=== PATIENT | female | born 1970 | race Caucasian/White ===

== ENCOUNTER → 2020-04-06 13:16 | Outpatient (BNVA) | payer OTHER, SELFPAY | PROVIDERS: Referring Provider Internal Medicine; Visit Provider Surgery | DX: Z76.89 Persons encountering health services in other specified circumstances (principal) ==

== ENCOUNTER 2020-04-13 13:00 | Outpatient (REF) | payer OTHER, SELFPAY ==
--- NOTE | 2020-04-13 13:08 | US_ITS ---
EXAMINATION: LOWER EXTREMITY VENOUS ULTRASOUND, BILATERAL CLINICAL INFORMATION: Edema COMPARISON: None. TECHNIQUE: Doppler spectral analysis and color flow Doppler imaging was performed of the lower extremity. Compression and augmentation maneuvers were performed. FINDINGS: The visualized bilateral common femoral, femoral, popliteal veins demonstrate normal compressibility and color fill-in without evidence of venous thrombosis. Visualized portions of the mid calf veins demonstrate normal color fill-in suggesting patency. ADDITIONAL FINDINGS: None. IMPRESSION: No evidence for bilateral lower extremity deep vein thrombosis.
[2020-04-13 15:23] LABS: B Type Natriuretic Peptide < 10 pg/mL (<100)
[2020-04-13 15:38] LABS: TSH reflex Free T4 2.43 mIU/mL (0.32-4.0)
== END 2020-04-13 13:01 | disposition home or self-care (01) ==
LOC: HO.HMGCX 13:00
PROVIDERS: PCP Internal Medicine; Visit Provider Nurse Practitioner Family
DX: N64.89 Other specified disorders of breast (principal); Z85.3 Personal history of malignant neoplasm of breast; Z92.3 Personal history of irradiation; R60.0 Localized edema
CPT/HCPCS: 11104; 83880; 84443; 88305; 88341; 88342; 88360; 93970

== ENCOUNTER → 2020-04-20 15:40 | Outpatient (BNVA) | payer OTHER, SELFPAY | PROVIDERS: PCP Internal Medicine; Visit Provider Surgery | DX: Z76.89 Persons encountering health services in other specified circumstances (principal) ==

== ENCOUNTER 2020-04-20 16:23 | Outpatient (REF) | payer OTHER, SELFPAY ==
[2020-04-20 17:15] LABS: Blood Urea Nitrogen 14 mg/dL (9-16); Estimated Glomerular Filt Rate > 60
== END 2020-04-20 16:24 | disposition home or self-care (01) ==
LOC: HO.LAB 16:23
PROVIDERS: PCP Internal Medicine; Visit Provider Surgery
DX: Z01.812 Encounter for preprocedural laboratory examination (principal); N64.9 Disorder of breast, unspecified; Z85.3 Personal history of malignant neoplasm of breast
CPT/HCPCS: 82565; 84520

== ENCOUNTER 2020-04-29 17:57 | Outpatient (REF) | payer OTHER, SELFPAY ==
--- NOTE | 2020-04-29 17:59 | MR_ITS ---
EXAMINATION: MR BREAST WITHOUT AND WITH CONTRAST, BILATERAL CLINICAL INFORMATION: Pain, burning, itching right breast. Personal history of right breast cancer. Recent benign ultrasound guided biopsy, retroareolar, 2 3:00. COMPARISON: Ultrasound biopsy 01/06/2020. Mammogram 12/31/2019. No previous breast MRI. TECHNIQUE: Imaging was performed with a dedicated breast coil. Prior to the administration of contrast, bilateral axial T1 and bilateral axial T2 weighted sequences were obtained. After the uneventful administration of?8.5 mL of Gadavist, dynamic contrast-enhanced VIBRANT series through the breasts in the axial plane were performed. Subtracted images were performed and reviewed. A delayed sagittal sequence through both breasts was acquired. Additionally, CAD post-processing, including maximum intensity projections, 3-D reconstructions and kinetic analysis, were performed an independent workstation and reviewed by the interpreting radiologist is a portion of this exam. FINDINGS: The patient's fibroglandular tissue demonstrates moderate background enhancement. LEFT BREAST: In the 4:00 position of the left breast, 5.7 cm from nipple, there is linear clumped enhancement measuring 1.1 cm anterior to posterior. This finding demonstrates type I and type II enhancement (image 85, series 100). There is no T2 correlate. There is no mammographic correlate. MRI guided biopsy of this finding is recommended. There is no other suspicious nonmasslike or masslike enhancement within the left breast. Review of the T2-weighted images demonstrates no additional findings. Review of the kinetic images demonstrates no additional suspicious findings. RIGHT BREAST: Within the dermal tissues of the anterior right breast immediately adjacent and involving the nipple which appears to be retracted, there is an irregular enhancing mass measuring 1.8 (transverse) by 0.7 (AP) by 1.1 (CC) CM (image 67, series 100). This finding is markedly asymmetric. Finding demonstrates type III enhancement. . The lesion appears to extend to the anterior skin surface and also posteriorly within the breast tissue itself (image 68, series 100). The imaging appearance is worrisome for malignancy. Based on the superficial location, this finding should be amenable to the skin punch biopsy targeted to the medial aspect of the right nipple, approximately the 3:00 position. There are multiple concerning areas of enhancement within the dermis of the medial skin of the anterior right breast. 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 The previous lumpectomy scar is demonstrated in the upper outer quadrant of the right breast. There is minimal enhancement associated with this area. There is asymmetric nonmasslike enhancement located at 6:00 which measures at least 4.5 cm anterior to posterior and to 3.5 cm in the transverse plane. This finding is very asymmetric compared to the contralateral left breast. The kinetics demonstrate type I enhancement. Recommend MRI guided biopsy for further evaluation. No other definite suspicious nonmasslike or masslike enhancement within the right breast There is no suspicious internal mammary chain or axillary adenopathy. Limited views of the chest and abdomen are unremarkable. MR/MR breast BI wo/w con IMPRESSION: 1. Suspicious enhancing mass mostly centered within the nipple areolar complex, medial aspect which should be amenable to skin punch biopsy. Additional areas of abnormal enhancement within the dermis of the skin of the medial right breast 3 days concern for inflammatory carcinoma. 2. Suspicious nonmasslike enhancement, right breast, 6:00. 3. Suspicious nonmasslike enhancement, left breast, 4:00. ASSESSMENT: LEFT BREAST: BI-RADS 4 - Suspicious abnormality - Biopsy should be considered. RIGHT BREAST: BI-RADS 4 - Suspicious abnormality - Biopsy should be considered. RECOMMENDATIONS: 1. Areas of nonmasslike enhancement would be amenable to MRI guided biopsy. These could be scheduled on the same day. 2. Recommend clinical correlation to the superficial abnormal findings within the right breast.
== END 2020-04-29 17:58 | disposition home or self-care (01) ==
LOC: HO.MRI 17:57
PROVIDERS: Visit Provider Surgery
DX: N64.9 Disorder of breast, unspecified (principal); Z85.3 Personal history of malignant neoplasm of breast
CPT/HCPCS: 77049; A9585

== ENCOUNTER 2020-05-05 16:15 | Emergency (ER) | payer OTHER, SELFPAY ==
[2020-05-05 16:20] VITALS: BP 134/72; BP 150/88; PULSE 68; PULSE 81; RESP 16; TEMP 36.7; O2SAT 98; O2SAT 99; BMI 35.1
--- NOTE | 2020-05-05 16:53 | XR_ITS ---
EXAMINATION: XR ABDOMEN KUB CLINICAL INDICATION: Fecal impaction COMPARISON: None TECHNIQUE: AP view of the abdomen. FINDINGS: The bowel gas pattern is normal with no evidence of ileus or obstruction. Gas and stool are present throughout the colon. The rectum is not particularly distended. No unusual soft tissue calcifications are noted. The bones are unremarkable aside from degenerative changes in the lower lumbosacral spine. XR/XR KUB IMPRESSION: Unremarkable examination. No radiographic evidence of fecal impaction.
--- NOTE | 2020-05-05 17:04 | ED.ABDPAIN ---
HPI - Abdominal Pain General Chief Complaint: Abdominal Pain Stated Complaint: abd pain Time Seen by Provider: 05/05/20 16:53 Source: patient Mode of arrival: ambulatory Limitations: no limitations History of Present Illness HPI narrative: patient does has right mastectomy 2 days ago for breast cancer discharged yesterday was constipated for last 2 days moved her bowel prior to arrival and noticed severe pain in the abdomen now she feeling better patient did have hard stools. No nausea no vomiting no fever MD elicited complaint: abdominal pain Pertinent past history: constipation Onset (ago): hour(s) (2) Pain Consistency: intermittent Location: diffuse Severity: moderate Quality: cramping Migration to: no migration Exacerbating factors: nothing Associated symptoms: denies other symptoms Related Data Home Medications Medication Instructions Recorded Confirmed levothyroxine 150 mcg tablet 300 mcg PO QAM 04/06/20 04/22/20 tamoxifen 20 mg tablet 20 mg PO DAILY 04/06/20 04/22/20 trazodone 50 mg tablet 50 mg PO BEDTIME PRN tab 04/21/20 04/22/20 Previous Rx's Medication Instructions Recorded triamcinolone acetonide 0.1 % 1 applic TOPICAL DAILY #15 g 04/06/20 topical cream meclizine 25 mg tablet 25 mg PO TID PRN #30 tab 04/14/20 furosemide 20 mg tablet 10 mg PO QAM PRN 30 Days #15 tab 04/21/20 docusate sodium [Colace] 200 mg PO DAILY #60 cap 05/05/20 polyethylene glycol 3350 [Miralax] 17 g PO DAILY PRN #238 g 05/05/20 Allergies Allergy/AdvReac Type Severity Reaction Status Date / Time No Known Allergies Allergy Verified 04/21/20 16:05 [No Known Allergies*] Review of Systems Review of Systems REVIEW OF SYSTEMS: Pertinent positives and negatives are stated above in the history. GEN: no fevers, chills, fatigue HEENT: no nasal congestion, sore throat, ear pain NEURO: no headache, dizziness, focal weakness PULM: no cough, shortness of breath CV: no chest pain, palpitations, LE edema ABD: no nausea, vomiting, diarrhea : no dysuria, urgency, frequency SKIN: no rash ROS otherwise negative x 10 Physical Exam Vital Signs: Vital Signs: Vital Signs Temp Pulse Resp BP Pulse Ox 05/05/20 16:20 98.0 F 81 16 150/88 H 99 Body Mass Index 35.1 Appearance: Alert. Oriented X3. No acute distress. Eyes: Pupils equal, round and reactive to light. ENT: Pharynx normal. Neck: Normal inspection. Neck supple. CVS: Normal heart rate and rhythm. Pulses normal. Respiratory: No respiratory distress. Breath sounds normal. status post right mastectomy with drain in place Abdomen: Soft and nontender. no palpable mass no rebound tenderness or guarding bowel sounds of normal Skin: Skin warm and dry. Normal skin color. Normal skin turgor. Extremities: No lower extremity edema. Good range of movement Neuro: Oriented X 3. No motor deficit. No sensory deficit. Course Course Course Narrative: feeling better now denies any significant abdominal pain took milk of magnesia will discharge patient home no signs of small-bowel obstruction Discharge Plan Discharge Clinical Impression: Constipation Qualifiers: Constipation type: drug induced constipation Qualified Code(s): K59.03 - Drug induced constipation Patient Disposition: Home, Self-Care Instructions: Constipation (ED) Additional Instructions: drink plenty of fluids , take medication for constipation daily as advised Prescriptions: New polyethylene glycol 3350 [Miralax] 17 gram/dose powder 17 g PO DAILY PRN (Reason: constipation) Qty: 238 RF: 0 docusate sodium [Colace] 100 mg capsule 200 mg PO DAILY Qty: 60 RF: 0 No Action meclizine 25 mg tablet 25 mg PO TID PRN (Reason: dizziness) Qty: 30 RF: 0 furosemide [Lasix] 20 mg tablet 10 mg PO QAM PRN (Reason: edema) 30 Days Qty: 15 RF: 0 tamoxifen 20 mg tablet 20 mg PO DAILY RF: 0 levothyroxine 150 mcg tablet 300 mcg PO QAM RF: 0 triamcinolone acetonide 0.1 % cream 1 applic topical DAILY Qty: 15 RF: 0 trazodone 50 mg tablet 50 mg PO BEDTIME PRN (Reason: insomnia) RF: 0 Interventions: ED Discharge Assessment Last Done: 05/05/20 18:26 Discharge Date/Time: 05/05/20 18:27 [facility] Past Medical History Medical History Elevated blood sugar History of right breast cancer Hypothyroid Sleep apnea Swelling of lower extremity Surgical History History of breast lump/mass excision History of lumpectomy of right breast History of lymph node excision History of tonsillectomy (~2014) Family History Family History Mother No problems noted. Father No problems noted. Paternal Aunt History of breast cancer Paternal Uncle History of Hodgkin's disease Social History Social History Alcohol intake: never Smoking Status: Never smoker Smoked in Last 30 Days: No Use of substances other than those prescribed or required for medical reasons: No Any prior treatment program specific to substance use: No Advance Directives: No Advance Directives Information Provided: Yes
[2020-05-05] MEDS: Milk of Magnesia 30 ML ORAL.SUSP PO (17:32)
== END 2020-05-05 18:27 | disposition home or self-care (01) ==
PROVIDERS: Emergency Provider Internal Medicine
DX: K59.03 Drug induced constipation (principal); R10.9 Unspecified abdominal pain; Z79.899 Other long term (current) drug therapy
CPT/HCPCS: 74018; 99283; 99284

== ENCOUNTER → 2020-05-07 11:08 | Outpatient (BNVA) | payer OTHER, SELFPAY | PROVIDERS: PCP Internal Medicine; Referring Provider Internal Medicine; Visit Provider Dietitian, Registered | DX: Z76.89 Persons encountering health services in other specified circumstances (principal) ==

== ENCOUNTER → 2020-05-11 11:47 | Outpatient (BNVA) | payer OTHER, SELFPAY | PROVIDERS: PCP Internal Medicine; Visit Provider Surgery | DX: Z76.89 Persons encountering health services in other specified circumstances (principal) ==

== ENCOUNTER 2020-06-10 12:12 | Outpatient (REF) | payer OTHER, SELFPAY ==
[2020-06-10 12:58] LABS: MANUAL DIFF FLAG NO
[2020-06-10 13:07] LABS: Basophils Percent Auto 0.5 % (0-2); Eosinophils Absolute Auto 0.2 X10*3/uL (0.0-0.4); Eosinophils Percent Auto 2.5 % (0-4); Hematocrit 38.9 % (37-47); Hemoglobin 12.9 g/dl (12.0-16.0); Imm Gran Abs Auto 0.03 X10*3/uL (0.00-0.03); Imm Gran Pct Auto 0.5 % (0.0-0.4); Lymphocytes Percent Auto 31.7 % (20-40); Mean Corpuscular HGB Conc 33.2 g/dl (31.0-35.0); Mean Corpuscular Hemoglobin 30.1 pg (27.0-33.0); Mean Corpuscular Volume 90.7 fL (80-98); Mean Platelet Volume 12.3 fL (9.4-12.3); Monocytes Absolute Auto 0.6 X10*3/uL (0.1-1.2); Monocytes Percent Auto 9.3 % (2-11); Neutrophils Absolute Auto 3.5 X10*3/uL (2.0-8.3); Neutrophils Percent Auto 55.5 % (45-73); Platelet Count 182 X10*3/uL (160-400); Red Blood Count 4.29 X10*6/uL (4.20-5.50); Red Cell Distribution Width 11.8 % (11.0-16.0); White Blood Count 6.4 X10*3/uL (4.8-10.8)
[2020-06-10 13:40] LABS: Anion Gap 15 (12-20); Blood Urea Nitrogen 14 mg/dL (9-16); Calcium 9.5 mg/dL (8.4-10.2); Carbon Dioxide 25 mmol/L (22-29); Chloride 104 mmol/L (96-108); Estimated Glomerular Filt Rate > 60; Glucose Random 163 mg/dL (60-115); Potassium 4.7 mmol/l (3.3-5.1); Sodium 139 mmol/L (135-145)
[2020-06-10 13:59] LABS: TSH reflex Free T4 1.08 mIU/mL (0.32-4.0)
== END 2020-06-10 12:13 | disposition home or self-care (01) ==
LOC: HO.LAB 12:12
PROVIDERS: PCP Internal Medicine; Visit Provider Internal Medicine
DX: C50.911 Malignant neoplasm of unspecified site of right female breast (principal); E03.9 Hypothyroidism, unspecified; R73.9 Hyperglycemia, unspecified
CPT/HCPCS: 36415; 80048; 84443; 85025

== ENCOUNTER 2020-06-15 08:00 | Outpatient (RCR) | payer OTHER, SELFPAY | END 2020-07-19 11:43 | disposition other institution (70) | LOC: HO.PT 08:00 | PROVIDERS: Visit Provider Physician Assistant Medical | DX: Z48.89 Encounter for other specified surgical aftercare (principal); C50.911 Malignant neoplasm of unspecified site of right female breast; Z90.11 Acquired absence of right breast and nipple | CPT/HCPCS: 97110; 97112; 97140; 97163 ==

== ENCOUNTER → 2020-07-16 11:10 | Outpatient (BNVA) | payer OTHER, SELFPAY | PROVIDERS: PCP Internal Medicine; Visit Provider Dietitian, Registered | DX: Z76.89 Persons encountering health services in other specified circumstances (principal) ==

== ENCOUNTER → 2020-08-10 10:11 | Outpatient (BNVA) | payer OTHER, SELFPAY | PROVIDERS: PCP Internal Medicine; Visit Provider Psychiatry & Neurology Neurology ==

== ENCOUNTER 2020-09-14 15:16 | Outpatient (REF) | payer OTHER, SELFPAY ==
--- NOTE | ~2020-09-14 | XR_ITS ---
EXAMINATION: XR KNEE, RIGHT CLINICAL INFORMATION: Pain right knee COMPARISON: Radiographs right knee 10/17/2018 TECHNIQUE: Four views of the right knee. FINDINGS: There is no acute or healing fracture, dislocation, destructive process. Again, there is tricompartment osteoarthritis with mild genu varus and marginal osteophytes from the patella and femoral condyles and tibial plateau. There is small suprapatellar effusion again seen. No interval erosive change. XR/XR knee RT 4V IMPRESSION: Tricompartment osteoarthritis with mild genu varus and small suprapatellar effusion.
== END 2020-09-14 15:17 | disposition home or self-care (01) ==
LOC: HO.HMGCX 15:16
PROVIDERS: PCP Internal Medicine; Visit Provider Internal Medicine
DX: M25.561 Pain in right knee (principal)
CPT/HCPCS: 73564

== ENCOUNTER 2020-09-20 13:05 | Outpatient (REF) | payer OTHER, SELFPAY ==
[2020-09-20 14:44] LABS: Alanine Aminotransferase 56 U/L (0-31); Albumin Level 4.6 g/dL (3.5-5.0); Alkaline Phosphatase 99 U/L (39-117); Anion Gap 16 (12-20); Aspartate Amino Transferase 27 U/L (5-31); Bilirubin Total 0.5 mg/dL (0.0-1.0); Blood Urea Nitrogen 13 mg/dL (9-16); Calcium 10.2 mg/dL (8.4-10.2); Carbon Dioxide 26 mmol/L (22-29); Chloride 102 mmol/L (96-108); Estimated Glomerular Filt Rate > 60; Glucose Random 229 mg/dL (60-115); Potassium 4.8 mmol/L (3.3-5.1); Sodium 139 mmol/L (135-145); Total Protein 7.4 g/dL (6.5-8.0)
[2020-09-20 14:55] LABS: TSH reflex Free T4 0.01 uIU/mL (0.32-4.0)
[2020-09-20 15:46] LABS: Free T4 (Free Thyroxine) 1.47 ng/dL (0.71-1.85)
== END 2020-09-20 13:06 | disposition home or self-care (01) ==
LOC: HO.LAB 13:05
PROVIDERS: PCP Internal Medicine; Visit Provider Internal Medicine
DX: E03.9 Hypothyroidism, unspecified (principal); M79.89 Other specified soft tissue disorders; G47.9 Sleep disorder, unspecified
CPT/HCPCS: 36415; 80053; 84439; 84443

== ENCOUNTER 2020-10-12 10:39 | Outpatient (REF) | payer MEDICAID, SELFPAY ==
--- NOTE | ~2020-10-12 | XR_ITS ---
EXAMINATION: KNEE X-RAY CLINICAL INFORMATION: Pain COMPARISON: Previous right knee x-ray August 2020 and left knee x-ray September 2018 TECHNIQUE: Standing AP view of both knees and lateral and sunrise view of the left knee FINDINGS: Left knee: There is mild varus angulation. Bone alignment is otherwise normal. No fracture or dislocation is seen. There is arthritis at the patellofemoral and femoral tibial joints with joint space narrowing and small osteophytes. There is no joint effusion. Standing AP view of the right knee demonstrates varus angulation and medial femoral tibial joint space narrowing. XR/XR knee standing BI IMPRESSION: Bilateral varus angulation and arthritis.
--- NOTE | ~2020-10-12 | XR_ITS ---
EXAMINATION: KNEE X-RAY CLINICAL INFORMATION: Pain COMPARISON: Previous right knee x-ray August 2020 and left knee x-ray September 2018 TECHNIQUE: Standing AP view of both knees and lateral and sunrise view of the left knee FINDINGS: Left knee: There is mild varus angulation. Bone alignment is otherwise normal. No fracture or dislocation is seen. There is arthritis at the patellofemoral and femoral tibial joints with joint space narrowing and small osteophytes. There is no joint effusion. Standing AP view of the right knee demonstrates varus angulation and medial femoral tibial joint space narrowing. XR/XR knee LT 2V IMPRESSION: Bilateral varus angulation and arthritis.
== END 2020-10-12 10:40 | disposition home or self-care (01) ==
LOC: HO.HOSX 10:39
PROVIDERS: PCP Internal Medicine; Visit Provider Orthopaedic Surgery
DX: M17.0 Bilateral primary osteoarthritis of knee (principal)
CPT/HCPCS: 73560; 73565; 99212

== ENCOUNTER → 2020-10-15 10:28 | Outpatient (BNVA) | payer MEDICAID, SELFPAY | PROVIDERS: PCP Internal Medicine; Visit Provider Dietitian, Registered | DX: R73.9 Hyperglycemia, unspecified (principal) | CPT/HCPCS: 97803 ==

== ENCOUNTER 2020-10-20 14:22 | Outpatient (REF) | payer MEDICAID, SELFPAY ==
--- NOTE | ~2020-10-20 | US_ITS ---
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 MR breasts April 2020 also noted 11 mm linear enhancement 4:00 left breast for MR-guided biopsy. Left breast biopsy not performed to date. Assess left breast for ultrasound correlate. COMPARISON: MRI bilateral breasts 04/29/2020, bilateral digital breast tomosynthesis 12/31/2019. TECHNIQUE: Ultrasound left breast is targeted to the outer breast using grayscale imaging and color Doppler without and with harmonics. Case discussed with surgical office ([facility]) prior to imaging to confirm imaging plans for today. FINDINGS: There is no focal suspicious finding. There is no solid mass, architectural abnormality, duct ectasia, or edema in the soft tissue planes. There is a tiny cyst 4:00 position only 0.2 cm. No ultrasound correlate for the linear enhancement left breast noted on MRI 2019. Results are discussed with the patient at time of visit. Patient notes [place] [facility] [place]. Patient also due for annual left mammography. The prior MR guided left breast biopsy recommendation discussed. If MR guided biopsy is not contemplated, then follow-up MR imaging would be helpful to reassess the lesion for change. US/US breast LT limited IMPRESSION: Targeted left breast ultrasound unremarkable. No ultrasound correlate for left breast linear enhancement on MR. ASSESSMENT: BI-RADS 2: Benign RECOMMENDATION: Patient will be due for annual left mammography. This could be performed as a diagnostic exam as it has been almost 6 months since the left breast MR guided biopsy recommendation. This patient's information was entered into a reminder system with a target due date for their next mammogram.
== END 2020-10-20 14:23 | disposition home or self-care (01) ==
LOC: HO.MAMMO 14:22
PROVIDERS: Visit Provider Surgery
DX: N64.9 Disorder of breast, unspecified (principal); R92.8 Other abnormal and inconclusive findings on diagnostic imaging of breast; C50.811 Malignant neoplasm of overlapping sites of right female breast; Z90.11 Acquired absence of right breast and nipple
CPT/HCPCS: 76642

== ENCOUNTER → 2020-11-04 12:57 | Outpatient (BNVA) | payer MEDICAID, SELFPAY | PROVIDERS: PCP Internal Medicine; Visit Provider Surgery | DX: R92.8 Other abnormal and inconclusive findings on diagnostic imaging of breast (principal); C50.911 Malignant neoplasm of unspecified site of right female breast; Z92.3 Personal history of irradiation; Z79.810 Long term (current) use of selective estrogen receptor modulators (SERMs) | CPT/HCPCS: 99212 ==

== ENCOUNTER → 2020-12-02 11:15 | Outpatient (REF) | payer MEDICAID, SELFPAY | LOC: HO.NUCMED 11:15 | PROVIDERS: Visit Provider Surgery | DX: Z13.89 Encounter for screening for other disorder (principal) ==

== ENCOUNTER → 2020-12-09 11:01 | Outpatient (REF) | payer MEDICAID, SELFPAY ==
--- NOTE | ~2020-12-09 | NM_ITS ---
EXAMINATION: NM BONE SCAN OF THE WHOLE BODY CLINICAL INFORMATION: Malignant neoplasm of unspecified site of right female breast. Also history of angiosarcoma. COMPARISON: No previous bone scan is available for comparison. Radiographs of the bilateral knees dated 10/12/2020 TECHNIQUE: Multiple gamma scintillation camera images of the whole body were performed 2.75 hours following the intravenous administration of 28 mCi Tc-99m MDP. FINDINGS: In the head, no significant abnormalities are present. In the thoracic cage and upper extremities, there is minimally increased activity in the acromioclavicular and sternoclavicular joints bilaterally and at the costochondral junction of the right first rib. In the spine, there is minimally increased activity in the left side of the lumbosacral junction. In the pelvis, no significant abnormalities are present. In the lower extremities, there is diffusely increased activity in both knees most prominently in the medial compartment on the right, but the medial, lateral, and patellar compartments are involved bilaterally. There is minimally increased activity in the ankles bilaterally. No other definite bony abnormalities are noted. The urinary bladder and faint visualization of both kidneys are noted. NM/NM bone scan whole body IMPRESSION: A few mild nonspecific abnormalities are noted as described above and these are all likely arthritic or traumatic in etiology. The most severe abnormalities are bilaterally in the knees. None of these abnormalities is strongly suspicious for metastatic disease.
== END ==
LOC: HO.NUCMED 11:01
PROVIDERS: Visit Provider Surgery
DX: C50.911 Malignant neoplasm of unspecified site of right female breast (principal)
CPT/HCPCS: 78306; A9503

== ENCOUNTER → 2020-12-15 13:41 | Outpatient (BNVA) | payer SELFPAY | PROVIDERS: PCP Nurse Practitioner Family; Referring Provider Nurse Practitioner Family; Visit Provider Surgery | DX: C50.911 Malignant neoplasm of unspecified site of right female breast (principal) | CPT/HCPCS: 99212 ==

== ENCOUNTER → 2020-12-20 11:03 | Outpatient (BNVA) | payer MEDICAID, SELFPAY | PROVIDERS: PCP Nurse Practitioner Family; Visit Provider Dietitian, Registered | DX: R73.9 Hyperglycemia, unspecified (principal) | CPT/HCPCS: 97803 ==

== ENCOUNTER 2021-01-07 13:27 | Outpatient (REF) | payer MEDICAID, SELFPAY ==
--- NOTE | ~2021-01-07 | MM_ITS ---
EXAMINATION: MM DIAGNOSTIC DIGITAL BREAST TOMOSYNTHESIS, LEFT CLINICAL INFORMATION: Status post right mastectomy with history of angiosarcoma. MRI abnormality for which left breast MRI guided biopsy was recommended. COMPARISON: Mammography: January 06, 2020 and studies dating back to December 19, 2011 TECHNIQUE: Digital breast tomosynthesis is performed in both the craniocaudal and mediolateral oblique views along with computer-aided detection (CAD). Synthesized 2D images are generated from the tomosynthesis. FINDINGS: The breasts are heterogeneously dense, which may obscure small masses (ACR BI-RADS breast composition Category c). There are no new significant masses, abnormal calcifications, or other abnormalities. Stable region of architectural distortion from previous lumpectomy seen in the inferior medial aspect of the left breast. Results are provided to the patient at time of visit by the technologist. MM/MM tomosynthesis diagnostic LT IMPRESSION: There are no significant changes from prior study. Recommend 12 month diagnostic mammogram. ASSESSMENT: BI-RADS 3: Probably Benign RECOMMENDATION: Diagnostic mammography at time of next annual exam, due in 12 months. This patient's information was entered into a reminder system with a target due date for their next mammogram.
== END 2021-01-07 13:28 | disposition home or self-care (01) ==
LOC: HO.MAMMO 13:27
PROVIDERS: Visit Provider Surgery
DX: R92.8 Other abnormal and inconclusive findings on diagnostic imaging of breast (principal)
CPT/HCPCS: 77061; 77065

== ENCOUNTER 2021-01-14 17:03 | Emergency (ER) | payer MEDICAID, SELFPAY ==
--- NOTE | ~2021-01-14 | XR_ITS ---
EXAMINATION: XR CHEST CLINICAL INFORMATION: Weakness COMPARISON: Chest x-ray September 24, 2009 TECHNIQUE: Frontal view of the chest was obtained. 6:22 PM FINDINGS: No significant abnormality is noted involving the heart, lungs, mediastinum, bony thorax or soft tissues. XR/XR chest 1V IMPRESSION: Unremarkable examination.
[2021-01-14 18:01] VITALS: BP 113/76; PULSE 73; RESP 18; TEMP 37.1; O2SAT 98; BMI 34.3
[2021-01-14 18:58] LABS: MANUAL DIFF FLAG NO
[2021-01-14 19:00] LABS: Basophils Absolute Auto 0.1 X10*3/uL (0.0-0.2); Basophils Percent Auto 0.9 % (0-2); Eosinophils Absolute Auto 0.3 X10*3/uL (0.0-0.4); Eosinophils Percent Auto 3.5 % (0-4); Hematocrit 41.1 % (37-47); Hemoglobin 13.4 g/dl (12.0-16.0); Imm Gran Abs Auto 0.05 X10*3/uL (0.00-0.03); Imm Gran Pct Auto 0.6 % (0.0-0.4); Lymphocytes Absolute Auto 2.6 X10*3/uL (1.2-4.9); Lymphocytes Percent Auto 32.2 % (20-40); Mean Corpuscular HGB Conc 32.6 g/dl (31.0-35.0); Mean Corpuscular Hemoglobin 30.6 pg (27.0-33.0); Mean Corpuscular Volume 93.8 fL (80-98); Mean Platelet Volume 11.6 fL (9.4-12.3); Monocytes Absolute Auto 0.5 X10*3/uL (0.1-1.2); Monocytes Percent Auto 5.9 % (2-11); Neutrophils Absolute Auto 4.5 X10*3/uL (2.0-8.3); Neutrophils Percent Auto 56.9 % (45-73); Platelet Count 221 X10*3/uL (160-400); Red Blood Count 4.38 X10*6/uL (4.20-5.50); Red Cell Distribution Width 13.4 % (11.0-16.0)
[2021-01-14 19:24] LABS: Anion Gap 16 (12-20); Blood Urea Nitrogen 15 mg/dL (9-16); Calcium 10.1 mg/dL (8.4-10.2); Carbon Dioxide 26 mmol/L (22-29); Chloride 103 mmol/L (96-108); Creatinine Clr Calc Pharmacy 64.1; Estimated Glomerular Filt Rate > 60; Glucose Random 147 mg/dL (60-115); Potassium 4.7 mmol/L (3.3-5.1); Sodium 140 mmol/L (135-145)
[2021-01-14 19:31] LABS: Troponin-I High Sensitivity < 3.5 ng/L (<3.5-17.0)
[2021-01-14 20:01] LABS: Alanine Aminotransferase 38 U/L (0-31); Albumin Level 4.6 g/dL (3.5-5.0); Alkaline Phosphatase 90 U/L (39-117); Aspartate Amino Transferase 23 U/L (5-31); Bilirubin Direct < 0.2 mg/dL (0.0-0.5); Bilirubin Total 0.4 mg/dL (0.0-1.0); Lipase 56 U/L (8-78); Total Protein 7.7 g/dL (6.5-8.0)
--- NOTE | 2021-01-14 20:01 | ED_ITS ---
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 recently diagnosed with diabetes not on any medication comes here with feeling weak shortness of breath, tiredness denies any urinary complaints Related Data Home Medications Medication Instructions Recorded Confirmed tamoxifen 20 mg tablet 20 mg PO DAILY 04/06/20 12/15/20 meloxicam PO DAILY 06/01/20 12/15/20 gabapentin 400 mg capsule 400 mg PO BID 09/14/20 12/15/20 clonazepam 1 mg tablet 1 mg PO BEDTIME 11/04/20 12/15/20 Previous Rx's Medication Instructions Recorded triamcinolone acetonide 0.1 % 1 applic TOPICAL DAILY #15 g 04/06/20 topical cream meclizine 25 mg tablet 25 mg PO TID PRN #30 tab 04/14/20 docusate sodium [Colace] 200 mg PO DAILY #60 cap 05/05/20 polyethylene glycol 3350 [Miralax] 17 g PO DAILY PRN #238 g 05/05/20 furosemide 20 mg tablet 20 mg PO QAM PRN 30 Days #30 tab 11/08/20 trazodone 50 mg tablet 50 mg PO BEDTIME PRN 90 Days #90 12/13/20 tab levothyroxine 200 mcg tablet 200 mcg PO DAILY 90 Days #90 tab 12/21/20 venlafaxine 37.5 mg 37.5 mg PO DAILY 90 Days #90 cap 12/21/20 capsule,extended release 24 hr nitrofurantoin monohyd/m-cryst 100 mg PO BID 7 Days #14 cap 01/14/21 [Macrobid] Allergies Allergy/AdvReac Type Severity Reaction Status Date / Time No Known Allergies Allergy Verified 01/14/21 18:01 [No Known Allergies*] Review of Systems Review of Systems: Yes all other systems are reviewed and are negative PMFSH Past Medical History Medical History Angiosarcoma of right female breast Diabetes Elevated blood sugar History of right breast cancer Hypothyroid Sleep apnea Swelling of lower extremity Surgical History History of breast lump/mass excision History of lumpectomy of right breast History of lymph node excision History of tonsillectomy (~2014) Family History Family History Mother No problems noted. Father No problems noted. Paternal Aunt History of breast cancer Paternal Uncle History of Hodgkin's disease Social History Social History Alcohol intake: never Advance Directives: No Advance Directives Information Provided: No Patient : No Physical Exam Vital Signs: Vital Signs: Last Vital Signs Temp 98.2 F 01/14/21 20:49 Pulse 63 01/14/21 20:49 Resp 16 01/14/21 20:49 BP 121/68 01/14/21 20:49 Pulse Ox 97 01/14/21 20:49 Body Mass Index 34.3 Appearance: Alert. Oriented X3. No acute distress. Eyes: PERRLA, No Nystagmus ENT: Pharynx normal. Oral Mucosa moist Neck: Normal inspection. Neck supple. CVS: Normal heart rate and rhythm. Pulses normal. Respiratory: No respiratory distress. Equal air entry bilateral, no wheezin g/rales/rhonchi right status post mastectomy Abdomen: Soft and nontender. Bowel sounds are present, no mass palpable, no CVA tenderness Skin: Skin warm and dry. Normal skin color. Normal skin turgor. Extremities: No lower extremity edema. No calf tenderness Neuro: Oriented X 3. No motor deficit. Medical Decision Making [facility] Narrative Medical decision making narrative: Patient with multiple complaints with weakness and chills showed slight UTI with normal WBC count likely the cause for his symptoms will discharge patient home on Macrobid Lab Data Lab results reviewed: Yes I reviewed the patient's lab results. Result diagrams: 01/14/21 18:45 01/14/21 18:45 Labs: Lab Results 01/14/21 01/14/21 01/14/21 Range/Units 18:45 18:45 18:45 WBC 8.0 (4.8-10.8) X10*3/uL RBC 4.38 (4.20-5.50) X10*6/uL Hgb 13.4 (12.0-16.0) g/dl Hct 41.1 (37-47) % MCV 93.8 (80-98) fL MCH 30.6 (27.0-33.0) pg MCHC 32.6 (31.0-35.0) g/dl RDW 13.4 (11.0-16.0) % Plt Count 221 (160-400) X10*3/uL MPV 11.6 (9.4-12.3) fL Immature Gran % (Auto) 0.6 H (0.0-0.4) % Neut % (Auto) 56.9 (45-73) % Lymph % (Auto) 32.2 (20-40) % [place] % (Auto) 5.9 (2-11) % Eos % (Auto) 3.5 (0-4) % Baso % (Auto) 0.9 (0-2) % Lymph # (Auto) 2.6 (1.2-4.9) X10*3/uL [place] # (Auto) 0.5 (0.1-1.2) X10*3/uL Eos # (Auto) 0.3 (0.0-0.4) X10*3/uL Baso # (Auto) 0.1 (0.0-0.2) X10*3/uL Abs Immat Gran (auto) 0.05 H (0.00-0.03) X10*3/uL Absolute Neuts (auto) 4.5 (2.0-8.3) X10*3/uL Absolute Nucleated RBC 0.000 (0.0-0.012) X10*3/uL Nucleated RBC % (auto) 0.0 (0.0-0.2) /100WBC Sodium 140 (135-145) mmol/L Potassium 4.7 (3.3-5.1) mmol/L Chloride 103 (96-108) mmol/L Carbon Dioxide 26 (22-29) mmol/L Anion Gap 16 (12-20) BUN 15 (9-16) mg/dL Creatinine 0.96 (0.5-1.4) mg/dL Estim Creat Clear Calc 64.1 Estimated GFR > 60 Random Glucose 147 H D (60-115) mg/dL Calcium 10.1 (8.4-10.2) mg/dL Total Bilirubin 0.4 (0.0-1.0) mg/dL Direct Bilirubin < 0.2 (0.0-0.5) mg/dL AST 23 (5-31) U/L ALT 38 H (0-31) U/L Alkaline Phosphatase 90 (39-117) U/L Troponin I High Sens < 3.5 (<3.5-17.0) ng/L Total Protein 7.7 (6.5-8.0) g/dL Albumin 4.6 (3.5-5.0) g/dL Lipase 56 (8-78) U/L TSH > 100.00 H (0.32-4.0) uIU/mL Urine Color Urine Appearance Urine pH (5.0-8.0) Ur Specific [place] (1.005-1.025) Urine Protein (NEG-TRACE) MG/DL Urine Glucose (UA) (NEG) MG/DL Urine Ketones (NEG) MG/DL Urine Blood (NEG) Urine Nitrite (NEG) Ur Leukocyte Esterase (NEG) Urine RBC (0) /HPF Urine WBC (0-4) /HPF Ur Squamous Epith Cells /LPF Urine Bacteria /LPF Urine Mucus /LPF 01/14/21 Range/Units 20:37 WBC (4.8-10.8) X10*3/uL RBC (4.20-5.50) X10*6/uL Hgb (12.0-16.0) g/dl Hct (37-47) % MCV (80-98) fL MCH (27.0-33.0) pg MCHC (31.0-35.0) g/dl RDW (11.0-16.0) % Plt Count (160-400) X10*3/uL MPV (9.4-12.3) fL Immature Gran % (Auto) (0.0-0.4) % Neut % (Auto) (45-73) % Lymph % (Auto) (20-40) % [place] % (Auto) (2-11) % Eos % (Auto) (0-4) % Baso % (Auto) (0-2) % Lymph # (Auto) (1.2-4.9) X10*3/uL [place] # (Auto) (0.1-1.2) X10*3/uL Eos # (Auto) (0.0-0.4) X10*3/uL Baso # (Auto) (0.0-0.2) X10*3/uL Abs Immat Gran (auto) (0.00-0.03) X10*3/uL Absolute Neuts (auto) (2.0-8.3) X10*3/uL Absolute Nucleated RBC (0.0-0.012) X10*3/uL Nucleated RBC % (auto) (0.0-0.2) /100WBC Sodium (135-145) mmol/L Potassium (3.3-5.1) mmol/L Chloride (96-108) mmol/L Carbon Dioxide (22-29) mmol/L Anion Gap (12-20) BUN (9-16) mg/dL Creatinine (0.5-1.4) mg/dL Estim Creat Clear Calc Estimated GFR Random Glucose (60-115) mg/dL Calcium (8.4-10.2) mg/dL Total Bilirubin (0.0-1.0) mg/dL Direct Bilirubin (0.0-0.5) mg/dL AST (5-31) U/L ALT (0-31) U/L Alkaline Phosphatase (39-117) U/L Troponin I High Sens (<3.5-17.0) ng/L Total Protein (6.5-8.0) g/dL Albumin (3.5-5.0) g/dL Lipase (8-78) U/L TSH (0.32-4.0) uIU/mL Urine Color YELLOW Urine Appearance HAZY Urine pH 5.5 (5.0-8.0) Ur Specific [place] >= 1.030 H (1.005-1.025) Urine Protein NEG (NEG-TRACE) MG/DL Urine Glucose (UA) NEG (NEG) MG/DL Urine Ketones NEG (NEG) MG/DL Urine Blood NEG (NEG) Urine Nitrite NEG (NEG) Ur Leukocyte Esterase 2+ H (NEG) Urine RBC 0-2 (0) /HPF Urine WBC 10-14 H (0-4) /HPF Ur Squamous Epith Cells 2+ /LPF Urine Bacteria TRACE /LPF Urine Mucus TRACE /LPF Discharge Plan Discharge Clinical Impression: UTI (urinary tract infection) Patient Disposition: Home, Self-Care Instructions: Urinary Tract Infection in Women (ED) Additional Instructions: Drink plenty of fluids antibiotic for infection as prescribed follow-up with your PCP report to ed if vomiting /fever/not better Prescriptions: New nitrofurantoin monohyd/m-cryst [Macrobid] 100 mg capsule 100 mg PO BID 7 Days Qty: 14 RF: 0 No Action furosemide 20 mg tablet 20 mg PO QAM PRN (Reason: edema) 30 Days Qty: 30 RF: 1 trazodone 50 mg tablet 50 mg PO BEDTIME PRN (Reason: insomnia) 90 Days Qty: 90 RF: 0 venlafaxine 37.5 mg capsule,extended release 24hr 37.5 mg PO DAILY 90 Days Qty: 90 RF: 0 levothyroxine 200 mcg tablet 200 mcg PO DAILY 90 Days Qty: 90 RF: 0 polyethylene glycol 3350 [Miralax] 17 gram/dose powder 17 g PO DAILY PRN (Reason: constipation) Qty: 238 RF: 0 docusate sodium [Colace] 100 mg capsule 200 mg PO DAILY Qty: 60 RF: 0 meloxicam PO DAILY RF: 0 gabapentin 400 mg capsule 400 mg PO BID RF: 0 meclizine 25 mg tablet 25 mg PO TID PRN (Reason: dizziness) Qty: 30 RF: 0 tamoxifen 20 mg tablet 20 mg PO DAILY RF: 0 triamcinolone acetonide 0.1 % cream 1 applic topical DAILY Qty: 15 RF: 0 clonazepam [Klonopin] 1 mg tablet 1 mg PO BEDTIME RF: 0 Interventions: ED Discharge Assessment Last Done: 01/14/21 21:31 Discharge Date/Time: 01/14/21 21:32
[2021-01-14 20:40] VITALS: BP 115/61; PULSE 67; RESP 18; TEMP 36.6; O2SAT 98
[2021-01-14 20:43] LABS: Glucose Urine UA NEG (NEG); Leukocyte Esterase Urine 2+ (NEG); Nitrite Urine NEG (NEG); PH 5.5 (5.0-8.0); Specific Gravity - Urine >= 1.030 (1.005-1.025); UACC Culture Trigger YES; Urine Blood NEG (NEG); Urine Ketones NEG (NEG); Urine Protein NEG (NEG-TRACE)
[2021-01-14 20:49] VITALS: BP 121/68; PULSE 63; RESP 16; TEMP 36.8; O2SAT 97
[2021-01-14 20:50] LABS: Appearance Urine HAZY; Color Urine YELLOW
[2021-01-14 20:53] LABS: Bacteria Urine TRACE /LPF; Mucus Urine TRACE /LPF; RBC Urine 0-2 /HPF (0); Squamous Epithelial Cell Urine 2+ /LPF
[2021-01-14 21:22] LABS: Thyroid Stimulating Hormone > 100.00 uIU/mL (0.32-4.0)
[2021-01-14] MEDS: Nitrofurantoin Monohyd/M-Cryst 100 MG CAPSULE PO (21:30)
== END 2021-01-14 21:32 | disposition home or self-care (01) ==
PROVIDERS: Emergency Provider Internal Medicine; PCP Nurse Practitioner Family
DX: N39.0 Urinary tract infection, site not specified (principal); E11.9 Type 2 diabetes mellitus without complications; E03.9 Hypothyroidism, unspecified; Z79.899 Other long term (current) drug therapy
CPT/HCPCS: 36415; 71045; 80048; 80076; 81001; 81003; 83690; 84443; 84484; 85025; 87086; 99284

== ENCOUNTER → 2021-01-31 11:13 | Outpatient (BNVA) | payer MEDICAID, SELFPAY | PROVIDERS: PCP Internal Medicine; Referring Provider Nurse Practitioner Family; Visit Provider Internal Medicine Gastroenterology | DX: K59.09 Other constipation (principal); I88.0 Nonspecific mesenteric lymphadenitis | CPT/HCPCS: 99212 ==

== ENCOUNTER 2021-02-16 17:00 | Outpatient (RCR) | payer MEDICAID, SELFPAY | END 2021-03-15 08:00 | disposition home or self-care (01) | LOC: HO.PT 17:00 | PROVIDERS: PCP Internal Medicine; Visit Provider Surgery Plastic and Reconstructive Surgery | DX: M25.611 Stiffness of right shoulder, not elsewhere classified (principal) | CPT/HCPCS: 97110; 97112; 97140; 97163; 97530 ==

== ENCOUNTER → 2021-04-21 15:34 | Outpatient (BNVA) | payer MEDICAID, SELFPAY | PROVIDERS: Visit Provider Internal Medicine Gastroenterology ==

== ENCOUNTER → 2021-08-24 13:13 | Outpatient (BNVA) | payer MEDICAID, SELFPAY | PROVIDERS: PCP Nurse Practitioner; Referring Provider Nurse Practitioner; Visit Provider Surgery | DX: C50.911 Malignant neoplasm of unspecified site of right female breast (principal) | CPT/HCPCS: 99212 ==

== ENCOUNTER → 2021-08-25 11:59 | Outpatient (BNVA) | payer MEDICAID, SELFPAY | PROVIDERS: PCP Nurse Practitioner; Referring Provider Nurse Practitioner; Visit Provider Internal Medicine Gastroenterology | DX: K59.09 Other constipation (principal); K92.1 Melena; I88.0 Nonspecific mesenteric lymphadenitis; Z86.010 Personal history of colon polyps | CPT/HCPCS: 99212 ==

== ENCOUNTER 2021-10-20 08:14 | Outpatient (REF) | payer MEDICAID, SELFPAY ==
--- NOTE | ~2021-10-20 | MM_ITS ---
EXAMINATION: MM DIAGNOSTIC DIGITAL BREAST TOMOSYNTHESIS, LEFT US DIAGNOSTIC ULTRASOUND BREAST, LEFT CLINICAL INFORMATION: Global left breast pain. Personal history contralateral right breast angiosarcoma status post mastectomy, performed in [place]. COMPARISON: Mammography: 01/07/2021, 12/31/2019, 05/30/2019 TECHNIQUE: Digital breast tomosynthesis is performed in both the craniocaudal and mediolateral oblique views along with computer-aided detection (CAD). Synthesized 2D images are generated from the tomosynthesis. Ultrasound left breast is targeted to all 4 quadrants and the axilla. Grayscale imaging and color Doppler are performed without and with harmonics. FINDINGS: Mammography: There are scattered areas of fibroglandular density (ACR BI-RADS breast composition Category b). Breast tissue composition borders on heterogeneously dense. Breast parenchymal pattern is similar to prior studies. There is no significant mass or architectural abnormality or abnormal calcifications. No skin thickening or retraction. No coarsening Kris's ligaments. Axilla is unremarkable. Ultrasound: Ultrasound left breast demonstrates no solid mass or architectural abnormality. No adenopathy. No skin thickening or edema tracking in soft tissue planes. No focal duct ectasia. There are two small grouped avascular microcysts lower outer left breast both under 1 cm. Results are discussed with the patient at time of visit. MM/MM tomosynthesis diagnostic LT IMPRESSION: -No mammographic evidence of malignancy. -2 small grouped microcysts lower outer left breast under 1 cm. ASSESSMENT: BI-RADS 2: Benign RECOMMENDATION: 1. Patient's global left breast pain should be managed based on the clinical impression. 2. Otherwise, routine annual screening mammography. This patient's information was entered into a reminder system with a target due date for their next mammogram.
== END 2021-10-20 08:15 | disposition home or self-care (01) ==
LOC: HO.MAMMO 08:14
PROVIDERS: Visit Provider Registered Nurse
DX: N64.4 Mastodynia (principal); Z85.3 Personal history of malignant neoplasm of breast
CPT/HCPCS: 76642; 77061; 77065

== ENCOUNTER 2022-01-26 13:02 | Outpatient (REF) | payer MEDICAID, SELFPAY ==
--- NOTE | ~2022-01-26 | MM_ITS ---
EXAMINATION: BONE DENSITOMETRY CLINICAL INDICATION: Osteopenia. COMPARISON: None (current study represents initial baseline exam). TECHNIQUE: Using a [employer] DXA System (software version: 13.1) manufactured by [employer], dual-energy x-ray absorptiometry was performed of the lumbar spine and left hip. The images are of good technical quality. Summary results are attached. FINDINGS: AP SPINE L1-L4: BMD 0.987 g/cm2, Z-score -1.3, T-score -1.6, osteopenia. LEFT FEMUR, NECK: BMD 0.806 g/cm2, Z-score -1.0, T-score -1.7, osteopenia. LEFT FEMUR, TOTAL: BMD 0.875 g/cm2, Z-score -0.8, T-score -1.1, osteopenia. IDENTIFIED RISK FACTORS: Early menopause, osteoporosis, secondary osteoporosis. HISTORY OF FRACTURE: None listed. MEDICATIONS: Calcium, vitamin D, ERT/SERMS. MM/XR DEXA axial skeleton IMPRESSION: 1. DIAGNOSIS: Osteopenia based on the lowest T-score value of -1.7 in the femoral neck applying World Health Organization criteria. 2. 10-YEAR FRACTURE RISK PREDICTION, FRAX: Major osteoporotic fracture (clinical spine, forearm, hip or shoulder) 3.4%. Hip fracture 0.3%. 3. Treatment Recommendations: NOF guidelines recommend consideration for treatment in postmenopausal women and men age 50 and older presenting with the following: -A hip or vertebral (clinical or morphometric) fracture. -T-score less than or equal to -2.5 at the femoral neck or spine after appropriate evaluation to exclude secondary causes. -Low bone mass at the hip or spine and a 10-year fracture probability by FRAX of greater than or equal to 3% for hip fracture or greater than or equal to 20% for major osteoporotic fracture based on the [place] adapted WHO algorithm. 4. Other Recommendations: All treatment decisions require clinical judgment and consideration of individual patient factors, including patient preferences, comorbidities, previous drug use, risk factors not captured in the FRAX model (e.g. frailty, falls, vitamin D deficiency, increased bone turnover, interval significant decline in bone density) and possible under or overestimation of fracture risk by FRAX. Additional medical evaluation for secondary cause of low bone mineral density may be appropriate. FUTURE SCAN RECOMMENDATION: People with diagnosed cases of osteoporosis or at high risk for fracture should have regular bone mineral density tests. For patients eligible for Medicare, routine testing is allowed once every 2 years. The testing frequency can be increased to one year for patients who have rapidly progressing disease, those who are receiving or discontinuing medical therapy to restore bone mass, or have additional risk factors.
== END 2022-01-26 13:03 | disposition home or self-care (01) ==
LOC: HO.MAMMO 13:02
PROVIDERS: PCP Nurse Practitioner; Visit Provider Internal Medicine Medical Oncology
DX: C50.911 Malignant neoplasm of unspecified site of right female breast (principal)
CPT/HCPCS: 77080

== ENCOUNTER 2022-02-06 11:46 | Outpatient (REF) | payer MEDICAID, SELFPAY ==
[2022-02-06 15:48] LABS: CT PCR NOT DETECTED (Not Detect.); NG PCR NOT DETECTED (Not Detect.)
[2022-02-07 09:04] LABS: BV Int Neg Control Negative (Negative); BV Int Pos Control Positive (Positive)
[2022-02-09 04:22] LABS: HPV mRNA E6/E7 rflx Not Detected (Not Detected)
== END 2022-02-06 11:47 | disposition home or self-care (01) ==
LOC: HO.LAB 11:46
PROVIDERS: Visit Provider Advanced Practice Midwife
DX: Z01.419 Encounter for gynecological examination (general) (routine) without abnormal findings (principal); Z11.51 Encounter for screening for human papillomavirus (HPV)
CPT/HCPCS: 87480; 87491; 87510; 87591; 87624; 87660; 88142

== ENCOUNTER → 2022-02-09 13:57 | Outpatient (BNVA) | payer MEDICAID, SELFPAY | PROVIDERS: PCP Nurse Practitioner; Visit Provider Nurse Practitioner Family | DX: G47.33 Obstructive sleep apnea (adult) (pediatric) (principal); Z99.89 Dependence on other enabling machines and devices | CPT/HCPCS: 99212 ==

== ENCOUNTER 2022-03-23 09:47 | Outpatient (REF) | payer MEDICAID, SELFPAY | END 2022-03-23 09:48 | LOC: HO.LNP 09:47 | PROVIDERS: PCP Nurse Practitioner; Visit Provider Obstetrics & Gynecology | DX: R87.618 Other abnormal cytological findings on specimens from cervix uteri (principal); N90.89 Other specified noninflammatory disorders of vulva and perineum | CPT/HCPCS: 56605; 58100; 88305; 88312; 99212 ==

== ENCOUNTER → 2022-04-04 14:57 | Outpatient (BNVA) | payer MEDICAID, SELFPAY | PROVIDERS: PCP Nurse Practitioner; Visit Provider Obstetrics & Gynecology | DX: R87.618 Other abnormal cytological findings on specimens from cervix uteri (principal); N90.89 Other specified noninflammatory disorders of vulva and perineum | CPT/HCPCS: 99212 ==

== ENCOUNTER 2022-04-20 12:53 | Outpatient (REF) | payer MEDICAID, SELFPAY | END 2022-04-20 12:54 | disposition home or self-care (01) | LOC: HO.LNP 12:53 | PROVIDERS: PCP Nurse Practitioner; Visit Provider Obstetrics & Gynecology | DX: N90.89 Other specified noninflammatory disorders of vulva and perineum (principal) | CPT/HCPCS: 56605; 88305; 88312 ==

== ENCOUNTER → 2022-04-26 12:39 | Outpatient (BNVA) | payer MEDICAID, SELFPAY | PROVIDERS: PCP Nurse Practitioner; Visit Provider Obstetrics & Gynecology | DX: N90.89 Other specified noninflammatory disorders of vulva and perineum (principal) | CPT/HCPCS: 99212 ==

== ENCOUNTER 2022-11-29 15:46 | Emergency (ER) | payer MEDICARE, MEDICAID, SELFPAY ==
--- NOTE | ~2022-11-29 | CT_ITS ---
EXAMINATION: CT HEAD WITHOUT CONTRAST CLINICAL INFORMATION: Headaches. COMPARISON: CT head dated 08/07/2007. TECHNIQUE: Contiguous axial imaging was performed from the skull base to vertex without intravenous administration of contrast. This CT examination was performed using dose optimization techniques as appropriate, variously including the following: *Automated exposure control *Adjustment of mA and/or kV according to patient size (this includes techniques or standardized protocols for targeted exams where dose is matched to indication/reason for exam; i.e. extremities or head) *Use of iterative reconstruction technique DLP: 616 mGy-cm FINDINGS: No acute intracranial hemorrhage. No mass effect or midline shift. No parenchymal lesion. The bowling-white differentiation is maintained. No extra-axial fluid collection. The ventricles and sulci are unremarkable. The basal cisterns are patent. The calvarium is intact. The visualized paranasal sinuses and mastoid air cells are clear. CT/CT head/brain wo IV con IMPRESSION: No acute intracranial hemorrhage or mass effect.
[2022-11-29 15:50] VITALS: BP 154/94; PULSE 94; RESP 20; TEMP 36.9; O2SAT 98; BMI 34.0
--- NOTE | 2022-11-29 15:51 | ED.GENADULT ---
HPI - General Adult General Chief complaint: General Medical Stated complaint: Sent by [facility] for test Time Seen by Provider: 11/29/22 20:25 Source: patient, family, RN notes reviewed and old records reviewed Mode of arrival: ambulatory Limitations: no limitations History of Present Illness HPI narrative: 52-year-old female presents for evaluation of fatigue. Patient reports a history of diabetes, hypothyroidism, breast cancer, angiosarcoma both in remission She reports for the last 3 weeks she has felt too weak to get out of bed She states that she felt like this when she was diagnosed with hypothyroidism and both of her cancers Patient states that she has a mammogram scheduled for tomorrow She reports intermittent headaches, body aches and dizziness Denies any trauma to the head or neck. Denies any chest pain, shortness of breath, cough She has no other complaints or concerns at the time Related Data Home Medications Medication Instructions Recorded Confirmed metformin 500 mg tablet 500 mg PO BID 01/31/21 02/06/22 sennosides 8.6 mg capsule (senna) 8.6 mg PO DAILY 08/25/21 02/06/22 calcium carbonate 600 mg calcium 1,200 mg PO DAILY 01/16/22 02/06/22 (1,500 mg) tablet (Calcium) cholecalciferol (vitamin D3) 50 1 cap PO DAILY 01/16/22 02/06/22 mcg (2,000 unit) capsule tamoxifen 10 mg tablet 10 mg PO BID 02/06/22 02/06/22 tamoxifen 10 mg tablet 20 mg PO DAILY 02/09/22 Previous Rx's Medication Instructions Recorded polyethylene glycol 3350 17 17 g PO DAILY PRN constipation 05/05/20 gram/dose oral powder (Miralax) #238 grams levothyroxine 200 mcg tablet 200 mcg PO DAILY 90 days #90 tabs 12/21/20 metronidazole 500 mg tablet 500 mg PO BID 7 days #14 tabs 02/08/22 clindamycin phosphate 2 % vaginal 1 appful vaginal BEDTIME #40 grams 02/15/22 cream clobetasol 0.05 % topical cream 1 appl topical BID 2 weeks #45 04/26/22 grams Allergies Allergy/AdvReac Type Severity Reaction Status Date / Time No Known Allergies Allergy Verified 04/26/22 12:45 [No Known Allergies*] Review of Systems Constitutional: Constitutional: Reports as per HPI, Denies chills, Reports fatigue, Denies fever(s) and Reports headache(s) ENT: Reports headache(s) Cardiovascular: Cardiovascular: Denies chest pain and Denies dyspnea Respiratory: Respiratory: Denies cough and Denies dyspnea Gastrointestinal: Gastrointestinal: Denies abdominal pain, Denies constipation and Denies vomiting Genitourinary: Genitourinary: Denies dysuria Neurologic: Reports headache(s) and Denies focal weakness Endocrine: Endocrine: Reports fatigue PMFSH Past Medical History Medical History 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 Father No problems noted. Paternal Aunt History of breast cancer Paternal Uncle History of Hodgkin's disease Maternal Uncle Colon cancer Maternal Aunt Lupus Maternal Uncle Prostate cancer Social History Social History Household Members: Spouse Housing: House Are you a primary intensive care unit nurse to a significant other at home: No Do you presently have visiting nurse or other home services: No Alcohol intake: never Patient Tobacco Use Status: Never used Tobacco Advance Directives: Yes Advance Directives Information Provided: No Advance Directives on File: No service: No Current occupational status: employed Physical Exam ED Vital Signs: Vital Signs - 24 hr 11/29/22 15:50 11/29/22 19:33 11/29/22 21:09 Temperature 98.4 F 98.4 F 97.9 F Pulse Rate 94 85 83 Respiratory Rate 20 18 18 Blood Pressure 154/94 H 141/76 H 120/76 Pulse Oximetry 98 97 96 Oxygen Delivery Method Room Air Room Air Room Air BMI result Body Mass Index 34.0 Const General: healthy appearing, comfortable, no acute distress, alert and awake Nutritional Appearance: well nourished Orientation/consciousness: patient oriented x3 HENMT Head: Yes normocephalic and Yes atraumatic Eyes Eyelids: Yes eyelids normal Conjunctivae: conjunctivae normal Sclerae: sclerae normal Corneas: corneas normal Pupils: Equal, round and reactive pupils present EOM: EOMs intact bilaterally Resp Effort & Inspection: normal respiratory effort, able to speak in complete sentences, no audible wheezes and not labored Auscultation: clear to auscultation bilaterally Cardio Rate: regular rate Rhythm: regular rhythm GI Inspection: No distended Palpation (GI): Soft to palpation, not firm, nontender, no guarding and not rigid Auscultation: normoactive bowel sounds Skin General skin exam: no rashes or lesions noted and elasticity normal Neuro General: patient oriented x3 Cranial nerves: Yes CN's II-XII intact bilaterally, Yes Equal, round and reactive pupils present and Yes Bilaterally intact EOM present Cognition (Neuro): normal cognition Extrem Other: Moving all extremities well without any obvious deformities Course Course Course Narrative: This is an RME: Additional HPI, ROS, PE not included below will be deferred to primary provider. This is a [id number], with a past medical history of hypothyroidism, right-sided breast cancer status post lumpectomy and radiation in 2014, with complaints of headaches, diffuse body pain, nausea, weakness, increased blood sugar, lethargy for 3 weeks. Was seen at [facility] as they could not run a specific test in the office in told her to come to the emergency department where we could run sent test. Patient is unsure what this test is, and was told to come to the ER for further evaluation. Plan: Labs, EKG, UA Reevaluation(s) Reevaluation #1: Patient's TSH was obviously a little bit lower given her history of hypothyroidism. Her T4 was actually slightly high. But this does not appear to be the cause of her symptoms. This was discussed with the patient and her significant other at bedside. CT scan of brain did not show any concerning abnormalities. Time: 22:46 Medical Decision Making Medical Decision Making MDM Narrative: 52-year-old female presents for evaluation of generalized symptoms including fatigue, generalized Headaches. Her physical exam is benign including neurologic exam. Her labs are without significant abnormalities. I will add on TSH and T4 levels. Will get a CT scan the brain given the headaches and fatigue with history of cancer. UA is pending at this time Differential Diagnosis Differential Diagnoses: The differential diagnosis associated with the presentation includes General malaise Anemia Hypothyroidism Cancer Intracranial mass Lab Data MDM Lab Attestation statement: I reviewed the patient's lab results. 11/29/22 16:29 11/29/22 19:47 Labs: Lab Results 11/29/22 11/29/22 11/29/22 Range/Units 16:29 16:29 19:47 WBC 7.8 (4.8-10.8) X10*3/uL RBC 4.51 (4.20-5.50) X10*6/uL Hgb 13.5 (12.0-16.0) g/dl Hct 40.7 (37.0-47.0) % MCV 90.2 (80.0-98.0) fL MCH 29.9 (27.0-33.0) pg MCHC 33.2 (31.0-35.0) g/dl RDW 12.4 (11.0-16.0) % Plt Count 205 (160-400) X10*3/uL MPV 11.9 (9.4-12.3) fL Immature Gran % (Auto) 0.6 H (0.0-0.4) % Neut % (Auto) 54.1 (45-73) % Lymph % (Auto) 33.0 (20-40) % [place] % (Auto) 9.4 (2-11) % Eos % (Auto) 2.4 (0-4) % Baso % (Auto) 0.5 (0-2) % Lymph # (Auto) 2.6 (1.2-4.9) X10*3/uL [place] # (Auto) 0.7 (0.1-1.2) X10*3/uL Eos # (Auto) 0.2 (0.0-0.4) X10*3/uL Baso # (Auto) 0.0 (0.0-0.2) X10*3/uL Abs Immat Gran (auto) 0.05 H (0.00-0.03) X10*3/uL Absolute Neuts (auto) 4.2 (2.0-8.3) x10*3/uL Absolute Nucleated RBC 0.000 (0.0-0.012) X10*3/uL Nucleated RBC % (auto) 0.0 (0.0-0.2) /100WBC Sodium 143 (135-145) mmol/L Potassium 4.6 (3.3-5.1) mmol/L Chloride 107 (96-108) mmol/L Carbon Dioxide 24 (22-29) mmol/L Anion Gap 17 (12-20) BUN 15 (9-16) mg/dL Creatinine 0.78 (0.5-1.4) mg/dL Estim Creat Clear Calc 79.8 Estimated GFR > 60 Random Glucose 137 H (60-115) mg/dL Calcium 10.7 H D (8.4-10.2) mg/dL Magnesium 2.3 (1.6-2.6) mg/dL Total Bilirubin 0.7 (0.0-1.0) mg/dL Direct Bilirubin 0.2 (0.0-0.5) mg/dL AST 40 H (5-31) U/L ALT 102 H (0-31) U/L Alkaline Phosphatase 88 (39-117) U/L Total Protein 7.8 (6.5-8.0) g/dL Albumin 4.8 (3.5-5.0) g/dL Lipase 39 (8-78) U/L TSH 0.17 L (0.32-4.0) uIU/mL Thyroxine (T4) 14.1 H (4.5-12.0) ug/dL Urine Color Urine Appearance Urine pH (5.0-9.0) Ur Specific [place] (1.005-1.025) Urine Protein (Neg-Trace) mg/dL Urine Glucose (UA) (Negative) mg/dL Urine Ketones (Negative) mg/dL Urine Blood (Negative) Urine Nitrite (Negative) Ur Leukocyte Esterase (Negative) Urine RBC (0-2) /HPF Urine WBC (0-5) /HPF Ur Squamous Epith Cells (0-2) /HPF Urine Bacteria (None Seen) Hyaline Casts (0-2) /LPF Influenza Type A (PCR) NEGATIVE (Negative) Influenza Type B (PCR) NEGATIVE (Negative) RSV RNA Qual (PCR) NEGATIVE (Negative) SARS-CoV-2 RNA (RT-PCR) NEGATIVE (Negative) 11/29/22 Range/Units 20:40 WBC (4.8-10.8) X10*3/uL RBC (4.20-5.50) X10*6/uL Hgb (12.0-16.0) g/dl Hct (37.0-47.0) % MCV (80.0-98.0) fL MCH (27.0-33.0) pg MCHC (31.0-35.0) g/dl RDW (11.0-16.0) % Plt Count (160-400) X10*3/uL MPV (9.4-12.3) fL Immature Gran % (Auto) (0.0-0.4) % Neut % (Auto) (45-73) % Lymph % (Auto) (20-40) % [place] % (Auto) (2-11) % Eos % (Auto) (0-4) % Baso % (Auto) (0-2) % Lymph # (Auto) (1.2-4.9) X10*3/uL [place] # (Auto) (0.1-1.2) X10*3/uL Eos # (Auto) (0.0-0.4) X10*3/uL Baso # (Auto) (0.0-0.2) X10*3/uL Abs Immat Gran (auto) (0.00-0.03) X10*3/uL Absolute Neuts (auto) (2.0-8.3) x10*3/uL Absolute Nucleated RBC (0.0-0.012) X10*3/uL Nucleated RBC % (auto) (0.0-0.2) /100WBC Sodium (135-145) mmol/L Potassium (3.3-5.1) mmol/L Chloride (96-108) mmol/L Carbon Dioxide (22-29) mmol/L Anion Gap (12-20) BUN (9-16) mg/dL Creatinine (0.5-1.4) mg/dL Estim Creat Clear Calc Estimated GFR Random Glucose (60-115) mg/dL Calcium (8.4-10.2) mg/dL Magnesium (1.6-2.6) mg/dL Total Bilirubin (0.0-1.0) mg/dL Direct Bilirubin (0.0-0.5) mg/dL AST (5-31) U/L ALT (0-31) U/L Alkaline Phosphatase (39-117) U/L Total Protein (6.5-8.0) g/dL Albumin (3.5-5.0) g/dL Lipase (8-78) U/L TSH (0.32-4.0) uIU/mL Thyroxine (T4) (4.5-12.0) ug/dL Urine Color Yellow Urine Appearance Clear Urine pH 5.0 (5.0-9.0) Ur Specific [place] >= 1.030 H (1.005-1.025) Urine Protein Negative (Neg-Trace) mg/dL Urine Glucose (UA) >=1000 H (Negative) mg/dL Urine Ketones 40 (Negative) mg/dL Urine Blood Negative (Negative) Urine Nitrite Negative (Negative) Ur Leukocyte Esterase Trace H (Negative) Urine RBC 0-2 (0-2) /HPF Urine WBC 21-50 H (0-5) /HPF Ur Squamous Epith Cells 11-20 (0-2) /HPF Urine Bacteria 2+ (None Seen) Hyaline Casts 0-2 (0-2) /LPF Influenza Type A (PCR) (Negative) Influenza Type B (PCR) (Negative) RSV RNA Qual (PCR) (Negative) SARS-CoV-2 RNA (RT-PCR) (Negative) Discharge Plan Discharge Clinical Impression: Fatigue Patient Disposition: Home, Self-Care Instructions: Fatigue (ED) Additional Instructions: Your CT scan of the head did not show any concerning abnormalities. Your symptoms do not appear to be attributed to hypothyroidism The rest of your blood work was reassuring as well Follow-up with your primary doctor Prescriptions: No Action levothyroxine 200 mcg tablet 200 mcg PO DAILY 90 Days Qty: 90 0RF metronidazole 500 mg tablet 500 mg PO BID 7 Days Qty: 14 0RF Rx Instructions: Take with food, Avoid alcohol and vinegar products clindamycin phosphate 2 % cream 1 appful vaginal BEDTIME Qty: 40 1RF Rx Instructions: for 3 days polyethylene glycol 3350 [Miralax] 17 gram/dose powder 17 g PO DAILY PRN (Reason: constipation) Qty: 238 0RF calcium carbonate [Calcium 600] 600 mg calcium (1,500 mg) Tablet 1,200 mg PO DAILY cholecalciferol (vitamin D3) 50 mcg (2,000 unit) capsule 1 cap PO DAILY metformin 500 mg tablet 500 mg PO BID tamoxifen 10 mg tablet 10 mg PO BID clobetasol 0.05 % cream 1 appl topical BID 14 Days Qty: 45 1RF Rx Instructions: Then maintenance therapy for 2-3 times per week senna 8.6 mg capsule 8.6 mg PO DAILY tamoxifen 10 mg tablet 20 mg PO DAILY Stand Alone Forms: Work/School Release
--- NOTE | 2022-11-29 16:01 | ECG_ITS ---
Test Reason : DIZZINESS Blood Pressure : / mmHG Vent. Rate : 089 BPM Atrial Rate : 089 BPM P-R Int : 154 ms QRS Dur : 094 ms QT Int : 342 ms P-R-T Axes : 039 020 028 degrees QTc Int : 416 ms Normal sinus rhythm Normal ECG When compared to the previous EKG of No significant changes seen Referred By: Liseth Zamora Electronically Signed By:JT OROPEZA MD
[2022-11-29 16:46] LABS: MANUAL DIFF FLAG NO
[2022-11-29 16:52] LABS: Basophils Percent Auto 0.5 % (0-2); Eosinophils Absolute Auto 0.2 X10*3/uL (0.0-0.4); Eosinophils Percent Auto 2.4 % (0-4); Hematocrit 40.7 % (37.0-47.0); Hemoglobin 13.5 g/dl (12.0-16.0); Imm Gran Abs Auto 0.05 X10*3/uL (0.00-0.03); Imm Gran Pct Auto 0.6 % (0.0-0.4); Lymphocytes Absolute Auto 2.6 X10*3/uL (1.2-4.9); Mean Corpuscular HGB Conc 33.2 g/dl (31.0-35.0); Mean Corpuscular Hemoglobin 29.9 pg (27.0-33.0); Mean Corpuscular Volume 90.2 fL (80.0-98.0); Mean Platelet Volume 11.9 fL (9.4-12.3); Monocytes Absolute Auto 0.7 X10*3/uL (0.1-1.2); Monocytes Percent Auto 9.4 % (2-11); Neutrophils Absolute Auto 4.2 x10*3/uL (2.0-8.3); Neutrophils Percent Auto 54.1 % (45-73); Platelet Count 205 X10*3/uL (160-400); Red Blood Count 4.51 X10*6/uL (4.20-5.50); Red Cell Distribution Width 12.4 % (11.0-16.0); White Blood Count 7.8 X10*3/uL (4.8-10.8)
[2022-11-29 17:27] LABS: Influenza A PCR NEGATIVE (Negative); Influenza B PCR NEGATIVE (Negative); Resp Syncy Virus RNA Qual PCR NEGATIVE (Negative); SARS COV2 PCR INHOUSE NEGATIVE (Negative)
[2022-11-29 19:33] VITALS: BP 141/76; PULSE 85; RESP 18; TEMP 36.9; O2SAT 97
[2022-11-29 20:14] LABS: Alanine Aminotransferase 102 U/L (0-31); Albumin Level 4.8 g/dL (3.5-5.0); Alkaline Phosphatase 88 U/L (39-117); Anion Gap 17 (12-20); Aspartate Amino Transferase 40 U/L (5-31); Bilirubin Direct 0.2 mg/dL (0.0-0.5); Bilirubin Total 0.7 mg/dL (0.0-1.0); Blood Urea Nitrogen 15 mg/dL (9-16); Calcium 10.7 mg/dL (8.4-10.2); Carbon Dioxide 24 mmol/L (22-29); Chloride 107 mmol/L (96-108); Creatinine Clr Calc Pharmacy 79.8; Estimated Glomerular Filt Rate > 60; Glucose Random 137 mg/dL (60-115); Lipase 39 U/L (8-78); Magnesium 2.3 mg/dL (1.6-2.6); Potassium 4.6 mmol/L (3.3-5.1); Sodium 143 mmol/L (135-145); Total Protein 7.8 g/dL (6.5-8.0)
[2022-11-29 21:04] LABS: Appearance Urine Clear; Color Urine Yellow; Glucose Urine UA >=1000 mg/dL (Negative); Leukocyte Esterase Urine Trace (Negative); Nitrite Urine Negative (Negative); Specific Gravity - Urine >= 1.030 (1.005-1.025); UMIC TRIGGER UACC YES; Urine Blood Negative (Negative); Urine Ketones 40 mg/dL (Negative); Urine Protein Negative (Neg-Trace)
[2022-11-29 21:08] LABS: Bacteria Urine 2+ (None Seen); Hyaline Casts Urine 0-2 /LPF (0-2); RBC Urine 0-2 /HPF (0-2); UACC Culture Trigger YES; WBC Urine 21-50 /HPF (0-5)
[2022-11-29 21:09] VITALS: BP 120/76; PULSE 83; RESP 18; TEMP 36.6; O2SAT 96
[2022-11-29 21:38] LABS: Thyroid Stimulating Hormone 0.17 uIU/mL (0.32-4.0)
[2022-11-29 21:53] LABS: T4 Thyroxine 14.1 ug/dL (4.5-12.0)
== END 2022-11-29 23:03 | disposition home or self-care (01) ==
PROVIDERS: Physician Assistant; Physician Assistant Medical; Emergency Provider Student in an Organized Health Care Education/Training Program
DX: R53.83 Other fatigue (principal); Z20.822 Contact with and (suspected) exposure to COVID-19; Z20.828 Contact with and (suspected) exposure to other viral communicable diseases; E03.9 Hypothyroidism, unspecified; Z79.899 Other long term (current) drug therapy; Z79.84 Long term (current) use of oral hypoglycemic drugs; Z85.3 Personal history of malignant neoplasm of breast
CPT/HCPCS: 0241U; 70450; 80048; 80076; 81001; 81003; 83690; 83735; 84436; 84443; 85025; 87086; 93005; 99284

== ENCOUNTER 2022-11-30 15:49 | Outpatient (REF) | payer MEDICARE, MEDICAID, SELFPAY ==
--- NOTE | ~2022-11-30 | MM_ITS ---
EXAMINATION: MM SCREENING DIGITAL BREAST TOMOSYNTHESIS, LEFT CLINICAL INFORMATION: Due for yearly. Screening. Personal history contralateral right breast angiosarcoma status post mastectomy, performed in [place]. COMPARISON: Prior mammography exams including most recent 10/20/2021. TECHNIQUE: Digital breast tomosynthesis is performed in both the craniocaudal and mediolateral oblique views along with computer-aided detection (CAD). Synthesized 2D images are generated from the tomosynthesis. FINDINGS: The breasts are heterogeneously dense, which may obscure small masses (ACR BI-RADS breast composition Category c). Breast tissue composition borders on average fibroglandular. There are no significant masses, abnormal calcifications, or other abnormalities. Parenchymal pattern is similar to prior studies. There is no developing density or architectural abnormality. The axilla and skin contours are unremarkable. No significant changes. MM/MM tomosynthesis screening LT IMPRESSION: No mammographic evidence of malignancy. ASSESSMENT: BI-RADS 1: Negative RECOMMENDATION: Routine annual mammography screening. This patient's information was entered into a reminder system with a target due date for their next mammogram.
== END 2022-11-30 15:50 | disposition home or self-care (01) ==
LOC: HO.MAMMO 15:49
PROVIDERS: PCP Registered Nurse; Visit Provider Registered Nurse
DX: Z12.31 Encounter for screening mammogram for malignant neoplasm of breast (principal)
CPT/HCPCS: 77063; 77067

== ENCOUNTER 2022-12-25 08:00 | Outpatient (REF) | payer MEDICARE, MEDICAID, SELFPAY ==
--- NOTE | ~2022-12-25 | US_ITS ---
EXAMINATION: US SCREENING ULTRASOUND BREAST, LEFT CLINICAL INFORMATION: Screening. Dense breast parenchymal pattern on mammography. Personal history contralateral right breast angiosarcoma status post mastectomy, performed in [place]. COMPARISON: Digital breast tomosynthesis 11/30/2022, left breast ultrasound 10/20/2021 TECHNIQUE: Ultrasound is performed using grayscale imaging and color Doppler. Imaging is performed to include the four quadrants and retroareolar region. Left breast is imaged. There has been prior right mastectomy. FINDINGS: Left breast: There is no suspicious finding by ultrasound. There is no cystic or solid mass or focal architectural abnormality. The 2 small grouped microcysts lower outer left breast noted on prior ultrasound are no longer demonstrated. US/US breast LT complete IMPRESSION: - Normal study. ASSESSMENT: BI-RADS 1: Negative RECOMMENDATION: Routine annual mammography screening. This patient's information was entered into a reminder system with a target due date for their next mammogram.
== END 2022-12-25 08:01 | disposition home or self-care (01) ==
LOC: HO.MAMMO 08:00
PROVIDERS: PCP Registered Nurse; Visit Provider Registered Nurse
DX: R92.2 Inconclusive mammogram (principal)
CPT/HCPCS: 76641

== ENCOUNTER 2023-03-19 17:31 | Outpatient (REF) | payer MEDICARE, MEDICAID, SELFPAY ==
--- NOTE | ~2023-03-19 | XR_ITS ---
EXAMINATION: XR KNEE, LEFT CLINICAL INFORMATION: Mass left knee COMPARISON: 10/12/2020 TECHNIQUE: AP, tunnel, lateral and 2 sunrise views of the left knee FINDINGS: Left knee: Mild varus angulation. Moderate degenerative changes with prominent osteophytes and joint space narrowing in the medial and patellofemoral compartments. XR/XR knee LT 3V IMPRESSION: Moderate degenerative changes
== END 2023-03-19 17:32 | disposition home or self-care (01) ==
LOC: HO.XRAY 17:31
PROVIDERS: Visit Provider Family Medicine
DX: R22.42 Localized swelling, mass and lump, left lower limb (principal)
CPT/HCPCS: 73562

== ENCOUNTER 2023-04-16 13:38 | Outpatient (REF) | payer MEDICARE, MEDICAID, SELFPAY ==
--- NOTE | ~2023-04-16 | US_ITS ---
EXAMINATION: US KNEE LEFT CLINICAL INFORMATION: Left knee mass upper lateral from patella. COMPARISON: X-ray left knee 03/19/2023. TECHNIQUE: Targeted ultrasound images were obtained by the fund manager of the area of concern as indicated by the patient along the upper lateral aspect of the patella left knee. Radiologist was not in attendance. Images were later provided for interpretation. FINDINGS: No discrete mass or fluid collection identified in the area of concern indicated by the patient to the fund manager along the superior-lateral aspect of the left knee. US/US extremity nonvascular IMPRESSION: No discrete mass or fluid collection identified in the area of concern indicated by the patient to the fund manager along the superior-lateral aspect of the left knee. Decisions regarding further imaging, treatment or biopsy should be based on the clinical exam, as not all abnormalities are detectable on ultrasound studies. Additional imaging with CT scan or MRI should be considered for better visualization as these modalities are much more sensitive for detection of pathology.
== END 2023-04-16 13:39 | disposition home or self-care (01) ==
LOC: HO.HMGCX 13:38
PROVIDERS: PCP Registered Nurse; Visit Provider Family Medicine
DX: R22.42 Localized swelling, mass and lump, left lower limb (principal)
CPT/HCPCS: 76882

== ENCOUNTER 2023-04-23 08:53 | Outpatient (AMB) | payer MEDICARE, MEDICAID, SELFPAY ==
--- NOTE | 2023-04-23 08:55 | MHC.OFFVIS ---
Intake Vital Signs 04/23/23 08:57 Height 5 ft 1 in Weight 168 lb BMI 31.7 BP 135/65 Blood Pressure Location Lt brachial Position Sitting Pulse 82 Intake Visit Reasons: Mass of knee, 6mm non-tender mobile mass Intake Note: This patient presents for an assessment for 6 mm non-tender mobile mass of knee. Patient c/o; Extremity US 04-16-2023, reports no pain or discomfort, left leg. Marine Services Technician Required: Yes Marine Services Technician Language: Marketing Communications Associate Name: Patient declined congregational care pastor Information Interpreted: non-clinical & clinical Accompanied by: Other Relationship Allergies No Known Allergies [No Known Allergies*] Allergy (Verified 04/23/23 09:05) Medication List - Last Reconciled 04/23/23 by Armond Salmeron MD calcium carbonate (Calcium) 1,200 mg PO DAILY cholecalciferol (vitamin D3) 1 cap PO DAILY clindamycin phosphate 2% 1 appful vaginal BEDTIME clobetasol 0.05% 1 appl topical BID 2 weeks levothyroxine 200 mcg PO DAILY 90 days metformin 500 mg PO BID metronidazole 500 mg PO BID 7 days polyethylene glycol 3350 (Miralax) 17 grams PO DAILY PRN sennosides (senna) 8.6 mg PO DAILY sertraline 25 mg PO DAILY tamoxifen 20 mg PO DAILY tamoxifen 10 mg PO BID HPI Mass of knee, 6mm non-tender mobile mass HPI Details 53-year-old female here for a mass on the left knee. She has noticed this for about 2 months now. She denies any pain or tenderness. She feels that this has been increasing in size She does have a history of right breast cancer and angiosarcoma requiring multiple surgeries so she is concerned about this mass. 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 Father No problems noted. Paternal Aunt History of breast cancer Paternal Uncle History of Hodgkin's disease Maternal Uncle Colon cancer Maternal Aunt Lupus Maternal Uncle Prostate cancer Social History Household Members: Spouse Housing: House Are you a primary resident care associate to a significant other at home: No Do you presently have visiting nurse or other home services: No Alcohol intake: never Patient Tobacco Use Status: Never used Tobacco service: No Current occupational status: employed Female Reproductive History Menstrual Age of Menarche: 7 Review of Systems Const Denies chills and Denies fever(s) Card Denies chest pain, Denies dyspnea and Denies dyspnea on exertion Resp Denies cough, Denies dyspnea and Denies dyspnea on exertion GI Denies hematochezia and Denies change in bowel habits Denies hematuria Musc Denies back pain and Denies limited range of motion Skin/Breast Details: Right chest wall pain Neuro Denies focal weakness and Denies convulsions Psych Denies depression and Denies mood swings Physical Exam Vital Signs: Last Vital Signs Pulse 82 04/23/23 08:57 BP 135/65 04/23/23 08:57 BMI result Body Mass Index 31.7 Const General: comfortable and no acute distress Orientation/consciousness: patient oriented x3 Neck Neck: Yes no lymphadenopathy Resp Auscultation: clear to auscultation bilaterally Cardio Rhythm: regular rhythm GI Palpation (GI): Soft to palpation, nontender and no guarding Neuro General: patient oriented x3 Extrem Other: Left knee anteriorly - well-defined mobile mass about 5 mm, around, nontender Assessment & Plan Assessment & Plan (1) Subcutaneous mass of left lower extremity: Code(s): R22.42 - Localized swelling, mass and lump, left lower limb Plan: She has this small, well-defined, mobile subcutaneous mass on the knee. She wants this removed in view of her history of angiosarcoma. I explained to her the technique of excision under local anesthesia. I reviewed the risks including but not limited to bleeding, infections and poor healing, as well as the benefits and alternatives. She understands and wants to proceed. We will schedule this on her next visit here in the office. Coding Level of Care Code New Pt Level 3 (92143) Diagnoses Subcutaneous mass of left lower extremity R22.42
[2023-04-23 08:57] VITALS: BP 135/65; PULSE 82; BMI 31.7
== END 2023-04-23 09:34 | disposition home or self-care (01) ==
PROVIDERS: Referring Provider Family Medicine; Visit Provider Surgery
DX: R22.42 Localized swelling, mass and lump, left lower limb (principal)
CPT/HCPCS: 99213

== ENCOUNTER → 2023-04-23 08:53 | Outpatient (BNVA) | payer MEDICARE, MEDICAID, SELFPAY | PROVIDERS: Referring Provider Family Medicine; Visit Provider Surgery | DX: R22.42 Localized swelling, mass and lump, left lower limb (principal) | CPT/HCPCS: 99212 ==

== ENCOUNTER 2023-04-27 16:21 | Outpatient (REF) | payer MEDICARE, MEDICAID, SELFPAY ==
[2023-04-27 18:37] LABS: Free T4 (Free Thyroxine) 1.34 ng/dL (0.71-1.85); Thyroid Stimulating Hormone 2.99 uIU/mL (0.32-4.0)
== END 2023-04-27 16:22 | disposition home or self-care (01) ==
LOC: HO.HHCL 16:21
PROVIDERS: Visit Provider Registered Nurse
DX: E03.9 Hypothyroidism, unspecified (principal)
CPT/HCPCS: 36415; 84439; 84443

== ENCOUNTER 2023-05-02 09:03 | Outpatient (AMB) | payer MEDICARE, MEDICAID, SELFPAY ==
--- NOTE | 2023-05-02 09:04 | MHC.OFFVIS ---
Intake Intake Visit Reasons: Excision of subcutaneous mass of left knee Intake Note: This patient presents for in-office procedure for excision of subcutaneous mass of the left knee. Patient c/o; reports no changes. 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 Accompanied by: Self / Same As Patient Allergies No Known Allergies [No Known Allergies*] Allergy (Verified 05/02/23 09:08) Medication List - Last Reconciled 05/02/23 by Armond Salmeron MD calcium carbonate (Calcium) 1,200 mg PO DAILY cholecalciferol (vitamin D3) 1 cap PO DAILY clindamycin phosphate 2% 1 appful vaginal BEDTIME clobetasol 0.05% 1 appl topical BID 2 weeks levothyroxine 200 mcg PO DAILY 90 days metformin 500 mg PO BID metronidazole 500 mg PO BID 7 days polyethylene glycol 3350 (Miralax) 17 grams PO DAILY PRN sennosides (senna) 8.6 mg PO DAILY sertraline 25 mg PO DAILY tamoxifen 20 mg PO DAILY tamoxifen 10 mg PO BID HPI Excision of subcutaneous mass of left knee HPI Details She is here for excision of a subcutaneous mass on the left knee. 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 Father No problems noted. Paternal Aunt History of breast cancer Paternal Uncle History of Hodgkin's disease Maternal Uncle Colon cancer Maternal Aunt Lupus Maternal Uncle Prostate cancer Social History Household Members: Spouse Housing: House Are you a primary animal care provider to a significant other at home: No Do you presently have visiting nurse or other home services: No Alcohol intake: never Patient Tobacco Use Status: Never used Tobacco service: No Current occupational status: employed Female Reproductive History Menstrual Age of Menarche: 7 Office Procedures Excision Details: She was placed supine. The area of the subcutaneous nodule on the left knee was prepped and draped. Lidocaine 1% was used for local anesthesia. I made a short incision on the skin overlying this nodule using blade 15. This was carried down sharply through the full-thickness of the skin and subcutaneous fat until a small fatty nodule was seen. I sharply dissected this of the rest of subcutaneous layer until this was delivered and sent as a specimen. I closed the incision with full-thickness nylon 3-0 interrupted sutures. Dressings were applied. The procedure was completed. She tolerated procedure well. There is minimal blood loss. [id number]/arms/legs 0.6-1cm Procedure code (CPT) selection complete Assessment & Plan Assessment & Plan (1) Subcutaneous mass of left lower extremity: Code(s): R22.42 - Localized swelling, mass and lump, left lower limb Plan: She underwent excision of a small lipomatous mass. She was given wound care instructions. She will be seen in the office for removal sutures. Coding Level of Care Code Procedure Only Diagnoses Subcutaneous mass of left lower extremity R22.42 CPT Codes Trunk/Arms/Legs - CPT: 42447-yggqh/arms/legs 0.6-1cm ([id number])
== END 2023-05-02 09:34 | disposition home or self-care (01) ==
PROVIDERS: Visit Provider Surgery
DX: R22.42 Localized swelling, mass and lump, left lower limb (principal)
CPT/HCPCS: 11402

== ENCOUNTER 2023-05-02 09:03 | Outpatient (REF) | payer MEDICARE, MEDICAID, SELFPAY | END 2023-05-02 09:04 | disposition home or self-care (01) | LOC: HO.LNP 09:03 | PROVIDERS: Visit Provider Surgery | DX: R22.42 Localized swelling, mass and lump, left lower limb (principal) | CPT/HCPCS: 11402; 88304 ==

== ENCOUNTER 2023-05-16 15:54 | Outpatient (AMB) | payer MEDICARE, MEDICAID, SELFPAY ==
--- NOTE | 2023-05-16 15:59 | MHC.OFFVIS ---
Intake Intake Visit Reasons: s/p excision of subcutaneous mass of left knee Intake Note: This patient presents for a post-op assessment status post excision of subcutaneous mass of the left knee.( 05/02/2023). Patient c/; reports no complaints. 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 She tolerated the procedure well. She currently denies complaints. 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 Father No problems noted. Paternal Aunt History of breast cancer Paternal Uncle History of Hodgkin's disease Maternal Uncle Colon cancer Maternal Aunt Lupus Maternal Uncle Prostate cancer Social History Household Members: Spouse Housing: House Are you a primary acute care nursing assistant to a significant other at home: No Do you presently have visiting nurse or other home services: No Alcohol intake: never Patient Tobacco Use Status: Never used Tobacco service: No Current occupational status: employed Female Reproductive History Menstrual Age of Menarche: 7 Review of Systems Const Denies chills and Denies fever(s) Card Denies chest pain, Denies dyspnea and Denies dyspnea on exertion Resp Denies cough, Denies dyspnea and Denies dyspnea on exertion GI Denies hematochezia and Denies change in bowel habits Denies hematuria Musc Denies back pain and Denies limited range of motion Neuro Denies focal weakness and Denies convulsions Psych Reports anxiety, Denies depression and Denies mood swings Physical Exam Const General: comfortable and no acute distress Resp Effort & Inspection: normal respiratory effort Extrem Other: left knee excision site is well healed, sutures intact, not infected Assessment & Plan Assessment & Plan (1) Subcutaneous mass of left lower extremity: Code(s): R22.42 - Localized swelling, mass and lump, left lower limb Plan: status post excision. Her incision is well healed. I removed her sutures. Her path report shows a lipoma. She can follow up on a p.r.n. basis. Coding Level of Care Code Global (65740) Diagnoses Subcutaneous mass of left lower extremity R22.42
== END 2023-05-16 16:06 | disposition home or self-care (01) ==
PROVIDERS: Visit Provider Surgery
DX: R22.42 Localized swelling, mass and lump, left lower limb (principal)
CPT/HCPCS: 99024

== ENCOUNTER → 2023-05-16 15:54 | Outpatient (BNVA) | payer MEDICARE, MEDICAID, SELFPAY | PROVIDERS: Visit Provider Surgery ==

== ENCOUNTER 2023-09-26 09:32 | Outpatient (REF) | payer MEDICARE, MEDICAID, SELFPAY ==
[2023-09-26 11:40] LABS: MANUAL DIFF FLAG NO
[2023-09-26 11:46] LABS: Basophils Percent Auto 0.4 % (0-2); Eosinophils Absolute Auto 0.2 X10*3/uL (0.0-0.4); Eosinophils Percent Auto 2.4 % (0-4); Hematocrit 42.4 % (37.0-47.0); Hemoglobin 14.1 g/dl (12.0-16.0); Imm Gran Abs Auto 0.03 X10*3/uL (0.00-0.03); Imm Gran Pct Auto 0.4 % (0.0-0.4); Lymphocytes Absolute Auto 2.2 X10*3/uL (1.2-4.9); Lymphocytes Percent Auto 32.5 % (20-40); Mean Corpuscular HGB Conc 33.3 g/dl (31.0-35.0); Mean Corpuscular Hemoglobin 30.5 pg (27.0-33.0); Mean Corpuscular Volume 91.6 fL (80.0-98.0); Mean Platelet Volume 12.7 fL (9.4-12.3); Monocytes Absolute Auto 0.3 X10*3/uL (0.1-1.2); Monocytes Percent Auto 4.9 % (2-11); Neutrophils Percent Auto 59.4 % (45-73); Platelet Count 162 X10*3/uL (160-400); Red Blood Count 4.63 X10*6/uL (4.20-5.50); Red Cell Distribution Width 13.2 % (11.0-16.0); White Blood Count 6.7 X10*3/uL (4.8-10.8)
[2023-09-26 11:56] LABS: Estimated Average Glucose 114 mg/dL; Hemoglobin A1c % 5.6 % (<6.0)
[2023-09-26 12:07] LABS: Alanine Aminotransferase 17 U/L (0-31); Albumin Level 4.6 g/dL (3.5-5.0); Alkaline Phosphatase 76 U/L (39-117); Anion Gap 12 (12-20); Aspartate Amino Transferase 15 U/L (5-31); Bilirubin Total 0.5 mg/dL (0.0-1.0); Blood Urea Nitrogen 19 mg/dL (9-16); Calcium 9.9 mg/dL (8.4-10.2); Carbon Dioxide 28 mmol/L (22-29); Chloride 104 mmol/L (96-108); Estimated Glomerular Filt Rate > 60; Glucose Random 179 mg/dL (60-115); Potassium 4.8 mmol/L (3.3-5.1); Sodium 139 mmol/L (135-145); Total Protein 7.6 g/dL (6.5-8.0)
[2023-09-26 12:20] LABS: Creatinine Urine 93.43 mg/dL; Microalbum/Creatinine Ratio Ur 10.7 ug/mg cr (<30)
[2023-09-26 12:24] LABS: TSH reflex Free T4 62.59 uIU/mL (0.32-4.0)
[2023-09-26 12:56] LABS: Free T4 (Free Thyroxine) 0.73 ng/dL (0.71-1.85)
== END 2023-09-26 09:33 | disposition home or self-care (01) ==
LOC: HO.HHCL 09:32
PROVIDERS: Visit Provider Nurse Practitioner
DX: E11.9 Type 2 diabetes mellitus without complications (principal); I10 Essential (primary) hypertension; R53.83 Other fatigue
CPT/HCPCS: 36415; 80053; 82043; 82570; 83036; 84439; 84443; 85025

== ENCOUNTER → 2024-01-15 14:00 | Outpatient (BNV) | payer MEDICARE, MEDICAID, SELFPAY | PROVIDERS: Visit Provider Radiology Diagnostic Radiology | DX: Z12.31 Encounter for screening mammogram for malignant neoplasm of breast (principal) | CPT/HCPCS: 77063; 77067 ==

== ENCOUNTER 2024-01-15 14:06 | Outpatient (REF) | payer MEDICARE, MEDICAID, SELFPAY ==
--- NOTE | ~2024-01-15 | MM_ITS ---
EXAMINATION: MM SCREENING DIGITAL BREAST TOMOSYNTHESIS, LEFT CLINICAL INFORMATION: Screening. Asymptomatic. The patient is status post right mastectomy. The patient had right breast cancer diagnosed in 2014 and angiosarcoma diagnosed in 2019. COMPARISON: Mammography: This study is compared with prior exams dating back to 2019. TECHNIQUE: Digital breast tomosynthesis is performed in both the craniocaudal and mediolateral oblique views along with computer-aided detection (CAD). Synthesized 2D images are generated from the tomosynthesis. FINDINGS: There are scattered areas of fibroglandular density (ACR BI-RADS breast composition Category b). There are no significant masses, abnormal calcifications, or other abnormalities. MM/MM tomosynthesis screening LT IMPRESSION: No mammographic evidence of malignancy. ASSESSMENT: BI-RADS BI-RADS 1 - Negative RECOMMENDATION: Routine annual mammography screening. 1 year F/U This examination should not preclude the clinical evaluation of a suspicious palpable abnormality. This patient's information was entered into a reminder system with a target due date for their next mammogram.
== END 2024-01-15 14:07 | disposition home or self-care (01) ==
LOC: HO.MAMMO 14:06
PROVIDERS: Visit Provider Obstetrics & Gynecology
DX: Z12.31 Encounter for screening mammogram for malignant neoplasm of breast (principal)
CPT/HCPCS: 77063; 77067

== ENCOUNTER 2024-01-15 14:53 | Outpatient (REF) | payer MEDICARE, MEDICAID, SELFPAY ==
[2024-01-15 16:34] LABS: TSH reflex Free T4 41.55 uIU/mL (0.32-4.0)
[2024-01-18 08:48] LABS: Aldolase 4.3 U/L (<=8.1)
== END 2024-01-15 14:54 | disposition home or self-care (01) ==
LOC: HO.HHCL 14:53
PROVIDERS: Visit Provider Nurse Practitioner
DX: M62.81 Muscle weakness (generalized) (principal); E03.9 Hypothyroidism, unspecified
CPT/HCPCS: 36415; 82085; 82550; 84439; 84443

== ENCOUNTER 2024-03-13 12:56 | Outpatient (REF) | payer MEDICARE, MEDICAID, SELFPAY ==
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
== END 2024-03-13 12:57 | disposition home or self-care (01) ==
LOC: HO.HHCX 12:56
PROVIDERS: Visit Provider Family Medicine
DX: M25.511 Pain in right shoulder (principal); R07.89 Other chest pain
CPT/HCPCS: 36415; 73000; 73030; 84439; 84443; 84480

== ENCOUNTER 2024-03-13 13:19 | Outpatient (REF) | payer MEDICARE, MEDICAID, SELFPAY ==
[2024-03-13 16:50] LABS: TSH reflex Free T4 89.09 uIU/mL (0.32-4.0)
[2024-03-13 18:14] LABS: Free T4 (Free Thyroxine) 0.44 ng/dL (0.71-1.85)
[2024-03-14 12:13] LABS: Triiodothyronine T3 Total 35 ng/dL (76-181)
== END 2024-03-13 13:20 | disposition home or self-care (01) ==
LOC: HO.HHCL 13:19
PROVIDERS: Visit Provider Nurse Practitioner
DX: Z13.89 Encounter for screening for other disorder (principal)
CPT/HCPCS: 36415; 84439; 84443; 84480

== ENCOUNTER → 2024-03-17 16:04 | Outpatient (REF) | payer MEDICARE, SELFPAY | LOC: HO.SL 16:04 | PROVIDERS: PCP Nurse Practitioner; Visit Provider Nurse Practitioner | DX: Z13.89 Encounter for screening for other disorder (principal) ==

== ENCOUNTER 2024-07-18 09:58 | Outpatient (REF) | payer MEDICARE, SELFPAY ==
[2024-07-18 11:44] LABS: Estimated Average Glucose 128 mg/dL; Hemoglobin A1C 156.4763 umol/L; Hemoglobin A1c % 6.1 % (<6.0)
[2024-07-18 11:56] LABS: Creatinine Urine 57.23 mg/dL; Microalbum/Creatinine Ratio Ur 27.9 ug/mg cr (<30)
[2024-07-18 12:00] LABS: Anion Gap 13 (12-20); Blood Urea Nitrogen 25 mg/dL (9-16); Calcium 10.2 mg/dL (8.4-10.2); Carbon Dioxide 26 mmol/L (22-29); Chloride 108 mmol/L (96-108); Cholesterol 227 mg/dL (<200); Estimated Glomerular Filt Rate > 60; Glucose Random 119 mg/dL (60-115); HDL Cholesterol 53 mg/dL (>40); LDL Cholesterol Calculated 145 mg/dL (<100); Potassium 4.7 mmol/L (3.3-5.1); Sodium 142 mmol/L (135-145); Triglycerides 147 mg/dL (<150)
[2024-07-18 12:06] LABS: Free T4 (Free Thyroxine) 1.11 ng/dL (0.71-1.85); Thyroid Stimulating Hormone 7.15 uIU/mL (0.32-4.0)
[2024-07-19 17:33] LABS: Triiodothyronine T3 Total 104 ng/dL (76-181)
== END 2024-07-18 09:59 | disposition home or self-care (01) ==
LOC: HO.HHCL 09:58
PROVIDERS: Visit Provider Nurse Practitioner
DX: I10 Essential (primary) hypertension (principal); E03.9 Hypothyroidism, unspecified; E11.9 Type 2 diabetes mellitus without complications
CPT/HCPCS: 36415; 80048; 80061; 82043; 82570; 83036; 84439; 84443; 84480

== ENCOUNTER 2024-11-26 19:50 | Emergency (ER) | payer MEDICARE, SELFPAY ==
--- NOTE | ~2024-11-26 | XR_ITS ---
CLINICAL HISTORY: chest pain, congestion, cough 2 view chest x-ray Comparison: None Findings: Mild left lower lobe atelectasis. No significant pleural effusion or pneumothorax. Possible tiny calcified granulomas in the lungs. Prominent cardiac silhouette. No acute fracture. IMPRESSION: Mild left lower lobe atelectasis. This document has been electronically signed by: Brent Snyder MD on 11/26/2024 20:54:21
--- NOTE | 2024-11-26 19:55 | ECG_ITS ---
Test Reason : CHEST PAIN Blood Pressure : */* mmHG Vent. Rate : 79 BPM Atrial Rate : 79 BPM P-R Int : 160 ms QRS Dur : 104 ms QT Int : 372 ms P-R-T Axes : 45 24 42 degrees QTcB Int : 426 ms Normal sinus rhythm Normal ECG When compared with ECG of 29-Nov-2022 16:16, No significant change was found Referred By: Generic ED Physician Electronically Signed By: JT OROPEZA MD
[2024-11-26 20:08] VITALS: BP 137/74; PULSE 80; RESP 16; TEMP 36.7; O2SAT 96; BMI 36.3
[2024-11-26 20:13] LABS: MANUAL DIFF FLAG NO
--- NOTE | 2024-11-26 20:15 | ED_ITS ---
HPI - General Adult General Chief complaint: General Medical Stated complaint: weakness ? thyroid level low,chest pain Time Seen by Provider: 11/26/24 21:56 Source: patient Mode of arrival: ambulatory Limitations: no limitations History of Present Illness ED Provider: HPI narrative: Patient's history of hypothyroidism on heavy dose of levothyroxine 200 mcg daily which she missed for about 10 days restarted taking her medicine 3 days ago comes here for lethargy dizziness weakness chest tightness and leg swelling no confusion no hypothermia Related Data Home Medications ?Medication ?Instructions ?Recorded ?Confirmed metformin 500 mg tablet 500 mg PO BID 01/31/21 05/02/23 sennosides 8.6 mg capsule (senna) 8.6 mg PO DAILY 08/25/21 05/02/23 calcium carbonate (Calcium 600) 1,200 mg PO DAILY 01/16/22 05/02/23 cholecalciferol (vitamin D3) 50 1 cap PO DAILY 01/16/22 05/02/23 mcg (2,000 unit) capsule tamoxifen 10 mg tablet 10 mg PO BID 02/06/22 05/02/23 tamoxifen 10 mg tablet 20 mg PO DAILY 02/09/22 05/02/23 sertraline 25 mg tablet 25 mg PO DAILY 04/23/23 05/02/23 Previous Rx's ?Medication ?Instructions ?Recorded polyethylene glycol 3350 17 17 g PO DAILY PRN constipation 05/05/20 gram/dose oral powder (Miralax) #238 grams levothyroxine 200 mcg tablet 200 mcg PO DAILY 90 days #90 tabs 12/21/20 metronidazole 500 mg tablet 500 mg PO BID 7 days #14 tabs 02/08/22 clindamycin phosphate 2 % vaginal 1 appful vaginal BEDTIME #40 grams 02/15/22 cream clobetasol 0.05 % topical cream 1 appl topical BID 2 weeks #45 04/26/22 grams levothyroxine 200 mcg capsule 200 mcg PO DAILY #90 caps 11/26/24 Allergies Allergy/AdvReac Type Severity Reaction Status Date / Time No Known Allergies Allergy Verified 11/26/24 20:12 [No Known Allergies*] Review of Systems 2 Review of Systems: Yes all other systems are reviewed and are negative PMFSH Past Medical History Medical History Subcutaneous mass of left lower extremity Anxiety Depression Arthritis of knee 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 Father No problems noted. Paternal Aunt History of breast cancer Paternal Uncle History of Hodgkin's disease Maternal Uncle Colon cancer Maternal Aunt Lupus Maternal Uncle Prostate cancer Social History Social History Household Members: Spouse Housing: House Are you a primary patient care secretary to a significant other at home: No Do you presently have visiting nurse or other home services: No Alcohol intake: never Patient Tobacco Use Status: Never used Tobacco Smoked in Last 30 Days: No Use of substances other than those prescribed or required for medical reasons: No Advance Directives: No Advance Directives Information Provided: No Do you have a plan to hurt others: No Plan Patient : No service: No Current occupational status: employed Physical Exam ED Vital Signs: Vital Signs - 24 hr 11/26/24 20:08 11/26/24 21:55 11/26/24 22:53 Temperature 98.0 F 97.6 F 98.4 F Pulse Rate 80 78 77 Respiratory Rate 16 16 16 Blood Pressure 137/74 141/71 H 115/63 Pulse Oximetry 96 99 96 Oxygen Delivery Method Room Air Room Air Room Air 11/27/24 00:05 Temperature 98.4 F Pulse Rate 77 Respiratory Rate 16 Blood Pressure 115/63 Pulse Oximetry 96 Oxygen Delivery Method Room Air BMI result Body Mass Index 36.3 Appearance: Alert. Oriented X3. No acute distress. Eyes: PERRLA, No Nystagmus ENT: Pharynx normal. Oral Mucosa moist Neck: Normal inspection. Neck supple. CVS: Normal heart rate and rhythm. Pulses normal. Respiratory: No respiratory distress. Equal air entry bilateral, no wheezing/rales/rhonchi tender to touch right breast Abdomen: Soft and nontender. Bowel sounds are present, no mass palpable, no CVA tenderness Skin: Skin warm and dry. Normal skin color. Normal skin turgor. Extremities: Nonpitting lower extremity edema. No calf tenderness Neuro: Oriented X 3. No motor deficit. No sensory deficit.No cerebellar signs , cranial nerves II-XII intact Course Course Course Narrative: This is a Rapid Medical Examination (RME) performed by Elisa Yanes PA-C in triage. Full HPI, ROS, assessment and treatment plan per primary provider in the Main ED. Hx: 54 yo F here for eval of multiple concerns. reports constant cp 5/10, weakness, lethargy, dizziness, increased swelling. Reports noncompliance with her thyroid medication x2 weeks. Restarted this 3 days ago. PE/vitals: Congested cough noted Plan: labs, ekg, cxr Medical Decision Making Medical Decision Making [facility] Narrative: Patient with hypothyroidism on 200 mcg of levothyroxine which she missed for about 10 days restarted on 3 days ago at this time patient does not have any signs of myxedema coma no confusion TSH is > 100 but Ft4 is 0.66 EKG without bradycardia no signs of pericardial effusion, patient advised to continue levothyroxine Differential Diagnosis Differential Diagnoses: The differential diagnosis associated with the presentation includes Lab Data [facility] Lab Attestation statement: I reviewed the patient's lab results. 11/26/24 20:08 11/26/24 20:08 Labs: Lab Results 11/26/24 11/26/24 11/26/24 Range/Units 20:08 21:51 22:39 WBC 7.5 (4.8-10.8) X10*3/uL RBC 4.09 L (4.20-5.50) X10*6/uL Hgb 12.3 (12.0-16.0) g/dl Hct 37.2 (37.0-47.0) % MCV 91.0 (80.0-98.0) fL MCH 30.1 (27.0-33.0) pg MCHC 33.1 (31.0-35.0) g/dl RDW 12.8 (11.0-16.0) % Plt Count 189 (160-400) X10*3/uL MPV 11.4 (9.4-12.3) fL Immature Gran % (Auto) 0.8 H (0.0-0.4) % Neut % (Auto) 57.0 (45-73) % Lymph % (Auto) 32.0 (20-40) % [place] % (Auto) 6.7 (2-11) % Eos % (Auto) 2.7 (0-4) % Baso % (Auto) 0.8 (0-2) % Lymph # (Auto) 2.4 (1.2-4.9) X10*3/uL [place] # (Auto) 0.5 (0.1-1.2) X10*3/uL Eos # (Auto) 0.2 (0.0-0.4) X10*3/uL Baso # (Auto) 0.1 (0.0-0.2) X10*3/uL Abs Immat Gran (auto) 0.06 H (0.00-0.03) X10*3/uL Absolute Neuts (auto) 4.3 (2.0-8.3) x10*3/uL Absolute Nucleated RBC 0.000 (0.0-0.012) X10*3/uL Nucleated RBC % (auto) 0.0 (0.0-0.2) /100WBC Sodium 139 (135-145) mmol/L Potassium 4.1 (3.3-5.1) mmol/L Chloride 103 (96-108) mmol/L Carbon Dioxide 28 (22-29) mmol/L Anion Gap 12 (12-20) BUN 20 H (9-16) mg/dL Creatinine 1.15 (0.5-1.4) mg/dL Estim Creat Clear Calc 52.6 Estimated GFR 49 POC Glucose 225 H (60-115) mg/dL Random Glucose 259 H (60-115) mg/dL Calcium 9.4 D (8.4-10.2) mg/dL Magnesium 1.8 (1.6-2.6) mg/dL Total Bilirubin 0.3 (0.0-1.0) mg/dL AST 29 (5-31) U/L ALT 57 H (0-31) U/L Alkaline Phosphatase 79 (39-117) U/L Troponin I High Sens < 2.7 (<3.5-17.0) ng/L B-Natriuretic Peptide < 10 (<100) pg/mL Total Protein 7.0 (6.5-8.0) g/dL Albumin 4.4 (3.5-5.0) g/dL TSH > 100.00 H (0.32-4.0) uIU/mL Free T4 0.66 L (0.71-1.85) ng/dL Urine Color Yellow Urine Appearance Clear Urine pH 7.0 (5.0-9.0) Ur Specific [place] >= 1.030 H (1.005-1.025) Urine Protein Negative (Neg-Trace) mg/dL Urine Glucose (UA) 500 H (Negative) mg/dL Urine Ketones Trace (Negative) mg/dL Urine Blood Negative (Negative) Urine Nitrite Negative (Negative) Ur Leukocyte Esterase Moderate (2+) H (Negative) Urine RBC 0-2 (0-2) /HPF Urine WBC 21-50 H (0-5) /HPF Ur Squamous Epith Cells 0-2 (0-2) /HPF Urine Bacteria None Seen (None Seen) Hyaline Casts 0-2 (0-2) /LPF Influenza Type A (PCR) NEGATIVE (Negative) Influenza Type B (PCR) NEGATIVE (Negative) RSV RNA Qual (PCR) NEGATIVE (Negative) SARS-CoV-2 RNA (RT-PCR) NEGATIVE (Negative) Discharge Plan Discharge Clinical Impression: Hypothyroid Qualifiers: Hypothyroidism type: unspecified Qualified Code(s): E03.9 - Hypothyroidism, unspecified Patient Disposition: Home, Self-Care Instructions: Hypothyroidism (ED) Additional Instructions: Continue take your medication for thyroid Follow up with your food court team member Prescriptions: New levothyroxine 200 mcg capsule 200 mcg PO DAILY Qty: 90 0RF No Action levothyroxine 200 mcg tablet 200 mcg PO DAILY 90 Days Qty: 90 0RF metronidazole 500 mg tablet 500 mg PO BID 7 Days Qty: 14 0RF Rx Instructions: Take with food, Avoid alcohol and vinegar products clindamycin phosphate 2 % cream 1 appful vaginal BEDTIME Qty: 40 1RF Rx Instructions: for 3 days polyethylene glycol 3350 [Miralax] 17 gram/dose powder 17 g PO DAILY PRN (Reason: constipation) Qty: 238 0RF calcium carbonate [Calcium 600] 600 mg calcium (1,500 mg) Tablet 1,200 mg PO DAILY cholecalciferol (vitamin D3) 50 mcg (2,000 unit) capsule 1 cap PO DAILY metformin 500 mg tablet 500 mg PO BID tamoxifen 10 mg tablet 10 mg PO BID clobetasol 0.05 % cream 1 appl topical BID 14 Days Qty: 45 1RF Rx Instructions: Then maintenance therapy for 2-3 times per week senna 8.6 mg capsule 8.6 mg PO DAILY tamoxifen 10 mg tablet 20 mg PO DAILY sertraline 25 mg tablet 25 mg PO DAILY Stand Alone Forms: Work/School Release Interventions: ED Discharge Assessment Last Done: 11/27/24 00:05 Discharge Date/Time: 11/27/24 00:06 Print Language: [place]
[2024-11-26 20:18] LABS: Basophils Absolute Auto 0.1 X10*3/uL (0.0-0.2); Basophils Percent Auto 0.8 % (0-2); Eosinophils Absolute Auto 0.2 X10*3/uL (0.0-0.4); Eosinophils Percent Auto 2.7 % (0-4); Hematocrit 37.2 % (37.0-47.0); Hemoglobin 12.3 g/dl (12.0-16.0); Imm Gran Abs Auto 0.06 X10*3/uL (0.00-0.03); Imm Gran Pct Auto 0.8 % (0.0-0.4); Lymphocytes Absolute Auto 2.4 X10*3/uL (1.2-4.9); Mean Corpuscular HGB Conc 33.1 g/dl (31.0-35.0); Mean Corpuscular Hemoglobin 30.1 pg (27.0-33.0); Mean Platelet Volume 11.4 fL (9.4-12.3); Monocytes Absolute Auto 0.5 X10*3/uL (0.1-1.2); Monocytes Percent Auto 6.7 % (2-11); Neutrophils Absolute Auto 4.3 x10*3/uL (2.0-8.3); Platelet Count 189 X10*3/uL (160-400); Red Blood Count 4.09 X10*6/uL (4.20-5.50); Red Cell Distribution Width 12.8 % (11.0-16.0); White Blood Count 7.5 X10*3/uL (4.8-10.8)
[2024-11-26 20:30] LABS: Alanine Aminotransferase 57 U/L (0-31); Albumin Level 4.4 g/dL (3.5-5.0); Alkaline Phosphatase 79 U/L (39-117); Anion Gap 12 (12-20); Aspartate Amino Transferase 29 U/L (5-31); Bilirubin Total 0.3 mg/dL (0.0-1.0); Blood Urea Nitrogen 20 mg/dL (9-16); Calcium 9.4 mg/dL (8.4-10.2); Carbon Dioxide 28 mmol/L (22-29); Chloride 103 mmol/L (96-108); Creatinine Clr Calc Pharmacy 52.6; Estimated Glomerular Filt Rate 49; Glucose Random 259 mg/dL (60-115); Magnesium 1.8 mg/dL (1.6-2.6); Potassium 4.1 mmol/L (3.3-5.1); Sodium 139 mmol/L (135-145)
--- OUTSIDE RECORDS SUMMARY | 2024-11-26 20:35 | XMS_ITS | Encounter Summary ---
Author Organization [employer] Address [address] [place] [address] [address] [place] [address] Care Team Providers Care Senior Principal Software Engineer Name Role Phone Zuleika London NP Primary Care Provider [phone] Reason for Visit * Reason Onset Date Comments Results 07/18/2024 Encounter Details Date Type Department Care Team ([facility] st Contact Info) Description 07/18/2024 Telephone [facility] MED[facility] [address] [place] [address] Zuleika London NP [address] [place] [address] Results Social History Tobacco Use Types Packs/Day Years Used Date Smoking Tobacco: Never Passive Smoke Exposure: Never Smokeless Tobacco: Never Alcohol Use Standard Drinks/Week Comments Yes 0 (1 standard drink = 0.6 oz pur e alcohol) Socially Alcohol Answer Date Recorded Frequency of Alcohol Consumption Not on file 01/23/2024 Average Number of Drinks Not on file 024 Frequency of Binge Drinking Not on file 12/31 Score 0 01/23/2024 Depression Answer Date Recorded Patient Health Questionnaire-9 Score 13 07/18/2024 Patient Health Questionnaire-9 Score 13 07/18/2024 Last PHQ-9: Questionnaire Data Not on file 0 07/18/2024 Housing Stability Answer Date Recorded What is your housing situation today? I have micah call 08/03/[address] you li ve. Do you have problems with any of the following? None of the above 08/03/2023 Food Insecurity Answer Date Recorded Within the past 12 months, y ou worried that your food would run out before you got money to buy more: Never True 08/03/2023 Within the past 12 months,th e food you bought just didn't last and you didn't have enough money to get more: Never True 08/2023 Transportation Answer Date Recorded In the past 12 months, has l ack of transportation kept you from medical appts, meetings, work or from getting things needed for daily living? No 08/03/2023 Utilities Answer Date Recorded In the past 12 months, has t he electric, gas, oil or water company threatened to shut off services in your home? No 08/03/2023 Depression Answer Date Recorded Patient Health Questionnaire-2 Score 2 07/18/2024 Internet Access Answer Date Recorded Internet Access Q1 Yes 07/18/2024 Internet Access Q2 Not on file 07/18/2024 Comments Unknown Sex and Gender Information Value Date Recorded Sex Assigned at Female 05/01/2022 10:19 AM EDT Legal Sex Female 10:19 AM EDT Gender Identity Female 05/01/2022 10:19 AM EDT Sexual Orientation Straight 05/01/2022 10 :19 AM EDT documented as of this encounter Functional Status * Over the past 2 weeks, how often have you been bothered by any of the following problems? Question Answer Date of Assessment Author Patient Health Questionnaire -2 Score 2 07/18/2024 9:16 AM Elsy Butler MA * Little interest or pleasure in doing things Answer Date of Assessment Author Not at all 07/18/2024 9:16 AM Elsy Butler MA * Feeling down, depressed, or hopeless Answer Date of Assessment Author More than half the days 07/18/2024 9:16 AM Elsy Villafuerte MA * Trouble falling or staying asleep, or sleeping too much Answer Date of Assessment Author Nearly every day 07/18/2024 9:16 AM Elsy Butler MA * Feeling tired or having little energy Answer Date of Assessment Author Nearly every day 07/18/2024 9:16 AM Elsy Butler MA * Poor appetite or overeating Answer Date of Assessment Author More than half the days 07/18/2024 9:16 AM Elsy Villafuerte MA * Feeling bad about yourself - or that you are a failure or have let yourself or your family down Answer Date of Assessment Author More than half the days 07/18/2024 9:16 AM Elsy Villafuerte MA * Trouble concentrating on things, such as reading the newspaper or watching television Answer Date of Assessment Author Several days 07/18/2024 9:16 AM Elsy Butler MA * Moving or speaking so slowly that other people could have noticed? Or the opposite - being so fidgety or restless that you have been moving around a lot more than usual. Answer Date of Assessment Author Not at all 07/18/2024 9:16 AM Elsy Butler MA * Thoughts that you would be better off or hurting yourself in some way Answer Date of Assessment Author Not at all 07/18/2024 9:16 AM Elsy Butler MA * Patient Health Questionnaire-9 Score Answer Date of Assessment Author 13 07/18/2024 9:16 AM Elsy Butler MA * How difficult have these problems made it for you to do your work, take care of things at home, or get along with other people? Answer Date of Assessment Author Somewhat difficult 07/18/2024 9:16 AM Elsy Hylton MA * Over the last 2 weeks, how often have you been bothered by any of the following problems? Question Answer Date of Assessment Author Feeling nervous, anxious, or on edge 0 07/18/2024 9:16 AM Elsy Butler MA Not being able to stop or co ntrol worrying 2 07/18/2024 9:16 AM Elsy Butler MA Worrying too much about diff erent things 2 07/18/2024 9:16 AM Elsy Butler MA Trouble relaxing 0 07/18/2024 9:16 AM Elsy Villafuerte MA Being so restless that it is hard to sit still 0 07/18/2024 9:16 AM Elsy Butler MA Becoming easily annoyed or irritable 2 07/18/2024 9:16 AM Elsy Butler MA Feeling afraid as if somethi ng awful might happen 2 07/18/2024 9:16 AM EST Elsy Travis MA MAGNUS-7 Total Score 8 07/18/2024 9:16 AM EST Elsy Travis MA documented as of this encounter Miscellaneous Notes * Telephone Encounter - Harry Wolfe - 07/18/2024 2:35 PM EST Tc from pt requesting nurse to go over recent lab results. Pt contact: [phone] Pt states that it will be difficult to answer calls from 8am until 5pm due to work. documented in this encounter Plan of Treatment Not on file documented as of this encounter Visit Diagnoses Not on filedocumented in this encounter Additional Health Concerns Assessment Noted Time PHQ-9 Depression Total Score: 13 025 9:16 AM EST documented as of this encounter Care Teams Senior Principal Software Engineer Relationship Specialty Start Date End Date Zuleika London NP [address] [place] [address] PCP - General Family Medicine 04/10/23 documented as of this encounter
[2024-11-26 20:38] LABS: Troponin-I High Sensitivity < 2.7 ng/L (<3.5-17.0)
[2024-11-26 20:46] LABS: B Type Natriuretic Peptide < 10 pg/mL (<100)
[2024-11-26 20:50] LABS: Influenza A PCR NEGATIVE (Negative); Influenza B PCR NEGATIVE (Negative); Resp Syncy Virus RNA Qual PCR NEGATIVE (Negative); SARS COV2 PCR INHOUSE NEGATIVE (Negative)
[2024-11-26 20:54] LABS: TSH reflex Free T4 > 100.00 uIU/mL (0.32-4.0)
[2024-11-26 21:25] LABS: Free T4 (Free Thyroxine) 0.66 ng/dL (0.71-1.85)
[2024-11-26 21:55] VITALS: BP 141/71; PULSE 78; RESP 16; TEMP 36.4; O2SAT 99
[2024-11-26 22:10] LABS: Appearance Urine Clear; Color Urine Yellow; Glucose Urine UA 500 mg/dL (Negative); Leukocyte Esterase Urine Moderate (2+) (Negative); Nitrite Urine Negative (Negative); Specific Gravity - Urine >= 1.030 (1.005-1.025); UMIC TRIGGER UACC YES; Urine Blood Negative (Negative); Urine Ketones Trace mg/dL (Negative); Urine Protein Negative (Neg-Trace)
[2024-11-26 22:41] LABS: Bacteria Urine None Seen (None Seen); Hyaline Casts Urine 0-2 /LPF (0-2); RBC Urine 0-2 /HPF (0-2); Squamous Epithelial Cell Urine 0-2 /HPF (0-2); UACC Culture Trigger YES; WBC Urine 21-50 /HPF (0-5)
[2024-11-26 22:43] LABS: Glucose, Whole Blood 225 mg/dL (60-115)
[2024-11-26 22:53] VITALS: BP 115/63; PULSE 77; RESP 16; TEMP 36.9; O2SAT 96
[2024-11-27 00:05] VITALS: BP 115/63; PULSE 77; RESP 16; TEMP 36.9; O2SAT 96
== END 2024-11-27 00:06 | disposition home or self-care (01) ==
PROVIDERS: Physician Assistant Medical; Emergency Provider Internal Medicine; PCP Nurse Practitioner
DX: E03.9 Hypothyroidism, unspecified (principal); Z91.148 Patient's other noncompliance with medication regimen for other reason; R53.1 Weakness; R53.83 Other fatigue; Z03.818 Encounter for observation for suspected exposure to other biological agents ruled out; E11.9 Type 2 diabetes mellitus without complications; Z79.84 Long term (current) use of oral hypoglycemic drugs; Z79.899 Other long term (current) drug therapy
CPT/HCPCS: 0241U; 36415; 71046; 80053; 81001; 82947; 83735; 83880; 84439; 84443; 84484; 85025; 87086; 93005; 99283; 99285

== ENCOUNTER → 2024-11-26 19:55 | Outpatient (BNV) | payer SELFPAY | PROVIDERS: Emergency Provider Internal Medicine; PCP Nurse Practitioner; Visit Provider Internal Medicine Cardiovascular Disease | DX: R07.9 Chest pain, unspecified (principal) | CPT/HCPCS: 93010 ==

== ENCOUNTER → 2024-11-26 20:11 | Outpatient (BNV) | payer MEDICARE, SELFPAY | PROVIDERS: PCP Nurse Practitioner; Visit Provider Radiology Diagnostic Radiology | DX: R07.9 Chest pain, unspecified (principal); R05.9 Cough, unspecified; R09.81 Nasal congestion | CPT/HCPCS: 71046 ==

== ENCOUNTER 2024-12-15 23:10 | Inpatient (IN) | payer MEDICARE, SELFPAY ==
[2024-12-15 23:13] VITALS: BP 188/95; PULSE 137; RESP 19; TEMP 37; O2SAT 96; BMI 29.7
--- NOTE | 2024-12-15 23:23 | PC.NURSE ---
pt nicola from home, per ems pt called sister and stated to her sister i want to , on PD arrival, pt was found running around the street. on arrival to ed, pt tearful, no answering many questions and only states i want to , pt did not enclose plan and denied hi, drug and etoh use. 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
[2024-12-15 23:51] VITALS: PULSE 100; RESP 17; O2SAT 99
--- NOTE | 2024-12-15 23:51 | PC.NURSE ---
pt sister- Jackelintracyr [phone]
--- NOTE | 2024-12-16 | ECG_ITS ---
Test Reason : R/O PROLONGED QT Blood Pressure : */* mmHG Vent. Rate : 96 BPM Atrial Rate : 96 BPM P-R Int : 152 ms QRS Dur : 104 ms QT Int : 368 ms P-R-T Axes : 57 42 39 degrees QTcB Int : 464 ms Normal sinus rhythm Normal ECG When compared with ECG of 26-Nov-2024 19:57, Nonspecific T wave abnormality no longer evident in Anterior leads Referred By: Raza Godfrey Electronically Signed By: Jeremy Chavarria
[2024-12-16 00:25] LABS: MANUAL DIFF FLAG NO
[2024-12-16 00:26] LABS: Basophils Absolute Auto 0.1 X10*3/uL (0.0-0.2); Basophils Percent Auto 0.6 % (0-2); Eosinophils Absolute Auto 0.1 X10*3/uL (0.0-0.4); Eosinophils Percent Auto 0.9 % (0-4); Hematocrit 33.1 % (37.0-47.0); Hemoglobin 11.6 g/dl (12.0-16.0); Imm Gran Abs Auto 0.06 X10*3/uL (0.00-0.03); Imm Gran Pct Auto 0.8 % (0.0-0.4); Lymphocytes Absolute Auto 1.7 X10*3/uL (1.2-4.9); Lymphocytes Percent Auto 22.1 % (20-40); Mean Corpuscular Hemoglobin 30.9 pg (27.0-33.0); Mean Platelet Volume 11.4 fL (9.4-12.3); Monocytes Absolute Auto 0.6 X10*3/uL (0.1-1.2); Monocytes Percent Auto 7.5 % (2-11); Neutrophils Absolute Auto 5.3 x10*3/uL (2.0-8.3); Neutrophils Percent Auto 68.1 % (45-73); Platelet Count 169 X10*3/uL (160-400); Red Blood Count 3.76 X10*6/uL (4.20-5.50); Red Cell Distribution Width 12.5 % (11.0-16.0); White Blood Count 7.7 X10*3/uL (4.8-10.8)
[2024-12-16 00:29] LABS: Appearance Urine Cloudy; Color Urine Dark Yellow; Glucose Urine UA 500 mg/dL (Negative); Leukocyte Esterase Urine Small (1+) (Negative); Nitrite Urine Negative (Negative); Specific Gravity - Urine >= 1.030 (1.005-1.025); UMIC TRIGGER UACC YES; Urine Blood Negative (Negative); Urine Ketones Trace mg/dL (Negative); Urine Protein 300 (3+) mg/dL (Neg-Trace)
--- NOTE | 2024-12-16 00:38 | ED_ITS ---
HPI - Psych General Chief Complaint: Psychiatric Symptoms Stated Complaint: SI Time Seen by Provider: 12/16/24 00:38 Source: patient and EMS Mode of arrival: EMS Limitations: other (Patient is anxious withdrawn) History of Present Illness ED Provider: HPI Narrative: 54-year-old woman with no history of psychiatric issues presenting with some type of mental breakdown, she was found running up and down the street telling EMS that she wants to , she repeated the same thing to her nurse here, and prior to that she told the same thing to her sister who alerted EMS. 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 But stated that she is not being abused, and it is not the medical part of her health care that made her feel this way Related Data Home Medications ?Medication ?Instructions ?Recorded ?Confirmed metformin 500 mg tablet 500 mg PO BID 01/31/21 12/16/24 sennosides 8.6 mg capsule (senna) 8.6 mg PO DAILY 08/25/21 05/02/23 calcium carbonate (Calcium 600) 1,200 mg PO DAILY 01/16/22 05/02/23 cholecalciferol (vitamin D3) 50 1 cap PO DAILY 01/16/22 05/02/23 mcg (2,000 unit) capsule tamoxifen 10 mg tablet 10 mg PO BID 02/06/22 05/02/23 tamoxifen 10 mg tablet 20 mg PO DAILY 02/09/22 05/02/23 sertraline 25 mg tablet 25 mg PO DAILY 04/23/23 05/02/23 levothyroxine 300 mcg tablet 300 mcg PO QAM 12/16/24 12/16/24 lisinopril 10 mg tablet 10 mg PO DAILY 12/16/24 12/16/24 Previous Rx's ?Medication ?Instructions ?Recorded polyethylene glycol 3350 17 17 g PO DAILY PRN constipation 05/05/20 gram/dose oral powder (Miralax) #238 grams levothyroxine 200 mcg tablet 200 mcg PO DAILY 90 days #90 tabs 12/21/20 metronidazole 500 mg tablet 500 mg PO BID 7 days #14 tabs 02/08/22 clindamycin phosphate 2 % vaginal 1 appful vaginal BEDTIME #40 grams 02/15/22 cream clobetasol 0.05 % topical cream 1 appl topical BID 2 weeks #45 04/26/22 grams levothyroxine 200 mcg capsule 200 mcg PO DAILY #90 caps 11/26/24 Allergies Allergy/AdvReac Type Severity Reaction Status Date / Time No Known Allergies Allergy Verified 12/15/24 23:20 [No Known Allergies*] Review of Systems 2 Constitutional: Constitutional: Reports as per [facility] Past Medical History Medical History Subcutaneous mass of left lower extremity Anxiety Depression Arthritis of knee 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 Father No problems noted. Paternal Aunt History of breast cancer Paternal Uncle History of Hodgkin's disease Maternal Uncle Colon cancer Maternal Aunt Lupus Maternal Uncle Prostate cancer Social History Social History Household Members: Spouse Housing: House Are you a primary animal care giver to a significant other at home: No Do you presently have visiting nurse or other home services: No Alcohol intake: never Patient Tobacco Use Status: Never used Tobacco Smoked in Last 30 Days: No Use of substances other than those prescribed or required for medical reasons: No Advance Directives: No Advance Directives Information Provided: Yes Do you have a plan to hurt others: No Plan Patient : No service: No Current occupational status: employed Physical Exam 2 Vital Signs: Vital Signs: Last Vital Signs Temp 97.8 F 12/16/24 06:24 Pulse 85 12/16/24 06:24 Resp 17 12/16/24 06:24 BP 132/62 12/16/24 06:24 Pulse Ox 99 12/16/24 06:24 O2 Del Method Room Air 12/16/24 06:24 BMI result Body Mass Index 29.7 General examination patient withdrawn and tearful There is no obvious facial trauma, there was no injury to the head, to palpation to her upper and lower back there is no tenderness, she has history of radical mastectomy with ribcage excision on the right side she did not want that area to be examined the touched but I was able to see the upper part of the chest Otherwise she is ambulatory Alert and oriented x4 Course Reevaluation(s) Reevaluation #1: Time: 08:11 Date: 12/16/24 Provider: Deangelo Beach MD Patient in physician observation for psychiatric evaluation.? No acute events reported overnight. No current complaints. VS stable.? Patient is in bed search status/pending CARE team evaluation. Will continue to monitor. Reevaluation #2: Patient will be admitted to the psychiatric floor, this ended the physician observation status December 16 2024 11:24 AM Time: 11:24 Medications Administered Discontinued Medications Generic Name Dose Route Start Last Admin Trade Name Pauloq PRN Reason Stop Dose Admin Diazepam 8 mg 12/16/24 00:51 12/16/24 01:00 Diazepam 2 Mg Tablet PO 12/16/24 00:52 8 mg ONCE ONE Administration Insulin Human Lispro 12 unit 12/16/24 02:27 12/16/24 02:57 Insulin Lispro 100 Unit/Ml 3 Ml Vial SUBCUT 12/16/24 02:28 12 unit ONCE ONE Administration Insulin Human Lispro 4 unit 12/16/24 09:40 12/16/24 10:52 Insulin Lispro 100 Unit/Ml 3 Ml Vial SUBCUT 12/16/24 09:41 4 unit ONCE ONE Administration Metformin HCl 500 mg 12/16/24 00:51 12/16/24 01:00 Metformin Hcl 500 Mg Tablet PO 12/16/24 00:52 500 mg ONCE ONE Administration Medical Decision Making Medical Decision Making MDM Narrative: Time: 00:58 Date: 12/16/24 Provider: Raza Godfrey, DO Patient in physician observation for psychiatric evaluation.?/pending CARE team evaluation. At the time of my initial evaluation unsure what set off this episode, unlikely related to drugs or alcohol she denies this, states has had SI in the past but not for a long time, was wondering whether her diagnosis of sarcoma of the chest is what is contributing to her presentation but she denied that, states she has not been abused. I suspect she is going to be involuntary psych admission. She is also diabetic, [id number] takes metformin 500 mg twice a day did not really disclosed whether she has been using her medications, I will ask the nurse to reconcile her meds so we can restart. Lab Data 12/16/24 00:19 12/16/24 00:19 Labs: Lab Results 12/16/24 12/16/24 12/16/24 Range/Units 00:07 00:08 00:19 WBC 7.7 (4.8-10.8) X10*3/uL RBC 3.76 L (4.20-5.50) X10*6/uL Hgb 11.6 L (12.0-16.0) g/dl Hct 33.1 L (37.0-47.0) % MCV 88.0 (80.0-98.0) fL MCH 30.9 (27.0-33.0) pg MCHC 35.0 (31.0-35.0) g/dl RDW 12.5 (11.0-16.0) % Plt Count 169 (160-400) X10*3/uL MPV 11.4 (9.4-12.3) fL Immature Gran % (Auto) 0.8 H (0.0-0.4) % Neut % (Auto) 68.1 (45-73) % Lymph % (Auto) 22.1 (20-40) % [place] % (Auto) 7.5 (2-11) % Eos % (Auto) 0.9 (0-4) % Baso % (Auto) 0.6 (0-2) % Lymph # (Auto) 1.7 (1.2-4.9) X10*3/uL [place] # (Auto) 0.6 (0.1-1.2) X10*3/uL Eos # (Auto) 0.1 (0.0-0.4) X10*3/uL Baso # (Auto) 0.1 (0.0-0.2) X10*3/uL Abs Immat Gran (auto) 0.06 H (0.00-0.03) X10*3/uL Absolute Neuts (auto) 5.3 (2.0-8.3) x10*3/uL Absolute Nucleated RBC 0.000 (0.0-0.012) X10*3/uL Nucleated RBC % (auto) 0.0 (0.0-0.2) /100WBC Sodium 137 (135-145) mmol/L Potassium 4.2 (3.3-5.1) mmol/L Chloride 103 (96-108) mmol/L Carbon Dioxide 23 (22-29) mmol/L Anion Gap 15 (12-20) BUN 20 H (9-16) mg/dL Creatinine 1.03 (0.5-1.4) mg/dL Estim Creat Clear Calc 52.8 Estimated GFR 55 POC Glucose (60-115) mg/dL Random Glucose 445 H* (60-115) mg/dL Calcium 9.5 (8.4-10.2) mg/dL Total Bilirubin 0.5 (0.0-1.0) mg/dL AST 24 (5-31) U/L ALT 45 H (0-31) U/L Alkaline Phosphatase 85 (39-117) U/L Total Protein 6.9 (6.5-8.0) g/dL Albumin 4.4 (3.5-5.0) g/dL TSH 5.47 H (0.32-4.0) uIU/mL Urine Color Dark Yellow Urine Appearance Cloudy Urine pH 5.0 (5.0-9.0) Ur Specific [place] >= 1.030 H (1.005-1.025) Urine Protein 300 (3+) H (Neg-Trace) mg/dL Urine Glucose (UA) 500 H (Negative) mg/dL Urine Ketones Trace (Negative) mg/dL Urine Blood Negative (Negative) Urine Nitrite Negative (Negative) Ur Leukocyte Esterase Small (1+) H (Negative) Urine RBC 3-5 H (0-2) /HPF Urine WBC 21-50 (0-5) /HPF Ur Squamous Epith Cells 6-10 (0-2) /HPF Urine Bacteria 1+ (None Seen) Hyaline Casts >20 (0-2) /LPF Granular Casts Present Urine Opiates Screen Not Detected (Not Detect) Ur Buprenorphine Scrn Not Detected (Not Detect) ng/mL Ur Oxycodone Screen Not Detected (Not Detect) ng/mL Urine Methadone Screen Not Detected (Not Detect) ng/mL Urine Fentanyl Screen Not Detected (Not Detect) Ur Barbiturates Screen Not Detected (Not Detect) Ur Phencyclidine Scrn Not Detected (Not Detect) Ur Amphetamines Screen Not Detected (Not Detect) U Benzodiazepines Scrn Not Detected (Not Detect) Urine Cocaine Screen Not Detected (Not Detect) U Marijuana (THC) Screen Not Detected (Not Detect) Ethyl Alcohol < 10 mg/dL 12/16/24 12/16/24 12/16/24 Range/Units 02:56 05:53 09:29 WBC (4.8-10.8) X10*3/uL RBC (4.20-5.50) X10*6/uL Hgb (12.0-16.0) g/dl Hct (37.0-47.0) % MCV (80.0-98.0) fL MCH (27.0-33.0) pg MCHC (31.0-35.0) g/dl RDW (11.0-16.0) % Plt Count (160-400) X10*3/uL MPV (9.4-12.3) fL Immature Gran % (Auto) (0.0-0.4) % Neut % (Auto) (45-73) % Lymph % (Auto) (20-40) % [place] % (Auto) (2-11) % Eos % (Auto) (0-4) % Baso % (Auto) (0-2) % Lymph # (Auto) (1.2-4.9) X10*3/uL [place] # (Auto) (0.1-1.2) X10*3/uL Eos # (Auto) (0.0-0.4) X10*3/uL Baso # (Auto) (0.0-0.2) X10*3/uL Abs Immat Gran (auto) (0.00-0.03) X10*3/uL Absolute Neuts (auto) (2.0-8.3) x10*3/uL Absolute Nucleated RBC (0.0-0.012) X10*3/uL Nucleated RBC % (auto) (0.0-0.2) /100WBC Sodium (135-145) mmol/L Potassium (3.3-5.1) mmol/L Chloride (96-108) mmol/L Carbon Dioxide (22-29) mmol/L Anion Gap (12-20) BUN (9-16) mg/dL Creatinine (0.5-1.4) mg/dL Estim Creat Clear Calc Estimated GFR POC Glucose 354 H* 283 H 264 H (60-115) mg/dL Random Glucose (60-115) mg/dL Calcium (8.4-10.2) mg/dL Total Bilirubin (0.0-1.0) mg/dL AST (5-31) U/L ALT (0-31) U/L Alkaline Phosphatase (39-117) U/L Total Protein (6.5-8.0) g/dL Albumin (3.5-5.0) g/dL TSH (0.32-4.0) uIU/mL Urine Color Urine Appearance Urine pH (5.0-9.0) Ur Specific [place] (1.005-1.025) Urine Protein (Neg-Trace) mg/dL Urine Glucose (UA) (Negative) mg/dL Urine Ketones (Negative) mg/dL Urine Blood (Negative) Urine Nitrite (Negative) Ur Leukocyte Esterase (Negative) Urine RBC (0-2) /HPF Urine WBC (0-5) /HPF Ur Squamous Epith Cells (0-2) /HPF Urine Bacteria (None Seen) Hyaline Casts (0-2) /LPF Granular Casts Urine Opiates Screen (Not Detect) Ur Buprenorphine Scrn (Not Detect) ng/mL Ur Oxycodone Screen (Not Detect) ng/mL Urine Methadone Screen (Not Detect) ng/mL Urine Fentanyl Screen (Not Detect) Ur Barbiturates Screen (Not Detect) Ur Phencyclidine Scrn (Not Detect) Ur Amphetamines Screen (Not Detect) U Benzodiazepines Scrn (Not Detect) Urine Cocaine Screen (Not Detect) U Marijuana (THC) Screen (Not Detect) Ethyl Alcohol mg/dL Discharge Plan Discharge Clinical Impression: Suicidal ideation, Psychotic episode, Poorly controlled diabetes mellitus Prescriptions: No Action levothyroxine 200 mcg tablet 200 mcg PO DAILY 90 Days Qty: 90 0RF metronidazole 500 mg tablet 500 mg PO BID 7 Days Qty: 14 0RF Rx Instructions: Take with food, Avoid alcohol and vinegar products clindamycin phosphate 2 % cream 1 appful vaginal BEDTIME Qty: 40 1RF Rx Instructions: for 3 days polyethylene glycol 3350 [Miralax] 17 gram/dose powder 17 g PO DAILY PRN (Reason: constipation) Qty: 238 0RF calcium carbonate [Calcium 600] 600 mg calcium (1,500 mg) Tablet 1,200 mg PO DAILY cholecalciferol (vitamin D3) 50 mcg (2,000 unit) capsule 1 cap PO DAILY levothyroxine 200 mcg capsule 200 mcg PO DAILY Qty: 90 0RF levothyroxine 300 mcg tablet 300 mcg PO QAM lisinopril 10 mg tablet 10 mg PO DAILY metformin 500 mg tablet 500 mg PO BID tamoxifen 10 mg tablet 10 mg PO BID clobetasol 0.05 % cream 1 appl topical BID 14 Days Qty: 45 1RF Rx Instructions: Then maintenance therapy for 2-3 times per week senna 8.6 mg capsule 8.6 mg PO DAILY tamoxifen 10 mg tablet 20 mg PO DAILY sertraline 25 mg tablet 25 mg PO DAILY Referrals: Zuleika London [Primary Care Provider] - Interventions: [place]-Suicide Risk Severity Scale Last Done: 12/15/24 23:24 Print Language: [place]
[2024-12-16 00:39] LABS: Bacteria Urine 1+ (None Seen); Granular Casts Urine Present; Hyaline Casts Urine >20 /LPF (0-2); UACC Culture Trigger YES; WBC Urine 21-50 /HPF (0-5)
[2024-12-16 00:39] LABS: Amphetamine Screen Urine Not Detected (Not Detect); Barbiturates, Urine Not Detected (Not Detect); Benzodiazepines Screen Urine Not Detected (Not Detect); Buprenorphine Scr Not Detected (Not Detect); Cannabinoid Screen Urine Not Detected (Not Detect); Cocaine Screen Urine Not Detected (Not Detect); Fentanyl, urine Not Detected (Not Detect); Methadone Screen, Urine Not Detected (Not Detect); Opiate Screen Urine Not Detected (Not Detect); Oxycodone Screen Urine Not Detected (Not Detect); Phencyclidine Screen Urine Not Detected (Not Detect)
[2024-12-16 00:45] LABS: Alanine Aminotransferase 45 U/L (0-31); Albumin Level 4.4 g/dL (3.5-5.0); Alkaline Phosphatase 85 U/L (39-117); Anion Gap 15 (12-20); Aspartate Amino Transferase 24 U/L (5-31); Bilirubin Total 0.5 mg/dL (0.0-1.0); Blood Urea Nitrogen 20 mg/dL (9-16); Calcium 9.5 mg/dL (8.4-10.2); Carbon Dioxide 23 mmol/L (22-29); Chloride 103 mmol/L (96-108); Creatinine Clr Calc Pharmacy 52.8; Estimated Glomerular Filt Rate 55; Ethanol < 10 mg/dL; Glucose Random 445 mg/dL (60-115); Potassium 4.2 mmol/L (3.3-5.1); Sodium 137 mmol/L (135-145); Total Protein 6.9 g/dL (6.5-8.0)
[2024-12-16] MEDS: metFORMIN HCl 500 MG TABLET PO ×2 (01:00→22:00)
[2024-12-16] MEDS: diazePAM 2 MG TABLET 8 MG PO (01:00)
--- NOTE | 2024-12-16 01:04 | PC.NURSE ---
pt medicated per mar, tolerated whole well with water. at bedside and aware of poc. no new orders at this time.
--- NOTE | 2024-12-16 01:08 | PC.NURSE ---
pt states that she takes lisinopril, metformin and levothyroxine at home, states she takes a medication for her cancer but is unsure which medication it is, provider aware
[2024-12-16 01:38] LABS: Thyroid Stimulating Hormone 5.47 uIU/mL (0.32-4.0)
[2024-12-16] MEDS: Insulin Lispro 100 UNIT/ML 3 ML VIAL 12 UNIT SUBCUT (02:57)
[2024-12-16 02:59] LABS: Glucose, Whole Blood 354 mg/dL (60-115)
--- NOTE | 2024-12-16 02:59 | PC.NURSE ---
pt poc 354. pt medicated per mar with insulin.
[2024-12-16 05:56] LABS: Glucose, Whole Blood 283 mg/dL (60-115)
--- NOTE | 2024-12-16 05:59 | PC.NURSE ---
pt poc 283, provider aware, no new order at this time. pt offers no complaints.
[2024-12-16 06:24] VITALS: BP 132/62; PULSE 85; RESP 17; TEMP 36.6; O2SAT 99
[2024-12-16 09:32] LABS: Glucose, Whole Blood 264 mg/dL (60-115)
--- NOTE | 2024-12-16 09:37 | MHC.CARE ---
Patient will be IPLOC. Section 12a in chart for safety.
[2024-12-16] MEDS: Insulin Lispro 100 UNIT/ML 3 ML VIAL SUBCUT ×3 (10:52→22:02)
--- NOTE | 2024-12-16 10:57 | MHC.EDTECH ---
This tech informed patient of urine test ordered, provided patient with urine cup at bedside for when patient can provide a sample.
--- NOTE | 2024-12-16 11:18 | PC.NURSE ---
Assumed care of this patient at 1100, patient currently resting quietly in 4, previously medicated for POC per Mar by previous RN, plan of care continues.
--- NOTE | 2024-12-16 12:14 | PC.NURSE ---
RE MED REC: previous RN only able to confirm 3 meds from external fill information. Patient unable to provide any detail regarding their medications, pharmacy requested to assist in med rec, will complete when able.
[2024-12-16] MEDS: Levothyroxine Sodium 200 MCG TABLET PO (13:01)
[2024-12-16 13:28] LABS: Glucose, Whole Blood 234 mg/dL (60-115)
--- NOTE | 2024-12-16 13:30 | PC.NURSE ---
RE: glucose levels - contacted Dr. Beach - patient's sugars have been 200's after initial txt for POC of 445, not on sliding scale, metformin to be restarted this evening, inquiring if patient should be placed on a sliding scale? Provider to order, awaiting orders.
[2024-12-16 14:02] LABS: Appearance Urine Clear; Color Urine Yellow; Glucose Urine UA >=1000 mg/dL (Negative); Leukocyte Esterase Urine Moderate (2+) (Negative); Nitrite Urine Negative (Negative); PH 5.5 (5.0-9.0); Specific Gravity - Urine >= 1.030 (1.005-1.025); UMIC TRIGGER UACC YES; Urine Blood Negative (Negative); Urine Ketones Trace mg/dL (Negative); Urine Protein Trace mg/dL (Neg-Trace)
[2024-12-16 14:07] LABS: Bacteria Urine None Seen (None Seen); RBC Urine 0-2 /HPF (0-2); UACC Culture Trigger YES; WBC Urine >50 /HPF (0-5)
[2024-12-16 15:44] VITALS: BMI 29.7
[2024-12-16 15:45] VITALS: BP 159/74; PULSE 93; TEMP 36.8; O2SAT 98
[2024-12-16] MEDS: Acetaminophen 325 MG TABLET 650 MG PO (16:07)
[2024-12-16 17:12] LABS: Glucose, Whole Blood 255 mg/dL (60-115)
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
[2024-12-16 20:00] VITALS: BP 162/71; PULSE 94; TEMP 36.7; O2SAT 96
[2024-12-16 20:55] LABS: Glucose, Whole Blood 211 mg/dL (60-115)
[2024-12-16 22:00] VITALS: BP 119/77; PULSE 83; TEMP 36.5; O2SAT 98
[2024-12-16] MEDS: traZODone HCL 50 MG TABLET PO (22:05)
[2024-12-17] MEDS: Levothyroxine Sodium 200 MCG TABLET PO (06:59)
[2024-12-17 07:46] VITALS: BP 127/69; PULSE 85; TEMP 36.7; O2SAT 98
[2024-12-17 07:48] LABS: Glucose, Whole Blood 201 mg/dL (60-115)
[2024-12-17] MEDS: metFORMIN HCl 500 MG TABLET PO ×2 (08:29→21:16)
[2024-12-17] MEDS: Insulin Lispro 100 UNIT/ML 3 ML VIAL SUBCUT ×3 (08:29→21:15)
[2024-12-17 09:14] LABS: Folate 11.1 ng/mL (> or = 4.0); Vitamin B12 1139 pg/mL (200-900)
[2024-12-17] MEDS: Docusate Sodium 100 MG CAPSULE PO (11:49)
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
[2024-12-17 12:30] LABS: Glucose, Whole Blood 296 mg/dL (60-115)
[2024-12-17 16:56] LABS: Glucose, Whole Blood 184 mg/dL (60-115)
[2024-12-17 20:00] VITALS: BP 131/65; TEMP 36.8; O2SAT 99
[2024-12-17 21:09] LABS: Glucose, Whole Blood 211 mg/dL (60-115)
[2024-12-17] MEDS: traZODone HCL 50 MG TABLET PO (21:16)
[2024-12-17] MEDS: lamoTRIgine 25 MG TABLET PO (21:16)
[2024-12-18] MEDS: Levothyroxine Sodium 200 MCG TABLET PO (07:10)
[2024-12-18 07:59] LABS: Glucose, Whole Blood 219 mg/dL (60-115)
[2024-12-18 08:00] VITALS: BP 124/70; PULSE 90; TEMP 36.8; O2SAT 98
[2024-12-18] MEDS: Insulin Lispro 100 UNIT/ML 3 ML VIAL SUBCUT ×4 (08:28→21:27)
[2024-12-18] MEDS: metFORMIN HCl 500 MG TABLET PO ×2 (08:29→21:33)
[2024-12-18] MEDS: lamoTRIgine 25 MG TABLET PO ×2 (08:29→21:33)
--- NOTE | 2024-12-18 11:07 | HO.PSYCHPN ---
Subjective Subjective Date of Service: 12/18/24 Reason For Visit: Depression SI Subjective Notes: Conditional Voluntary Healthcare Proxy: No Guardianship: No Medical Problems Affecting Mental Status: No Interim History: Irritable, angry, focus on critique of unit, milieu, team vs individual issues. Clearly is very overwhelmed with all that is currently happening with her. Attempting to support, encouraging group work to strengthen coping skills. Pt would like a meeting with her son. Team will attempt to contact him and we will schedule this if he agrees. Tolerating Lamictal. Review of letter sent to work with team, copies provided. Pt struggling, overwhelmed with current stressors. Offered support Medication Compliance: Yes Side effects from medications: No Attending Groups: Intermittent Review of Systems Acute medical concerns: No Review of Systems Review of Systems No Mental Status Exam Mental Status Exam Patient Appearance: Fatigued Patient Orientation: Person, Place, Time and Situation Level of Consciousness: Alert Patient Behavior: Talkative and Good Eye Contact Mood Description: Depressed Affect Description: Flat Patient Cognition Impaired: No Ability to Follow Directions: Good Speech Pattern: Spontaneous Speech Memory Description: Episodic Impaired Hallucinations: None Perceptual Disturbances: Depersonalization and Derealization Thought Process: Intact and Goal Oriented Thought Content: positive for Intact and positive for Goal Oriented Judgement: Good Diagnostics Vital Signs (24Hr): Vital Signs - 24 hr 12/17/24 20:00 12/18/24 08:00 Temperature 98.3 F 98.2 F Pulse Rate 90 Blood Pressure 131/65 124/70 Pulse Oximetry 99 98 Oxygen Delivery Method Room Air Room Air BMI result Body Mass Index 29.7 Labs 12/16/24 00:19 12/16/24 00:19 Labs: Laboratory Results - last 48 hr 12/16/24 12/16/24 12/16/24 13:25 13:56 17:07 POC Glucose 234 H 255 H Vitamin B12 Folate Urine Color Yellow Urine Appearance Clear Urine pH 5.5 Ur Specific [place] >= 1.030 H Urine Protein Trace Urine Glucose (UA) >=1000 H Urine Ketones Trace Urine Blood Negative Urine Nitrite Negative Ur Leukocyte Esterase Moderate (2+) H Urine RBC 0-2 Urine WBC >50 H Ur Squamous Epith Cells 3-5 Urine Bacteria None Seen Hyaline Casts 3-5 12/16/24 12/17/24 12/17/24 20:50 07:41 08:02 POC Glucose 211 H 201 H Vitamin B12 1139 H Folate 11.1 Urine Color Urine Appearance Urine pH Ur Specific [place] Urine Protein Urine Glucose (UA) Urine Ketones Urine Blood Urine Nitrite Ur Leukocyte Esterase Urine RBC Urine WBC Ur Squamous Epith Cells Urine Bacteria Hyaline Casts 12/17/24 12/17/24 12/17/24 12:26 16:46 21:01 POC Glucose 296 H 184 H 211 H Vitamin B12 Folate Urine Color Urine Appearance Urine pH Ur Specific [place] Urine Protein Urine Glucose (UA) Urine Ketones Urine Blood Urine Nitrite Ur Leukocyte Esterase Urine RBC Urine WBC Ur Squamous Epith Cells Urine Bacteria Hyaline Casts 12/18/24 07:51 POC Glucose 219 H Vitamin B12 Folate Urine Color Urine Appearance Urine pH Ur Specific [place] Urine Protein Urine Glucose (UA) Urine Ketones Urine Blood Urine Nitrite Ur Leukocyte Esterase Urine RBC Urine WBC Ur Squamous Epith Cells Urine Bacteria Hyaline Casts Medications Medications Current Medications Acetaminophen (Acetaminophen 325 Mg Tablet) 650 mg PO Q6H PRN PRN Reason: Headache/Pain, Scale 1-10 Last Admin: 12/16/24 16:07 Dose: 650 mg Al Hydroxide/Mg Hydroxide (Magnesium Hydrox/Alum Hydrox 30 Ml Oral.Susp) 30 ml PO Q6H PRN PRN Reason: Heartburn/Nausea Dextrose (Dextrose 50 % 25 Gm/50 Ml Syringe) 25 gm IVPUSH Q15M PRN; Protocol PRN Reason: per Hypoglycemia Standing Ord. Docusate Sodium (Docusate Sodium 100 Mg Capsule) 100 mg PO BID PRN PRN Reason: Constipation Last Admin: 12/17/24 11:49 Dose: 100 mg Glucose (Glucose Gel 15 Gm Gel..Gram.) 15 gm PO Q15M PRN; Protocol PRN Reason: per Hypoglycemia Standing Ord. Hydroxyzine HCl (Hydroxyzine Hcl 25 Mg Tablet) 25 mg PO Q6H PRN PRN Reason: mild anxiety Insulin Human Lispro (Insulin Lispro 100 Unit/Ml 3 Ml Vial) 0 unit SUBCUT QIDACHS [facility]; Protocol Last Admin: 12/18/24 08:28 Dose: 4 unit Lamotrigine (Lamotrigine 25 Mg Tablet) 25 mg PO BID [facility] Last Admin: 12/18/24 08:29 Dose: 25 mg Levothyroxine Sodium (Levothyroxine Sodium 200 Mcg Tablet) 200 mcg PO DAILY@0600 [facility] Last Admin: 12/18/24 07:10 Dose: 200 mcg Magnesium Hydroxide (Milk Of Magnesia 30 Ml Oral.Susp) 30 ml PO DAILY PRN PRN Reason: Constipation Metformin HCl (Metformin Hcl 500 Mg Tablet) 500 mg PO BID ANTHONY Last Admin: 12/18/24 08:29 Dose: 500 mg Nicotine Polacrilex (Nicotine Polacrilex 2 Mg Gum) 4 mg BUCCAL Q2H PRN PRN Reason: Nicotine Cravings Trazodone HCl (Trazodone Hcl 50 Mg Tablet) 50 mg PO BEDTIME MRX1 PRN PRN Reason: Insomnia Last Admin: 12/17/24 21:16 Dose: 50 mg Allergies Allergies Allergy/AdvReac Type Severity Reaction Status Date / Time No Known Allergies (No Known Allergy Verified 12/15/24 23:20 Allergies*) Assessment & Plan Assessment & Plan (1) PTSD (post-traumatic stress disorder): Status: Acute Code(s): F43.10 - Post-traumatic stress disorder, unspecified Plan Admit, CV, 15 minute checks Diagnostics as needed, repeat TSH, FT4 Collateral Contact Lamictal 25 mg bid Encourage full milieu 12/18: Offer support, encourage milieu We are available for a family meeting with pt and son if he agrees, team will request Reason for continued inpatient stay Substantial Risk for: rapid decompensation Time Spent With Patient Time: Total time managing care of this patient today ____ minutes.
[2024-12-18 12:01] LABS: Glucose, Whole Blood 290 mg/dL (60-115)
[2024-12-18 17:03] LABS: Glucose, Whole Blood 154 mg/dL (60-115)
[2024-12-18 20:00] VITALS: BP 117/70; PULSE 96; RESP 18; TEMP 36.4; O2SAT 98
[2024-12-18 21:01] LABS: Glucose, Whole Blood 289 mg/dL (60-115)
[2024-12-18] MEDS: traZODone HCL 50 MG TABLET PO (21:33)
[2024-12-19] MEDS: Levothyroxine Sodium 200 MCG TABLET PO (06:47)
[2024-12-19 08:00] VITALS: BP 120/60; PULSE 92; TEMP 36.9; O2SAT 97
[2024-12-19 08:28] LABS: Glucose, Whole Blood 197 mg/dL (60-115)
[2024-12-19] MEDS: Insulin Lispro 100 UNIT/ML 3 ML VIAL SUBCUT ×4 (08:35→22:25)
[2024-12-19] MEDS: lamoTRIgine 25 MG TABLET PO ×2 (08:35→22:27)
[2024-12-19] MEDS: metFORMIN HCl 500 MG TABLET PO ×2 (08:35→22:26)
[2024-12-19 12:35] LABS: Glucose, Whole Blood 161 mg/dL (60-115)
--- NOTE | 2024-12-19 15:19 | P.PNPSI_ITS ---
Subjective Subjective Date of Service: 12/19/24 Reason For Visit: Depression SI Subjective Notes: Conditional Voluntary Healthcare Proxy: No Guardianship: No Medical Problems Affecting Mental Status: No Interim History: Tolerating Lamictal she reports with some mild relief early on. Son has agreed to a family meeting, 12/22 11am. Discussed with pt beginning to make a brief list of issues she would like to address with son and we will discuss. Pt met today with Substance Abuse Counselor Joe-finds him very helpful as she sorts through this transitional process Medication Compliance: Yes Side effects from medications: No Attending Groups: Intermittent Review of Systems Acute medical concerns: No Review of Systems Review of Systems Denies Mental Status Exam Mental Status Exam Patient Appearance: Fatigued Patient Orientation: Person, Place, Time and Situation Level of Consciousness: Alert Patient Behavior: Talkative and Good Eye Contact Mood Description: Depressed Affect Description: Flat Patient Cognition Impaired: No Ability to Follow Directions: Good Speech Pattern: Spontaneous Speech Memory Description: Episodic Impaired Hallucinations: None Perceptual Disturbances: Depersonalization and Derealization Thought Process: Intact and Goal Oriented Thought Content: positive for Intact and positive for Goal Oriented Judgement: Good Diagnostics Vital Signs (24Hr): Vital Signs - 24 hr 12/18/24 20:00 12/19/24 08:00 Temperature 97.6 F 98.4 F Pulse Rate 96 92 Respiratory Rate 18 Blood Pressure 117/70 120/60 Pulse Oximetry 98 97 Oxygen Delivery Method Room Air Room Air BMI result Body Mass Index 29.7 Labs 12/16/24 00:19 12/16/24 00:19 Labs: Laboratory Results - last 48 hr 12/17/24 12/17/24 12/18/24 16:46 21:01 07:51 POC Glucose 184 H 211 H 219 H 12/18/24 12/18/24 12/18/24 11:54 16:58 20:56 POC Glucose 290 H 154 H 289 H 12/19/24 12/19/24 08:25 12:29 POC Glucose 197 H 161 H Medications Medications Current Medications Acetaminophen (Acetaminophen 325 Mg Tablet) 650 mg PO Q6H PRN PRN Reason: Headache/Pain, Scale 1-10 Last Admin: 12/16/24 16:07 Dose: 650 mg Al Hydroxide/Mg Hydroxide (Magnesium Hydrox/Alum Hydrox 30 Ml Oral.Susp) 30 ml PO Q6H PRN PRN Reason: Heartburn/Nausea Dextrose (Dextrose 50 % 25 Gm/50 Ml Syringe) 25 gm IVPUSH Q15M PRN; Protocol PRN Reason: per Hypoglycemia Standing Ord. Docusate Sodium (Docusate Sodium 100 Mg Capsule) 100 mg PO BID PRN PRN Reason: Constipation Last Admin: 12/17/24 11:49 Dose: 100 mg Glucose (Glucose Gel 15 Gm Gel..Gram.) 15 gm PO Q15M PRN; Protocol PRN Reason: per Hypoglycemia Standing Ord. Hydroxyzine HCl (Hydroxyzine Hcl 25 Mg Tablet) 25 mg PO Q6H PRN PRN Reason: mild anxiety Insulin Human Lispro (Insulin Lispro 100 Unit/Ml 3 Ml Vial) 0 unit SUBCUT QIDACHS [facility]; Protocol Last Admin: 12/19/24 12:32 Dose: 2 unit Lamotrigine (Lamotrigine 25 Mg Tablet) 25 mg PO BID [facility] Last Admin: 12/19/24 08:35 Dose: 25 mg Levothyroxine Sodium (Levothyroxine Sodium 200 Mcg Tablet) 200 mcg PO DAILY@0600 [facility] Last Admin: 12/19/24 06:47 Dose: 200 mcg Loperamide HCl (Loperamide Hcl 2 Mg Capsule) 4 mg PO Q4H PRN PRN Reason: Diarrhea Magnesium Hydroxide (Milk Of Magnesia 30 Ml Oral.Susp) 30 ml PO DAILY PRN PRN Reason: Constipation Metformin HCl (Metformin Hcl 500 Mg Tablet) 500 mg PO BID [facility] Last Admin: 12/19/24 08:35 Dose: 500 mg Nicotine Polacrilex (Nicotine Polacrilex 2 Mg Gum) 4 mg BUCCAL Q2H PRN PRN Reason: Nicotine Cravings Trazodone HCl (Trazodone Hcl 50 Mg Tablet) 50 mg PO BEDTIME MRX1 PRN PRN Reason: Insomnia Last Admin: 12/18/24 21:33 Dose: 50 mg Allergies Allergies Allergy/AdvReac Type Severity Reaction Status Date / Time No Known Allergies (No Known Allergy Verified 12/15/24 23:20 Allergies*) Assessment & Plan Assessment & Plan (1) PTSD (post-traumatic stress disorder): Status: Acute Code(s): F43.10 - Post-traumatic stress disorder, unspecified Plan Admit, CV, 15 minute checks Diagnostics as needed, repeat TSH, FT4 Collateral Contact Lamictal 25 mg bid Encourage full milieu 12/18: Offer support, encourage milieu We are available for a family meeting with pt and son if he agrees, team will request 12/19: Continue tx Meeting with son 12/22 Reason for continued inpatient stay Substantial Risk for: rapid decompensation Time Spent With Patient Time: Total time managing care of this patient today ____ minutes.
[2024-12-19 17:36] LABS: Glucose, Whole Blood 161 mg/dL (60-115)
[2024-12-19 20:00] VITALS: BP 125/74; PULSE 91; TEMP 36.8; O2SAT 98
[2024-12-19 21:11] LABS: Glucose, Whole Blood 209 mg/dL (60-115)
[2024-12-19] MEDS: traZODone HCL 50 MG TABLET PO (22:26)
[2024-12-20] MEDS: Acetaminophen 325 MG TABLET 650 MG PO (05:55)
[2024-12-20] MEDS: Levothyroxine Sodium 200 MCG TABLET PO (05:56)
--- NOTE | 2024-12-20 05:59 | P.PNPSI_ITS ---
Subjective Subjective Date of Service: 12/20/24 Reason For Visit: Depression SI Subjective Notes: Conditional Voluntary Healthcare Proxy: No Guardianship: No Medical Problems Affecting Mental Status: No Interim History: Pt seen and discussed with her team. She is working on a list of topics to discuss with her son prior to discharge. Meeting on 12/22 11am. Pt hopes to discharge after the meeting. She denies SI,HI,AH,VH. No sx of acute psychosis or santana She is visable and engaged in the milieu and with peers and is attending some groups. Medication Compliance: Yes Side effects from medications: No Attending Groups: Intermittent Review of Systems Acute medical concerns: No Review of Systems Review of Systems Denies Mental Status Exam Mental Status Exam Patient Appearance: Appropriate Patient Orientation: Person, Place, Time and Situation Level of Consciousness: Alert Patient Behavior: Talkative and Good Eye Contact Mood Description: Calm Affect Description: Calm Patient Cognition Impaired: No Ability to Follow Directions: Good Speech Pattern: Spontaneous Speech Memory Description: Episodic Impaired Hallucinations: None Perceptual Disturbances: Depersonalization and Derealization Thought Process: Intact and Goal Oriented Thought Content: positive for Intact and positive for Goal Oriented Depressive Symptoms: Thoughts of /Suicide (denies) Judgement: Good Diagnostics Vital Signs (24Hr): Vital Signs - 24 hr 12/19/24 08:00 12/19/24 20:00 Temperature 98.4 F 98.2 F Pulse Rate 92 91 Blood Pressure 120/60 125/74 Pulse Oximetry 97 98 Oxygen Delivery Method Room Air Room Air BMI result Body Mass Index 29.7 Labs 12/16/24 00:19 12/16/24 00:19 Labs: Laboratory Results - last 48 hr 12/18/24 12/18/24 12/18/24 07:51 11:54 16:58 POC Glucose 219 H 290 H 154 H 12/18/24 12/19/24 12/19/24 20:56 08:25 12:29 POC Glucose 289 H 197 H 161 H 12/19/24 12/19/24 17:32 20:56 POC Glucose 161 H 209 H Medications Medications Current Medications Acetaminophen (Acetaminophen 325 Mg Tablet) 650 mg PO Q6H PRN PRN Reason: Headache/Pain, Scale 1-10 Last Admin: 12/20/24 05:55 Dose: 650 mg Al Hydroxide/Mg Hydroxide (Magnesium Hydrox/Alum Hydrox 30 Ml Oral.Susp) 30 ml PO Q6H PRN PRN Reason: Heartburn/Nausea Dextrose (Dextrose 50 % 25 Gm/50 Ml Syringe) 25 gm IVPUSH Q15M PRN; Protocol PRN Reason: per Hypoglycemia Standing Ord. Docusate Sodium (Docusate Sodium 100 Mg Capsule) 100 mg PO BID PRN PRN Reason: Constipation Last Admin: 12/17/24 11:49 Dose: 100 mg Glucose (Glucose Gel 15 Gm Gel..Gram.) 15 gm PO Q15M PRN; Protocol PRN Reason: per Hypoglycemia Standing Ord. Hydroxyzine HCl (Hydroxyzine Hcl 25 Mg Tablet) 25 mg PO Q6H PRN PRN Reason: mild anxiety Insulin Human Lispro (Insulin Lispro 100 Unit/Ml 3 Ml Vial) 0 unit SUBCUT QIDACHS [facility]; Protocol Last Admin: 12/19/24 22:25 Dose: 4 unit Lamotrigine (Lamotrigine 25 Mg Tablet) 25 mg PO BID [facility] Last Admin: 12/19/24 22:27 Dose: 25 mg Levothyroxine Sodium (Levothyroxine Sodium 200 Mcg Tablet) 200 mcg PO DAILY@0600 [facility] Last Admin: 12/20/24 05:56 Dose: 200 mcg Loperamide HCl (Loperamide Hcl 2 Mg Capsule) 4 mg PO Q4H PRN PRN Reason: Diarrhea Magnesium Hydroxide (Milk Of Magnesia 30 Ml Oral.Susp) 30 ml PO DAILY PRN PRN Reason: Constipation Metformin HCl (Metformin Hcl 500 Mg Tablet) 500 mg PO BID [facility] Last Admin: 12/19/24 22:26 Dose: 500 mg Nicotine Polacrilex (Nicotine Polacrilex 2 Mg Gum) 4 mg BUCCAL Q2H PRN PRN Reason: Nicotine Cravings Trazodone HCl (Trazodone Hcl 50 Mg Tablet) 50 mg PO BEDTIME MRX1 PRN PRN Reason: Insomnia Last Admin: 12/19/24 22:26 Dose: 50 mg Allergies Allergies Allergy/AdvReac Type Severity Reaction Status Date / Time No Known Allergies (No Known Allergy Verified 12/15/24 23:20 Allergies*) Assessment & Plan Assessment & Plan (1) PTSD (post-traumatic stress disorder): Status: Acute Code(s): F43.10 - Post-traumatic stress disorder, unspecified Plan Admit, CV, 15 minute checks Diagnostics as needed, repeat TSH, FT4 Collateral Contact Lamictal 25 mg bid Encourage full milieu 12/18: Offer support, encourage milieu We are available for a family meeting with pt and son if he agrees, team will request 12/19: Continue tx Meeting with son 12/22 12/20: Continue tx Reason for continued inpatient stay Substantial Risk for: rapid decompensation Time Spent With Patient Time: Total time managing care of this patient today ____ minutes.
[2024-12-20 07:54] LABS: Glucose, Whole Blood 152 mg/dL (60-115)
[2024-12-20 08:00] VITALS: BP 112/64; PULSE 85; RESP 18; TEMP 36.9; O2SAT 96
[2024-12-20] MEDS: metFORMIN HCl 500 MG TABLET PO ×2 (08:20→22:28)
[2024-12-20] MEDS: lamoTRIgine 25 MG TABLET PO ×2 (08:20→22:28)
[2024-12-20] MEDS: Insulin Lispro 100 UNIT/ML 3 ML VIAL SUBCUT ×4 (08:20→22:28)
[2024-12-20 12:22] LABS: Glucose, Whole Blood 221 mg/dL (60-115)
[2024-12-20 17:33] LABS: Glucose, Whole Blood 215 mg/dL (60-115)
[2024-12-20 20:00] VITALS: BP 111/57; PULSE 91; TEMP 37.1; O2SAT 98
[2024-12-20 20:08] LABS: Glucose, Whole Blood 196 mg/dL (60-115)
--- NOTE | 2024-12-20 21:35 | PC.NURSE ---
This policy writer typist was requested by this patient to speak to her regarding the condition of her room. The patient has complained that her room is too hot; this policy writer typist reached out to the data warehouse analyst to attempt to rectify this issue. The patient then stated I know I'm being discriminated against by this hospital! I want a different room! This policy writer typist attempted to explain that the patient has been exposed to Strep by her roommate, and that due to infection control practices, an open bed with another roommate is not available for use. The patient stated This is a violation of my human rights, I can't sleep like this, I want to put in a complaint. This policy writer typist made the patient aware that human rights complaint forms are available next to the nurses' station.
--- NOTE | 2024-12-21 05:38 | HO.PSYCHPN ---
Subjective Subjective Date of Service: 12/21/24 Reason For Visit: Depression SI Subjective Notes: Conditional Voluntary Healthcare Proxy: No Guardianship: No Medical Problems Affecting Mental Status: No Interim History: Pt reviewed her list of topics to discuss at her family meeting on 12/22 including communication, making changes in how the family works on problem solving, compromise, division of labor at the home, her thoughts about swearing and wanting to spend some time together as a family. Medication Compliance: Yes Side effects from medications: No Attending Groups: Intermittent Review of Systems Acute medical concerns: No Medical Review of Systems: unchanged Review of Systems Review of Systems Denies Mental Status Exam Mental Status Exam Patient Appearance: Appropriate Patient Orientation: Person, Place, Time and Situation Level of Consciousness: Alert Patient Behavior: Talkative and Good Eye Contact Mood Description: Calm Affect Description: Calm Patient Cognition Impaired: No Ability to Follow Directions: Good Speech Pattern: Spontaneous Speech Memory Description: Episodic Impaired Hallucinations: None Perceptual Disturbances: Depersonalization and Derealization Thought Process: Intact and Goal Oriented Thought Content: positive for Intact and positive for Goal Oriented Depressive Symptoms: Thoughts of /Suicide (denies) Judgement: Good Diagnostics Vital Signs (24Hr): Vital Signs - 24 hr 12/20/24 08:00 12/20/24 20:00 Temperature 98.4 F 98.7 F Pulse Rate 85 91 Respiratory Rate 18 Blood Pressure 112/64 111/57 L Pulse Oximetry 96 98 Oxygen Delivery Method Room Air Room Air BMI result Body Mass Index 29.7 Labs 12/16/24 00:19 12/16/24 00:19 Labs: Laboratory Results - last 48 hr 12/19/24 12/19/24 12/19/24 08:25 12:29 17:32 POC Glucose 197 H 161 H 161 H 12/19/24 12/20/24 12/20/24 20:56 07:39 12:18 POC Glucose 209 H 152 H 221 H 12/20/24 12/20/24 17:26 20:04 POC Glucose 215 H 196 H Medications Medications Current Medications Acetaminophen (Acetaminophen 325 Mg Tablet) 650 mg PO Q6H PRN PRN Reason: Headache/Pain, Scale 1-10 Last Admin: 12/20/24 05:55 Dose: 650 mg Al Hydroxide/Mg Hydroxide (Magnesium Hydrox/Alum Hydrox 30 Ml Oral.Susp) 30 ml PO Q6H PRN PRN Reason: Heartburn/Nausea Dextrose (Dextrose 50 % 25 Gm/50 Ml Syringe) 25 gm IVPUSH Q15M PRN; Protocol PRN Reason: per Hypoglycemia Standing Ord. Docusate Sodium (Docusate Sodium 100 Mg Capsule) 100 mg PO BID PRN PRN Reason: Constipation Last Admin: 12/17/24 11:49 Dose: 100 mg Glucose (Glucose Gel 15 Gm Gel..Gram.) 15 gm PO Q15M PRN; Protocol PRN Reason: per Hypoglycemia Standing Ord. Hydroxyzine HCl (Hydroxyzine Hcl 25 Mg Tablet) 25 mg PO Q6H PRN PRN Reason: mild anxiety Insulin Human Lispro (Insulin Lispro 100 Unit/Ml 3 Ml Vial) 0 unit SUBCUT QIDACHS [facility]; Protocol Last Admin: 12/20/24 22:28 Dose: 2 unit Lamotrigine (Lamotrigine 25 Mg Tablet) 25 mg PO BID [facility] Last Admin: 12/20/24 22:28 Dose: 25 mg Levothyroxine Sodium (Levothyroxine Sodium 200 Mcg Tablet) 200 mcg PO DAILY@0600 [facility] Last Admin: 12/20/24 05:56 Dose: 200 mcg Loperamide HCl (Loperamide Hcl 2 Mg Capsule) 4 mg PO Q4H PRN PRN Reason: Diarrhea Magnesium Hydroxide (Milk Of Magnesia 30 Ml Oral.Susp) 30 ml PO DAILY PRN PRN Reason: Constipation Metformin HCl (Metformin Hcl 500 Mg Tablet) 500 mg PO BID [facility] Last Admin: 12/20/24 22:28 Dose: 500 mg Nicotine Polacrilex (Nicotine Polacrilex 2 Mg Gum) 4 mg BUCCAL Q2H PRN PRN Reason: Nicotine Cravings Trazodone HCl (Trazodone Hcl 50 Mg Tablet) 50 mg PO BEDTIME MRX1 PRN PRN Reason: Insomnia Last Admin: 12/19/24 22:26 Dose: 50 mg Allergies Allergies Allergy/AdvReac Type Severity Reaction Status Date / Time No Known Allergies (No Known Allergy Verified 12/15/24 23:20 Allergies*) Assessment & Plan Assessment & Plan (1) PTSD (post-traumatic stress disorder): Status: Acute Code(s): F43.10 - Post-traumatic stress disorder, unspecified Plan Admit, CV, 15 minute checks Diagnostics as needed, repeat TSH, FT4 Collateral Contact Lamictal 25 mg bid Encourage full milieu 12/18: Offer support, encourage milieu We are available for a family meeting with pt and son if he agrees, team will request 12/19: Continue tx Meeting with son 12/22 12/21: Tentative discharge for 12/22 is family meeting goes well with her son Reason for continued inpatient stay Substantial Risk for: rapid decompensation Time Spent With Patient Time: Total time managing care of this patient today ____ minutes.
[2024-12-21] MEDS: Levothyroxine Sodium 200 MCG TABLET PO (06:52)
[2024-12-21 08:00] VITALS: BP 145/70; PULSE 82; RESP 16; TEMP 36.9; O2SAT 97
[2024-12-21 08:09] LABS: Glucose, Whole Blood 198 mg/dL (60-115)
[2024-12-21] MEDS: lamoTRIgine 25 MG TABLET PO ×2 (08:23→22:32)
[2024-12-21] MEDS: metFORMIN HCl 500 MG TABLET PO ×2 (08:23→22:31)
[2024-12-21] MEDS: Insulin Lispro 100 UNIT/ML 3 ML VIAL SUBCUT ×2 (08:24→22:32)
[2024-12-21 11:53] LABS: Glucose, Whole Blood 126 mg/dL (60-115)
[2024-12-21 16:58] LABS: Glucose, Whole Blood 140 mg/dL (60-115)
[2024-12-21 20:00] VITALS: BP 169/72; PULSE 88; TEMP 36.4; O2SAT 96
[2024-12-21 21:33] LABS: Glucose, Whole Blood 249 mg/dL (60-115)
[2024-12-21] MEDS: traZODone HCL 50 MG TABLET PO (22:31)
[2024-12-22] MEDS: Levothyroxine Sodium 200 MCG TABLET PO (07:08)
[2024-12-22 08:00] VITALS: BP 131/76; PULSE 82; RESP 18; TEMP 36.7; O2SAT 97
[2024-12-22 08:01] LABS: Glucose, Whole Blood 170 mg/dL (60-115)
[2024-12-22] MEDS: Insulin Lispro 100 UNIT/ML 3 ML VIAL SUBCUT (08:17)
[2024-12-22] MEDS: lamoTRIgine 25 MG TABLET PO (08:18)
[2024-12-22] MEDS: metFORMIN HCl 500 MG TABLET PO (08:18)
[2024-12-22] MEDS: hydrOXYzine HCL 25 MG TABLET PO (10:45)
--- NOTE | 2024-12-22 12:08 | PM.PSYDC ---
DS: Providers Provider Date of admission: 12/16/24 13:30 Primary care physician: Zuleika London DS: Diagnosis Discharge Diagnosis (1) PTSD (post-traumatic stress disorder): Status: Acute DS: Medications Discharge Medications Home Medications: Home Medications ?Medication ?Instructions ?Recorded ?Confirmed metformin 500 mg tablet 500 mg PO DAILY 01/31/21 12/16/24 sennosides 8.6 mg capsule (senna) 8.6 mg PO DAILY 08/25/21 05/02/23 calcium carbonate (Calcium 600) 1,200 mg PO DAILY 01/16/22 05/02/23 cholecalciferol (vitamin D3) 50 1 cap PO DAILY 01/16/22 05/02/23 mcg (2,000 unit) capsule tamoxifen 10 mg tablet 10 mg PO BID 02/06/22 05/02/23 tamoxifen 10 mg tablet 20 mg PO DAILY 02/09/22 05/02/23 Previous Rx's ?Medication ?Instructions ?Recorded polyethylene glycol 3350 17 17 g PO DAILY PRN constipation 05/05/20 gram/dose oral powder (Miralax) #238 grams levothyroxine 200 mcg tablet 200 mcg PO DAILY 90 days #90 tabs 12/21/20 metronidazole 500 mg tablet 500 mg PO BID 7 days #14 tabs 02/08/22 clindamycin phosphate 2 % vaginal 1 appful vaginal BEDTIME #40 grams 02/15/22 cream clobetasol 0.05 % topical cream 1 appl topical BID 2 weeks #45 04/26/22 grams acetaminophen 325 mg tablet 650 mg (2 x 325 mg) PO Q6H PRN 12/22/24 Headache/Pain, Scale 1-10 #0 tabs docusate sodium 100 mg capsule 100 mg PO BID PRN Constipation #0 12/22/24 caps lamotrigine 25 mg tablet 25 mg PO BID #60 tabs 12/22/24 trazodone 50 mg tablet 50 mg PO BEDTIME MRX1 PRN Insomnia 12/22/24 #60 tabs Data Data Completed and Pending Completed studies during hospitalization [Text1]: 12/16/24 12/16/24 12/16/24 00:07 00:08 00:19 WBC 7.7 RBC 3.76 L Hgb 11.6 L Hct 33.1 L MCV 88.0 MCH 30.9 MCHC 35.0 RDW 12.5 Plt Count 169 MPV 11.4 Immature Gran % (Auto) 0.8 H Neut % (Auto) 68.1 Lymph % (Auto) 22.1 [place] % (Auto) 7.5 Eos % (Auto) 0.9 Baso % (Auto) 0.6 Lymph # (Auto) 1.7 [place] # (Auto) 0.6 Eos # (Auto) 0.1 Baso # (Auto) 0.1 Abs Immat Gran (auto) 0.06 H Absolute Neuts (auto) 5.3 Absolute Nucleated RBC 0.000 Nucleated RBC % (auto) 0.0 Sodium 137 Potassium 4.2 Chloride 103 Carbon Dioxide 23 Anion Gap 15 BUN 20 H Creatinine 1.03 Estim Creat Clear Calc 52.8 Estimated GFR 55 POC Glucose Random Glucose 445 H* Calcium 9.5 Total Bilirubin 0.5 AST 24 ALT 45 H Alkaline Phosphatase 85 Total Protein 6.9 Albumin 4.4 Vitamin B12 Folate TSH 5.47 H Urine Color Dark Yellow Urine Appearance Cloudy Urine pH 5.0 Ur Specific [place] >= 1.030 H Urine Protein 300 (3+) H Urine Glucose (UA) 500 H Urine Ketones Trace Urine Blood Negative Urine Nitrite Negative Ur Leukocyte Esterase Small (1+) H Urine RBC 3-5 H Urine WBC 21-50 Ur Squamous Epith Cells 6-10 Urine Bacteria 1+ Hyaline Casts >20 Granular Casts Present Urine Opiates Screen Not Detected Ur Buprenorphine Scrn Not Detected Ur Oxycodone Screen Not Detected Urine Methadone Screen Not Detected Urine Fentanyl Screen Not Detected Ur Barbiturates Screen Not Detected Ur Phencyclidine Scrn Not Detected Ur Amphetamines Screen Not Detected U Benzodiazepines Scrn Not Detected Urine Cocaine Screen Not Detected U Marijuana (THC) Screen Not Detected Ethyl Alcohol < 10 12/16/24 12/16/24 12/16/24 02:56 05:53 09:29 WBC RBC Hgb Hct MCV MCH MCHC RDW Plt Count MPV Immature Gran % (Auto) Neut % (Auto) Lymph % (Auto) [place] % (Auto) Eos % (Auto) Baso % (Auto) Lymph # (Auto) [place] # (Auto) Eos # (Auto) Baso # (Auto) Abs Immat Gran (auto) Absolute Neuts (auto) Absolute Nucleated RBC Nucleated RBC % (auto) Sodium Potassium Chloride Carbon Dioxide Anion Gap BUN Creatinine Estim Creat Clear Calc Estimated GFR POC Glucose 354 H* 283 H 264 H Random Glucose Calcium Total Bilirubin AST ALT Alkaline Phosphatase Total Protein Albumin Vitamin B12 Folate TSH Urine Color Urine Appearance Urine pH Ur Specific [place] Urine Protein Urine Glucose (UA) Urine Ketones Urine Blood Urine Nitrite Ur Leukocyte Esterase Urine RBC Urine WBC Ur Squamous Epith Cells Urine Bacteria Hyaline Casts Granular Casts Urine Opiates Screen Ur Buprenorphine Scrn Ur Oxycodone Screen Urine Methadone Screen Urine Fentanyl Screen Ur Barbiturates Screen Ur Phencyclidine Scrn Ur Amphetamines Screen U Benzodiazepines Scrn Urine Cocaine Screen U Marijuana (THC) Screen Ethyl Alcohol 12/16/24 12/16/24 12/16/24 13:25 13:56 17:07 WBC RBC Hgb Hct MCV MCH MCHC RDW Plt Count MPV Immature Gran % (Auto) Neut % (Auto) Lymph % (Auto) [place] % (Auto) Eos % (Auto) Baso % (Auto) Lymph # (Auto) [place] # (Auto) Eos # (Auto) Baso # (Auto) Abs Immat Gran (auto) Absolute Neuts (auto) Absolute Nucleated RBC Nucleated RBC % (auto) Sodium Potassium Chloride Carbon Dioxide Anion Gap BUN Creatinine Estim Creat Clear Calc Estimated GFR POC Glucose 234 H 255 H Random Glucose Calcium Total Bilirubin AST ALT Alkaline Phosphatase Total Protein Albumin Vitamin B12 Folate TSH Urine Color Yellow Urine Appearance Clear Urine pH 5.5 Ur Specific [place] >= 1.030 H Urine Protein Trace Urine Glucose (UA) >=1000 H Urine Ketones Trace Urine Blood Negative Urine Nitrite Negative Ur Leukocyte Esterase Moderate (2+) H Urine RBC 0-2 Urine WBC >50 H Ur Squamous Epith Cells 3-5 Urine Bacteria None Seen Hyaline Casts 3-5 Granular Casts Urine Opiates Screen Ur Buprenorphine Scrn Ur Oxycodone Screen Urine Methadone Screen Urine Fentanyl Screen Ur Barbiturates Screen Ur Phencyclidine Scrn Ur Amphetamines Screen U Benzodiazepines Scrn Urine Cocaine Screen U Marijuana (THC) Screen Ethyl Alcohol 12/16/24 12/17/24 12/17/24 20:50 07:41 08:02 WBC RBC Hgb Hct MCV MCH MCHC RDW Plt Count MPV Immature Gran % (Auto) Neut % (Auto) Lymph % (Auto) [place] % (Auto) Eos % (Auto) Baso % (Auto) Lymph # (Auto) [place] # (Auto) Eos # (Auto) Baso # (Auto) Abs Immat Gran (auto) Absolute Neuts (auto) Absolute Nucleated RBC Nucleated RBC % (auto) Sodium Potassium Chloride Carbon Dioxide Anion Gap BUN Creatinine Estim Creat Clear Calc Estimated GFR POC Glucose 211 H 201 H Random Glucose Calcium Total Bilirubin AST ALT Alkaline Phosphatase Total Protein Albumin Vitamin B12 1139 H Folate 11.1 TSH Urine Color Urine Appearance Urine pH Ur Specific [place] Urine Protein Urine Glucose (UA) Urine Ketones Urine Blood Urine Nitrite Ur Leukocyte Esterase Urine RBC Urine WBC Ur Squamous Epith Cells Urine Bacteria Hyaline Casts Granular Casts Urine Opiates Screen Ur Buprenorphine Scrn Ur Oxycodone Screen Urine Methadone Screen Urine Fentanyl Screen Ur Barbiturates Screen Ur Phencyclidine Scrn Ur Amphetamines Screen U Benzodiazepines Scrn Urine Cocaine Screen U Marijuana (THC) Screen Ethyl Alcohol 12/17/24 12/17/24 12/17/24 12:26 16:46 21:01 WBC RBC Hgb Hct MCV MCH MCHC RDW Plt Count MPV Immature Gran % (Auto) Neut % (Auto) Lymph % (Auto) [place] % (Auto) Eos % (Auto) Baso % (Auto) Lymph # (Auto) [place] # (Auto) Eos # (Auto) Baso # (Auto) Abs Immat Gran (auto) Absolute Neuts (auto) Absolute Nucleated RBC Nucleated RBC % (auto) Sodium Potassium Chloride Carbon Dioxide Anion Gap BUN Creatinine Estim Creat Clear Calc Estimated GFR POC Glucose 296 H 184 H 211 H Random Glucose Calcium Total Bilirubin AST ALT Alkaline Phosphatase Total Protein Albumin Vitamin B12 Folate TSH Urine Color Urine Appearance Urine pH Ur Specific [place] Urine Protein Urine Glucose (UA) Urine Ketones Urine Blood Urine Nitrite Ur Leukocyte Esterase Urine RBC Urine WBC Ur Squamous Epith Cells Urine Bacteria Hyaline Casts Granular Casts Urine Opiates Screen Ur Buprenorphine Scrn Ur Oxycodone Screen Urine Methadone Screen Urine Fentanyl Screen Ur Barbiturates Screen Ur Phencyclidine Scrn Ur Amphetamines Screen U Benzodiazepines Scrn Urine Cocaine Screen U Marijuana (THC) Screen Ethyl Alcohol 12/18/24 12/18/24 12/18/24 07:51 11:54 16:58 WBC RBC Hgb Hct MCV MCH MCHC RDW Plt Count MPV Immature Gran % (Auto) Neut % (Auto) Lymph % (Auto) [place] % (Auto) Eos % (Auto) Baso % (Auto) Lymph # (Auto) [place] # (Auto) Eos # (Auto) Baso # (Auto) Abs Immat Gran (auto) Absolute Neuts (auto) Absolute Nucleated RBC Nucleated RBC % (auto) Sodium Potassium Chloride Carbon Dioxide Anion Gap BUN Creatinine Estim Creat Clear Calc Estimated GFR POC Glucose 219 H 290 H 154 H Random Glucose Calcium Total Bilirubin AST ALT Alkaline Phosphatase Total Protein Albumin Vitamin B12 Folate TSH Urine Color Urine Appearance Urine pH Ur Specific [place] Urine Protein Urine Glucose (UA) Urine Ketones Urine Blood Urine Nitrite Ur Leukocyte Esterase Urine RBC Urine WBC Ur Squamous Epith Cells Urine Bacteria Hyaline Casts Granular Casts Urine Opiates Screen Ur Buprenorphine Scrn Ur Oxycodone Screen Urine Methadone Screen Urine Fentanyl Screen Ur Barbiturates Screen Ur Phencyclidine Scrn Ur Amphetamines Screen U Benzodiazepines Scrn Urine Cocaine Screen U Marijuana (THC) Screen Ethyl Alcohol 12/18/24 12/19/24 12/19/24 20:56 08:25 12:29 WBC RBC Hgb Hct MCV MCH MCHC RDW Plt Count MPV Immature Gran % (Auto) Neut % (Auto) Lymph % (Auto) [place] % (Auto) Eos % (Auto) Baso % (Auto) Lymph # (Auto) [place] # (Auto) Eos # (Auto) Baso # (Auto) Abs Immat Gran (auto) Absolute Neuts (auto) Absolute Nucleated RBC Nucleated RBC % (auto) Sodium Potassium Chloride Carbon Dioxide Anion Gap BUN Creatinine Estim Creat Clear Calc Estimated GFR POC Glucose 289 H 197 H 161 H Random Glucose Calcium Total Bilirubin AST ALT Alkaline Phosphatase Total Protein Albumin Vitamin B12 Folate TSH Urine Color Urine Appearance Urine pH Ur Specific [place] Urine Protein Urine Glucose (UA) Urine Ketones Urine Blood Urine Nitrite Ur Leukocyte Esterase Urine RBC Urine WBC Ur Squamous Epith Cells Urine Bacteria Hyaline Casts Granular Casts Urine Opiates Screen Ur Buprenorphine Scrn Ur Oxycodone Screen Urine Methadone Screen Urine Fentanyl Screen Ur Barbiturates Screen Ur Phencyclidine Scrn Ur Amphetamines Screen U Benzodiazepines Scrn Urine Cocaine Screen U Marijuana (THC) Screen Ethyl Alcohol 12/19/24 12/19/24 12/20/24 17:32 20:56 07:39 WBC RBC Hgb Hct MCV MCH MCHC RDW Plt Count MPV Immature Gran % (Auto) Neut % (Auto) Lymph % (Auto) [place] % (Auto) Eos % (Auto) Baso % (Auto) Lymph # (Auto) [place] # (Auto) Eos # (Auto) Baso # (Auto) Abs Immat Gran (auto) Absolute Neuts (auto) Absolute Nucleated RBC Nucleated RBC % (auto) Sodium Potassium Chloride Carbon Dioxide Anion Gap BUN Creatinine Estim Creat Clear Calc Estimated GFR POC Glucose 161 H 209 H 152 H Random Glucose Calcium Total Bilirubin AST ALT Alkaline Phosphatase Total Protein Albumin Vitamin B12 Folate TSH Urine Color Urine Appearance Urine pH Ur Specific [place] Urine Protein Urine Glucose (UA) Urine Ketones Urine Blood Urine Nitrite Ur Leukocyte Esterase Urine RBC Urine WBC Ur Squamous Epith Cells Urine Bacteria Hyaline Casts Granular Casts Urine Opiates Screen Ur Buprenorphine Scrn Ur Oxycodone Screen Urine Methadone Screen Urine Fentanyl Screen Ur Barbiturates Screen Ur Phencyclidine Scrn Ur Amphetamines Screen U Benzodiazepines Scrn Urine Cocaine Screen U Marijuana (THC) Screen Ethyl Alcohol 12/20/24 12/20/24 12/20/24 12:18 17:26 20:04 WBC RBC Hgb Hct MCV MCH MCHC RDW Plt Count MPV Immature Gran % (Auto) Neut % (Auto) Lymph % (Auto) [place] % (Auto) Eos % (Auto) Baso % (Auto) Lymph # (Auto) [place] # (Auto) Eos # (Auto) Baso # (Auto) Abs Immat Gran (auto) Absolute Neuts (auto) Absolute Nucleated RBC Nucleated RBC % (auto) Sodium Potassium Chloride Carbon Dioxide Anion Gap BUN Creatinine Estim Creat Clear Calc Estimated GFR POC Glucose 221 H 215 H 196 H Random Glucose Calcium Total Bilirubin AST ALT Alkaline Phosphatase Total Protein Albumin Vitamin B12 Folate TSH Urine Color Urine Appearance Urine pH Ur Specific [place] Urine Protein Urine Glucose (UA) Urine Ketones Urine Blood Urine Nitrite Ur Leukocyte Esterase Urine RBC Urine WBC Ur Squamous Epith Cells Urine Bacteria Hyaline Casts Granular Casts Urine Opiates Screen Ur Buprenorphine Scrn Ur Oxycodone Screen Urine Methadone Screen Urine Fentanyl Screen Ur Barbiturates Screen Ur Phencyclidine Scrn Ur Amphetamines Screen U Benzodiazepines Scrn Urine Cocaine Screen U Marijuana (THC) Screen Ethyl Alcohol 12/21/24 12/21/24 12/21/24 08:00 11:49 16:54 WBC RBC Hgb Hct MCV MCH MCHC RDW Plt Count MPV Immature Gran % (Auto) Neut % (Auto) Lymph % (Auto) [place] % (Auto) Eos % (Auto) Baso % (Auto) Lymph # (Auto) [place] # (Auto) Eos # (Auto) Baso # (Auto) Abs Immat Gran (auto) Absolute Neuts (auto) Absolute Nucleated RBC Nucleated RBC % (auto) Sodium Potassium Chloride Carbon Dioxide Anion Gap BUN Creatinine Estim Creat Clear Calc Estimated GFR POC Glucose 198 H 126 H 140 H Random Glucose Calcium Total Bilirubin AST ALT Alkaline Phosphatase Total Protein Albumin Vitamin B12 Folate TSH Urine Color Urine Appearance Urine pH Ur Specific [place] Urine Protein Urine Glucose (UA) Urine Ketones Urine Blood Urine Nitrite Ur Leukocyte Esterase Urine RBC Urine WBC Ur Squamous Epith Cells Urine Bacteria Hyaline Casts Granular Casts Urine Opiates Screen Ur Buprenorphine Scrn Ur Oxycodone Screen Urine Methadone Screen Urine Fentanyl Screen Ur Barbiturates Screen Ur Phencyclidine Scrn Ur Amphetamines Screen U Benzodiazepines Scrn Urine Cocaine Screen U Marijuana (THC) Screen Ethyl Alcohol 12/21/24 12/22/24 21:26 07:54 WBC RBC Hgb Hct MCV MCH MCHC RDW Plt Count MPV Immature Gran % (Auto) Neut % (Auto) Lymph % (Auto) [place] % (Auto) Eos % (Auto) Baso % (Auto) Lymph # (Auto) [place] # (Auto) Eos # (Auto) Baso # (Auto) Abs Immat Gran (auto) Absolute Neuts (auto) Absolute Nucleated RBC Nucleated RBC % (auto) Sodium Potassium Chloride Carbon Dioxide Anion Gap BUN Creatinine Estim Creat Clear Calc Estimated GFR POC Glucose 249 H 170 H Random Glucose Calcium Total Bilirubin AST ALT Alkaline Phosphatase Total Protein Albumin Vitamin B12 Folate TSH Urine Color Urine Appearance Urine pH Ur Specific [place] Urine Protein Urine Glucose (UA) Urine Ketones Urine Blood Urine Nitrite Ur Leukocyte Esterase Urine RBC Urine WBC Ur Squamous Epith Cells Urine Bacteria Hyaline Casts Granular Casts Urine Opiates Screen Ur Buprenorphine Scrn Ur Oxycodone Screen Urine Methadone Screen Urine Fentanyl Screen Ur Barbiturates Screen Ur Phencyclidine Scrn Ur Amphetamines Screen U Benzodiazepines Scrn Urine Cocaine Screen U Marijuana (THC) Screen Ethyl Alcohol 12/16/24 Unknown Urine clean catch - Clean Catch Midstream Urine Culture - Final 12/16/24 00:07 Urine clean catch - Clean Catch Midstream Urine Culture - Final DS: Summary Time Spent with Patient Time attestation: Total time managing care of this patient today ____ minutes. Discharge Plan Discharge Anticipated Discharge Date/Time: 12/22/24 13:00 Patient Disposition: Home, Self-Care Discharge Diagnosis: PTSD DM Referrals: [facility]: Partial Hospitalization Program [Other] - 12/24/24 8:00 am Referral Note: Initial Intake with Partial Hospitalization Program Appointment is in person Therapy: Esteban Kruse ([facility]) [Other] - 12/29/24 11:00 am Referral Note: Telehealth- you will receive a call, or text, to join the appointment virtually. Please be by your phone 5 to 10 minutes before appointment time Psych Prescriber: Ira Maynard ([facility]) [Other] - 01/27/25 9:00 am Referral Note: Telehealth- you will receive a call, or text, to join the appointment virtually, please be by your phone 5-10 minutes before the appointment time Zuleika London [Primary Care Provider] - 12/26/24 2:00 pm Discharge Medications: New acetaminophen 325 mg Tablet 650 mg PO Q6H PRN (Reason: Headache/Pain, Scale 1-10) Qty: 0 0RF trazodone 50 mg Tablet 50 mg PO BEDTIME MRX1 PRN (Reason: Insomnia) Qty: 60 0RF lamotrigine 25 mg Tablet 25 mg PO BID Qty: 60 0RF docusate sodium 100 mg Capsule 100 mg PO BID PRN (Reason: Constipation) Qty: 0 0RF Continued levothyroxine 200 mcg tablet 200 mcg PO DAILY 90 Days Qty: 90 0RF metronidazole 500 mg tablet 500 mg PO BID 7 Days Qty: 14 0RF Rx Instructions: Take with food, Avoid alcohol and vinegar products clindamycin phosphate 2 % cream 1 appful vaginal BEDTIME Qty: 40 1RF Rx Instructions: for 3 days polyethylene glycol 3350 [Miralax] 17 gram/dose powder 17 g PO DAILY PRN (Reason: constipation) Qty: 238 0RF calcium carbonate [Calcium 600] 600 mg calcium (1,500 mg) Tablet 1,200 mg PO DAILY cholecalciferol (vitamin D3) 50 mcg (2,000 unit) capsule 1 cap PO DAILY metformin 500 mg tablet 500 mg PO DAILY tamoxifen 10 mg tablet 10 mg PO BID clobetasol 0.05 % cream 1 appl topical BID 14 Days Qty: 45 1RF Rx Instructions: Then maintenance therapy for 2-3 times per week senna 8.6 mg capsule 8.6 mg PO DAILY tamoxifen 10 mg tablet 20 mg PO DAILY Discontinued levothyroxine 200 mcg capsule 200 mcg PO DAILY Qty: 90 0RF lisinopril 10 mg tablet 10 mg PO DAILY sertraline 25 mg tablet 25 mg PO DAILY Discharge Orders: Discharge Order (Routine); Ordered 12/22/24 Ordered By: Tamera Tan Diet: Advance to usual diet Activity on Discharge: As tolerated Stand Alone Forms: Patient Portal Discharge page Print Language: Czech Care Plan Goals: Mood and Behavioral Stabilization Health Concerns: Mood and Behavioral Stabilization Plan of Treatment: Attend scheduled appointments Take medications as directed Call/Return as needed Assessment: Denies SI,HI,AH, VH No symptoms of acute santana, psychosis This a.m. pt had a productive family meeting with her son where they reviewed issues and changes both will work on at home to improve their relationship and improve coping with current family changes. Both agree to family therapy
== END 2024-12-22 12:43 | disposition home or self-care (01) | DRG 882 ==
LOC: HO.ED 12-16 09:15 → HO.PM5 12-16 13:42
PROVIDERS: Emergency Medicine; Admitting Provider Clinical Nurse Specialist Psychiatric/Mental Health, Adult; Emergency Provider Emergency Medicine; PCP Nurse Practitioner; Visit Provider Clinical Nurse Specialist Psychiatric/Mental Health, Adult
DX: F43.10 Post-traumatic stress disorder, unspecified (principal); R45.851 Suicidal ideations; E11.65 Type 2 diabetes mellitus with hyperglycemia; E03.9 Hypothyroidism, unspecified; C50.911 Malignant neoplasm of unspecified site of right female breast; Z90.11 Acquired absence of right breast and nipple; Z79.84 Long term (current) use of oral hypoglycemic drugs; Z79.810 Long term (current) use of selective estrogen receptor modulators (SERMs); Z79.890 Hormone replacement therapy; Z79.899 Other long term (current) drug therapy
CPT/HCPCS: 36415; 80053; 80307; 81001; 82607; 82746; 82947; 84443; 85025; 87086; 93005; 99285; S9485

== ENCOUNTER → 2024-12-16 09:39 | Outpatient (BNV) | payer SELFPAY | PROVIDERS: Admitting Provider Clinical Nurse Specialist Psychiatric/Mental Health, Adult; Emergency Provider Emergency Medicine; PCP Nurse Practitioner; Visit Provider Internal Medicine Cardiovascular Disease | DX: Z13.6 Encounter for screening for cardiovascular disorders (principal) | CPT/HCPCS: 93010 ==

== ENCOUNTER → 2024-12-16 13:30 | Outpatient (BNV) | payer MEDICARE, SELFPAY | PROVIDERS: Admitting Provider Clinical Nurse Specialist Psychiatric/Mental Health, Adult; Emergency Provider Emergency Medicine; PCP Nurse Practitioner; Visit Provider Clinical Nurse Specialist Psychiatric/Mental Health, Adult | DX: F43.10 Post-traumatic stress disorder, unspecified (principal) | CPT/HCPCS: 90792; 99231; 99232 ==

== ENCOUNTER 2025-01-20 12:57 | Outpatient (REF) | payer BC, SELFPAY ==
--- NOTE | ~2025-01-20 | MM_ITS ---
EXAMINATION: MM SCREENING DIGITAL BREAST TOMOSYNTHESIS, LEFT CLINICAL INFORMATION: Screening. Asymptomatic. Status post right mastectomy. COMPARISON: Mammography: This study is compared with prior exams dating back to TECHNIQUE: Digital breast tomosynthesis is performed in both the craniocaudal and mediolateral oblique views along with computer-aided detection (CAD). Synthesized 2D images are generated from the tomosynthesis. FINDINGS: There are scattered areas of fibroglandular density (ACR BI-RADS breast composition Category b). There are no significant masses, abnormal calcifications, or other abnormalities. MM/MM tomosynthesis screening LT IMPRESSION: No mammographic evidence of malignancy. Patient states she has left breast pain for one month. Recommend clinical evaluation if there is focal pain or if deemed clinically significant a diagnostic workup can be ordered and performed. ASSESSMENT: BI-RADS BI-RADS 1 - Negative RECOMMENDATION: Routine annual mammography screening. 1 year F/U This examination should not preclude the clinical evaluation of a suspicious palpable abnormality. This patient's information was entered into a reminder system with a target due date for their next mammogram. Electronically signed by: Negin Prakash DO 01/27/2025 11:15 AM EDT
--- OUTSIDE RECORDS SUMMARY | 2025-01-20 13:59 | XMS_ITS | Encounter Summary ---
Author Organization [facility] Address [address] [place] [address] Phone Care Team Providers Care Consulting Solution Manager Name Role Phone Henna Rodriguez MD Unavailable [phone] Isabella Singh MD Unavailable [phone] Henna Tatum MD Unavailable [phone] Eev Duffy DNP Unavailable [phone] Fina Jang MAGNETIC RESONANCE IMAGING COORDINATOR Primary Care Provider U Vinita Silveira MAGNETIC RESONANCE IMAGING COORDINATOR Primary Care Provider UnaZuleika Valenzuela MAGNETIC RESONANCE IMAGING COORDINATOR Primary Care Provider + Encounter Details Date Type Department Care Team (Late st Contact Info) Description 02/02/2021 Procedure Pass [facility] [place] [place] [address] [place] [address] Social History Tobacco Use Types Packs/Day Years Used Date Smoking Tobacco: Never Smokeless Tobacco: Never Alcohol Use Standard Drinks/Week Comments Yes 0 (1 standard drink = 0.6 oz pur e alcohol) special occasions; 2/month Comments No Sex and Gender Information Value Date Recorded Sex Assigned at Female 05/31/2021 6:04 PM EST Legal Sex Female 1:12 PM EST Gender Identity Female 05/31/2021 6:04 PM EST Sexual Orientation Straight 05/31/2021 6: 04 PM EST documented as of this encounter Plan of Treatment Upcoming Encounters Date Type Department Care Team (Late st Contact Info) Description 06/17/[address] [facility] MR Imaging, [place] [address] 06/17/[address] [facility] CT Imaging, [place] [address] 06/17/[address] [facility] CT Imaging, [place] [address] 01/22/2025 8:[address] [facility] MR Imaging, [place] [address] Isabella Singh MD [address] [place] [address] [email or web address] 01/22/2025 2:45 PM EDT Hospital Encounter [facility] CT Imaging, [place] [address] Isabella Singh MD [address] [place] [address] [email or web address] 01/27/2025 8:00 AM EDT [facility] [place] [address] [place] [address] Isabella Singh MD [address] [place] [address] [email or web address] documented as of this encounter Visit Diagnoses Not on filedocumented in this encounter Care Teams Consulting Solution Manager Relationship Specialty Start Date End Date Fina Jang NP PCP - General 07/27/21 09/07/22 Vinita Sevilla NP PCP - General Nurse Practitioner 09/08/22 10/10/23 Zuleika London NP [address] [place] [address] PCP - General Nurse Practitioner 10/11/23 Henna Rodriguez MD [address] [address] Referring Physician Medical Oncology 05/17/20 07/26/21 Isabella Singh MD [address] [place] [id number] [email or web address] Medical Oncology 05/26/20 Henna Tatum MD [address] [place] [id number] General Surgery 10/05/20 07/26/21 Eve Duffy DNP [address] [place] [address] [address] [facility] [place] [address] [email or web address] Nurse Practitioner Palliative Care 12/13/20 documented as of this encounter Additional Source Comments The information contained in this document represents components of the legal health record. It is not the complete legal health record.[facility]
[2025-01-20 16:48] LABS: Cholesterol 231 mg/dL (<200); HDL Cholesterol 42 mg/dL (>40); Triglycerides 227 mg/dL (<150)
== END 2025-01-20 12:58 | disposition home or self-care (01) ==
LOC: HO.MAMMO 12:57
PROVIDERS: PCP Nurse Practitioner; Visit Provider Nurse Practitioner
DX: Z12.31 Encounter for screening mammogram for malignant neoplasm of breast (principal); E11.69 Type 2 diabetes mellitus with other specified complication; E03.9 Hypothyroidism, unspecified
CPT/HCPCS: 36415; 77063; 77067; 80061; 84443; 84480

== ENCOUNTER → 2025-01-20 13:15 | Outpatient (BNV) | payer BC, SELFPAY | PROVIDERS: PCP Nurse Practitioner; Visit Provider Internal Medicine | DX: Z12.31 Encounter for screening mammogram for malignant neoplasm of breast (principal) | CPT/HCPCS: 77063; 77067 ==

== ENCOUNTER 2025-01-20 13:59 | Outpatient (REF) | payer BC, SELFPAY | END 2025-01-20 14:00 | disposition home or self-care (01) | LOC: HO.MAMMO 13:59 | PROVIDERS: PCP Nurse Practitioner; Visit Provider Nurse Practitioner | DX: Z13.89 Encounter for screening for other disorder (principal) ==

== ENCOUNTER → 2025-03-06 19:30 | Outpatient (REF) | payer BC, SELFPAY ==
--- OUTSIDE RECORDS SUMMARY | 2025-03-06 22:05 | XMS_ITS | Encounter Summary ---
Author Organization [facility] Address [address] [facility] [address] [place] [address] Phone Care Team Providers Care Department Mgr Name Role Phone Henna Rodriguez MD Unavailable [phone] Isabella Singh MD Unavailable [phone] Henna Tatum MD Unavailable Eve Duffy DNP Unavailable [phone] Fina Jang FACER OPERATOR Primary Care Provider U Vinita Silveira FACER OPERATOR Primary Care Provider Unav Zuleika Rod FACER OPERATOR Primary Care Provider + Encounter Details Date Type Department Care Team (Late st Contact Info) Description 01/31/2021 Procedure Pass [facility] [place] [facility], MRI [address] [facility] 4th [place] [address] Social History Tobacco Use Types Packs/Day Years [...] PM EST documented as of this encounter Last Filed Vital Signs Vital Sign Reading Time Taken Comments Blood Pressure - - Pulse - - Temperature - - Respiratory Rate - - Oxygen Saturation - - Inhaled Oxygen Concentration - - Weight 82.6 kg (182 lb) 02/01/2021 3:27 PM EDT Height - - Body Mass Index 32.25 06/16/2020 9:29 AM EST documented in this encounter Plan of Treatment Upcoming Encounters Date Type Department Care Team (Late st Contact Info) Description 01/27/2025 Procedure Pass [facility] Imaging Department, [facility], [place] [address] [facility], Floor [address]1 [place] [address] 01/27/2025 Procedure Pass [facility] Imaging Department, [facility], [place] [address] [facility], Floor [address]1 [place] [address] 01/27/2025 Procedure Pass [facility] Imaging Department, [facility], MRI 450 [facility] 3 [place] [address] 03/17/2025 1:00 PM EDT Office [facility], [address], 5th [place] [address] Helene August MD, MPH 450 [place] [address] [email or web address] 08/18/2025 10:50 AM EST Appointment [facility] Imaging Department, [facility], [place] [address] [facility], Floor [address]1 [place] [address] Isabella Singh MD [address] [place] [address] [email or web address] 08/18/2025 11:40 AM EST Appointment [facility] Imaging Department, [facility], MRI 450 [facility] 3 [place] [address] Isabella Singh MD 450 [place] [address] [email or web address] 08/18/2025 3:30 PM EST Office [facility], [facility] [place] [address] [facility], 6th [place] [address] Isabella Singh MD 450 [place] [address] [email or web address] documented as of this encounter Visit Diagnoses Not on filedocumented in this encounter Care Teams Department Mgr Relationship Specialty Start Date End Date Fina Jang, ARLEEN PCP - General 07/27/21 09/07/22 Vinita Sevilla NP PCP - General Nurse Practitioner 09/08/22 10/10/23 Zuleika London NP [address] [place] [address] PCP - General Nurse Practitioner 10/11/23 [place]na Rodriguez MD [address] [place] [address] Referring Physician Medical Oncology 05/17/20 07/26/21 Isabella Singh MD [address] [place] [address] [email or web address] Medical Oncology 05/26/20 [place]na Tatum MD [address] [place] [address] General Surgery 10/05/20 07/26/21 Eve Duffy DNP [address] [place] [address] [place] [address] [email or web address] Nurse Practitioner Palliative Care 12/13/20 documented as of this encounter Additional Source Comments The information contained in this document represents components of the legal health record. It is not the complete legal health record.[facility]
--- OUTSIDE RECORDS SUMMARY | 2025-03-06 22:05 | XMS_ITS | Encounter Summary ---
Author Organization [facility] Address [address] [place] [address] [place] [address] Phone Care Team Providers Care Thermal Surfacing Machine Operator Name Role Phone Isabella Singh MD Unavailable [phone] Eve Duffy DNP Unavailable [phone] Fina Jang PROGRAM COORDINATOR Primary Care Provider U Vinita Silveira PROGRAM COORDINATOR Primary Care Provider Zuleika Saldivar PROGRAM COORDINATOR Primary Care Provider + Encounter Details Date Type Department Care Team (Late Contact Info) Description 05/24/2022 Procedure Pass [facility], [facility], [place] [address] [facility], Floor L1 [place] [address] Social History Tobacco Use Types Packs/Day Years [...] st Contact Info) Description 01/27/2025 Procedure Pass [facility] Imaging Department, [facility], [place] [address] [facility], Floor L1 [place] [address] 01/27/2025 Procedure Pass [facility] Imaging Department, [facility], [place] [address] [facility], Floor L1 [place] [address] 01/27/2025 Procedure Pass [facility] Imaging Department, [facility], MRI [address] [address] 03/17/2025 1:00 PM EDT Office Visit [facility], [address], 5th [place] [address] Helene August MD, MPH [address] [place] [address] [email or web address] 08/18/2025 10:50 AM EST Appointment [facility] Imaging Department, [facility], [place] [address] [facility], Floor [address]1 [place] [address] Isabella Singh MD [address] [place] [address] [email or web address] 08/18/2025 11:40 AM EST Appointment [facility] Imaging Department, [facility], MRI [address] [address] Isabella Singh MD [address] [place] [address] [email or web address] 08/18/2025 3:30 PM EST Office Visit [facility], [address], 6th [place] [address] Isabella Singh MD 450 [place] [address] [email or web address] documented as of this encounter Visit Diagnoses Not on filedocumented in this encounter Care Teams Thermal Surfacing Machine Operator Relationship Specialty Start Date End Date Fina Jang, ARLEEN PCP - General 07/27/21 09/07/22 Vinita Sevilla NP PCP - General Nurse Practitioner 09/08/22 10/10/23 Zuleika London, ARLEEN [address] [place] [address] PCP - General Nurse Practitioner 10/11/23 Isabella Singh MD [address] [place] [address] [email or web address] Medical Oncology 05/26/20 Eve Duffy DNP [address] [place] [address] [phone] [place] [address] miguel Nurse Practitioner Palliative Care 12/13/20 documented as of this encounter Additional Source Comments The information contained in this document represents components of the legal health record. It is not the complete legal health record.[facility]
--- OUTSIDE RECORDS SUMMARY | 2025-03-06 22:05 | XMS_ITS | Encounter Summary ---
Author Organization [employer] Address [address] [facility] 7t [place] [address] Care Team Providers Care Corrective Therapist Name Role Phone Zuleika London NP Primary Care Provider [phone] Reason for Visit * Reason Onset Date Comments Miss call 12/25/2024 Encounter Details Date Type Department Care Team ([facility] st Contact Info) Description 12/25/2024 Telephone [facility] 230 [place] [address] Zuleika London NP 230 [place] [address] Miss call Social History Tobacco Use Types Packs/Day Years [...] Answer Date Recorded Patient Health Questionnaire-9 Score 16 12/29/2024 Patient Health Questionnaire-9 Score 16 12/29/2024 Last PHQ-9: Questionnaire Data Not on file 0 12/29/2024 Housing Stability Answer Date Recorded What is [...] Answer Date Recorded Patient Health Questionnaire-2 Score 4 12/29/2024 Internet Access Answer Date Recorded Internet Access [...] Assessment Author Patient Health Questionnaire -2 Score 4 12/29/2024 12:52 PM EDT Lauren Espinosa V ictoria * Little interest or pleasure in doing things Answer Date of Assessment Author More than half the days 12/29/2024 12:52 PM EDT Pricila Zimmer * Feeling down, depressed, or hopeless Answer Date of Assessment Author More than half the days 12/29/2024 12:52 PM EDT Pricila Zimmer * Trouble falling or staying asleep, or sleeping too much Answer Date of Assessment Author Nearly every day 12/29/2024 12:52 PM EDT Pricila Hernandez * Feeling tired or having little energy Answer Date of Assessment Author Nearly every day 12/29/2024 12:52 PM ADAMARIST Pricila Hernandez * Poor appetite or overeating Answer Date of Assessment Author More than half the days 12/29/2024 12:52 PM EDT Pricila Zimmer * Feeling bad about yourself - or that you are a failure or have let yourself or your family down Answer Date of Assessment Author More than half the days 12/29/2024 12:52 PM EDT Pricila Zimmer * Trouble concentrating on things, such as reading the newspaper or watching television Answer Date of Assessment Author Several days 12/29/2024 12:52 PM EDT Pricila Lincoln Ba * Moving or speaking so slowly that other people could have noticed? Or the opposite - being so fidgety or restless that you have been moving around a lot more than usual. Answer Date of Assessment Author Several days 12/29/2024 12:52 PM EDT Pricila Lincoln Ba * Thoughts that you would be better off or hurting yourself in some way Answer Date of Assessment Author Not at all 12/29/2024 12:52 PM EDT Pricila Lincoln Ba * Patient Health Questionnaire-9 Score Answer Date of Assessment Author 16 12/29/2024 12:52 PM EDT Pricila Lincoln Ba * How difficult have these problems made it for you to do your work, take care of things at home, or get along with other people? Answer Date of Assessment Author Very difficult 12/29/2024 12:52 PM EDT Pricila Lincoln Ba documented as of this encounter Miscellaneous Notes * Telephone Encounter - Milvia Cadet - 12/25/2024 12:57 PM EDT Tc from pt stating she has a miss call, no voice mail was left. Contact pt at [phone] documented in this encounter Plan of Treatment Upcoming Encounters Date Type Department Care Team (Late st Contact Info) Description 05/12/2025 3:15 PM EST Office Visit [facility] [address] [place] [address] Fina Barros, OD 267 [place] [address] documented as of this encounter Visit Diagnoses Not on filedocumented in this encounter Additional Health Concerns Assessment Noted Time PHQ-9 Depression Total Score: 13 025 9:16 AM EST documented as of this encounter Care Teams Corrective Therapist Relationship Specialty Start Date End Date Zuleika London NP 230 [place] [address] PCP - General Family Medicine 04/10/23 documented as of this encounter
--- OUTSIDE RECORDS SUMMARY | 2025-03-06 22:05 | XMS_ITS | Encounter Summary ---
Author Organization [facility] Address [address] [place] [address] [place] [address] Phone Care Team Providers Care System Trainer Name Role Phone Henna Rodriguez MD Unavailable [phone] Isabella Singh MD Unavailable [phone] Henna Tatum MD Unavailable Eve Duffy DNP Unavailable [phone] Fina Jang VASCULAR NEUROLOGIST Primary Care Provider U Vinita Silveira VASCULAR NEUROLOGIST Primary Care Provider Unav ailZuleika Stevens VASCULAR NEUROLOGIST Primary Care Provider + Encounter Details Date Type Department Care Team (Late st Contact Info) Description 05/24/2020 Procedure Pass [facility] CT Imaging, [place] [address] [place] [address] Social History Tobacco Use Types Packs/Day Years Used Date Smoking Tobacco: Never Smokeless Tobacco: Never Alcohol Use Standard Drinks/Week Comments Yes 0 (1 standard drink = 0.6 oz pur e alcohol) special occasions Comments Unknown Sex and Gender Information Value Date Recorded Sex Assigned at Female 05/31/2021 6:04 PM EST Legal Sex Female 1:12 PM EST Gender Identity Female 05/31/2021 6:04 PM EST Sexual Orientation Straight 05/31/2021 6: 04 PM EST documented as of this encounter Plan of Treatment Upcoming Encounters Date Type Department Care Team (Late st Contact Info) Description 01/27/2025 Procedure Pass [facility] Imaging Department, [facility], [place] [address] [facility], Floor L1 [place] [address] 01/27/2025 Procedure Pass [facility] Imaging Department, [facility], [place] [address] [facility], Floor L1 [place] [address] 01/27/2025 Procedure Pass [facility] Imaging Department, [facility], MRI 450 [facility] 3 [place] [address] 03/17/2025 1:00 PM EDT Office Visit [facility], [address], 5th [place] [address] Helene August MD, MPH [address] [place] [address] [email or web address] 08/18/2025 10:50 AM EST Appointment [facility] Imaging Department, [facility], [place] [address] [facility], Floor L1 [place] [address] Isabella Singh MD [address] [place] [address] [email or web address] 08/18/2025 11:40 AM EST Appointment [facility] Imaging Department, [facility], MRI [address] [address] Isabella Singh MD [address] [place] [address] [email or web address] 08/18/2025 3:30 PM EST Office Visit [facility], [address] [facility], 6th [place] [address] Isabella Singh MD [address] [place] [address] [email or web address] documented as of this encounter Visit Diagnoses Not on filedocumented in this encounter Care Teams System Trainer Relationship Specialty Start Date End Date Fina Jang, VASCULAR NEUROLOGIST PCP - General 07/27/21 09/07/22 Vinita Sevilla, ARLEEN PCP - General Nurse Practitioner 09/08/22 10/10/23 Zuleika London, ARLEEN [address] [place] [address] PCP - General Nurse Practitioner 10/11/23 Henna Rodriguez MD [address] [place] [address] Referring Physician Medical Oncology 05/17/20 07/26/21 Isabella Singh MD [address] [place] [address] [email or web address] Medical Oncology 05/26/20 Henna Tatum MD [address] [place] [address] General Surgery 10/05/20 07/26/21 Eve Duffy DNP [address] [place] [address] [phone] [place] [address] miguel Nurse Practitioner Palliative Care 12/13/20 documented as of this encounter Additional Source Comments The information contained in this document represents components of the legal health record. It is not the complete legal health record.[facility]
--- OUTSIDE RECORDS SUMMARY | 2025-03-06 22:05 | XMS_ITS | Encounter Summary ---
Author Organization [employer] Address [address] [facility] 7t [place] [address] Care Team Providers Care Preschool Associate Teacher Name Role Phone Zuleika London NP Primary Care Provider [phone] Reason for Visit * Reason Onset Date Comments Results 07/18/2024 Encounter Details Date Type Department Care Team ([facility] st Contact Info) Description 07/18/2024 Telephone [facility] 230 [place] [address] Zuleika London NP 230 [place] [address] Results Social History Tobacco Use Types Packs/Day [...] the past 12 months, has t he [employer] gas, oil or water company threatened to [...] annoyed or irritable 2 07/18/2024 9:16 AM EST Elsy Travis MA Feeling afraid as if somethi ng awful might happen 2 07/18/2024 9:16 AM EST Elsy Travis MA MAGNUS-7 Total Score 8 07/18/2024 9:16 AM EST Elsy Travis MA documented as of this encounter Miscellaneous Notes * Telephone Encounter - Harry Wolfe - 07/18/2024 2:35 PM EST Tc from pt requesting nurse to go over recent lab results. Pt contact: [phone] Pt states that it will be difficult to answer calls from 8am until 5pm due to work. documented in this encounter Plan of Treatment Upcoming Encounters Date Type Department Care Team (Late st Contact Info) Description 05/12/2025 3:15 PM EST Office Visit [facility] 267 [place] [address] Fina Barros, OD 267 [place] [address] documented as of this encounter Visit Diagnoses Not on filedocumented in this encounter Additional Health Concerns Assessment Noted Time PHQ-9 Depression Total Score: 13 025 9:16 AM EST documented as of this encounter Care Teams Preschool Associate Teacher Relationship Specialty Start Date End Date Zuleika London NP 230 [place] [address] PCP - General Family Medicine 04/10/23 documented as of this encounter
--- OUTSIDE RECORDS SUMMARY | 2025-03-06 22:05 | XMS_ITS | Encounter Summary ---
Author Organization [facility] Address [address] [place] [address] [place] [address] Phone Care Team Providers Care Twisting Department End Finder Name Role Phone Henna Rodriguez MD Unavailable [phone] Isabella Singh MD Unavailable [phone] Henna Tatum MD Unavailable Eve Duffy DNP Unavailable [phone] Fina Jang ADDRESSOGRAPH OPERATOR Primary Care Provider U Vinita Silveira ADDRESSOGRAPH OPERATOR Primary Care Provider Unav ailZuleika Stevens ADDRESSOGRAPH OPERATOR Primary Care Provider + Encounter Details Date Type Department Care Team (Late st Contact Info) Description 05/24/2020 Procedure Pass [facility] CT Imaging, [place] [address] [place] [address] Social History Tobacco Use Types Packs/Day Years [...] Contact Info) Description 01/27/2025 Procedure Pass [facility] Imaging Department, [facility], [place] [address] [facility], Floor L1 [place] [address] 01/27/2025 Procedure Pass [facility] Imaging Department, [facility], [place] [address] [facility], Floor L1 [place] [address] 01/27/2025 Procedure Pass [facility] Imaging Department, [facility], MRI 450 [facility] 3 [place] [address] 03/17/2025 1:00 PM EDT Office Visit [facility], [address], 5th [place] [address] Helene August MD, MPH [address] [place] [address] [email or web address] 08/18/2025 10:50 AM EST Appointment [facility] Imaging Department, [facility], [place] [address] [facility], Floor L1 [place] [address] Isabella Singh MD [address] [place] [address] [email or web address] 08/18/2025 11:40 AM EST Appointment [facility] Imaging Department, [facility], MRI [address] [address] Isabella Singh MD [address] [place] [address] [email or web address] 08/18/2025 3:30 PM EST Office Visit [facility], [address] [facility], 6th [place] [address] Isabella Singh MD [address] [place] [address] [email or web address] documented as of this encounter Visit Diagnoses Not on filedocumented in this encounter Care Teams Twisting Department End Finder Relationship Specialty Start Date End Date Fina Jang, ADDRESSOGRAPH OPERATOR PCP - General 07/27/21 09/07/22 Vinita Sevilla, ARLEEN PCP - General Nurse Practitioner 09/08/22 10/10/23 Zuleika London, ARLEEN [address] [place] [address] PCP - General Nurse Practitioner 10/11/23 Henna Rodriguez MD [address] [place] [address] Referring Physician Medical Oncology 05/17/20 07/26/21 Isabella Singh MD [address] [place] [address] [email or web address] Oncology 05/26/20 Henna Tatum MD [address] [place] [address] General Surgery 10/05/20 07/26/21 Eve Duffy DNP [address] [place] [address] [phone] [place] [address] miguel Nurse Practitioner Palliative Care 12/13/20 documented as of this encounter Additional Source Comments The information contained in this document represents components of the legal health record. It is not the complete legal health record.[facility]
--- OUTSIDE RECORDS SUMMARY | 2025-03-06 22:05 | XMS_ITS | Encounter Summary ---
Author Organization [employer] Address [address] [facility] 7t [place] [address] Care Team Providers Care Driller Brake Lining Name Role Phone Zuleika London NP Primary Care Provider [phone] Reason for Visit * Reason Comments Med Refill Encounter Details Date Type Department Care Team ([facility] st Contact Info) Description 01/18/2024 Refill [facility] 230 [place] [address] Zuleika London NP 230 [place] [address] Acquired hypothyroidism Social History Tobacco Use Types Packs/Day Years Used Date Smoking Tobacco: Never Passive Smoke Exposure: Never Smokeless Tobacco: Never Alcohol Use Standard Drinks/Week Comments Yes 0 (1 standard drink = 0.6 oz pur e alcohol) Socially Depression Answer Date Recorded Patient Health Questionnaire-9 Score 16 08/03/2023 Patient Health Questionnaire-9 Score 16 08/03/2023 Last PHQ-9: Questionnaire Data Not on file 0 08/03/2023 Housing Stability Answer Date Recorded What is [...] Date Recorded Patient Health Questionnaire-2 Score 4 08/03/2023 Comments Unknown Sex and Gender Information Value Date Recorded Sex Assigned at Female 05/01/2022 10:19 AM EDT Legal Sex Female 10:19 AM EDT Gender Identity Female 05/01/2022 10:19 AM EDT Sexual Orientation Straight 05/01/2022 10 :19 AM EDT documented as of this encounter Plan of Treatment Upcoming Encounters Date Type Department Care Team (Late st Contact Info) Description 05/12/2025 3:15 PM EST Office Visit [facility] 267 [place] [address] Fina Barros, OD 267 [place] [address] documented as of this encounter Visit Diagnoses Diagnosis Acquired hypothyroidism Unspecified hypothyroidism documented in this encounter Additional Health Concerns Assessment Noted Time PHQ-9 Depression Total Score: 16 024 4:01 PM EST documented as of this encounter Care Teams Driller Brake Lining Relationship Specialty Start Date End Date Zuleika London NP 230 [place] [address] PCP - General Family Medicine 04/10/23 documented as of this encounter
--- OUTSIDE RECORDS SUMMARY | 2025-03-06 22:05 | XMS_ITS | Encounter Summary ---
Author Organization [facility] Address [address] [facility] [address] [place] [address] Phone Care Team Providers Care Manager Of Digital Name Role Phone Henna Rodriguez MD Unavailable [phone] Isabella Singh MD Unavailable [phone] Henna Tatum MD Unavailable Eve Duffy DNP Unavailable [phone] Fina Jang WEB PROGRAMMER Primary Care Provider U Vinita Silveira WEB PROGRAMMER Primary Care Provider UnaZuleika Valenzuela WEB PROGRAMMER Primary Care Provider + Encounter Details Date Type Department Care Team (Late st Contact Info) Description 02/02/2021 Procedure Pass [facility] [place] [place] 450 [facility], Floor L1 [place] [address] Social History Tobacco Use Types Packs/Day Years [...] st Contact Info) Description 01/27/2025 Procedure Pass [facility] Imaging Department, [facility], [place] 450 [facility], Floor [address]1 [place] [address] 01/27/2025 Procedure Pass [facility] Imaging Department, [facility], [place] 450 [facility], Floor [address]1 [place] [address] 01/27/2025 Procedure Pass [facility] Imaging Department, [facility], MRI [address] [address] 03/17/2025 1:00 PM EDT Office [facility], [address], 5th [place] [address] Helene August MD, MPH [address] [place] [address] [email or web address] 08/18/2025 10:50 AM EST Appointment [facility] Imaging Department, [facility], [place] 450 [facility], Floor [address]1 [place] [address] Isabella Singh MD [address] [place] [address] [email or web address] 08/18/2025 11:40 AM EST Appointment [facility] Imaging Department, [facility], MRI [address] [address] Isabella Singh MD [address] [place] [phone] [email or web address] 08/18/2025 3:30 PM EST Office Visit [facility], [facility] [place] 450 [facility], 6th [place] [address] Isabella Singh MD [address] [place] [phone] [email or web address] documented as of this encounter Visit Diagnoses Not on filedocumented in this encounter Care Teams Manager Of Digital Relationship Specialty Start Date End Date Fina Jang, ARLEEN PCP - General 07/27/21 09/07/22 Vinita Sevilla NP PCP - General Nurse Practitioner 09/08/22 10/10/23 Zuleika London, ARLEEN [address] [place] [address] PCP - General Nurse Practitioner 10/11/23 Henna Rodriguez MD [address] [place] [address] Referring Physician Medical Oncology 05/17/20 07/26/21 Isabella Singh MD [address] [place] [phone] [email or web address] Medical Oncology 05/26/20 Henna Tatum MD [address] [place] [address] General Surgery 10/05/20 07/26/21 Eve Duffy DNP [address] [place] [address] [phone] [place] [address] [email or web address] Nurse Practitioner Palliative Care 12/13/20 documented as of this encounter Additional Source Comments The information contained in this document represents components of the legal health record. It is not the complete legal health record.[facility]
--- OUTSIDE RECORDS SUMMARY | 2025-03-06 22:05 | XMS_ITS | Encounter Summary ---
Author Organization [facility] Address [address] [place] [address] [place] [address] Phone Care Team Providers Care Operations Supervisor 2Nd Shift Name Role Phone Isabella Singh MD Unavailable [phone] Eve Duffy DNP Unavailable [phone] Fina Jang CRM MANAGER Primary Care Provider Vinita Downey CRM MANAGER Primary Care Provider Zuleika Saldivar CRM MANAGER Primary Care Provider + Encounter Details Date Type Department Care Team (Late Contact Info) Description 05/24/2022 Procedure Pass [facility] [place] [place] 450 [facility], Floor L1 [place] [address] Social History Tobacco Use Types Packs/Day Years [...] st Contact Info) Description 01/27/2025 Procedure Pass [facility] Imaging Department, [facility], [place] 450 [facility], Floor [address]1 [place] [address] 01/27/2025 Procedure Pass [facility] Imaging Department, [facility], [place] 450 [facility], Floor [address]1 [place] [address] 01/27/2025 Procedure Pass [facility] Imaging Department, [facility], MRI [address] [address] 03/17/2025 1:00 PM EDT Office Visit [facility], [address], 5th [place] [address] Helene August MD, MPH [address] [place] [phone] [email or web address] 08/18/2025 10:50 AM EST Appointment [facility] Imaging Department, [facility], [place] 450 [facility], Floor [address]1 [place] [address] Isabella Singh MD [address] [place] [phone] [email or web address] 08/18/2025 11:40 AM EST Appointment [facility] Imaging Department, [facility], MRI [address] [address] Isabella Singh MD [address] [place] [phone] [email or web address] 08/18/2025 3:30 PM EST Office Visit [facility], [address], 6th [place] [address] Isabella Singh MD 450 [place] [address] [email or web address] documented as of this encounter Visit Diagnoses Not on filedocumented in this encounter Care Teams Operations Supervisor 2Nd Shift Relationship Specialty Start Date End Date Fina Jang, ARLEEN PCP - General 07/27/21 09/07/22 Vinita Sevilla NP PCP - General Nurse Practitioner 09/08/22 10/10/23 Zuleika London, ARLEEN [address] [place] [address] PCP - General Nurse Practitioner 10/11/23 Isabella Singh MD [address] [place] [phone] [email or web address] Medical [email or web address] 05/26/20 Eve Duffy DNP [address] [place] [address] [phone] [place] [address] miguel Nurse Practitioner Palliative Care 12/13/20 documented as of this encounter Additional Source Comments The information contained in this document represents components of the legal health record. It is not the complete legal health record.[facility]
--- OUTSIDE RECORDS SUMMARY | 2025-03-06 22:05 | XMS_ITS | Encounter Summary ---
Author Organization [employer] Address [address] [facility] 7t [place] [address] Care Team Providers Care Supervisor Pumping Station Name Role Phone Zuleika London NP Primary Care Provider [phone] Reason for Visit * Reason Onset Date Comments Call Back Request 10/01/2023 Encounter Details Date Type Department Care Team ([facility] st Contact Info) Description 10/01/2023 Telephone [facility] MEDICINE 230 [place] [address] Zuleika London NP 230 [place] [address] Call Back Request Social History Tobacco Use Types Packs/Day Years [...] AM EDT documented as of this encounter Miscellaneous Notes * Telephone Encounter - Julio Palacio RN - 10/02/2023 1:58 PM EDT T/C to pt. For below message, pt. Is looking for accomodation for work, pt. Advised to drop form tomedical records to fill. Pt. Also advised to take apt. But denies. Pt. Is looking to speak with provider before dropping form. Please review and advise. * Telephone Encounter - Digna Broussard - 10/01/2023 12:41 PM EDT Tc from pt requesting a call back, stated is requesting work accommodations, no further details provided. documented in this encounter Plan of Treatment Upcoming Encounters Date Type Department Care Team (Late st Contact Info) Description 05/12/2025 3:15 PM EST Office Visit [facility] OPTOMETRY [address] [place] [address] Papo Fina, OD [address] [place] [address] documented as of this encounter Visit Diagnoses Not on filedocumented in this encounter Additional Health Concerns Assessment Noted Time PHQ-9 Depression Total Score: 16 024 4:01 PM EST documented as of this encounter Care Teams Supervisor Pumping Station Relationship Specialty Start Date End Date Zuleika London NP [address] [place] [address] PCP - General Family Medicine 04/10/23 documented as of this encounter
--- OUTSIDE RECORDS SUMMARY | 2025-03-06 22:05 | XMS_ITS | Encounter Summary ---
Author Organization [facility] Address [address] [facility] [address] [place] [address] Phone Care Team Providers Care Database Architect Name Role Phone Henna Rodriguez MD Unavailable [phone] Isabella Singh MD Unavailable [phone] Henna Tatum MD Unavailable [phone] Eve Duffy DNP Unavailable [phone] Fina Jang CLINICAL ADMINISTRATOR Primary Care Provider U Vinita Silveira CLINICAL ADMINISTRATOR Primary Care Provider UnaZuleika Valenzuela CLINICAL ADMINISTRATOR Primary Care Provider + Encounter Details Date Type Department Care Team (Late st Contact Info) Description 02/02/2021 Procedure Pass [facility] [place] [place] 450 [facility], Floor L1 [place] [address] Social History Tobacco Use Types Packs/Day Years [...] st Contact Info) Description 01/27/2025 Procedure Pass [facility] Imaging Department, [facility], [place] 450 [facility], Floor [address]1 [place] [address] 01/27/2025 Procedure Pass [facility] Imaging Department, [facility] [place] 450 [facility], Floor [address]1 [place] [address] 01/27/2025 Procedure Pass [facility] Imaging Department, [facility], MRI [address] [address] 03/17/2025 1:00 PM EDT Office Visit [facility], [address], 5th [place] [address] Helene August MD, MPH [address] [place] [address] [email or web address] 08/18/2025 10:50 AM EST Appointment [facility] Imaging Department, [facility] [place] 450 [facility], Floor [address]1 [place] [address] Isabella Singh MD [address] [place] [phone] [email or web address] 08/18/2025 11:40 AM EST Appointment [facility] Imaging Department, [facility], MRI [address] [address] Isabella Singh MD [address] [place] [phone] [email or web address] 08/18/2025 3:30 PM EST Office Visit [facility], [facility] [place] 450 [facility], 6th [place] [address] Isabella Singh MD [address] [place] [phone] [email or web address] documented as of this encounter Visit Diagnoses Not on filedocumented in this encounter Care Teams Database Architect Relationship Specialty Start Date End Date Fina Jang, ARLEEN PCP - General 07/27/21 09/07/22 Vinita Sevilla NP PCP - General Nurse Practitioner 09/08/22 10/10/23 Zuleika London, ARLEEN [address] [place] [address] PCP - General Nurse Practitioner 10/11/23 Henna Rodriguez MD [address] [place] [address] Referring Physician Medical Oncology 05/17/20 07/26/21 Isabella Singh MD [address] [place] [phone] [email or web address] Medical Oncology 05/26/20 Henna Tatum MD [address] [place] [address] General Surgery 10/05/20 07/26/21 Eve Duffy DNP [address] [place] [address] [phone] [place] [address] [email or web address] Nurse Practitioner Palliative Care 12/13/20 documented as of this encounter Additional Source Comments The information contained in this document represents components of the legal health record. It is not the complete legal health record.[facility]
--- OUTSIDE RECORDS SUMMARY | 2025-03-06 22:05 | XMS_ITS | Encounter Summary ---
Author Organization [employer] Address [address] [place] [address] 7t [place] [address] Care Team Providers Care Repair Cameraman Name Role Phone Zuleika London NP Primary Care Provider [phone] Reason for Visit * Reason Onset Date Comments Prior Authorization 11/06/2023 Encounter Details Date Type Department Care Team (Late st Contact Info) Description 11/06/2023 Telephone [facility] MEDICINE 230 [place] [address] Zuleika London NP 230 [place] [address] Prior Authorization Social History Tobacco Use Types Packs/Day Years [...] encounter Miscellaneous Notes * Telephone Encounter - Zuleika London NP - 01/18/2024 3:16 PM EDT Elia Durham, this is all set. Thank you * Telephone Encounter - Nivia Davidson - 11/12/2023 10:02 AM EDT [employer] call [facility] and confirmed PA required for Jardiance only; all other medications dispensedsuccessfully. Please advise if agree with proceeding with PA for Jardiance. Thank you * Telephone Encounter - Patrizia Salas RN - 11/09/2023 4:35 PM EDT Incoming call from pt requesting to speak to a nurse. Pt states she would like a call back from pcp. States pcp refilled Levothyroxine 300mcg. Reports she was previously advised that labs would be rechecked prior to refill to confirm correct dosage. Pt also requesting status of PT and sleep medicine referrals. Reports that she was referred at last ov and hasn't heard from those office. Pt reportsthat she was having some right arm and shoulder pain at last ov but now is not able to lift her right arm at all. Pt also reports that she had a sleep study at [facility] 3 years ago and used to have aCPAP. Reports she does not have a CPAP now. States she does not have a copy of sleep study. Recommended that pt seek evaluation at or ED for evaluation of right arm, shoulder. Advised request willbe sent to pcp who will not be able to respond until next week. Advised Rn will attempt to obtain sleep study results. No sleep study results noted in [facility] x 5 years. * Telephone Encounter - Jonathan Erick - 11/06/2023 4:26 PM EDT Tc from pt stating she was informed by pharmacy medication needs a PA due to pt seeing new provider. If any questions you can contact pt at [phone]. [facility] . documented in this encounter Plan of Treatment Upcoming Encounters Date Type Department Care Team (Late st Contact Info) Description 05/12/2025 3:15 PM EST Office Visit [facility] OPTOMETRY 267 [place], [place] [phone] Fina Barros OD [address] [place] [address] documented as of this encounter Visit Diagnoses Not on filedocumented in this encounter Additional Health Concerns Assessment Noted Time PHQ-9 Depression Total Score: 16 024 4:01 PM EST documented as of this encounter Care Teams Repair Cameraman Relationship Specialty Start Date End Date Zuleika London NP [address] [place], [place] [phone] PCP - General Family Medicine 04/10/23 documented as of this encounter
--- OUTSIDE RECORDS SUMMARY | 2025-03-06 22:05 | XMS_ITS | Encounter Summary ---
Author Organization [facility] Address [address] [place] [address] [place] [address] Phone Care Team Providers Care [employer] Resource Teacher Name Role Phone Isabella Singh MD Unavailable [phone] GivenEve DNP Unavailable [phone] Vinita Sevilla IRRIGATION TEACHER Primary Care Provider Unav ailable AppramZuleika IRRIGATION TEACHER Primary Care Provider + Encounter Details Date Type Department Care Team (Late st Contact Info) Description 09/08/2022 Procedure Pass [facility] Imaging Department, [facility], MRI [address] [address] Social History Tobacco Use Types Packs/Day Years [...] Info) Description 01/27/2025 Procedure Pass [facility] Imaging Department, [facility], [place] 450 [facility], Floor L1 [place] [address] 01/27/2025 Procedure Pass [facility] Imaging Department, [facility], [place] 450 [facility], Floor [address]1 [place] [address] 01/27/2025 Procedure Pass [facility] Imaging Department, [facility], MRI 450 [facility] 3 [place] [address] 03/17/2025 1:00 PM EDT Office Visit [facility], [address], 5th [place] [address] Helene August MD, MPH 450 [place] [address] [email or web address] 08/18/2025 10:50 AM EST Appointment [facility] Imaging Department, [facility], [place] 450 [facility], Floor [address]1 [place] [address] Isabella Singh MD [address] [place] [phone] [email or web address] 08/18/2025 11:40 AM EST Appointment [facility] Imaging Department, [facility], MRI 450 [facility] 3 [place] [address] Isabella Singh MD [address] [place] [phone] [email or web address] 08/18/2025 3:30 PM EST Office Visit [facility], [address], 6th [place] [address] Isabella Singh MD [address] [place] [address] [place] [address] [email or web address] documented as of this encounter Visit Diagnoses Not on filedocumented in this encounter Care Teams [employer] Resource Teacher Relationship Specialty Start Date End Date Vinita Sevilla NP PCP - General Nurse Practitioner 09/08/22 10/10/23 Zuleika London NP [address] [place] [address] PCP - General Nurse Practitioner 10/11/23 Isabella Singh MD [address] [place] [phone] [email or web address] Medical Oncology 05/26/20 Eve Duffy DNP [address] [place] [address] 66[address] [place] [address] [email or web address] Nurse Practitioner Palliative Care 12/13/20 documented as of this encounter Additional Source Comments The information contained in this document represents components of the legal health record. It is not the complete legal health record.[facility]
--- OUTSIDE RECORDS SUMMARY | 2025-03-06 22:05 | XMS_ITS | Encounter Summary ---
Author Organization [employer] Address [address] [facility] [address] 7t [place] [address] Care Team Providers Care Steam Oven Operator Name Role Phone Zuleika London NP Primary Care Provider Reason for Visit * Reason Comments Med Refill Encounter Details Date Type Department Care Team ([facility] st Contact Info) Description 12/14/2023 Refill [facility] [address] [place] [address] Zuleika London NP [address] [place] [address] Acquired hypothyroidism Social History Tobacco Use Types [...] encounter Miscellaneous Notes * Telephone Encounter - Patrizia Salas RN - 12/25/2023 1:37 PM EDT Medication refused due to failing protocol. Requested Prescriptions Pending Prescriptions Disp Refills levothyroxine (Synthroid, Unithroid) 300 MCG tablet [Pharmacy Med Name: LEVOTHYROXINE 0.3MG (300MCG) TAB] 30 tablet 0 Sig: TAKE 1 TABLET(300 MCG) BY MOUTH BEFORE BREAKFAST Thyroid Hormones Protocol Failed - 12/14/2023 1:27 PM Failed - Normal TSH in past 12 months TSH Date Value Ref Range Status 12/22/2022 0.11 (L) mIU/L Final Comment: Reference Range > or = 20 Years 0.40-4.50 Ranges First trimester 0.26-2.66 Second trimester 0.55-2.73 Third trimester 0.43-2.91 TSH reflex Free T4 Date Value Ref Range Status 09/26/2023 62.59 (H) 0.32 - 4.0 uIU/mL Final Passed - No active on record Passed - No test in the past 12 months or most recent test was negative Passed - Visit with relevant provider in past 12 months or upcoming 90 days Recent Visits Date Type Provider Dept 10/24/23 Office Visit Zuleika London NP [facility] 09/28/23 Office Visit STANISLAV Silva [facility] 08/03/23 Office Visit Zuleika London NP [facility] 06/01/23 Office Visit Obdulio Pascual MD [facility] 04/27/23 Office Visit Obdulio Pascual MD [facility] 04/13/23 Office Visit Obdulio Pascual MD [facility] 03/19/23 Office Visit Ez Ott MD [facility] 01/11/23 Office Visit STANISLAV Haider [facility] Showing recent visits within past 365 days and meeting all other requirements Future Appointments No visits were found meeting these conditions. Showing future appointments within next 90 days and meeting all other requirements Passed - Medication not refilled in past 45 days (1.5 months) No matching medication orders between 11/10/2023 1:36 PM and 12/25/2023 1:36 PM documented in this encounter Plan of Treatment Upcoming Encounters Date Type Department Care Team (Late st Contact Info) Description 05/12/2025 3:15 PM EST Office Visit [facility] OPTOMETRY [address] [place] [address] Fina Barros, OD [address] [place] [address] documented as of this encounter Visit Diagnoses Diagnosis Acquired hypothyroidism Unspecified hypothyroidism documented in this encounter Additional Health Concerns Assessment Noted Time PHQ-9 Depression Total Score: 16 08/03/ 024 4:01 PM EST documented as of this encounter Care Teams Steam Oven Operator Relationship Specialty Start Date End Date Zuleika London NP [address] [place] [address] PCP - General Family Medicine 04/10/23 documented as of this encounter
--- OUTSIDE RECORDS SUMMARY | 2025-03-06 22:05 | XMS_ITS | Encounter Summary ---
Author Organization [employer] Address [address] [facility] 7t [place] [address] Care Team Providers Care Gang Worker Name Role Phone Zuleika London NP Primary Care Provider [phone] Reason for Visit * Reason Onset Date Comments Medication Question 11/06/2023 Referral 11/06/2023 Encounter Details Date Type Department Care Team ([facility] st Contact Info) Description 11/06/2023 Telephone [facility] MEDICINE [address] [place] [address] Zuleika London NP [address] [place] [address] Medication Question; Referral Social History Tobacco Use Types Packs/Day Years [...] is your housing situation today? I have mciah call 08/03/[address] you [...] Telephone Encounter - Julio Palacio RN - 11/23/2023 4:49 PM EDT Noted, Thanks. * Telephone Encounter - Julio Palacio RN - 11/23/2023 4:41 PM EDT Please review below message And advise. Pt. Is waiting for reply. And disappointed. * Telephone Encounter - Digna Broussard - 11/23/2023 4:16 PM EDT Tc from pt requesting a call back, stated is confuse, wanted to know if should continue taking 300MG on the Levothyroxine or if PCP will change dose. Please contact for clarifications, * Telephone Encounter - Julio Palacio RN - 11/07/2023 9:35 AM EDT Please review and advise for below message. * Telephone Encounter - Jonathan Suarez - 11/06/2023 4:16 PM EDT Tc from pt is calling requesting status on Levothyroxine. Pt discussed medication with pcp during last OV and has been of medication for 4 days. Sheis unsure if she will be put back with 150 mg dose or 300 mg dose. Pt is also requesting status for referrals of trimming cutter, sleep abnea test, and physical therapy. Please contact pt at [phone]. documented in this encounter Plan of Treatment Upcoming Encounters Date Type Department Care Team (Late st Contact Info) Description 05/12/2025 3:15 PM EST Office Visit [facility] OPTOMETRY [address] [place] [address] Fina Barros, OD [address] [place] [address] documented as of this encounter Visit Diagnoses Not on filedocumented in this encounter Additional Health Concerns Assessment Noted Time PHQ-9 Depression Total Score: 16 08/03/ 024 4:01 PM EST documented as of this encounter Care Teams Gang Worker Relationship Specialty Start Date End Date Zuleika London NP [address] [place] [address] PCP - General Family Medicine 04/10/23 documented as of this encounter
--- OUTSIDE RECORDS SUMMARY | 2025-03-06 22:05 | XMS_ITS | Encounter Summary ---
Author Organization [employer] Address [address] [facility] [address] 7t [place] [address] Care Team Providers Care Sales Representative Metals Name Role Phone Zuleika London NP Primary Care Provider [phone] Reason for Visit * Reason Comments Med Refill Encounter Details Date Type Department Care Team ([facility] st Contact Info) Description 10/02/2023 Refill [facility] [address] [place] [address] Zuleika London NP [address] [place] [address] Acquired hypothyroidism Social History Tobacco Use Types [...] Description 05/12/2025 3:15 PM EST Office Visit [facility] OPTOMETRY [address] [place] [address] Fina Barros, OD [address] [place] [address] documented as of this encounter Visit Diagnoses Diagnosis Acquired hypothyroidism Unspecified hypothyroidism documented in this encounter Additional Health Concerns Assessment Noted Time PHQ-9 Depression Total Score: 16 024 4:01 PM EST documented as of this encounter Care Teams Sales Representative Metals Relationship Specialty Start Date End Date Zuleika London NP [address] [place] [address] PCP - General Family Medicine 04/10/23 documented as of this encounter
--- OUTSIDE RECORDS SUMMARY | 2025-03-06 22:05 | XMS_ITS | Encounter Summary ---
Author Organization [employer] Address [address] [facility] 7t [place] [address] Care Team Providers Care Dye Weigher Helper Name Role Phone Zuleika London NP Primary Care Provider [phone] Encounter Details Date Type Department Care Team ([facility] st Contact Info) Description 07/23/2024 Orders Only [facility] MEDICINE [address] [place] [address] Zuleika London NP [address] [place] [address] Social History Tobacco Use Types Packs/Day Years [...] Description 05/12/2025 3:15 PM EST Office Visit [facility] OPT[facility]RY [address] [place], [place] [phone] Fina Barros, OD [address] [place] [address] documented as of this encounter Visit Diagnoses Not on filedocumented in this encounter Additional Health Concerns Assessment Noted Time PHQ-9 Depression Total Score: 13 025 9:16 AM EST documented as of this encounter Care Teams Dye Weigher Helper Relationship Specialty Start Date End Date Zuleika London NP [address] [place] [address] PCP - General Family Medicine 04/10/23 documented as of this encounter
--- OUTSIDE RECORDS SUMMARY | 2025-03-06 22:06 | XMS_ITS | Encounter Summary ---
Author Organization [facility] Address [address] [place] [address] [place] [address] Phone Care Team Providers Care Automatic Beading Lathe Operator Name Role Phone Isabella Singh MD Unavailable [phone] Eve Duffy DNP Unavailable [phone] Fina Jang JOINT SPECIAL OPERATIONS Primary Care Provider Vinita Downey JOINT SPECIAL OPERATIONS Primary Care Provider Zuleika Saldivar JOINT SPECIAL OPERATIONS Primary Care Provider + Encounter Details Date Type Department Care Team (Late st Contact Info) Description 11/18/2021 [facility] [place] [address] [address] Social History Tobacco Use Types Packs/Day Years [...] Info) Description 01/27/2025 Procedure Pass [facility], [facility], [place] 450 [facility], Floor L1 [place] [address] 01/27/2025 Procedure Pass [facility], [facility] [place] [address] [facility], Floor [address]1 [place] [address] 01/27/2025 Procedure Pass [facility], [facility], MRI 450 [facility], [place] 3 [place] [address] 03/17/2025 1:00 PM EDT Office [facility], [address], 5th [place] [address] Helene August MD, MPH 450 [place] [address] [email or web address] 08/18/2025 10:50 AM EST Appointment [facility], [facility], [place] 450 [facility], Floor [address]1 [place] [address] Isabella Singh MD [address] [place] [address] [email or web address] 08/18/2025 11:40 AM EST Appointment [facility], [facility], MRI 450 [facility] 3 [place] [address] Isabella Singh MD [address] [place] [address] [email or web address] 08/18/2025 3:30 PM EST Office Visit [facility], [address], 6th [place] [address] Isabella Singh MD 450 [place] [address] [email or web address] documented as of this encounter Visit Diagnoses Not on filedocumented in this encounter Care Teams Automatic Beading Lathe Operator Relationship Specialty Start Date End Date Fina Jang, ARLEEN PCP - General 07/27/21 09/07/22 Vinita Sevilla, ARLEEN PCP - General Nurse Practitioner 09/08/22 10/10/23 Zuleika London, ARLEEN [address] [place] [address] PCP - General Nurse Practitioner 10/11/23 Isabella Singh MD [address] [place] [address] [email or web address] Medical Oncology 05/26/20 Eve Duffy DNP [address] [place] [address] 6600 [place] [address] [email or web address] Nurse Practitioner Palliative Care 12/13/20 documented as of this encounter Additional Source Comments The information contained in this document represents components of the legal health record. It is not the complete legal health record.[facility]
--- OUTSIDE RECORDS SUMMARY | 2025-03-06 22:06 | XMS_ITS | Encounter Summary ---
Author Organization [facility] Address [address] [facility] [address] [place] [address] Phone Care Team Providers Care Blood Bank Technologist Name Role Phone Henna Rodriguez MD Unavailable [phone] Isabella Singh MD Unavailable [phone] Henna Tatum MD Unavailable Eve Duffy DNP Unavailable [phone] Fina Jang SOFTWARE SYSTEMS ARCHITECT Primary Care Provider U Vinita Silveira SOFTWARE SYSTEMS ARCHITECT Primary Care Provider UnaZuleika Valenzuela SOFTWARE SYSTEMS ARCHITECT Primary Care Provider + Encounter Details Date Type Department Care Team (Late st Contact Info) Description 07/06/2020 [facility] [place] [place] [address] [facility], Floor L1 [place] [address] Social History Tobacco Use Types Packs/Day Years [...] st Contact Info) Description 01/27/2025 Procedure Pass [facility] Imaging Department, [facility], [place] [address] [facility], Floor L1 [place] [address] 01/27/2025 Procedure Pass [facility] Imaging Department, [facility], [place] [address] [facility], Floor L1 [place] [address] 01/27/2025 Procedure Pass [facility] Imaging Department, [facility], MRI [address] [address] 03/17/2025 1:00 PM EDT Office Visit [facility], [address], 5th [place] [address] Helene August MD, MPH [address] [place] [address] [email or web address] 08/18/2025 10:50 AM EST Appointment [facility] Imaging Department, [facility], [place] [address] [facility], Floor L1 [place] [address] Isabella Singh MD [address] [place] [phone] [email or web address] 08/18/2025 11:40 AM EST Appointment [facility] Imaging Department, [facility], MRI [address] [address] Isabella Singh MD [address] [place] [address] [email or web address] 08/18/2025 3:30 PM EST Office Visit [facility], [facility] 450 [facility], 6th [place] [address] Isabella Singh MD [address] [place] [address] [email or web address] documented as of this encounter Visit Diagnoses Not on filedocumented in this encounter Care Teams Blood Bank Technologist Relationship Specialty Start Date End Date Fina Jang, ARLEEN PCP - General 07/27/21 09/07/22 Vinita Sevilla NP PCP - General Nurse Practitioner 09/08/22 10/10/23 Zuleika London, ARLEEN [address] [place] [address] PCP - General Nurse Practitioner 10/11/23 Henna Rodriguez MD [address] [place] [address] Referring Physician Medical Oncology 05/17/20 07/26/21 Isabella Singh MD [address] [place] [address] [email or web address] Medical Oncology 05/26/20 Henna Tatum MD [address] [place] [address] General Surgery 10/05/20 07/26/21 Eve Duffy DNP [address] [place] [address] 6-600 Pall[facility] [place] [address] [email or web address] Nurse Practitioner Palliative Care 12/13/20 documented as of this encounter Additional Source Comments The information contained in this document represents components of the legal health record. It is not the complete legal health record.[facility]
--- OUTSIDE RECORDS SUMMARY | 2025-03-06 22:06 | XMS_ITS | Encounter Summary ---
Author Organization [employer] Address [address] [facility] 7t [place] [address] Care Team Providers Care It Business Systems Analyst Name Role Phone Zuleika London NP Primary Care Provider [phone] Reason for Visit * Reason Onset Date Comments April recall 03/04/2025 Encounter Details Date Type Department Care Team ([facility] st Contact Info) Description 03/04/2025 Telephone [facility] MEDICINE 230 [place] [address] Zuleika London NP [address] [place] [address] April Social History Tobacco Use Types Packs/Day Years [...] the past 12 months, has t he [employer] gas, oil or water company threatened to [...] encounter Miscellaneous Notes * Telephone Encounter - Elsy Travis MA - 03/04/2025 2:57 PM EDT I called pt to schedule for April recall for follow up but no answer was made and so I LVM and moved up recall accordingly. Letter will be sent to pt. documented in this encounter Plan of Treatment Upcoming Encounters Date Type Department Care Team (Late st Contact Info) Description 05/12/2025 3:15 PM EST Office Visit [facility] OPTOMETRY [address] [place] [address] Fina Barros, OD 267 [place] [address] documented as of this encounter Visit Diagnoses Not on filedocumented in this encounter Additional Health Concerns Assessment Noted Time PHQ-9 Depression Total Score: 16 025 12:52 PM EDT documented as of this encounter Care Teams It Business Systems Analyst Relationship Specialty Start Date End Date Zuleika London NP [address] [place] [address] PCP - General Family Medicine 04/10/23 documented as of this encounter
--- OUTSIDE RECORDS SUMMARY | 2025-03-06 22:06 | XMS_ITS | Encounter Summary ---
Author Organization [facility] Address [facility] [address] [place] [address] Phone Care Team Providers Care Stud Dairy Cattle Farmer Name Role Phone Isabella Singh MD Unavailable [phone] Eve Duffy DNP Unavailable [phone] Fina Jang DISTRICT PLANT SUPERVISOR Primary Care Provider U Vinita Silveira DISTRICT PLANT SUPERVISOR Primary Care Provider Zuleika Saldivar DISTRICT PLANT SUPERVISOR Primary Care Provider + Encounter Details Date Type Department Care Team (Late st Contact Info) Description 02/21/2022 Procedure Pass [facility] [address] Social History Tobacco Use Types Packs/Day Years [...] st Contact Info) Description 01/27/2025 Procedure Pass [facility], [facility], [place] [address] [facility], Floor L1 [place] [address] 01/27/2025 Procedure Pass [facility] Imaging Department, [facility], [place] [address] [facility], Floor L1 [place] [address] 01/27/2025 Procedure Pass [facility] Imaging Department, [facility], MRI 450 [facility], [place] 3 [place] [address] 03/17/2025 1:00 PM EDT Office Visit [facility], [address], 5th [place] [address] Helene August MD, MPH 450 [place] [address] [email or web address] 08/18/2025 10:50 AM EST Appointment [facility] Imaging Department, [facility], [place] [address] [facility], Floor [address]1 [place] [address] Isabella Singh MD [address] [place] [address] [email or web address] 08/18/2025 11:40 AM EST Appointment [facility] Imaging Department, [facility], MRI 450 [facility] 3 [place] [address] Isabella Singh MD [address] [place] [phone] [email or web address] 08/18/2025 3:30 PM EST Office Visit [facility], [address], 6th [place] [address] Isabella Singh MD 450 [place] [address] [email or web address] documented as of this encounter Visit Diagnoses Not on filedocumented in this encounter Care Teams Stud Dairy Cattle Farmer Relationship Specialty Start Date End Date Fina Jang, ARLEEN PCP - General 07/27/21 09/07/22 Vinita Sevilla, ARLEEN PCP - General Nurse Practitioner 09/08/22 10/10/23 Zuleika London, ARLEEN [address] [place] [address] PCP - General Nurse Practitioner 10/11/23 Isabella Singh MD 450 [place] [address] [email or web address] Medical Oncology 05/26/20 Eve Duffy DNP [address] [place] [address] 6[facility] [place] [address] [email or web address] Nurse Practitioner Palliative Care 12/13/20 documented as of this encounter Additional Source Comments The information contained in this document represents components of the legal health record. It is not the complete legal health record.[facility]
--- OUTSIDE RECORDS SUMMARY | 2025-03-06 22:06 | XMS_ITS | Encounter Summary ---
Author Organization [facility] Address [address] [facility] [facility] [address] [place] [address] Phone Care Team Providers Care Identifier Horse Name Role Phone Isabella Singh MD Unavailable [phone] GivenEve DNP Unavailable [phone] Vinita Sevilla HALAL MEAT PACKER Primary Care Provider Unav ailable Zuleika London HALAL MEAT PACKER Primary Care Provider + Encounter Details Date Type Department Care Team (Late st Contact Info) Description 08/22/2023 Procedure Pass [facility], [facility] [place], [place] 450 [facility], Floor L1 [place] [address] Social History Tobacco Use Types Packs/Day Years Used Date Smoking Tobacco: Never Smokeless Tobacco: Never Alcohol Use Standard Drinks/Week Comments Yes 0 (1 standard drink = 0.6 oz pur e alcohol) special occasions; 2/month Education Answer Date Recorded Are you interested in more education? Not on jaimie e 10/27/2022 Are you concerned about learning? Not on file 10/27/2022 No 10/27/2022 No 10/27/2022 Digital Access Answer Date Recorded No 11/21/2022 No 11/21/2022 Reliable internet access at home? Not on file 11/21/2022 Device with a working camera? Not on file Comments No Sex and Gender Information Value Date Recorded Sex Assigned at Female 05/31/2021 6:04 PM EST Legal Sex Female 1:12 PM EST Gender Identity Female 05/31/2021 6:04 PM EST Sexual Orientation Straight 05/31/2021 6: 04 PM EST documented as of this encounter Plan of Treatment Upcoming Encounters Date Type Department Care Team (Late st Contact Info) Description 01/27/2025 Procedure Pass [facility] Imaging Department, [facility], [place] 450 [facility], Floor L1 [place] [address] 01/27/2025 Procedure Pass [facility] Imaging Department, [facility], [place] [address] [facility], Floor L1 [place] [address] 01/27/2025 Procedure Pass [facility] Imaging Department, [facility], MRI [address] [address] 03/17/2025 1:00 PM EDT Office Visit [facility], [address], 5th [place] [address] Helene August MD, MPH [address] [place] [address] [email or web address] 08/18/2025 10:50 AM EST Appointment [facility] Imaging Department, [facility], [place] [address] [facility], Floor [address]1 [place] [address] Isabella Singh MD [address] [place] [address] [email or web address] 08/18/2025 11:40 AM EST Appointment [facility] Imaging Department, [facility], MRI [address] [address] Isabella Singh MD [address] [place] [address] [email or web address] 08/18/2025 3:30 PM EST [facility] [place] 450 [facility], 6th [place] [address] Isabella Singh MD 450 [place] [address] [email or web address] documented as of this encounter Visit Diagnoses Not on filedocumented in this encounter Care Teams Identifier Horse Relationship Specialty Start Date End Date Vinita Sevilla NP PCP - General Nurse Practitioner 09/08/22 10/10/23 Zuleika London NP [address] [place] [address] PCP - General Nurse Practitioner 10/11/23 Isabella Singh MD [address] [place] [address] [email or web address] Medical Oncology 05/26/20 Eve Duffy DNP [address] [place] [address] 6[facility] [place] [address] [email or web address] Nurse Practitioner Palliative Care 12/13/20 documented as of this encounter Additional Source Comments The information contained in this document represents components of the legal health record. It is not the complete legal health record.[facility]
--- OUTSIDE RECORDS SUMMARY | 2025-03-06 22:06 | XMS_ITS | Encounter Summary ---
Author Organization [employer] Address [address] [facility] 7t [place] [address] Care Team Providers Care Etymology Professor Name Role Phone Zuleika London NP Primary Care Provider [phone] Reason for Visit * Reason Onset Date Comments Referral 01/25/2024 Encounter Details Date Type Department Care Team ([facility] st Contact Info) Description 01/25/2024 Telephone [facility] MEDICINE 230 [place] [address] Zuleika London NP 230 [place] [address] Referral Social History Tobacco Use Types Packs/Day [...] the past 12 months, has t he [employer], gas, oil or water company threatened to [...] encounter Miscellaneous Notes * Telephone Encounter - Luis Alberto Durán - 01/25/2024 1:21 PM EDT Tc from patient requesting the status of Home Sleep Study states had called [facility] and was told has not received any fax from our office documented in this encounter Plan of Treatment Upcoming Encounters Date Type Department Care Team (Late st Contact Info) Description 05/12/2025 3:15 PM EST Office Visit [facility] OPTOMETRY [address] [place] [address] TarFina church, OD [address] [place] [address] documented as of this encounter Visit Diagnoses Not on filedocumented in this encounter Additional Health Concerns Assessment Noted Time PHQ-9 Depression Total Score: 16 024 4:01 PM EST documented as of this encounter Care Teams Etymology Professor Relationship Specialty Start Date End Date Zuleika London NP 230 [place] [address] PCP - General Family Medicine 04/10/23 documented as of this encounter
--- OUTSIDE RECORDS SUMMARY | 2025-03-06 22:06 | XMS_ITS | Encounter Summary ---
Author Organization [facility] Address [address] [place] [address] [place] [address] Phone Care Team Providers Care Aluminum Boats Assembler Name Role Phone Isabella Singh MD Unavailable [phone] Eve Duffy DNP Unavailable [phone] Fina Jang DEPUTY EDITOR IN CHIEF Primary Care Provider U Vinita Silveira DEPUTY EDITOR IN CHIEF Primary Care Provider Zuleika Saldivar DEPUTY EDITOR IN CHIEF Primary Care Provider + Encounter Details Date Type Department Care Team (Late st Contact Info) Description 05/23/2022 Procedure Pass [facility] [address] [place] [address] Social History Tobacco Use Types Packs/Day Years [...] Contact Info) Description 01/27/2025 Procedure Pass [facility] Imaging Department, [facility], [place] 450 [facility], Floor L1 [place] [address] 01/27/2025 Procedure Pass [facility] Imaging Department, [facility], [place] 450 [facility], Floor L1 [place] [address] 01/27/2025 Procedure Pass [facility] Imaging Department, [facility], MRI 450 [facility] 3 [place] [address] 03/17/2025 1:00 PM EDT Office Visit [facility], [address], 5th [place] [address] Helene August MD, MPH 450 [place] [address] [email or web address] 08/18/2025 10:50 AM EST Appointment [facility] Imaging Department, [facility], [place] 450 [facility], Floor L1 [place] [address] Isabella Singh MD [address] [place] [address] [email or web address] 08/18/2025 11:40 AM EST Appointment [facility] Imaging Department, [facility], MRI 450 [facility] 3 [place] [address] Isabella Singh MD [address] [place] [address] [email or web address] 08/18/2025 3:30 PM EST Office Visit [facility], [address], 6th [place] [address] Isabella Singh MD [address] [place] [address] [email or web address] documented as of this encounter Visit Diagnoses Not on filedocumented in this encounter Care Teams Aluminum Boats Assembler Relationship Specialty Start Date End Date Fina Jang, DEPUTY EDITOR IN CHIEF PCP - General 07/27/21 09/07/22 Vinita Sevilla, ARLEEN PCP - General Nurse Practitioner 09/08/22 10/10/23 Zuleika London, ARLEEN [address] [place] [address] PCP - General Nurse Practitioner 10/11/23 Isabella Singh MD [address] [place] [address] [email or web address] Medical Oncology 05/26/20 Eve Duffy DNP [address] [place] [address] 6600 [facility] [place] [address] [email or web address] Nurse Practitioner Palliative Care 12/13/20 documented as of this encounter Additional Source Comments The information contained in this document represents components of the legal health record. It is not the complete legal health record.[facility]
--- OUTSIDE RECORDS SUMMARY | 2025-03-06 22:06 | XMS_ITS | Encounter Summary ---
Author Organization [facility] Address [address] [place] [address] [place] [address] Phone Care Team Providers Care Boring And Filling Machine Operator Name Role Phone Henna Rodriguez MD Unavailable [phone] Isabella Singh MD Unavailable [phone] Henna Tatum MD Unavailable [phone] Eve Duffy DNP Unavailable [phone] Fina Jang OVERHEAD CRANE OPERATOR Primary Care Provider U Vinita Silveira OVERHEAD CRANE OPERATOR Primary Care Provider Unav Zuleika Rod OVERHEAD CRANE OPERATOR Primary Care Provider + Encounter Details Date Type Department Care Team (Late st Contact Info) Description 06/01/2021 Procedure Pass [facility] CT Imaging, [place] [address] [place] [address] Social History Tobacco Use Types Packs/Day Years [...] st Contact Info) Description 01/27/2025 Procedure Pass [facility] Imaging Department, [facility], [place] 450 [facility], Floor L1 [place] [address] 01/27/2025 Procedure Pass [facility] Imaging Department, [facility] [place] 450 [facility], Floor L1 [place] [address] 01/27/2025 Procedure Pass [facility] Imaging Department, [facility], MRI [address] [address] 03/17/2025 1:00 PM EDT Office Visit [facility], [address], 5th [place] [address] Helene August MD, MPH [address] [place] [address] [email or web address] 08/18/2025 10:50 AM EST Appointment [facility] Imaging Department, [facility], [place] 450 [facility], [facility] L1 [place] [address] Isabella Singh MD [address] [place] [phone] [email or web address] 08/18/2025 11:40 AM EST Appointment [facility] Imaging Department, [facility], MRI [address] [address] Isabella Singh MD [address] [place] [address] [email or web address] 08/18/2025 3:30 PM EST Office Visit [facility], [facility] 450 [facility], 6th [place] [address] Isabella Singh MD [address] [place] [phone] [email or web address] documented as of this encounter Visit Diagnoses Not on filedocumented in this encounter Care Teams Boring And Filling Machine Operator Relationship Specialty Start Date End Date Fina Jang, OVERHEAD CRANE OPERATOR PCP - General 07/27/21 09/07/22 Vinita Sevilla, ARLEEN PCP - General Nurse Practitioner 09/08/22 10/10/23 Zuleika London, ARLEEN [address] [place] [address] PCP - General Nurse Practitioner 10/11/23 Henna Rodriguez MD [address] [place] [address] Referring Physician Medical Oncology 05/17/20 07/26/21 Isabella Singh MD [address] [place] [address] [email or web address] Medical Oncology 05/26/20 Henna Tatum MD [address] [place] [address] General Surgery 10/05/20 07/26/21 Eve Duffy DNP [address] [place] [address] [phone] [place] [address] [email or web address] Nurse Practitioner Palliative Care 12/13/20 documented as of this encounter Additional Source Comments The information contained in this document represents components of the legal health record. It is not the complete legal health record.[facility]
--- OUTSIDE RECORDS SUMMARY | 2025-03-06 22:06 | XMS_ITS | Encounter Summary ---
Author Organization [facility] Address [address] [place] [address] [place] [address] Phone Care Team Providers Care Automobile Spring Repairer Name Role Phone Henna Rodriguez MD Unavailable [phone] Isabella Singh MD Unavailable [phone] Henna Tatum MD Unavailable [phone] Eve Duffy DNP Unavailable [phone] Fina Jang HEALTH SERVICES MANAGER Primary Care Provider U Vinita Silveira HEALTH SERVICES MANAGER Primary Care Provider Unav Zuleika Rod HEALTH SERVICES MANAGER Primary Care Provider + Encounter Details Date Type Department Care Team (Late st Contact Info) Description 06/01/2021 Procedure Pass [facility] CT Imaging, [place] [address] [place] [address] Social History Tobacco Use Types Packs/Day Years [...] st Contact Info) Description 01/27/2025 Procedure Pass [facility] Imaging Department, [facility], [place] 450 [facility], Floor L1 [place] [address] 01/27/2025 Procedure Pass [facility] Imaging Department, [facility], [place] 450 [facility], Floor L1 [place] [address] 01/27/2025 Procedure Pass [facility] Imaging Department, [facility], MRI [address] [address] 03/17/2025 1:00 PM EDT Office Visit [facility], [address], 5th [place] [address] Helene August MD, MPH [address] [place] [address] [email or web address] 08/18/2025 10:50 AM EST Appointment [facility] Imaging Department, [facility], [place] 450 [facility], [facility] L1 [place] [address] Isabella Singh MD [address] [place] [address] [email or web address] 08/18/2025 11:40 AM EST Appointment [facility] Imaging Department, [facility], MRI [address] [address] Isabella Singh MD [address] [place] [address] [email or web address] 08/18/2025 3:30 PM EST Office Visit [facility], [facility] 450 [facility], 6th [place] [address] Isabella Singh MD [address] [place] [address] [email or web address] documented as of this encounter Visit Diagnoses Not on filedocumented in this encounter Care Teams Automobile Spring Repairer Relationship Specialty Start Date End Date Fina Jang, HEALTH SERVICES MANAGER PCP - General 07/27/21 09/07/22 Vinita Sevilla, ARLEEN PCP - General Nurse Practitioner 09/08/22 10/10/23 Zuleika London, ARLEEN [address] [place] [address] PCP - General Nurse Practitioner 10/11/23 Henna Rodriguez MD [address] [place] [address] Referring Physician Medical Oncology 05/17/20 07/26/21 Isabella Singh MD [address] [place] [address] [email or web address] Medical Oncology 05/26/20 Henna Tatum MD [address] [place] [address] General Surgery 10/05/20 07/26/21 Eve Duffy DNP [address] [place] [address] [phone] Pall[place] [address] [email or web address] Nurse Practitioner Palliative Care 12/13/20 documented as of this encounter Additional Source Comments The information contained in this document represents components of the legal health record. It is not the complete legal health record.[facility]
--- OUTSIDE RECORDS SUMMARY | 2025-03-06 22:06 | XMS_ITS | Encounter Summary ---
Author Organization [facility] Address [address] [place] [address] [place] [address] Phone Care Team Providers Care Middleware Systems Architect Name Role Phone Isabella Singh MD Unavailable [phone] Eve Duffy DNP Unavailable [phone] Fina Jang WIND TURBINE MECHANIC Primary Care Provider U Vinita Silveira WIND TURBINE MECHANIC Primary Care Provider Zuleika Saldivar WIND TURBINE MECHANIC Primary Care Provider + Encounter Details Date Type Department Care Team (Late Contact Info) Description 11/18/2021 Procedure Pass [facility], [facility] [place] 450 [facility], Floor L1 [place] [address] Social History Tobacco Use Types Packs/Day Years [...] st Contact Info) Description 01/27/2025 Procedure Pass [facility] Imaging Department, [facility], [place] 450 [facility], Floor L1 [place] [address] 01/27/2025 Procedure Pass [facility] Imaging Department, [facility] [place] 450 [facility], Floor L1 [place] [address] 01/27/2025 Procedure Pass [facility] Imaging Department, [facility], MRI [address] [address] 03/17/2025 1:00 PM EDT Office Visit [facility], [address], 5th [place] [address] Helene August MD, MPH [address] [place] [address] [email or web address] 08/18/2025 10:50 AM EST Appointment [facility] Imaging Department, [facility], [place] 450 [facility], Floor L1 [place] [address] Isabella Singh MD [address] [place] [phone] [email or web address] 08/18/2025 11:40 AM EST Appointment [facility] Imaging Department, [facility], MRI [address] [address] Isabella Singh MD [address] [place] [address] [email or web address] 08/18/2025 3:30 PM EST Office Visit [facility], [address], 6th [place] [address] Isabella Singh MD 450 [place] [address] [email or web address] documented as of this encounter Visit Diagnoses Not on filedocumented in this encounter Care Teams Middleware Systems Architect Relationship Specialty Start Date End Date Fina Jang, ARLEEN PCP - General 07/27/21 09/07/22 Vinita Sevilla NP PCP - General Nurse Practitioner 09/08/22 10/10/23 Zuleika London, ARLEEN [address] [place] [address] PCP - General Nurse Practitioner 10/11/23 Isabella Singh MD [address] [place] [address] [email or web address] Medical Oncology 05/26/20 Eve Duffy DNP [address] [place] [address] [phone] [place] [address] miguel Nurse Practitioner Palliative Care 12/13/20 documented as of this encounter Additional Source Comments The information contained in this document represents components of the legal health record. It is not the complete legal health record.[facility]
--- OUTSIDE RECORDS SUMMARY | 2025-03-06 22:06 | XMS_ITS | Encounter Summary ---
Author Organization [facility] Address [address] [facility] [address] [place] [address] Phone Care Team Providers Care Airplane Navigator Name Role Phone Henna Rodriguez MD Unavailable [phone] Isabella Singh MD Unavailable [phone] Henna Tatum MD Unavailable [phone] Eve Duffy DNP Unavailable [phone] Fina Jang RETAIL SUPPORT SPECIALIST Primary Care Provider U Vinita Silveira RETAIL SUPPORT SPECIALIST Primary Care Provider UnaZuleika Valenzuela RETAIL SUPPORT SPECIALIST Primary Care Provider + Encounter Details Date Type Department Care Team (Late st Contact Info) Description 10/05/2020 Procedure Pass [facility] [place] [place] 450 [facility], Floor L1 [place] [address] Social History Tobacco Use Types Packs/Day Years [...] st Contact Info) Description 01/27/2025 Procedure Pass [facility] Imaging Department, [facility] [place] 450 [facility], Floor L1 [place] [address] 01/27/2025 Procedure Pass [facility] Imaging Department, [facility], [place] 450 [facility], Floor L1 [place] [address] 01/27/2025 Procedure Pass [facility] Imaging Department, [facility], MRI [address] [address] 03/17/2025 1:00 PM EDT Office Visit [facility], [address], 5th [place] [address] Helene August MD, MPH [address] [place] [address] [email or web address] 08/18/2025 10:50 AM EST Appointment [facility] Imaging Department, [facility], [place] 450 [facility], Floor L1 [place] [address] Isabella Singh MD [address] [place] [address] [email or web address] 08/18/2025 11:40 AM EST Appointment [facility] Imaging Department, [facility], MRI [address] [address] Isabella Singh MD [address] [place] [address] [email or web address] 08/18/2025 3:30 PM EST Office Visit [facility], [facility] 450 [facility], 6th [place] [address] Isabella Singh MD [address] [place] [address] [email or web address] documented as of this encounter Visit Diagnoses Not on filedocumented in this encounter Care Teams Airplane Navigator Relationship Specialty Start Date End Date Fina Jang, ARLEEN PCP - General 07/27/21 09/07/22 Vinita Sevilla NP PCP - General Nurse Practitioner 09/08/22 10/10/23 Zuleika London, ARLEEN [address] [place] [address] PCP - General Nurse Practitioner 10/11/23 Henna Rodriguez MD [address] [place] [address] Referring Physician Medical Oncology 05/17/20 07/26/21 Isabella Singh MD [address] [place] [address] [email or web address] Medical Oncology 05/26/20 Henna Tatum MD [address] [place] [address] General Surgery 10/05/20 07/26/21 Eve Duffy DNP [address] [place] [address] 6-600 [place] [address] [email or web address] Nurse Practitioner Palliative Care 12/13/20 documented as of this encounter Additional Source Comments The information contained in this document represents components of the legal health record. It is not the complete legal health record.[facility]
--- OUTSIDE RECORDS SUMMARY | 2025-03-06 22:06 | XMS_ITS | Encounter Summary ---
Author Organization [facility] Address [address] [facility] [address] [place] [address] Phone Care Team Providers Care Thread Spinner Name Role Phone Isabella Singh MD Unavailable [phone] GivenEve DNP Unavailable [phone] Vinita Sevilla SCHOOL SOCIAL WORKER Primary Care Provider Unav ailable Zuleika London SCHOOL SOCIAL WORKER Primary Care Provider + Encounter Details Date Type Department Care Team (Late st Contact Info) Description 10/03/2023 Procedure Pass [facility] MR Imaging, [place] [address] [place] [address] Social History Tobacco Use Types Packs/Day Years [...] st Contact Info) Description 01/27/2025 Procedure Pass [facility] Imaging Department, [facility], [place] 450 [facility], Floor L1 [place] [address] 01/27/2025 Procedure Pass [facility] Imaging Department, [facility], [place] 450 [facility], Floor L1 [place] [address] 01/27/2025 Procedure Pass [facility] Imaging Department, [facility], MRI 450 [facility], [place] 3 [place] [address] 03/17/2025 1:00 PM EDT Office Visit [facility], [address], 5th [place] [address] Helene August MD, MPH 450 [place] [address] [email or web address] 08/18/2025 10:50 AM EST Appointment [facility] Imaging Department, [facility], [place] 450 [facility], Floor L1 [place] [address] Isabella Singh MD [address] [place] [phone] [email or web address] 08/18/2025 11:40 AM EST Appointment [facility] Imaging Department, [facility], MRI 450 [facility], [place] [address] [place] [address] Isabella Singh MD [address] [place] [address] [email or web address] 08/18/2025 3:30 PM EST Office Visit [facility], [facility] 450 [facility], 6th [place] [address] Isabella Singh MD 450 [place] [address] [email or web address] documented as of this encounter Visit Diagnoses Not on filedocumented in this encounter Care Teams Thread Spinner Relationship Specialty Start Date End Date Vinita Sevilla NP PCP - General Nurse Practitioner 09/08/22 10/10/23 Zuleika London NP [address] [place] [address] PCP - General Nurse Practitioner 10/11/23 Isabella Singh MD [address] [place] [address] [email or web address] Medical Oncology 05/26/20 Eve Duffy DNP [address] [place] [address] 6600 [place] [address] miguel [email or web address] Nurse Practitioner Palliative Care 12/13/20 documented as of this encounter Additional Source Comments The information contained in this document represents components of the legal health record. It is not the complete legal health record.[facility]
--- OUTSIDE RECORDS SUMMARY | 2025-03-06 22:06 | XMS_ITS | Encounter Summary ---
Author Organization [employer] Address [address] [place] [address] 7t [place] [address] Care Team Providers Care Fax Machine Operator Name Role Phone Vinita Sevlila DISTRICT BRANCH MANAGER Primary Care Provider Kat Acosta MD Primary Care Pro vider Zuleika London NP Primary Care Provider [phone] Encounter Details Date Type Department Care Team ([facility] Contact Info) Description 07/07/2022 Orders Only [facility] MEDICINE [address] [place] [address] Vinita Sevilla FNP Type 2 diabetes mellitus without complication, without long-term current use of insulin ([facility]) (Primary Dx); Acquired hypothyroidism Social History Tobacco Use Types Packs/Day Years Used Date Smoking Tobacco: Never Smokeless Tobacco: Never Alcohol Use Standard Drinks/Week Comments Never 0 (1 standard drink = 0.6 oz pur e alcohol) Depression Answer Date Recorded Patient Health Questionnaire-9 Score 6 06/22/2022 Comments Unknown Sex and Gender Information Value Date Recorded Sex Assigned at Female 05/01/2022 10:19 AM EDT Legal Sex Female 10:19 AM EDT Gender Identity Female 05/01/2022 10:19 AM EDT Sexual Orientation Straight 05/01/2022 10 :19 AM EDT COVID-19 Exposure Response Date Recorded In the last 10 days, have yo u been in contact with someone who was confirmed or suspected to have Coronavirus/COVID-19? No / Unsure 06/22/2022 3:53 PM EST documented as of this encounter Plan of Treatment Upcoming Encounters Date Type Department Care Team ([facility] st Contact Info) Description 05/12/2025 3:15 PM EST Office Visit [facility] OPTOMETRY [address] [place], [place] [phone] Fina Barros, OD [address] [place] [address] documented as of this encounter Visit Diagnoses Diagnosis Type 2 diabetes mellitus without complication, without long-term current use of insulin ([facility])- Primary Acquired hypothyroidism Unspecified hypothyroidism documented in this encounter Additional Health Concerns Assessment Noted Time PHQ-9 Depression Total Score: 6 06/22/20 22 4:03 PM EST documented as of this encounter Care Teams Fax Machine Operator Relationship Specialty Start Date End Date Vinita Sevilla FNP PCP - General Family Medicine 02/21/22 01/11/23 Kat Murillo MD [address] [place], [place] [phone] PCP - General Internal Medicine 01/12/23 04/09/23 Zuleika London NP [address] [place], [place] [phone] PCP - General Family Medicine 04/10/23 documented as of this encounter
--- OUTSIDE RECORDS SUMMARY | 2025-03-06 22:06 | XMS_ITS | Encounter Summary ---
Author Organization [facility] Address [address] [facility] [address] [place] [address] Phone Care Team Providers Care Sign Letterer Name Role Phone Henna Rodriguez MD Unavailable [phone] Isabella Singh MD Unavailable [phone] Henna Tatum MD Unavailable [phone] Eve Duffy DNP Unavailable [phone] Fina Jang RADIOLOGIST CHIEF OF BREAST IMAGING Primary Care Provider U Vinita Silveira RADIOLOGIST CHIEF OF BREAST IMAGING Primary Care Provider UnaZuleika Valenzuela RADIOLOGIST CHIEF OF BREAST IMAGING Primary Care Provider + Encounter Details Date Type Department Care Team (Late st Contact Info) Description 07/06/2020 Procedure Pass [facility] [place] [place] [address] [facility], Floor L1 [place] [address] Social History Tobacco Use Types Packs/Day Years [...] st Contact Info) Description 01/27/2025 Procedure Pass [facility] Imaging Department, [facility], [place] [address] [facility], Floor L1 [place] [address] 01/27/2025 Procedure Pass [facility] Imaging Department, [facility], [place] [address] [facility], Floor L1 [place] [address] 01/27/2025 Procedure Pass [facility] Imaging Department, [facility], MRI [address] [address] 03/17/2025 1:00 PM EDT Office [facility], [address], 5th [place] [address] Helene August MD, MPH [address] [place] [address] [email or web address] 08/18/2025 10:50 AM EST Appointment [facility] Imaging Department, [facility], [place] 450 [facility], Floor L1 [place] [address] Isabella Singh MD [address] [place] [address] [email or web address] 08/18/2025 11:40 AM EST Appointment [facility] Imaging Department, [facility], MRI [address] [address] Isabella Singh MD [address] [place] [address] [email or web address] 08/18/2025 3:30 PM EST Office Visit [facility], [facility] [place] [address] [facility], 6th [place] [address] Isabella Singh MD [address] [place] [address] [email or web address] documented as of this encounter Visit Diagnoses Not on filedocumented in this encounter Care Teams Sign Letterer Relationship Specialty Start Date End Date Fina Jang, ARLEEN PCP - General 07/27/21 09/07/22 Vinita Sevilla NP PCP - General Nurse Practitioner 09/08/22 10/10/23 Zuleika London, ARLEEN [address] [place] [address] PCP - General Nurse Practitioner 10/11/23 Henna Rodriguez MD [address] [place] [address] Referring Physician Medical Oncology 05/17/20 07/26/21 Isabella Singh MD [address] [place] [address] [email or web address] Medical Oncology 05/26/20 Henna Tatum MD [address] [place] [address] General Surgery 10/05/20 07/26/21 Eve Duffy DNP [address] [place] [address] [phone] [place] [address] [email or web address] Nurse Practitioner Palliative Care 12/13/20 documented as of this encounter Additional Source Comments The information contained in this document represents components of the legal health record. It is not the complete legal health record.[facility]
--- OUTSIDE RECORDS SUMMARY | 2025-03-06 22:06 | XMS_ITS | Encounter Summary ---
Author Organization [facility] Address [address] [place] [address] [address] [place] [address] Phone Care Team Providers Care Zigzagger Name Role Phone Isabella Singh MD Unavailable [phone] Eve Duffy DNP Unavailable [phone] Fina Jang AVIONICS TEST TECHNICIAN Primary Care Provider Vinita Downey AVIONICS TEST TECHNICIAN Primary Care Provider Zuleika Saldivar AVIONICS TEST TECHNICIAN Primary Care Provider + Encounter Details Date Type Department Care Team (Late st Contact Info) Description 05/22/2022 Transcribe Orders [facility] Imaging [facility], [facility], Imaging [id number] [address] [facility], Floor L1 [place] [address] Doris Wan MD, PhD [address] [facility] [place] [address] [email or web address] Blood tests prior to treatment or procedure (Primary Dx) Social History Tobacco Use Types Packs/Day Years [...] st Contact Info) Description 01/27/2025 Procedure Pass [facility] [place] [facility] Imaging Department, [facility], [place] [address] [facility], Floor L1 [place] [address] 01/27/2025 Procedure Pass [facility] [place] [facility] Imaging Department, [facility], [place] [address] [facility], Floor L1 [place] [address] 01/27/2025 Procedure Pass [facility] [place] [facility] Imaging Department, [facility], MRI [address] [address] 03/17/2025 1:00 PM EDT Office Visit [facility], [address], 5th [place] [address] Helene August MD, MPH [address] [place] [address] [email or web address] 08/18/2025 10:50 AM EST Appointment [facility] [place] [facility] Imaging Department, [facility], [place] [address] [facility], Floor L1 [place] [address] Isabelal Singh MD [address] [place] [phone] [email or web address] 08/18/2025 11:40 AM EST Appointment [facility] [place] [facility] Imaging Department, [facility], MRI [address] [address] Isabella Singh MD [address] [place] [address] [email or web address] 08/18/2025 3:30 PM EST Office Visit [facility], [facility] [place] [address] [facility], 6th [place] [address] Isabella Singh MD 450 [place] [address] [email or web address] documented as of this encounter Visit Diagnoses Diagnosis Blood tests prior to treatment or procedure- Primary Pre-procedural laboratory examination documented in this encounter Care Teams Zigzagger Relationship Specialty Start Date End Date Fina Jang, ARLEEN PCP - General 07/27/21 09/07/22 Vinita Sevilla NP PCP - General Nurse Practitioner 09/08/22 10/10/23 Zuleika London, ARLEEN [address] [place] [address] PCP - General Nurse Practitioner 10/11/23 Isabella Singh MD [address] [place] [address] [email or web address] Medical Oncology 05/26/20 Eve Duffy DNP [address] [place] [address] [phone] [place] [address] [email or web address] Nurse Practitioner Palliative Care 12/13/20 documented as of this encounter Additional Source Comments The information contained in this document represents components of the legal health record. It is not the complete legal health record.[facility]
--- OUTSIDE RECORDS SUMMARY | 2025-03-06 22:06 | XMS_ITS | Encounter Summary ---
Author Organization [employer] Address [address] [facility] 7t [place] [address] Care Team Providers Care Weaver [employer] Name Role Phone Vinita Sevilla Primary Care Provider Kat Acosta MD Primary Care Pro vider Zuleika London NP Primary Care Provider [phone] Encounter Details Date Type Department Care Team ([facility] Contact Info) Description 08/16/2022 Telephone [facility]IC[facility] 230 [place] [address] Vinita Sevilla FNP Social History Tobacco Use Types Packs/Day Years [...] suspected to have Coronavirus/COVID-19? No / Unsure 08/02/2022 1:41 PM EST documented as of this encounter Plan of Treatment Upcoming Encounters Date Type Department Care Team (Late Contact Info) Description 05/12/2025 3:15 PM EST Office Visit [facility] OPT[facility]ETRY 267 [place] [address] Veronicalynnette Fina, OD 267 [place] [address] documented as of this encounter Visit Diagnoses Not on filedocumented in this encounter Additional Health Concerns Assessment Noted Time PHQ-9 Depression Total Score: 6 06/22/20 22 4:03 PM EST documented as of this encounter Care Teams Weaver [employer] Relationship Specialty Start Date End Date Vinita Sevilla FNP PCP - General Family Medicine 02/21/22 01/11/23 Kat Murillo MD 230 [place] [address] PCP - General Internal Medicine 01/12/23 04/09/23 Zuleika London NP [address] [place] [address] PCP - General Family Medicine 04/10/23 documented as of this encounter
--- OUTSIDE RECORDS SUMMARY | 2025-03-06 22:06 | XMS_ITS | Encounter Summary ---
Author Organization [facility] Address [address] [facility] [address] [place] [address] Phone Care Team Providers Care Inspector [employer] Metal Parts Name Role Phone Isabella Singh MD Unavailable [phone] Eve Duffy DNP Unavailable [phone] Vinita Sevilla SUBSTATION SUPERINTENDENT Primary Care Provider Unav ailable Zuleika London SUBSTATION SUPERINTENDENT Primary Care Provider + Encounter Details Date Type Department Care Team (Late st Contact Info) Description 11/28/2022 Procedure Pass [facility] [place] [address] [place] [address] Social History Tobacco Use Types Packs/Day Years [...] st Contact Info) Description 01/27/2025 Procedure Pass [facility] Imaging Department, [facility], [place] 450 [facility], Floor L1 [place] [address] 01/27/2025 Procedure Pass [facility] Imaging Department, [facility], [place] 450 [facility], Floor L1 [place] [address] 01/27/2025 Procedure Pass [facility] Imaging Department, [facility], MRI [address] [address] 03/17/2025 1:00 PM EDT Office Visit [facility], [address], 5th [place] [address] Helene August MD, MPH 450 [place] [address] [email or web address] 08/18/2025 10:50 AM EST Appointment [facility] Imaging Department, [facility], [place] 450 [facility], Floor L1 [place] [address] Isabella Singh MD [address] [place] [address] [email or web address] 08/18/2025 11:40 AM EST Appointment [facility] Imaging Department, [facility], MRI 450 [facility], [place] [address] [place] [address] Isabella Singh MD [address] [place] [address] [email or web address] 08/18/2025 3:30 PM EST Office Visit [facility], [facility] [place] 450 [facility], 6th [place] [address] Isabella Singh MD 450 [place] [address] [email or web address] documented as of this encounter Visit Diagnoses Not on filedocumented in this encounter Care Teams Inspector Sheet Metal Parts Relationship Specialty Start Date End Date Vinita Sevilla NP PCP - General Nurse Practitioner 09/08/22 10/10/23 Zuleika London NP [address] [place] [address] PCP - General Nurse Practitioner 10/11/23 Isabella Singh MD [address] [place] [address] [email or web address] Medical Oncology 05/26/20 Eve Duffy DNP [address] [place] [address] 6600 [facility] [address] miguel Nurse Practitioner Palliative Care 12/13/20 documented as of this encounter Additional Source Comments The information contained in this document represents components of the legal health record. It is not the complete legal health record.[facility]
--- OUTSIDE RECORDS SUMMARY | 2025-03-06 22:06 | XMS_ITS | Encounter Summary ---
Author Organization [facility] Address [address] [employer] [facility] [address] [place] [address] Phone Care Team Providers Care Philosophy Specialist Name Role Phone Isabella Singh MD Unavailable GivenEve DNP Unavailable [phone] Vinita Sevilla BACKUP OPERATOR Primary Care Provider Unav ailable Zuleika London BACKUP OPERATOR Primary Care Provider + Encounter Details Date Type Department Care Team (Late st Contact Info) Description 10/03/2023 Procedure Pass [facility] 70 [place] [address] Social History Tobacco Use Types Packs/Day Years [...] Description 01/27/2025 Procedure Pass [facility] Imaging Department, [facility], [place] [address] [facility], Floor L1 [place] [address] 01/27/2025 Procedure Pass [facility] Imaging Department, [facility], [place] [address] [facility], Floor L1 [place] [address] 01/27/2025 Procedure Pass [facility] Imaging Department, [facility], MRI 450 [facility], [place] 3 [place] [address] 03/17/2025 1:00 PM EDT Office Visit [facility], [address], 5th [place] [address] Helene August MD, MPH 450 [place] [address] [email or web address] 08/18/2025 10:50 AM EST Appointment [facility] Imaging Department, [facility], [place] 450 [facility], Floor L1 [place] [address] Isabella Singh MD [address] [place] [address] [email or web address] 08/18/2025 11:40 AM EST Appointment [facility] Imaging Department, [facility], MRI 450 [facility], [facility] 3 [place] [address] Isabella Singh MD [address] [place] [phone] [email or web address] 08/18/2025 3:30 PM EST Office Visit [facility], [facility] [place] 450 [facility], 6th [place] [address] Isabella Singh MD 450 [place] [address] [email or web address] documented as of this encounter Visit Diagnoses Not on filedocumented in this encounter Care Teams Philosophy Specialist Relationship Specialty Start Date End Date Vinita Sevilla NP PCP - General Nurse Practitioner 09/08/22 10/10/23 Zuleika London NP [address] [place] [address] PCP - General Nurse Practitioner 10/11/23 Isabella Singh MD [address] [place] [address] [email or web address] Medical Oncology 05/26/20 Eve Duffy DNP [address] [place] [address] 6600 [place] [address] [email or web address] Nurse Practitioner Palliative Care 12/13/20 documented as of this encounter Additional Source Comments The information contained in this document represents components of the legal health record. It is not the complete legal health record.[facility]
--- OUTSIDE RECORDS SUMMARY | 2025-03-06 22:06 | XMS_ITS | Encounter Summary ---
Author Organization [facility] Address [address] [place] [address] 7t [place] [address] Care Team Providers Care Engineering Aid Name Role Phone Kat Murillo MD Primary Care Pro vider Zuleika London NP Primary Care Provider [phone] Encounter Details Date Type Department Care Team (Late Contact Info) Description 04/04/2023 Abstract [facility] 230 [place] [address] Yolanda Danielson Social History Tobacco Use Types Packs/Day Years [...] PM EST Office Visit [facility] OPTOMETRY 267 [place], [place] [address] Fina Barros, OD 267 [place] [address] documented as of this encounter Procedures Procedure Name Priority Date/Time Associated Diagnosis Comments HM PAP/HPV Routine 02/06/2022 documented in this encounter Results * Pap Smear (02/06/2022) Pap Negative for intraephithelial lesion or malignancy Negative for intraephithelial lesion or malignancy, Other HPV Undetected Historical Provider HEALTH MAINTENANCE Final Result documented in this encounter Visit Diagnoses Not on filedocumented in this encounter Additional Health Concerns Assessment Noted Time PHQ-9 Depression Total Score: 6 06/22/20 22 4:03 PM EST documented as of this encounter Care Teams Engineering Aid Relationship Specialty Start Date End Date Kat Murillo MD [address] [place] [address] PCP - General Internal Medicine 01/12/23 04/09/23 Zuleika London NP [address] [place] [address] PCP - General Family Medicine 04/10/23 documented as of this encounter
--- OUTSIDE RECORDS SUMMARY | 2025-03-06 22:06 | XMS_ITS | Encounter Summary ---
Author Organization [employer] Address [address] [facility] 7t [place] [address] Care Team Providers Care Life Skills Worker Name Role Phone Zuleika London NP Primary Care Provider [phone] Reason for Visit * Reason Comments Med Refill Encounter Details Date Type Department Care Team ([facility] st Contact Info) Description 03/18/2024 Refill [facility] 230 [place] [address] Zuleika London NP 230 [place] [address] Acquired hypothyroidism Social History Tobacco Use Types [...] Description 05/12/2025 3:15 PM EST Office Visit [facility] 267 [place] [address] Fina Barros, OD 267 [place] [address] documented as of this encounter Visit Diagnoses Diagnosis Acquired hypothyroidism Unspecified hypothyroidism documented in this encounter Additional Health Concerns Assessment Noted Time PHQ-9 Depression Total Score: 16 024 4:01 PM EST documented as of this encounter Care Teams Life Skills Worker Relationship Specialty Start Date End Date Zuleika London NP 230 [place] [address] PCP - General Family Medicine 04/10/23 documented as of this encounter
--- OUTSIDE RECORDS SUMMARY | 2025-03-06 22:06 | XMS_ITS | Encounter Summary ---
Author Organization [facility] Address [address] [facility] [address] [place] [address] Phone Care Team Providers Care Sales Operations Associate Name Role Phone Isabella Singh MD Unavailable [phone] GivenEve DNP Unavailable [phone] Vinita Sevilla TOOL GRINDING MACHINE OPERATOR Primary Care Provider Unav ailable Zuleika London TOOL GRINDING MACHINE OPERATOR Primary Care Provider + Encounter Details Date Type Department Care Team (Late st Contact Info) Description 11/28/2022 Procedure Pass [facility] Imaging, [place] [address] [place] [address] Social History Tobacco Use Types Packs/Day Years [...] Pass [facility] Imaging Department, [facility], [place] 450 [facility], Floor L1 [place] [address] 01/27/2025 Procedure Pass [facility] Imaging Department, [facility], [place] [address] [facility], Floor L1 [place] [address] 01/27/2025 Procedure Pass [facility] Imaging Department, [facility], MRI 450 [facility], [place] 3 [place] [address] 03/17/2025 1:00 PM EDT Office Visit [facility], [address], 5th [place] [address] Helene August MD, MPH 450 [place] [address] [email or web address] 08/18/2025 10:50 AM EST Appointment [facility] Imaging Department, [facility], [place] [address] [facility], Floor L1 [place] [address] Isabella Singh MD [address] [place] [address] [email or web address] 08/18/2025 11:40 AM EST Appointment [facility] Imaging Department, [facility], MRI 450 [facility], [place] [address] [place] [address] Isabella Singh MD [address] [place] [address] [email or web address] 08/18/2025 3:30 PM EST Office Visit [facility], [facility] [place] [address] [facility], 6th [place] [address] Isabella Singh MD 450 [place] [address] [email or web address] documented as of this encounter Visit Diagnoses Not on filedocumented in this encounter Care Teams Sales Operations Associate Relationship Specialty Start Date End Date Vinita Sevilla NP PCP - General Nurse Practitioner 09/08/22 10/10/23 Zuleika London NP [address] [place] [address] PCP - General Nurse Practitioner 10/11/23 Isabella Singh MD [address] [place] [address] [email or web address] Medical Oncology 05/26/20 Eve Duffy DNP [address] [place] [address] 6600 [facility] [address] [email or web address] Nurse Practitioner Palliative Care 12/13/20 documented as of this encounter Additional Source Comments The information contained in this document represents components of the legal health record. It is not the complete legal health record.[facility]
--- OUTSIDE RECORDS SUMMARY | 2025-03-06 22:06 | XMS_ITS | Encounter Summary ---
Author Organization [employer] Address [address] [facility] 7t [place] [address] Care Team Providers Care Car Stower Name Role Phone Zuleika London NP Primary Care Provider [phone] Reason for Visit * Reason Onset Date Comments Referral 01/27/2025 Encounter Details Date Type Department Care Team ([facility] st Contact Info) Description 01/27/2025 Telephone [facility] 230 [place] [address] Zuleika London NP 230 [place] [address] Referral Social History Tobacco Use Types Packs/Day [...] encounter Miscellaneous Notes * Telephone Encounter - Margaux Rico RN - 01/27/2025 3:40 PM EDT Noted. Spoke to pt on 01/27/25. Please see TC encounter note from 01/23/25. * Telephone Encounter - Milvia Cadet - 01/27/2025 2:56 PM EDT Tc from pt requesting a call back in regards of referral sen reynold 01/23 Contact pt at [phone] documented in this encounter Plan of Treatment Upcoming Encounters Date Type Department Care Team ([facility] st Contact Info) Description 05/12/2025 3:15 PM EST Office Visit [facility] OPTOMETRY [address] [place] [address] Fina Barros, OD 267 [place] [address] documented as of this encounter Visit Diagnoses Not on filedocumented in this encounter Additional Health Concerns Assessment Noted Time PHQ-9 Depression Total Score: 16 12/29/ 025 12:52 PM EDT documented as of this encounter Care Teams Car Stower Relationship Specialty Start Date End Date Zuleika London NP 230 [place] [address] PCP - General Family Medicine 04/10/23 documented as of this encounter
--- OUTSIDE RECORDS SUMMARY | 2025-03-06 22:06 | XMS_ITS | Encounter Summary ---
Author Organization [employer] Address [address] 7t [place] [address] Care Team Providers Care Underwriting Director Name Role Phone Zuleika London NP Primary Care Provider [phone] Reason for Visit * Reason Comments Med Refill Encounter Details Date Type Department Care Team (Late st Contact Info) Description 03/18/2024 Refill [facility] 230 [place] [address] Helene Mcguire FNP Acquired hypothyroidism Social History Tobacco Use Types [...] Description 05/12/2025 3:15 PM EST Office Visit [facility] OPTOMETRY 267 [place] [address] TarkaFina, OD 267 [place] [address] documented as of this encounter Visit Diagnoses Diagnosis Acquired hypothyroidism Unspecified hypothyroidism documented in this encounter Additional Health Concerns Assessment Noted Time PHQ-9 Depression Total Score: 16 024 4:01 PM EST documented as of this encounter Care Teams Underwriting Director Relationship Specialty Start Date End Date Zuleika London NP [address] [place] [address] PCP - General Family Medicine 04/10/23 documented as of this encounter
--- OUTSIDE RECORDS SUMMARY | 2025-03-06 22:06 | XMS_ITS | Encounter Summary ---
Author Organization [facility] Address [address] [place] [address] [place] [address] Phone Care Team Providers Care Bench Technician Name Role Phone Henna Rodriguez MD Unavailable [phone] Isabella Sinhg MD Unavailable [phone] Henna Tatum MD Unavailable [phone] Eve Duffy DNP Unavailable [phone] Fina Jang PHYSICS AND ASTRONOMY PROFESSOR Primary Care Provider U Vinita Silveira PHYSICS AND ASTRONOMY PROFESSOR Primary Care Provider Unav Zuleika Rod PHYSICS AND ASTRONOMY PROFESSOR Primary Care Provider + Encounter Details Date Type Department Care Team (Late st Contact Info) Description 06/01/2021 Procedure Pass [facility] MR Imaging, [place] [address] [place] [address] Social History Tobacco Use Types Packs/Day Years [...] st Contact Info) Description 01/27/[address] [facility] Imaging Department, [facility], [place] [address] [facility], Floor [address] [place] [address] 01/27/[address] [facility] Imaging Department, [facility], [place] [address] [facility], Floor [address] [place] [address] 01/27/[address] [facility] Imaging Department, [facility], MRI [address] [address] 03/17/2025 1:00 PM EDT Office Visit [facility], [address], 5th [place] [address] Helene August MD, MPH [address] [place] [address] [email or web address] 08/18/2025 10:[address] [facility] Imaging Department, [facility], [place] [address] [facility], [facility] [address] [place] [address] Isabella Singh MD [address] [place] [phone] [email or web address] 08/18/2025 11:[address] [facility] Imaging Department, [facility], MRI [address] [address] Isabella Singh MD [address] [place] [phone] [email or web address] 08/18/2025 3:30 PM EST Office Visit [facility], [facility] [address] [facility], 6th [place] [address] Isabella Singh MD [address] [place] [phone] [email or web address] documented as of this encounter Visit Diagnoses Not on filedocumented in this encounter Care Teams Bench Technician Relationship Specialty Start Date End Date Fina Jang, PHYSICS AND ASTRONOMY PROFESSOR PCP - General 07/27/21 09/07/22 Vinita Sevilla, ARLEEN PCP - General Nurse Practitioner 09/08/22 10/10/23 Zuleika London, ARLEEN [address] [place] [address] PCP - General Nurse Practitioner 10/11/23 Henna Rodriguez MD [address] [place] [address] Referring Physician Medical Oncology 05/17/20 07/26/21 Isabella Singh MD [address] [place] [phone] [email or web address] 05/26/20 Henna Tatum MD [address] [place] [address] General Surgery 10/05/20 07/26/21 Eve Duffy DNP [address] [place] [address] [phone] [facility] [place] [address] [email or web address] Nurse Practitioner Palliative Care 12/13/20 documented as of this encounter Additional Source Comments The information contained in this document represents components of the legal health record. It is not the complete legal health record.[facility]
--- OUTSIDE RECORDS SUMMARY | 2025-03-06 22:06 | XMS_ITS | Encounter Summary ---
Author Organization [facility] Address [address] [facility] [address] [place] [address] Phone Care Team Providers Care Group Rooms Coordinator Name Role Phone Isabella Singh MD Unavailable [phone] GivenEve DNP Unavailable [phone] Vinita Sevilla MIXER OPERATOR RAW SALT Primary Care Provider Unav ailable Zuleika London MIXER OPERATOR RAW SALT Primary Care Provider + Encounter Details Date Type Department Care Team (Late st Contact Info) Description 08/22/2023 Procedure Pass [facility] Imaging [facility], [facility] [place], [place] [address] [facility], Floor [address]1 [place] [address] Social History Tobacco Use Types Packs/Day Years [...] st Contact Info) Description 01/27/2025 Procedure Pass [facility] Imaging Department, [facility], [place] [address] [facility], Floor [address]1 [place] [address] 01/27/2025 Procedure Pass [facility] Imaging Department, [facility], [place] [address] [facility], Floor [address]1 [place] [address] 01/27/2025 Procedure Pass [facility] Imaging Department, [facility], MRI [address] [address] 03/17/2025 1:00 PM EDT Office Visit [facility], [address], 5th [place] [address] Helene August MD, MPH [address] [place] [address] [email or web address] 08/18/2025 10:50 AM EST Appointment [facility] Imaging Department, [facility], [place] [address] [facility], Floor [address] [place] [address] sIabella Singh MD [address] [place] [address] [email or web address] 08/18/2025 11:40 AM EST Appointment [facility] Imaging Department, [facility], MRI [address] [address] Isabella Singh MD [address] [place] [phone] [email or web address] 08/18/2025 3:30 PM EST Office [facility], [facility] [place] [address] [facility], 6th [place] [address] Isabella Singh MD 450 [place] [address] [email or web address] documented as of this encounter Visit Diagnoses Not on filedocumented in this encounter Care Teams Group Rooms Coordinator Relationship Specialty Start Date End Date Vinita Sevilla NP PCP - General Nurse Practitioner 09/08/22 10/10/23 Zuleika London NP [address] [place] [address] PCP - General Nurse Practitioner 10/11/23 Isabella Singh MD [address] [place] [phone] [email or web address] 05/26/20 Eve Duffy DNP [address] [place] [address] [address] [place] [address] [email or web address] Nurse Practitioner Palliative Care 12/13/20 documented as of this encounter Additional Source Comments The information contained in this document represents components of the legal health record. It is not the complete legal health record.[facility]
--- OUTSIDE RECORDS SUMMARY | 2025-03-06 22:06 | XMS_ITS | Encounter Summary ---
Author Organization [employer] Address [address] [facility] 7t [place] [address] Care Team Providers Care Test Lead Application Testing Name Role Phone Zuleika London NP Primary Care Provider [phone] Reason for Visit * Reason Onset Date Comments Referral 02/27/2024 Encounter Details Date Type Department Care Team ([facility] st Contact Info) Description 02/27/2024 Telephone [facility] MEDICINE [address] [place] [address] Zuleika London NP [address] [place] [address] Referral Social History Tobacco Use Types Packs/Day [...] the past 12 months, has t he [employer] gas, oil or water company threatened to [...] Telephone Encounter - Zuleika London NP - 03/10/2024 12:56 PM EDT Referral updated. Thanks * Telephone Encounter - Jonathan Suarez - 02/27/2024 12:47 PM EDT Tc from [facility] calling in regards to Physical therapy stating they received order for right arm weakness and they're requesting an updated order for pt to have occupational therapy If any questions you can contact [facility] at [phone]. documented in this encounter Plan of Treatment Upcoming Encounters Date Type Department Care Team (Late st Contact Info) Description 05/12/2025 3:15 PM EST Office Visit [facility] OPTOMETRY [address] [place] [address] Fina Barros, OD [address] [place] [address] documented as of this encounter Visit Diagnoses Not on filedocumented in this encounter Additional Health Concerns Assessment Noted Time PHQ-9 Depression Total Score: 16 024 4:01 PM EST documented as of this encounter Care Teams Test Lead Application Testing Relationship Specialty Start Date End Date Zuleika London NP [address] [place] [address] PCP - General Family Medicine 04/10/23 documented as of this encounter
--- OUTSIDE RECORDS SUMMARY | 2025-03-06 22:06 | XMS_ITS | Encounter Summary ---
Author Organization [employer] Address [address] [facility] [address] [address] [place] [address] Care Team Providers Care Glass Carrier Name Role Phone Zuleika London NP Primary Care Provider [phone] Reason for Visit * Reason Comments Med Refill Encounter Details Date Type Department Care Team (Late st Contact Info) Description 03/16/2024 Refill [facility] [address] [place] [address] Helene Mcguire FNP Acquired hypothyroidism Social History [...] Description 05/12/2025 3:15 PM EST Office Visit [facility] OPTOMETRY [address] [place] [address] TarkaFina, OD [address] [place] [address] documented as of this encounter Visit Diagnoses Diagnosis Acquired hypothyroidism Unspecified hypothyroidism documented in this encounter Additional Health Concerns Assessment Noted Time PHQ-9 Depression Total Score: 16 024 4:01 PM EST documented as of this encounter Care Teams Glass Carrier Relationship Specialty Start Date End Date Zuleika London NP [address] [place] [address] PCP - General Family Medicine 04/10/23 documented as of this encounter
--- OUTSIDE RECORDS SUMMARY | 2025-03-06 22:06 | XMS_ITS | Clinical Summary ---
Author Organization [employer] Address [address] [place] [address] Care Team Providers Care Poultry Tender Name Role Phone Zuleika London NP Primary Care Provider [phone] Allergies Active Allergy Reactions Criticality Noted Date Comments Oxycodone-Acetaminophen 06/14/2020 fainted Medications * This document contains information received from the source organization and may not represent a complete record from that organization. glucose blood (FREESTYLE LITE) test strip every 12 (twelve) hours. Active FreeStyle lancets USE TO TEST TWICE DAILY FOR TYPE 2 DIABETES Active Blood Pressure Monitoring (Blood Pressure Cuff) miscIndications:P rimary hypertension Please use once a day and call if above 140/90 1 each 024 Active metFORMIN (Glucophage) 500 MG tablet take 1 tablet by oral route every day with the evening meal 90 tablet 1 024 Active levothyroxine (Synthroid, Levoxyl) 200 MCG tablet Take 1 tablet by mouth Once per day. 025 Active triamcinolone (Kenalog) 0.1 % ointment Apply to affected areas with rash of skin 1-2 times daily for 2 weeks. Then use as needed. Limit use to max of 2 weeks per month 025 Active tacrolimus (Protopic) 0.1 % ointment Apply topically 2 times daily. Use on areas with lichen planus on the skin during the weeks you are not using a steroid cream. 025 Active betamethasone dipropionate 0.05 % cream Apply 1 Application topically 2 times daily. Apply to affected areas on vulva for up to 14 days per month. Avoid face, groin, skin folds. Active dapagliflozin (Farxiga) 10 MGIndications:Typ e 2 diabetes mellitus with other specified complication, without long-term current use of insulin (CMS/HCC) Take 1 tablet (10 mg) by mouth Once per day. 90 tablet 025 2025 Active traZODone (Desyrel) 50 MG tabletIndications :Current severe 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, unspecified whether recurrent (CMS/HCC) Take 1 tablet (50 mg) by mouth at bedtime. May repeat 1 time as needed for insomnia 30 tablet Active lisinopril 10 MG tabletIndications :Type 2 diabetes mellitus with hyperglycemia, without long-term current use of insulin (CMS/HCC),Primary hypertension Take 1 tablet (10 mg) by mouth Once per day. 90 tablet 1 Active Semaglutide,0.25 or 0.5MG/DOS, (Ozempic, 0.25 or 0.5 MG/DOSE,) 2 MG/3ML solution pen-injectorIndic ations:Type 2 diabetes mellitus with other specified complication, without long-term current use of insulin (CMS/HCC) Inject 0.25 mg under the skin 1 (one) time per week for 28 days, THEN 0.5 mg 1 (one) time per week for 28 days. 3 mL 025 2024 Active atorvastatin (Lipitor) 10 MG tabletIndications :Mixed hyperlipidemia Take 1 tablet (10 mg) by mouth at bedtime. 90 tablet 025 2024 Active lamoTRIgine (LaMICtal) 25 MG tabletIndications :Current severe 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, unspecified whether recurrent (CMS/HCC) TAKE 1 TABLET(25 MG) BY MOUTH TWICE DAILY 60 tablet Active lamoTRIgine (LaMICtal) 25 MG tabletIndications :Current severe 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, unspecified whether recurrent (CMS/HCC) Take 1 tablet (25 mg) by mouth 2 times daily. 60 tablet 025 2024 Discontinued Active Problems Problem Noted Date Diagnosed Date Mood disorder 12/29/2024 Assessment & Plan (12/29/2024 1:36 PM EDT): During IBH Consult Anni presenting with depressed mood, Tearful, crying spells , hopelessness, irritable mood, loss of interests/pleasure , sense of isolation/loneliness , isolating, changes in sleep difficulty falling asleep and difficulty staying asleep , psychomotor retardation, fatigue/loss of energy, difficulty concentrating, indecisiveness and Abnormally elevated mood, Decreased need for sleep, Excessive goal directed activity, and Other: inflated self-esteem; for a period of 0-6 mo, for most or all symptoms in the context of divorce/separation, family issues, and illness or family illness. Pt struggling with sxs described above that led to having a crisis assessment recently. Pt is aware of her mental health challenges and is willing to try something different in regards of treatment. Currently dealing with family issues; pt is also going through a divorce which has triggered significant increase of symptoms. Currently seeing a therapist at [facility] and will have first psychiatrist appointment the first week of December per patient's report. Denied SI/HI and identifies her fantasma and sense of spirituality as main strength. Current severe episode of ma raúl depressive disorder without psychotic features 12/29/2024 Assessment & Plan (01/23/2025 9:12 AM EDT): -continues to deal with challenging situations at home -will continue to refill trazadone and lamotrigine until patient is able to connect with psych -med refills provided Assessment & Plan (12/29/2024 1:36 PM EDT): During IBH Consult Anni presenting with depressed mood, Tearful, crying spells , hopelessness, irritable mood, loss of interests/pleasure , sense of isolation/loneliness , isolating, changes in sleep difficulty falling asleep and difficulty staying asleep , psychomotor retardation, fatigue/loss of energy, difficulty concentrating, indecisiveness and Abnormally elevated mood, Decreased need for sleep, Excessive goal directed activity, and Other: inflated self-esteem; for a period of 0-6 mo, for most or all symptoms in the context of divorce/separation, family issues, and illness or family illness. Pt struggling with sxs described above that led to having a crisis assessment recently. Pt is aware of her mental health challenges and is willing to try something different in regards of treatment. Currently dealing with family issues; pt is also going through a divorce which has triggered significant increase of symptoms. Currently seeing a therapist at [facility] and will have first psychiatrist appointment the first week of December per patient's report. Denied SI/HI and identifies her fantasma and sense of spirituality as main strength. Rash 08/21/2024 Assessment & Plan (08/21/2024 12:16 PM EST): -considered possibility to folliculitis -discussed trial of topical steroid/antibiotic but recommend patient reach out to her oncology office for their opinion/potential testing prior to treatment given her history of malignancy. Patient agreed Right arm pain 01/15/2024 Muscle weakness of right arm 01/15/2024 Assessment & Plan (01/23/2024 4:58 PM EDT): -pain may be r/t to myositis, post radiation pain or fibrosis -will check CK and aldolase to assess for muscle damage -referral for PT placed to assist strengthening exercises -advised to inform oncology surgeon of this symptoms -consider nerve conduction study pending normal lab results -will call with lab results -follow-up 33 months after seeing specialist and starting PT Dizziness 12/13/2023 Assessment & Plan (12/13/2023 10:03 PM EDT): -question thyroid dysfunction, anemia, hypoglycemia events -may be physiological response to current stress with work -may be r/t sleep apnea -labs ordered to evaluate for anemia Fatigue 12/13/2023 Hypersomnia 12/13/2023 Assessment & Plan (12/13/2023 10:02 PM EDT): -sleep study order placed Moderate episode of recurrent major depressive d isorder 04/13/2023 Overview (04/13/2023): sepacialist in to speak with patient order for sertraline sent to pharmacy f/u 2 weeks going to [facility] for intake and to be connected with therapist today Assessment & Plan (08/10/2023 3:50 PM EST): -PhQ 9 score 16 -Coping skills provided by clinician. Will be assisted in obtaining new therapist -restart sertraline at 50 mg every day for 1 week and increase to 100 mg -advised to not stop medication without professional opinion -follow-up 1 month Assessment & Plan (08/06/2023 8:55 AM EST): PROGRESS NOTE: ID: Anni is a 53 y.o. Decline to answer White straight-identified cis-female (pronouns ) with previous documented hx of Depression, Anxiety, and greif services including OP Psychotherapy who presents for Anxiety and Depression. Hx of trauma in both childhood and adulthood, Hx oc comorbid illness, Hx of SI attempt and Hx of Psychiatrist Hospitalization. Lack of support from family. During IB Consult Anni presenting with depressed mood, loss of interests/pleasure , changes in sleep sleeping too much, change in appetite or weight reduce appetite, thoughts of worthlessness or guilt, fatigue/loss of energy, thoughts of , passive suicidal ideation w/o plan and excessive worry/anxiety, difficulty controlling worry, easily fatigued, irritability, muscle tension, and sleep disturbance sleeping too much; for a period of 0-6 mo, for all symptoms in the context of Nephews on 04/2023, stress at work, stress relationship with partner and son and family separation. PLAN: New/Additional Services needed Off-site services for Behavioral Health Integration Plan External OP therapy referral Patient Self Plan Patient to utilize skills provided in intervention , Patient to [facility] out to [facility] team as needed, Comply with medication , and Patient to reach out to [facility] as needed Assessment & Plan (04/27/2023 4:35 PM EDT): -engaged with services -continue sertraline; take with food -f/u 1 month Assessment & Plan (04/17/2023 9:59 AM EDT): Patient with symptoms of anxiety, depression and unresolved grief. No risk for self-harm, SI or HI. Anni has recently lost her nephew leading to an increase of symptoms. Plan is to refer patient for OP individual therapy. Anni will connect with [facility] program for same-day appointment. Provider will discuss starting SSRIs to treat symptoms. Provided psychoeducation around depression, anxiety and grief. At this time Anni Ibarra meets criteria for Visit Diagnoses: Problem List Items Addressed This Visit Other Depression Unresolved grief Anxiety Patient ready to address current needs Yes Strengths include readiness to change. PLAN: 1. Follow up with [facility]: Recommended for follow-up: Scheduled BE in 2 weeks to assess sx. 2. Patient goal is to moving forward despite stressful events. 3. Behavioral Recommendations a. Referral for OP individual therapy b. Discuss SSRI's with Dr Samara hall. Contact [facility] program for same-day appointment d. Incorporate coping mechanisms into daily routine Unresolved grief 04/13/2023 Assessment & Plan (04/17/2023 9:59 AM EDT): Patient with symptoms of anxiety, depression and unresolved grief. No risk for self-harm, SI or HI. Anni has recently lost her nephew leading to an increase of symptoms. Plan is to refer patient for OP individual therapy. Anni will connect with [facility] program for same-day appointment. Provider will discuss starting SSRIs to treat symptoms. Provided psychoeducation around depression, anxiety and grief. At this time Anni Ibarra meets criteria for Visit Diagnoses: Problem List Items Addressed This Visit Other Depression Unresolved grief Anxiety Patient ready to address current needs Yes Strengths include readiness to change. PLAN: 1. Follow up with [facility]: Recommended for follow-up: Scheduled BE in 2 weeks to assess sx. 2. Patient goal is to moving forward despite stressful events. 3. Behavioral Recommendations a. Referral for OP individual therapy b. Discuss SSRI's with Dr Samara hall. Contact [facility] program for same-day appointment d. Incorporate coping mechanisms into daily routine Anxiety 04/13/2023 Assessment & Plan (04/17/2023 9:58 AM EDT): Patient with symptoms of anxiety, depression and unresolved grief. No risk for self-harm, SI or HI. Anni has recently lost her nephew leading to an increase of symptoms. Plan is to refer patient for OP individual therapy. Anni will connect with [facility] program for same-day appointment. Provider will discuss starting SSRIs to treat symptoms. Provided psychoeducation around depression, anxiety and grief. At this time Anni Ibarra meets criteria for Visit Diagnoses: Problem List Items Addressed This Visit Other Depression Unresolved grief Anxiety Patient ready to address current needs Yes Strengths include readiness to change. PLAN: 1. Follow up with [facility]: Recommended for follow-up: Scheduled BE in 2 weeks to assess sx. 2. Patient goal is to moving forward despite stressful events. 3. Behavioral Recommendations a. Referral for OP individual therapy b. Discuss SSRI's with Dr Pascual c. Contact [facility] program for same-day appointment d. Incorporate coping mechanisms into daily routine Class 1 obesity due to exces s calories with serious comorbidity and body mass index (BMI) of 33.0 to 33.9 in adult 01/21/2023 Overview (01/21/2023): Weight increase BMI 35.27 Assessment & Plan (08/21/2024 12:19 PM EST): Dietary Recommendations: Fruits, vegetables, whole grains, protein foods, and fat-free or low-fat dairy products are healthy choices. Eat different types of protein foods in your diet. This can include seafood, lean meats, poultry, beans, peas, lentils, nuts, seeds, soy products, and eggs. Limit foods and beverages higher in added sugars, saturated fat, and sodium. Exercise Recommendations: At least 150 minutes of moderate-intensity physical activity per week, or an equivalent combination of moderate- and vigorous-intensity activity Assessment & Plan (04/16/2024 9:53 AM EDT): -increase in weight may be due to uncontrolled hypothyroid state -discussed continuation of diet and exercise measures -reviewed side effects of GLP1 including eating small portions and not eating through sensation of fullness. No personal or family history of thyroid cancer or pancreatitis. No known retinopathy. Advised to keep medication refrigerated, but do not freeze -follow-up 1 month to assess medication effects Assessment & Plan (01/21/2023 10:33 PM EDT): Interested in weight managment Refer F/u PRN Primary hypertension 01/21/2023 Overview (04/04/2023): BP elevated Not controlled Lisinopril Normal EKG on 11/29/22 Assessment & Plan (08/21/2024 12:14 PM EST): -elevated reading in office today -discussed med compliance and importance of lifestyle modifications, and stress management -advised daily home monitoring -continue lisinopril 10 mg -monitoring labs ordered Assessment & Plan (04/14/2024 11:37 PM EDT): -stable at this time -continue lisinopril 10 mg daily -low salt diet advised -labs ordered -follow-up 3 months Assessment & Plan (12/13/2023 9:54 PM EDT): -BP kit per patient request for home monitoring Assessment & Plan (01/21/2023 10:32 PM EDT): Increase dose Lisinopril 10 mg daily Continue monitoring BP F/u 3 months TP appt with new PCP Ventral hernia without obstruction or gangrene 0 01/01/2023 Overview (01/01/2023): Fat containing Incidental finding from MRI R breast 09/08/22 Malignant neoplasm of right female breast 2022 Overview (07/18/2023): Care managed by [facility]. Plan visits every 6 months. Mammogram 11/29/22 normal and Left breast US normal 12/25/22. No R breast US needed, Hx of R breast mastectomy. Atypical ductal hyperplasia of breast 12/22/2022 Overview (01/21/2023): Care managed by [facility]. Plan visits every 6 months. Mammogram 11/29/22 normal and Left breast US normal 12/25/22. No R breast US needed, Hx of R breast mastectomy. 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 Care managed at [facility] Last appt 09/08/22, seen for 2 new skin nodules, ordered repeat MRI same day. Was normal per f/u 09/20/22. Recommended Telfa between skin graft and bra, Rx bactroban F/u 6 months Assessment & Plan (01/23/2025 9:02 AM EDT): -new referral placed Constipation 05/30/2022 Edema 05/30/2022 Insomnia 05/30/2022 Mixed anxiety and depressive disorder 05/30/2022 Assessment & Plan (08/21/2024 12:18 PM EST): -Patient Health Questionnaire-9 Score: 13 (07/18/2024 9:16 AM) Patient Health Questionnaire-2 Score: 2 (07/18/2024 9:16 AM) Thoughts that you would be better off or hurting yourself in some way: Not at all (07/18/2024 9:16 AM) -MAGNUS-7 Total Score: 8 (07/18/2024 9:16 AM) -patient is not interested in medication management -advised on the benefits of engaging in gentle yoga practices, meditation, deep breathing and journaling along with physical activity to aid in symptom improvement Neuralgia 05/30/2022 Lichen sclerosus of female genitalia 05/02/2022 Pain in joint of right shoulder 04/30/2021 Type 2 diabetes mellitus 02/16/2021 Overview (01/21/2023): Education provided re: therapeutic lifestyle changes. Encouraged patient to exercise/walk as much as possible, avoid soda/sugary beverages, drink water, eat high fiber/whole grains, fresh or frozen fruits and veg, try to avoid greasy and/or sugary foods. Current regimen: Metformin 500 mg with evening meal Jardiance 25 mg , increase 01/11/23 Rx CGM A1c: 8.9 on 11/22/22 (Target </= 7.0) Glucose: 136 on 01/11/23 Microalbumin/Cr:Alb: Not performed yet. Lipids: Discuss next visit Eye exam: Discuss at next visit Dental: Discuss at next visit PCV 20: Due TDap/Td: Due Foot exam/peripheral pulses: Perform next visit TAMERA/ARB: Lisinopril 10 mg Statin: Discuss at next visit Assessment & Plan (01/23/2025 9:18 AM EDT): -A1c above goal of <7%. POCT A1c 8.4% today which is increased from 6.1% approx 6 months ago. POCT glucose 223 -continue: metformin 500 mg every day and restart fargixa 10 mg daily -patient would benefit from GLP medication for both diabetes and weight management. -No contraindications identified: , hx of pancreatitis, hx of medullary thyroid cancer. No known retinopathy. -Discussed side effects with patient: side effects of GLP1: nausea, vomiting, diarrhea & risk of pancreatitis. -discussed mechanism of action with patient which include eating small portions and not eating through sensation of fullness. -Advised to keep medication refrigerated, but do not freeze -Recommended to decrease soda and sugary beverage consumption. -Recommended at least 20 g per meal of protein to assist with satiety. -Recommended at least 150 min/week of moderate intensity exercise. - Will start at low dose and titrate monthly pending patient tolerance Assessment & Plan (08/21/2024 12:19 PM EST): -diet and physical activity reviewed -she is encouraged to complete previously ordered monitoring labs -encouraged to schedule vision exam -diabetic foot exam to be completed at next visit Assessment & Plan (04/14/2024 11:39 PM EDT): -stable at this time -Jardiance prescription changed to farxiga due to insurance coverage change -continue metformin, low carb diet and routine daily exercises -repeat A1c ordered today -follow-up 3 months Assessment & Plan (01/15/2024 2:41 PM EDT): -stable at this time continue current regimen and lifestyle modifications -follow-up 3 months Assessment & Plan (12/13/2023 9:56 PM EDT): -stable during last office visit -explained to pt she does not meet requirements for CGM and insurance may not cover -labs ordered to evaluate as potential cause of dizziness and fatigue Assessment & Plan (08/10/2023 4:09 PM EST): -A1c at goal of < 7% Lab Results Component Value Date/Time HGBA1C 6.0 08/03/2023 1603 HGBA1C 6.0 04/13/2023 1438 HGBA1C 8.9 (A) 11/22/2022 1730 HGBA1C 6.8 (H) 05/02/2022 1541 HGBA1C 5.7 (H) 02/10/2022 1546 HGBA1C 6.2 (H) 08/23/2021 1120 HGBA1C 7.8 (H) 11/12/2020 1032 -continue current regimen: metformin 500 and jardiance 25mg -lifestyle measures reviewed -foot exam completed -follow-up 3 months Assessment & Plan (04/27/2023 4:49 PM EDT): -DM stable, current meds continued. 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 Has been fluctuating Poorly controlled Referred Endo 12/26/22 Dose decreased 12/22/22 to 175 mcg from 200 mcg daily Assessment & Plan (01/23/2025 9:07 AM EDT): -repeat TSH ordered today -continue levothyroxine 200 mcg. Reviewed specifics surrounding med administration -discussed referral to Endocrinology again as she missed appointments in the past. Assessment & Plan (08/21/2024 11:57 AM EST): -TSH ordered to evaluate current function -patient is encouraged to reach out to endocrinology for an appointment -continued med compliance is advised Assessment & Plan (04/14/2024 11:33 PM EDT): -persistently elevated TSH despite use of levothyroxine 300 mcg -patient reports daily use of the medication, however she eats approx 30 mins after. With shared decision making, patient will start taking levothyroxine at 11 pm each night and recheck TSH levels in 4 weeks -will refer to endo to assist with achieving better control of thyroid levels Assessment & Plan (01/23/2024 5:00 PM EDT): -may be contributing to complaint of fatigue Lab Results Component Value Date TSH 62.59 (H) 09/26/2023 TSH 2.99 04/27/2023 -levothyroxine dose doubled to 300 mcg at walk-in visit given most recent TSH level -repeat TSH ordered today. Will complete dose adjustment as necessary Assessment & Plan (04/27/2023 4:47 PM EDT): -levothyroxine refilled -will check TSH at next visit Assessment & Plan (01/21/2023 10:37 PM EDT): Continue Levothyroxine 175 mcg daily F/u with Endo Will check TSH again in 3 weeks F/u 3 months TP appt with new PCP Assessment & Plan (12/06/2022 4:51 PM EDT): Component Ref Range & Units 7 d ago T4 Thyroxine 4.5 - 12.0 ug/dL 14.1 High Component Ref Range & Units 7 d ago Thyroid Stimulating Hormone 0.32 - 4.0 uIU/mL 0.17 Low Patient reports taking her synthroid 200 mg andino before breakfast but also twice on Sundays. I asked her why and she said she was told to take it twice every Sunday. Patient had another appointment and had to leave our appointment early but I was able to reach her via [phone] and inform her to stop taking two doses on Sundays. I spoke with patients PCP and she informed me that the patient was spoken to about this back in August and that she had also addressed this 2 days ago with a TC to the nurses. TC 12/04/2022 from PCP Please call pt: Even though she has upcoming appt, PCP wants to adjust her thyroid dose prior to appt Your dose is too high. She is going to have you decrease your dose to Levothyroxine 200mcg 1 tablet daily EVERY DAY. In other words no longer take 2 pills on Sunday. This was discussed back in August but may not have been completed. PCP is aware that we have been trying to adjust your thyroid medication for a while. She would like to repeat thyroid panel in 4 weeks. Checking thyoid again at your next appt is too soon. We will complete 1 month at this new decreased dose. If no improvement we will alter dose again if necessary Resolved Problems Problem Noted Date Diagnosed Date Resolved Date Hospital discharge follow-up 12/06/2022 12/26/2024 Assessment & Plan (12/06/2022 4:38 PM EDT): Patient left before we were able to complete her visit. She had a zoom appointment with her oncologist. Encounters * This document contains information received from the source organization and may not represent a complete record from that organization. Date Type Department Care Team Description 03/04/2025 Telephone [facility] [address] [place] [address] Zuleika London NP April02/23/2025 Refill [facility] [address] [place] [address] Zuleika London NP Current severe 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, unspecified whether recurrent (CMS/HCC) 02/03/2025 11:00 AM EDT Clinical Support [facility] [address] [place] [address] Margaux Rico RN Type 2 diabetes mellitus with other specified complication, without long-term current use of insulin ([facility]) [E11.69] 02/03/2025 Travel 02/02/2025 Refill [facility] [address] [place] [address] Zuleika London NP Current severe 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, unspecified whether recurrent (CMS/HCC) 01/27/[address] [address] Zuleika London NP Referral 01/23/[address] [address] Zuleika London NP Medication Question 01/19/2025 10:00 AM EDT Office Visit [address] [address] Zuleika London NP Type 2 diabetes mellitus with other specified complication, without long-term current use of insulin ([facility]) (Primary Dx); Acquired hypothyroidism; Type 2 diabetes mellitus with hyperglycemia, without long-term current use of insulin ([facility]); 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[facility]); Sleep apnea, unspecified type; Primary hypertension; Current severe 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, unspecified whether recurrent ([facility]); Mixed hyperlipidemia 01/19/2025 Travel 01/16/[address] [address] Zuleika London NP CHART PREP 01/15/2025 Travel 12/26/2024 2:00 PM EDT Office Visit [address] [address] Zuleika London NP Hospital discharge follow-up (Primary Dx); Suicidal ideation 12/26/2024 Travel 12/25/[address] [address] Zuleika London NP Miss call 12/25/[address] [address] Elsy Travis MA CHARTPREP 12/22/[address] [address] Zahra Gallagher RN 12/16/2024 Orders Only GENERIC EXTERNAL DATA DEPARTMENT Provider, Generic External Data from Last 3 Months Immunizations Immunization Administration Dates Next Due Influenza injectable quadriv alent preservative free 04/13/2023 Influenza, seasonal, injecta ble, preservative free 04/26/2016 Influenza, trivalent, adjuvanted 04/26/2016 Moderna Covid-19 Vaccine 12+ 06/21/2021,12/01/19 21,11/03/2020 Social History Tobacco Use Types Packs/Day Years Used Date Smoking Tobacco: Never Passive Smoke Exposure: Never Smokeless Tobacco: Never Tobacco Cessation:Counseling Given: Not Answered Alcohol Use Standard Drinks/Week Comments Yes 0 [...] Orientation Straight 05/01/2022 10 :19 AM EDT Last Filed Vital Signs Vital Sign Reading Time Taken Comments Blood Pressure 120/86 01/19/2025 10:20 AM EDT Pulse 83 01/19/2025 10:20 AM EDT Temperature 36.8 C (98.2 F) 01/19/2025 10:20 AM EDT Respiratory Rate 22 01/19/2025 10:20 AM EDT Oxygen Saturation 96% 01/19/2025 10:20 AM EDT Inhaled Oxygen Concentration - - Weight 80 kg (176 lb 6.4 oz) 01/19/2025 10:20 AM EDT Height 152.4 cm (5') 01/19/2025 10:20 AM EDT Body Mass Index 34.45 01/19/2025 10:20 AM EDT Plan of Treatment Upcoming Encounters Date Type Department Care Team (Late st Contact Info) Description 05/12/2025 3:15 PM EST Office Visit [facility] [address] [place] [address] Fina Barros, OD [address] [place] [address] Health Maintenance Due Date Last Done Comments CT Colonography 1968 Colonoscopy 1968 Colorectal Cancer Screening 1968 FIT DNA/Cologuard 1968 FIT 1968 FOBT 1968 HIV Screening 1968 Sigmoidoscopy 1968 Eye Exam 1978 Hepatitis C Screening 1986 DTaP/Tdap/Td Vaccines (1 - Tdap) 1987 Hepatitis B Vaccines (1 of 3 - 19+ 3-dose series) 1987 07/23/2024 Pneumococcal Vaccine: 50+ Years (1 of 2 - PCV) 1987 Zoster Vaccines (1 of 2) 2018 Diabetes: Foot Exam 08/03/2024 08/03/2023, 08/03/2023, 08/03/2023, Additional history exists COVID-19 Vaccine ( season) 2025 06/21/2021, 11/30/2020, 11/03/2020 Influenza Vaccine (#1) 2025 , 04/26/2016, 04/26/2016 Diabetes: Hemoglobin A1C 04/21/2025 025, 07/18/2024, 09/26/2023, Additional history exists Depression Monitoring 06/30/2025 12/29/2024, 025 Diabetes: Urine Protein Screening 07/18/2025 07/18/2024, 09/26/2023, 08/23/2021 SDOH Screening 07/18/2025 07/18/2024 Disability Screening 12/26/2025 12/26/2024 Tobacco Screening 12/26/2025 12/26/2024 Alcohol/Substance Use Screening 01/19/2026 01/19/2025 Lipid Panel 01/20/2026 01/20/2025, 07/02, 02/10/2022, Additional history exists Mammogram 01/20/2026 01/20/2025, 12/30, 12/25/2022, Additional history exists Cervical Cancer Screening 02/06/2027 HPV/Cotest 02/06/2027 02/06/2022, 08/0 01/2022, 02/06/2022 Pap Smear 02/06/2027 02/06/2022 RSV Patients and Patients Aged 60 years or older (1 - 1-dose 75+ series) 2043 HIB Vaccines Aged Out No longer eligi ble based on patient's age to complete this topic HPV Vaccines Aged Out No longer eligi ble based on patient's age to complete this topic Hepatitis A Vaccines Aged Out No long er eligible based on patient's age to complete this topic IPV Vaccines Aged Out No longer eligi ble based on patient's age to complete this topic Meningococcal B Vaccine Aged Out No l onger eligible based on patient's age to complete this topic Meningococcal Vaccine Aged Out No lisbeth gabe eligible based on patient's age to complete this topic RSV under 20 months Aged Out No longe r eligible based on patient's age to complete this topic Rotavirus Vaccines Aged Out No longer eligible based on patient's age to complete this topic Procedures Procedure Name Priority Date/Time Associated Diagnosis Comments LIPID PANEL, STANDARD Routine 01/20/2025 2:02 PM EDT Type 2 diabetes mellitus with other specified complication, without long-term current use of insulin ([facility]) T3, TOTAL Routine 01/20/2025 2:02 PM EDT Acquired hypothyroidism TSH W/REFLEX TO FT4 Routine 01/20/2025 2 :02 PM EDT Acquired hypothyroidism BI MAMMOGRAM SCREENING TOMOSYNTHESIS LEFT Routine 01/20/2025 1:20 PM EDT POCT GLYCATED HEMOGLOBIN, TOTAL Routine 01/19/2025 10:35 AM EDT Type 2 diabetes mellitus with other specified complication, without long-term current use of insulin ([facility]) POCT GLUCOSE Routine 01/19/2025 10:34 AM EDT Type 2 diabetes mellitus with other specified complication, without long-term current use of insulin ([facility]) GLUCOSE, WHOLE BLOOD Routine 12/16/2024 1:25 PM EDT GLUCOSE, WHOLE BLOOD Routine 12/16/2024 9:29 AM EDT ALBUMIN, RANDOM URINE W/CREATININE Routine 07/18/2024 10:01 AM EST Primary hypertension HM PAP/HPV Routine 02/06/2022 from Last 3 Months or Most Recently Relevant to Health Maintenance Results * TSH W/Reflex to FT4 (01/20/2025 2:02 PM EDT) TSH reflex Free T4 1.00 0.32 - 4.0 uIU/mL [facility] Blood Venous blood specimen / Unknown 01/20/2025 2:02 PM EDT 01/20/2025 4:08 PM EDT Zuleika London NP LAB BLOOD ORDERABLES Final Resu lt [facility] [address] [place] [address] [phone] * T3, Total (01/20/2025 2:02 PM EDT) T3, Total 94 76 - 181 ng/dL [facility] Comment:THIS TEST WAS PERFOR MED AT:[facility] [place] [phone] MELISSA MD Blood Venous blood specimen / Unknown 01/20/2025 2:02 PM EDT 01/20/2025 4:08 PM EDT Zuleika London LAMINATION SPINNER LAB BLOOD ORDERABLES Final Resu lt [facility] [address] [place] [address] [phone] * (ABNORMAL) Lipid Panel, Standard (01/20/2025 2:02 PM EDT) Triglycerides 227(H) <150 mg/dL [facility] Comment:Desirable Triglyceri de: less than 150 mg/dLBorderline High Triglyceride 150-199 mg/dLHigh Triglyceride: 200-499 mg/dLVery High Triglyceride: greater than or equal to 5OO mg/dL Cholesterol 231(H) <200 mg/dL [facility] Comment:Desirable Cholestero l: less than 200 mg/dLBorderline High Cholesterol: 200-239 mg/dLHigh Cholesterol: greater than 239 mg/dL LDL Cholesterol Calculated 144(H) <100 mg/dL [facility] Comment:Desirable LDL: less than 100 mg/dLNear Optimal/Above Optimal LDL: 110- 129 mg/dLBorderline High LDL: 130-159 mg/dLHigh LDL: 160-189 mg/dLVery High LDL: greater than or equal to 190 mg/dL HDL Cholesterol 42 >40 mg/dL [facility] Comment:Desirable HDL: great er than 40 mg/dL Note: This HDL assay may give artificially low results in patients with liver disease. Blood Venous blood specimen / Unknown 01/20/2025 2:02 PM EDT 01/20/2025 4:08 PM EDT Zuleika London LAMINATION SPINNER LAB BLOOD ORDERABLES Final Resu lt [facility] [address] [place] [address] [phone] * BI Mammogram Screening Tomosynthesis Left (01/20/2025 1:20 PM EDT) Anatomical Region Laterality Modality Breast Left Mammography 01/20/2025 1:20 PM EDT Narrative 01/27/2025 11:18 AM EDT [facility] [address] [place] [address] Mammography Report Signed Patient: Anni Alexander MR#: [id number] : 1970 Acct:[id number] Age/Sex: 54 / F ADM Date: 01/20/25 Loc: MAMMRamy Attending Dr: Zuleika London Ordering Physician: Zuleika London Results: 1Negative Date of Service: 01/20/25 Follow Up: 1 Year From [facility] Mammogram Procedure(s): MM tomosynthesis screening LT Accession Number(s): [id number] cc: Zuleika London EXAMINATION: MM SCREENING DIGITAL BREAST TOMOSYNTHESIS, LEFT CLINICAL INFORMATION: Screening. Asymptomatic. Status post right mastectomy. COMPARISON: Mammography: This study is compared with prior exams dating back to TECHNIQUE: Digital breast tomosynthesis is performed in both the craniocaudal and mediolateral oblique views along with computer-aided detection (CAD). Synthesized 2D images are generated from the tomosynthesis. FINDINGS: There are scattered areas of fibroglandular density (ACR BI-RADS breast composition Category b). There are no significant masses, abnormal calcifications, or other abnormalities. MM/MM tomosynthesis screening LT IMPRESSION: No mammographic evidence of malignancy. Patient states she has left breast pain for one month. Recommend clinical evaluation if there is focal pain or if deemed clinically significant a diagnostic workup can be ordered and performed. ASSESSMENT: BI-RADS BI-RADS 1 - Negative RECOMMENDATION: Routine annual mammography screening. 1 year F/U This examination should not preclude the clinical evaluation of a suspicious palpable abnormality. This patient's information was entered into a reminder system with a target due date for their next mammogram. Electronically signed by: Negin Prakash DO 01/27/2025 11:15 AM EDT RP Dictated By: Negin Prakash DO Signed By: <Electronically signed by Negin Prakash DO in OV> 01/27/25 1115 DD/ 1320 TD/TT: 01/20/25 1349 Poultry Farm Manager: Procedure Note Donotuseinterpreter, Image - 01/27/2025 [facility] [address] [place], [place] [address] Mammography Report Signed Patient: Anni AlexanderMR#: [id number] : 1970Acct:[id number] Age/Sex: 54 / FADM Date: 01/20/25 Loc: KAMINI Attending Dr: Zuleika London Ordering Physician: Zuleika LondonResults: 1Negative Date of Service: 01/20/25Follow Up: 1 Year From Orig inal Mammogram Procedure(s): MM tomosynthesis screening LT Accession Number(s): [id number] cc: Zuleika London EXAMINATION: MM SCREENING DIGITAL BREAST TOMOSYNTHESIS, LEFT CLINICAL INFORMATION: Screening. Asymptomatic. Status post right mastectomy. COMPARISON: Mammography: This study is compared with prior exams dating back to TECHNIQUE: Digital breast tomosynthesis is performed in both the craniocaudal and mediolateral oblique views along with computer-aided detection (CAD). Synthesized 2D images are generated from the tomosynthesis. FINDINGS: There are scattered areas of fibroglandular density (ACR BI-RADS breast composition Category b). There are no significant masses, abnormal calcifications, or other abnormalities. MM/MM tomosynthesis screening LT IMPRESSION: No mammographic evidence of malignancy. Patient states she has left breast pain for one month. Recommend clinical evaluation if there is focal pain or if deemed clinically significant a diagnostic workup can be ordered and performed. ASSESSMENT: BI-RADS BI-RADS 1 - Negative RECOMMENDATION: Routine annual mammography screening. 1 year F/U This examination should not preclude the clinical evaluation of a suspicious palpable abnormality. This patient's information was entered into a reminder system with a target due date for their next mammogram. Electronically signed by: Negin Prakash DO 01/27/2025 11:15 AM EDT RP Dictated By: Negin Prakash DO Signed By: <Electronically signed by Negin Prakash DO in OV> 01/27/25 1115 DD/ 1320 TD/TT: 01/20/25 1349 Poultry Farm Manager: Zuleika London NP IMG BI PROCEDURES Final Result * (ABNORMAL) POCT HGB A1C (01/19/2025 10:35 AM EDT) Hemoglobin A1C 8.4(A) 4.0 - 5.7 % QC [employer] Lot # [id number] Lot# Expiration Date Blood 01/19/2025 10:3 5 AM EDT [facility] POINT OF CARE TEST ENTER/EDIT O RDERABLES Final Result * (ABNORMAL) POCT Glucose (01/19/2025 10:34 AM EDT) Glucose Blood, POC 223(A) 60 - 200 mg/dL QC [employer] Lot # [id number] Lot# Expiration Date 025 Blood Capillary blood specimen / Unknown 01/19/2025 10:34 AM EDT [facility] Dragan ARLEEN POINT OF CARE TEST ENTER/EDIT O RDERABLES Final Result * (ABNORMAL) Glucose, Whole Blood (12/16/2024 1:25 PM EDT) Only the most recent of2 resultswithin the time period is included. Glucose, Whole Blood 234(H) 60 - 115 mg/dL [facility] Comment:METER #: [id number] 12/16/2024 1:25 PM EDT 12/16/2024 1:28 PM EDT Generic External Data Provider LAB BLOOD ORDERAB LES Final Result Performing Organization Address [facility] Co de Phone Number [facility] [address] [place] [phone] * Albumin, Random Urine W/Creatinine (07/18/2024 10:01 AM EST) Creatinine, Urine 57.23 mg/dL [facility] Microalbumin Urine 16.0 mg/L [facility] Microalbum Creatinine Ratio Ur 27.9 <30 ug/mg cr [facility] Comment:Albumin/Creatinine R atio Reference Ranges: Normal: < 30 ug/mg creatinine Microalbuminuria: 30 - 300 ug/mg creatinineClinical Albuminuria: > 300 ug/mg creatinine Urine (Urine, Random) 07/18/2024 10:01 AM EST 07/18/2024 11:24 AM EST Zuleika London NP LAB URINE ORDERABLES Final Resu lt Performing Organization Address [facility] Co de Phone Number [facility] [address] [place] [address] [phone] * Hm Pap Smear (02/06/2022) Pap Negative for intraephithelial lesion or malignancy Negative for intraephithelial lesion or malignancy, Other HPV Undetected Historical Provider HEALTH MAINTENANCE Final Result from Last 3 Months or Most Recently Relevant to Health Maintenance Insurance MEDICARE [facility] HMO [address] [place] Care Teams Poultry Tender Relationship Specialty Start Date End Date Zuleika London NP [address] [place] [address] PCP - General Family Medicine 04/10/23
--- OUTSIDE RECORDS SUMMARY | 2025-03-06 22:06 | XMS_ITS | Encounter Summary ---
Author Organization [facility] Address [address] [facility] [address] [place] [address] Phone Care Team Providers Care Criminal Legal Assistant Name Role Phone Isabella Singh MD Unavailable [phone] GivenEve DNP Unavailable [phone] Vinita Sevilla SENIOR MAINTENANCE MACHINIST Primary Care Provider Unav ailable Zuleika London SENIOR MAINTENANCE MACHINIST Primary Care Provider + Encounter Details Date Type Department Care Team (Late st Contact Info) Description 11/28/2022 Procedure Pass [facility] CT Imaging, [place] [address] [place] [address] Social History Tobacco Use Types Packs/Day Years [...] st Contact Info) Description 01/27/2025 Procedure Pass [facility] Imaging Department, [facility], [place] [address] [facility], Floor [address]1 [place] [address] 01/27/2025 Procedure Pass [facility] Imaging Department, [facility], [place] [address] [facility], [address] [place] [address] 01/27/2025 Procedure Pass [facility] Imaging Department, [facility], MRI [address] [facility], [place] [address] [place] [address] 03/17/2025 1:00 PM EDT Office Visit [facility], [address]th [place] [address] Helene August MD, MPH [address] [place] [address] [email or web address] 08/18/2025 10:50 AM EST Appointment [facility] Imaging Department, [facility], [place] [address] [facility], Floor [address] [place] [address] Isabella Singh MD [address] [place] [phone] [email or web address] 08/18/2025 11:40 AM EST Appointment [facility] Imaging Department, [facility], MRI [address] [facility], [place] [address] [place] [address] Isabella Singh MD [address] [place] [address] [email or web address] 08/18/2025 3:30 PM EST Office Visit [facility], [facility] [place] [address] [facility], 6th [place] [address] Isabella Singh MD [address] [place] [address] [email or web address] documented as of this encounter Visit Diagnoses Not on filedocumented in this encounter Care Teams Criminal Legal Assistant Relationship Specialty Start Date End Date Vinita Sevilla NP PCP - General Nurse Practitioner 09/08/22 10/10/23 Zuleika London NP [address] [place] [address] PCP - General Nurse Practitioner 10/11/23 Isabella Singh MD [address] [place] [phone] [email or web address] 05/26/20 Eve Duffy DNP [address] [place] [address] [address] [facility] [address] [email or web address] Nurse Practitioner Palliative Care 12/13/20 documented as of this encounter Additional Source Comments The information contained in this document represents components of the legal health record. It is not the complete legal health record.[facility]
--- OUTSIDE RECORDS SUMMARY | 2025-03-06 22:06 | XMS_ITS | Encounter Summary ---
Author Organization [employer] Address [address] [place] [address] [address] [place] [address] Care Team Providers Care Linoleum Layer Apprentice Name Role Phone Zuleika London NP Primary Care Provider Reason for Referral * Consultation (Routine) - Closed Specialty Diagnoses / Procedures Referred By Contlubna t Referred To Contact Physical Therapy Diagnoses Muscle weakness of right arm Zuleika London NP [address] [place] [address] Phone: tel: fax: Physical Therapy, AT [address] [place] [address] Dr Randy [place] Phone: tel: fax: Referral ID Status Reason Start Date Expiration Date V isits Requested Visits Authorized [id number] Closed Specialty Services Required 04/16/2024 04/16/2025 1 1 Encounter Details Date Type Department Care Team (Late st Contact Info) Description 04/16/2024 Orders Only [facility] [address] [place] [address] Zuleika London NP [address] [place] [address] Muscle weakness of right arm (Primary Dx) Social History Tobacco Use Types [...] is your housing situation today? I have micahyoli call 08/03/[address] you [...] 05/12/2025 3:15 PM EST Office Visit [facility] [address] [place] [address] Fina Barros, OD [address] [place] [address] Scheduled Referrals Name Type Priority Associated Diagnoses Orde r Schedule Referral to Physical Therapy Outpatient Referral Routine Muscle weakness of right arm Expected: 04/16/2024 (Approximate), Expires: 04/16/2025 documented as of this encounter Visit Diagnoses Diagnosis Muscle weakness of right arm- Primary Muscle weakness (generalized) documented in this encounter Additional Health Concerns Assessment Noted Time PHQ-9 Depression Total Score: 16 024 4:01 PM EST documented as of this encounter Care Teams Linoleum Layer Apprentice Relationship Specialty Start Date End Date Zuleika London NP [address] [place] [address] PCP - General Family Medicine 04/10/23 documented as of this encounter
--- OUTSIDE RECORDS SUMMARY | 2025-03-06 22:06 | XMS_ITS | Encounter Summary ---
Author Organization [facility] Address [address] [facility] [address] [place] [address] Phone Care Team Providers Care Certified Nurses Aide Name Role Phone Isabella Singh MD Unavailable [phone] GivenEve DNP Unavailable [phone] Vinita Sevilla LEAN MANUFACTURING LEADER Primary Care Provider Unav ailable AppramZuleika LEAN MANUFACTURING LEADER Primary Care Provider + Encounter Details Date Type Department Care Team (Late st Contact Info) Description 08/22/2023 Procedure Pass [facility] Imaging Department, [facility] [place], MRI [address] [address] Social History Tobacco Use Types Packs/Day Years [...] with a working camera? Not on file 05 / Comments No Sex and Gender Information Value Date Recorded Sex Assigned at Female 05/31/2021 6:04 PM EST Legal Sex Female 1:12 PM EST Gender Identity Female 05/31/2021 6:04 PM EST Sexual Orientation Straight 05/31/2021 6: 04 PM EST documented as of this encounter Plan of Treatment Upcoming Encounters Date Type Department Care Team (Late st Contact Info) Description 01/27/2025 Procedure Pass [facility] Imaging Department, [facility], [place] [address] [facility], Floor [address] [place] [address] 01/27/2025 Procedure Pass [facility] Imaging Department, [facility], [place] [address] [facility], [address] [place] [address] 01/27/2025 Procedure Pass [facility] Imaging Department, [facility], MRI [address] [address] 03/17/2025 1:00 PM EDT Office Visit [facility], [address], [address]th [place] [address] Helene August MD, MPH [address] [place] [phone] [email or web address] 08/18/2025 10:50 AM EST Appointment [facility] Imaging Department, [facility], [place] [address] [facility], [address] [place] [address] Isabella Singh MD [address] [place] [phone] [email or web address] 08/18/2025 11:40 AM EST Appointment [facility] Imaging Department, [facility], MRI [address] [facility], [address] [address] Isabella Singh MD [address] [place] [phone] [email or web address] 08/18/2025 3:30 PM EST Office Visit [facility], [facility] [place] [address] [facility], 6th [place] [address] Isabella Singh MD [address] [place] [address] [email or web address] documented as of this encounter Visit Diagnoses Not on filedocumented in this encounter Care Teams Certified Nurses Aide Relationship Specialty Start Date End Date Vinita Sevilla NP PCP - General Nurse Practitioner 09/08/22 10/10/23 Zuleika London NP [address] [place] [address] PCP - General Nurse Practitioner 10/11/23 Isabella Singh MD [address] [place] [phone] [email or web address] Medical Oncology 05/26/20 Eve Duffy DNP [address] [place] [address] [address] [place] [address] [email or web address] Nurse Practitioner Palliative Care 12/13/20 documented as of this encounter Additional Source Comments The information contained in this document represents components of the legal health record. It is not the complete legal health record.[facility]
--- OUTSIDE RECORDS SUMMARY | 2025-03-06 22:06 | XMS_ITS | Encounter Summary ---
Author Organization [facility] Address [address] [employer] [facility] [address] [place] [address] Phone Care Team Providers Care Core Carrier Name Role Phone Isabella Singh MD Unavailable [phone] GivenEve DNP Unavailable [phone] Vinita Sevilla CIGAR BRANDER Primary Care Provider Unav ailable Zuleika London CIGAR BRANDER Primary Care Provider + Encounter Details Date Type Department Care Team (Late st Contact Info) Description 10/03/2023 Procedure Pass [facility] [address] [place] [address] Social History Tobacco Use Types Packs/Day Years [...] Pass [facility] Imaging Department, [facility], [place] [address] [facility], Floor L1 [place] [address] 01/27/2025 Procedure Pass [facility] Imaging Department, [facility], [place] [address] [facility], Floor [address]1 [place] [address] 01/27/2025 Procedure Pass [facility] Imaging Department, [facility], MRI [address] [facility], [place] [address] [place] [address] 03/17/2025 1:00 PM EDT Office Visit [facility], [address], 5th [place] [address] Helene August MD, MPH [address] [place] [address] [email or web address] 08/18/2025 10:50 AM EST Appointment [facility] Imaging Department, [facility], [place] [address] [facility], Floor [address]1 [place] [address] Isabella Singh MD [address] [place] [phone] [email or web address] 08/18/2025 11:40 AM EST Appointment [facility] Imaging Department, [facility], MRI [address] [facility], [place] [address] [place] [address] Isabella Singh MD [address] [place] [address] [email or web address] 08/18/2025 3:30 PM EST Office Visit [facility], [facility] [address] [facility], 6th [place] [address] Isabella Singh MD 450 [place] [address] [email or web address] documented as of this encounter Visit Diagnoses Not on filedocumented in this encounter Care Teams Core Carrier Relationship Specialty Start Date End Date Vinita Sevilla NP PCP - General Nurse Practitioner 09/08/22 10/10/23 Zuleika London NP [address] [place] [address] PCP - General Nurse Practitioner 10/11/23 Isabella Singh MD [address] [place] [address] [email or web address] Medical [email or web address] 05/26/20 Eve Duffy DNP [address] [place] [address] 6600 [facility] [place] [address] [email or web address] Nurse Practitioner Palliative Care 12/13/20 documented as of this encounter Additional Source Comments The information contained in this document represents components of the legal health record. It is not the complete legal health record.[facility]
--- OUTSIDE RECORDS SUMMARY | 2025-03-06 22:06 | XMS_ITS | Encounter Summary ---
Author Organization [facility] Address [address] [place] [address] [place] [address] Phone Care Team Providers Care Security System Technician Name Role Phone Henna Rodriguez MD Unavailable [phone] Isabella Singh MD Unavailable [phone] Henna Tatum MD Unavailable [phone] Eve Duffy DNP Unavailable [phone] Fina Jang WAITER/WAITRESS CAFETERIA Primary Care Provider U Vinita Silveira WAITER/WAITRESS CAFETERIA Primary Care Provider UnaZuleika Valenzuela WAITER/WAITRESS CAFETERIA Primary Care Provider + Encounter Details Date Type Department Care Team (Late st Contact Info) Description 10/05/2020 Procedure Pass [facility] [place] [place] [address] [facility], Floor [address]1 [place] [address] Social History Tobacco Use Types Packs/Day Years [...] Info) Description 01/27/2025 Procedure Pass [facility] Imaging Department, [facility], [place] [address] [facility], Floor [address]1 [place] [address] 01/27/2025 Procedure Pass [facility] Imaging Department, [facility], [place] [address] [facility], Floor [address]1 [place] [address] 01/27/2025 Procedure Pass [facility] Imaging Department, [facility], MRI [address] [address] 03/17/2025 1:00 PM EDT Office Visit [facility], [address], 5th [place] [address] Helene August MD, MPH [address] [place] [phone] [email or web address] 08/18/2025 10:50 AM EST Appointment [facility] Imaging Department, [facility], [place] [address] [facility], Floor [address]1 [place] [address] Isabella Singh MD [address] [place] [phone] [email or web address] 08/18/2025 11:40 AM EST Appointment [facility] Imaging Department, [facility], MRI [address] [address] Isabella Singh MD [address] [place] [phone] [email or web address] 08/18/2025 3:30 PM EST Office Visit [facility], [facility] [place] 450 [facility], 6th [place] [address] Isabella Singh MD [address] [place] [phone] [email or web address] documented as of this encounter Visit Diagnoses Not on filedocumented in this encounter Care Teams Security System Technician Relationship Specialty Start Date End Date Fina Jang, ARLEEN PCP - General 07/27/21 09/07/22 Vinita Sevilla NP PCP - General Nurse Practitioner 09/08/22 10/10/23 Zuleika London, ARLEEN [address] [place] [address] PCP - General Nurse Practitioner 10/11/23 Henna Rodriguez MD [address] [place] [address] Referring Physician Medical Oncology 05/17/20 07/26/21 Isabella Singh MD [address] [place] [phone] [email or web address] Medical Oncology 05/26/20 Henna Tatum MD [address] [place] [address] General Surgery 10/05/20 07/26/21 Eve Duffy DNP [address] [place] [address] [phone] [place] [address] [email or web address] Nurse Practitioner Palliative Care 12/13/20 documented as of this encounter Additional Source Comments The information contained in this document represents components of the legal health record. It is not the complete legal health record.[facility]
--- OUTSIDE RECORDS SUMMARY | 2025-03-06 22:06 | XMS_ITS | Encounter Summary ---
Author Organization [facility] Address [address] [place] [address] [place] [address] Phone Care Team Providers Care Carpet Yarn Winder Operator Name Role Phone Isabella Singh MD Unavailable [phone] Eve Duffy DNP Unavailable [phone] Fina Jang HI LOW TRUCK DRIVER Primary Care Provider U Vinita Silveira HI LOW TRUCK DRIVER Primary Care Provider Zuleika Saldivar HI LOW TRUCK DRIVER Primary Care Provider + Encounter Details Date Type Department Care Team (Late Contact Info) Description 01/25/2022 Procedure Pass [facility], [facility] [place], [place] [address] [facility], Floor [address]1 [place] [address] Social History Tobacco Use Types Packs/Day Years [...] st Contact Info) Description 01/27/[address] [facility] Imaging Department, [facility], [place] [address] [facility], Floor [address]1 [place] [address] 01/27/2025 Procedure Pass [facility] Imaging Department, [facility], [place] [address] [facility], Floor [address]1 [place] [address] 01/27/2025 Procedure Pass [facility] Imaging Department, [facility], MRI [address] [address] 03/17/2025 1:00 PM EDT Office Visit [facility], [address], 5th [place] [address] Helene August MD, MPH [address] [place] [address] [email or web address] 08/18/2025 10:50 AM EST Appointment [facility] Imaging Department, [facility], [place] [address] [facility], Floor [address]1 [place] [address] Isabella Singh MD [address] [place] [address] [email or web address] 08/18/2025 11:40 AM EST Appointment [facility] Imaging Department, [facility], MRI [address] [address] Isabella Singh MD [address] [place] [address] [email or web address] 08/18/2025 3:30 PM EST Office Visit [facility], [address], 6th [place] [address] Isabella Singh MD 450 [place] [address] [email or web address] documented as of this encounter Visit Diagnoses Not on filedocumented in this encounter Care Teams Carpet Yarn Winder Operator Relationship Specialty Start Date End Date Fina Jang, ARLEEN PCP - General 07/27/21 09/07/22 Vinita Sevilla NP PCP - General Nurse Practitioner 09/08/22 10/10/23 Zuleika London, ARLEEN [address] [place] [phone] PCP - General Nurse Practitioner 10/11/23 Isabella Singh MD [address] [place] [phone] [email or web address] Medical Oncology 05/26/20 Eve Duffy DNP [address] [place] [address] [phone] Pall[facility] [place] [address] miguel Nurse Practitioner Palliative Care 12/13/20 documented as of this encounter Additional Source Comments The information contained in this document represents components of the legal health record. It is not the complete legal health record.[facility]
--- OUTSIDE RECORDS SUMMARY | 2025-03-06 22:06 | XMS_ITS | Encounter Summary ---
Author Organization [facility] Address [address] [place] [address] [place] [address] Phone Care Team Providers Care Egg Buyer Name Role Phone Isabella Singh MD Unavailable [phone] Eve Duffy DNP Unavailable [phone] Fina Jang HOSPITALITY JOB TITLES Primary Care Provider Vinita Downey HOSPITALITY JOB TITLES Primary Care Provider Zuleika Saldivar HOSPITALITY JOB TITLES Primary Care Provider + Encounter Details Date Type Department Care Team (Late Contact Info) Description 01/25/2022 Procedure Pass [facility], [facility] [place] [address] [facility], Floor L1 [place] [address] Social History Tobacco Use Types Packs/Day Years [...] Contact Info) Description 01/27/2025 Procedure Pass [facility] Imaging Department, [facility], [place] [address] [facility], Floor L1 [place] [address] 01/27/2025 Procedure Pass [facility] Imaging Department, [facility], [place] [address] [facility], Floor L1 [place] [address] 01/27/2025 Procedure Pass [facility] Imaging Department, [facility], MRI [address] [address] 03/17/2025 1:00 PM EDT Office Visit [facility], [address], 5th [place] [address] Helene August MD, MPH [address] [place] [phone] [email or web address] 08/18/2025 10:50 AM EST Appointment [facility] Imaging Department, [facility], [place] [address] [facility], Floor [address]1 [place] [address] Isabella Singh MD [address] [place] [address] [email or web address] 08/18/2025 11:40 AM EST Appointment [facility] Imaging Department, [facility], MRI [address] [address] Isabella Singh MD [address] [place] [phone] [email or web address] 08/18/2025 3:30 PM EST Office Visit [facility], [address], [address]th [place] [address] Isabella Singh MD 450 [place] [address] [email or web address] documented as of this encounter Visit Diagnoses Not on filedocumented in this encounter Care Teams Egg Buyer Relationship Specialty Start Date End Date Fina Jang, ARLEEN PCP - General 07/27/21 09/07/22 Vinita Sevilla NP PCP - General Nurse Practitioner 09/08/22 10/10/23 Zuleika London, ARLEEN [address] [place] [address] PCP - General Nurse Practitioner 10/11/23 Isabella Singh MD [address] [place] [phone] [email or web address] Medical Oncology 05/26/20 Eve Duffy DNP [address] [place] [address] [phone] [facility] [place] [address] miguel Nurse Practitioner Palliative Care 12/13/20 documented as of this encounter Additional Source Comments The information contained in this document represents components of the legal health record. It is not the complete legal health record.[facility]
--- OUTSIDE RECORDS SUMMARY | 2025-03-06 22:06 | XMS_ITS | Clinical Summary ---
Author Organization [facility] Address [address] [place] [id number] Phone Care Team Providers Care Gas Plant Operator Name Role Phone Isabella Singh MD Unavailable [phone] GivenEve DNP Unavailable [phone] Appram, Zuleika Dalton HEADMASTER/MISTRESS Primary Care Provider + Allergies Active Allergy Reactions Criticality Noted Date Comments Oxycodone-Acetaminophen 06/14/2020 fainted Medications levothyroxine (SYNTHROID, LEVOTHROID) 300 MCG tablet Take 200 mcg by mouth every morning. Active senna (SENOKOT) 8.6 mg tablet Take 1 tablet by mouth daily. Active metFORMIN (GLUCOPHAGE) 500 MG tablet TAKE 1 TABLET BY MOUTH TWICE DAILY WITH THE MORNING AND EVENING MEAL 2 Active mupirocin (BACTROBAN) 2 % ointmentIndicati ons:Nodule of anterior chest wall Apply topically 3 (three) times a day. To right chest lesions for 10 days. 22 g 3 Active triamcinolone acetonide 0.1 % ointmentIndicati ons:Rash and nonspecific skin eruption Apply to affected areas with rash of skin 1-2 times daily for 2 weeks. Then use as needed. Limit use to max of 2 weeks per month 454 g 1 5 Active betamethasone dipropionate 0.05 % creamIndications :Rash and nonspecific skin eruption Apply 1 Application topically 2 (two) times a day. Apply to affected areas on vulva for up to 14 days per month. Avoid face, groin, skin folds. 50 g 2 5 Active tacrolimus (PROTOPIC) 0.1 % ointmentIndicati ons:Lichen planus Apply topically 2 (two) times a day. Use on areas with lichen planus on the skin during the weeks you are not using a steroid cream. 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 Resolved Problems Problem Noted Date Diagnosed Date Resolved Date Angiosarcoma of breast 06/16/202007/27 Encounters Date Type Department Care Team Description 01/27/2025 8:00 AM EDT [facility], [facility] [address] [place] [address], 6th [place] [address] Isabella Singh MD Radiation-induced angiosarcoma of breast (Primary Dx); Skin lesions 01/22/2025 8:29 AM EDT - 01/22/2025 11:59 PM EDT Hospital Encounter [facility] CT Imaging, [address] [place] [address] Isabella Singh MD Discharge Disposition: Home or Self Care 01/22/2025 8:29 AM EDT - 01/22/2025 11:59 PM EDT Hospital Encounter [facility] MR Imaging, [address] [place] [address] Isabella Singh MD Discharge Disposition: Home or Self Care 06/17/2024 Procedure Pass [facility] CT Imaging, [address] [place] [address] 06/17/2024 Procedure Pass [facility] CT Imaging, [address] [place] [address] 06/17/2024 Procedure Pass [facility] MR Imaging, [address] [place] [address] from Last 3 Months Immunizations Immunization Administration Dates Next Due Influenza Quadrivalent Prese rvative Free IM 06/23/2020(Deferred: Patient Refused) Family History Medical History Relation Comments Hyperlipidemia Father Hypertension Father Diabetes Maternal Grandfather Thyroid disease Mother Breast cancer Paternal Aunt Lymphoma Paternal Cousin Lymphoma Paternal Uncle Diabetes Sister Relation Status Comments Father Maternal Grandfather Mother Paternal Aunt Paternal Cousin Paternal Uncle Sister Social History Tobacco Use Types Packs/Day Years Used Date Smoking Tobacco: Never Smokeless Tobacco: Never Alcohol Use Standard Drinks/Week Comments Yes 0 (1 standard drink = 0.6 oz pur e alcohol) special occasions; 2/month Child or Family Care Answer Date Record ed Do you have problems with on e of the following making it difficult for you to work, study, or receive health care? No 07/22/2024 Education Answer Date Recorded Are you interested in help w ith more adult education (for example, completing high school, GED, job training, learning the Hebrew language, technical skills, or developing parenting skills)? No 07/22/2024 Are you concerned about learning? Not on file 07/22/2024 No 07/22/2024 Yes 07/22/2024 Food Answer Date Recorded Within the past 6 months we worried whether our food would run out before we got money to buy more. Never True 07/22/2024 Within the past 6 months the food we bought just didn't last and we didn't have enough money to get more. Never True Residential Stability Answer Date Recor ded What is your housing situation today? I have a place to live today, but I am worried about losing it in the next 3 months 07/22/2024 How many times have you move d in the past 12 months? Zero (I did not move) 07/22/2024 Paying for Meds Answer Date Recorded Do you have trouble paying for medicines? Yes 07/22/2024 Paying Utility Bills Answer Date Record ed Do you have trouble paying your heating or elect ricity bill? Yes 07/22/2024 Transportation Answer Date Recorded Has the lack of transportati on kept you from medical appointments or from getting medications? Yes 07/22/2024 Digital Access Answer Date Recorded No 11/21/2022 [...] Orientation Straight 05/31/2021 6: 04 PM EST Last Filed Vital Signs Vital Sign Reading Time Taken Comments Blood Pressure 127/78 07/23/2024 10:15 AM EST Pulse 66 07/23/2024 10:15 AM EST Temperature 36.6 C (97.8 F) 07/23/2024 10:16 AM EST Respiratory Rate 18 07/23/2024 10:14 AM EST Oxygen Saturation 99% 07/23/2024 10:15 AM EST Inhaled Oxygen Concentration - - Weight 78 kg (172 lb) 01/22/2025 9:20 AM EDT Height 154.9 cm (5' 1 ) 01/22/2025 9:20 AM EDT Body Mass Index 32.5 01/22/2025 9:20 AM EDT Plan of Treatment Upcoming Encounters Date Type Department Care Team (Late st Contact Info) Description 01/27/2025 Procedure Pass [facility] Imaging Department, [facility], [place] [address] [facility], [address] [place] [address] 01/27/2025 Procedure Pass [facility] Imaging Department, [facility], CT [address] [facility], [address] [place] [address] 01/27/2025 Procedure Pass [facility] Imaging Department, [facility], MRI [address] [facility] [address] [place] [address] 03/17/2025 1:00 PM EDT Office Visit [facility], [facility] [address] [facility], 5th [place] [address] Helene August MD, MPH [address] [place] [address] [email or web address] 08/18/2025 10:50 AM EST Appointment [facility], [facility], [place] [address] [facility], [address] [place] [address] Isabella Singh MD [address] [place] [address] [email or web address] 08/18/2025 11:40 AM EST Appointment [facility], [facility], MRI [address] [facility], [address] [place] [address] Isabella Singh MD [address] [place] [address] [email or web address] 08/18/2025 3:30 PM EST Office Visit [facility], [facility] [address] [facility], 6th [place] [address] Isabella Singh MD [address] [place] [address] [email or web address] Health Maintenance Due Date Last Done Comments Adult Td,Tdap Booster 1968 TSH LEVEL 1968 DEPRESSION SCREENING 1980 HIV ONE-TIME SCREENING (18-65 YEARS) 1986 PNEUMOCOCCAL VACCINES (50+ years) (1 of 2 - PCV) 1987 ZOSTER VACCINES (1 of 2) 1987 PAP SMEAR 1989 COLOGUARD 2013 COLONOSCOPY 2013 COLORECTAL CANCER SCREENING 2013 FIT TEST 2013 FOBT 2013 SIGMOIDOSCOPY 2013 VIRTUAL COLONOSCOPY 2013 MAMMOGRAM 04/29/2022 04/29/2020, 07/0 12/2019, 12/31/2019, Additional history exists INFLUENZA VACCINE (#1) 2025 04/26/2016 COVID-19 VACCINE ( season) 2025 11/30/2020, 11/03/2020 CREATININE LEVEL 01/22/2026 01/22/2025, , 10/03/2023, Additional history exists SCREENING FOR DIABETES 01/20/2028 01/19/2025, 2022 LIPID PANEL 01/20/2030 01/20/2025, 07/02, 02/10/2022 SMOKING STATUS SCREENING (Once After 26 Yrs) Completed 09/11/2022 HEPATITIS C SCREENING Completed 07/23/2024 HEPATITIS A VACCINES Aged Out No long er eligible based on patient's age to complete this topic HIB VACCINES Aged Out No longer eligi ble based on patient's age to complete this topic MENINGOCOCCAL VACCINES (ACWY) Aged Out No longer eligible based on patient's age to complete this topic MENINGOCOCCAL VACCINES (B) Aged Out N o longer eligible based on patient's age to complete this topic Medical Devices Not on file Procedures Procedure Name Priority Date/Time Associated Diagnosis Comments MRI CHEST WITH AND WITHOUT CONTRAST Routine 01/22/2025 10:20 AM EDT Radiation-induced angiosarcoma of breast CT ABDOMEN/PELVIS WITH CONTRAST Routine 01/22/2025 9:11 AM EDT Radiation-induced angiosarcoma of breast CT CHEST WITH CONTRAST Routine 01/22/2025 9:11 AM EDT Radiation-induced angiosarcoma of breast POCT CREATININE/EGFR Routine 01/22/2025 9:08 AM EDT OUTSIDE LAB 01/22/2025 OUTSIDE IMAGING 01/22/2025 OUTSIDE IMAGING 01/22/2025 HEPATITIS C ANTIBODY, QUALITATIVE Routine 07/23/2024 11:43 AM EST Need for hepatitis C screening test BI MRI BREAST OUTSIDE (NO INTERPRETATION) Routine 04/29/2020 12:00 AM EDT from Last 3 Months or Most Recently Relevant to Health Maintenance Results * MRI CHEST WITH AND WITHOUT CONTRAST (01/22/2025 10:20 AM EDT) Anatomical Region Laterality Modality Chest Magnetic Resonan ce 01/22/2025 11:3 1 AM EDT Impressions 01/22/2025 4:30 PM EDT 1. Postsurgical changes from right mastectomy. No convincing evidence of sarcoma recurrence in the chest. ATTESTATION: Bladimir Watters, as teaching physician have reviewed the images, if any, for this patient's exam, and if necessary, have edited the report originally created by Michelle Cabrera. Narrative 01/22/2025 4:30 PM EDT MRI CHEST WITH AND WITHOUT CONTRAST Referring clinician's provided indication for this examination in [facility]: Sarcoma re-evaluation; resected breast skin rad-associated angiosarcoma, resected 2019 TECHNIQUE: MRI of the chest was performed before and after administration of intravenous gadolinium contrast medium. COMPARISON: MRI CHEST WITH AND WITHOUT CONTRAST FINDINGS: Devices/Tubes/Lines: None. Lungs: MRI is not a reliable imaging modality for detection of fine lung detail and small pulmonary nodules. No definite abnormal signal, allowing for respiratory motion and pulsation artifact. See separate CT chest report Pleura: No pleural effusion. Mediastinum: Normal sized heart No mediastinal mass. Lymph Nodes: Unchanged 3 mm right internal mammary lymph node (15:1). No supraclavicular, axillary, mediastinal, or hilar lymphadenopathy. Upper Abdomen: No abnormality detected in the imaged portion of the upper abdomen. Chest Wall: Right mastectomy. Similar small ventral hernia of omental fat. Bones: Degenerative changes in the right glenohumeral joint. No suspicious osseous lesions. Procedure Note Bladimir Sawyer MD - 01/22/2025 MRI CHEST WITH AND WITHOUT CONTRAST Referring clinician's provided indication for this examination in [facility]:Sarcoma re-evaluation; resected breast skin rad-associated angiosarcoma,resected 2019 TECHNIQUE: MRI of the chest was performed before and after administrationof intravenous gadolinium contrast medium. COMPARISON: MRI CHEST WITH AND WITHOUT CONTRAST FINDINGS: Devices/Tubes/Lines: None. Lungs: MRI is not a reliable imaging modality for detection of fine lungdetail and small pulmonary nodules. No definite abnormal signal, allowingfor respiratory motion and pulsation artifact. See separate CT chestreport Pleura: No pleural effusion. Mediastinum: Normal sized heart No mediastinal mass. Lymph Nodes: Unchanged 3 mm right internal mammary lymph node (15:1). Nosupraclavicular, axillary, mediastinal, or hilar lymphadenopathy. Upper Abdomen: No abnormality detected in the imaged portion of the upperabdomen. Chest Wall: Right mastectomy. Similar small ventral hernia of omentalfat. Bones: Degenerative changes in the right glenohumeral joint. No suspiciousosseous lesions. IMPRESSION: 1. Postsurgical changes from right mastectomy. No convincing evidence ofsarcoma recurrence in the chest. ATTESTATION: Bladimir Watters, as teaching physician have reviewed theimages, if any, for this patient's exam, and if necessary, have edited thereport originally created by Michelle Cabrera. us Isabella Singh MD IMG MR CHEST Final Res ult * CT CHEST WITH CONTRAST (01/22/2025 9:11 AM EDT) Anatomical Region Laterality Modality Chest Computed Tomogra phy 01/22/2025 9:37 AM EDT Impressions 01/22/2025 11:05 AM EDT 1. No evidence of metastases within the chest. Narrative 01/22/2025 11:[address] CHEST WITH CONTRAST Referring clinician's provided indication for this examination in [facility]: [MALIGNANCY] SARCOMA (HX MALIG NO EVIDENCE DZ; CANCER); resected breast skin rad-associated angiosarcoma, resected 2019 TECHNIQUE: Multidetector CT of the chest was performed with intravenous contrast using tailored dose modulation techniques. COMPARISON: CT CHEST WITH CONTRAST 2023- FINDINGS: Devices/Tubes/Lines: None. Lungs: Normal. No pulmonary nodules or consolidation. The airways are clear. Pleura: No pleural effusion or pneumothorax. Mediastinum: No thyroid nodules. Heart and pericardium are normal. Lymph Nodes: No enlarged supraclavicular, axillary, mediastinal, or hilar lymph nodes. Upper Abdomen: Please see concurrent abdominal CT for abdominal findings. Chest Wall: Unremarkable postsurgical changes from the right mastectomy. No chest wall mass. Bones: Normal. No suspicious lytic or blastic lesions. Procedure Note Vicky Coyle MD, PhD - 01/22/2025 CT CHEST WITH CONTRAST Referring clinician's provided indication for this examination in [facility]:[MALIGNANCY] SARCOMA (HX MALIG NO EVIDENCE DZ; CANCER); resected breastskin rad-associated angiosarcoma, resected 2019 TECHNIQUE: Multidetector CT of the chest was performed with intravenouscontrast using tailored dose modulation techniques. COMPARISON: CT CHEST WITH CONTRAST FINDINGS: Devices/Tubes/Lines: None. Lungs: Normal. No pulmonary nodules or consolidation. The airways areclear. Pleura: No pleural effusion or pneumothorax. Mediastinum: No thyroid nodules. Heart and pericardium are normal. Lymph Nodes: No enlarged supraclavicular, axillary, mediastinal, or hilarlymph nodes. Upper Abdomen: Please see concurrent abdominal CT for abdominalfindings. Chest Wall: Unremarkable postsurgical changes from the right mastectomy.No chest wall mass. Bones: Normal. No suspicious lytic or blastic lesions. IMPRESSION: 1. No evidence of metastases within the chest. Isabella Singh MD IMG CT CHEST Final Res ult * CT ABDOMEN/PELVIS WITH CONTRAST (01/22/2025 9:11 AM EDT) Anatomical Region Laterality Modality Abdomen, Pelvis Computed Tomogra phy 01/22/2025 11:1 6 AM EDT Impressions 01/22/2025 11:27 AM EDT 1. No metastatic disease in the abdomen or pelvis. Narrative 01/22/2025 11:[address] ABDOMEN/PELVIS WITH CONTRAST Referring clinician's provided indication for this examination in [facility]: * Soft tissue sarcoma, monitor; resected breast skin rad-associated angiosarcoma, resected 2019 TECHNIQUE: Multidetector-row CT of the abdomen and pelvis was performed after administration of intravenous contrast using tailored dose modulation techniques. Images were reconstructed in the axial, coronal, and sagittal planes. COMPARISON: CT ABDOMEN/PELVIS WITH CONTRAST FINDINGS: Lower Chest: CT chest from the same day is reported separately. Liver: Reduced attenuation consistent with fatty liver, which reduces sensitivity for detection of focal lesions. Biliary: No biliary ductal dilatation. Spleen: No splenomegaly or focal lesions. Pancreas: No masses or ductal dilatation. Adrenal Glands: No nodules. Kidneys/Ureters: No solid masses, stones, or hydronephrosis. Unchanged too small to characterize subcentimeter left renal hypodensity (4:274), likely benign. Bowel: Normal. No distention or wall thickening. Peritoneum/Retroperitoneum: Similar mesenteric panniculitis. Lymph Nodes: No lymphadenopathy. Pelvic Organs/Bladder: Normal. No mass. Vessels: Minimal atherosclerotic plaque. No abdominal aortic aneurysm. Bones/Soft Tissues: Degenerative changes of the spine, worst at L5-S1. No destructive osseous lesions. Similar predominantly fat-containing upper ventral hernia (6:515). Procedure Note Castillo Wilson MD - 01/22/2025 CT ABDOMEN/PELVIS WITH CONTRAST Referring clinician's provided indication for this examination in Epic: *Soft tissue sarcoma, monitor; resected breast skin rad-associatedangiosarcoma, resected 2019 TECHNIQUE: Multidetector-row CT of the abdomen and pelvis was performedafter administration of intravenous contrast using tailored dosemodulation techniques. Images were reconstructed in the axial, coronal,and sagittal planes. COMPARISON: CT ABDOMEN/PELVIS WITH CONTRAST FINDINGS: Lower Chest: CT chest from the same day is reported separately. Liver: Reduced attenuation consistent with fatty liver, which reducessensitivity for detection of focal lesions. Biliary: No biliary ductal dilatation. Spleen: No splenomegaly or focal lesions. Pancreas: No masses or ductal dilatation. Adrenal Glands: No nodules. Kidneys/Ureters: No solid masses, stones, or hydronephrosis. Unchanged toosmall to characterize subcentimeter left renal hypodensity (4:274), likelybenign. Bowel: Normal. No distention or wall thickening. Peritoneum/Retroperitoneum: Similar mesenteric panniculitis. Lymph Nodes: No lymphadenopathy. Pelvic Organs/Bladder: Normal. No mass. Vessels: Minimal atherosclerotic plaque. No abdominal aortic aneurysm. Bones/Soft Tissues: Degenerative changes of the spine, worst at L5-S1. Nodestructive osseous lesions. Similar predominantly fat-containing upperventral hernia (6:515). IMPRESSION: 1. No metastatic disease in the abdomen or pelvis. us Isabella Singh MD IMG CT ABD/PELVIS Final R esult * POCT Creatinine/eGFR (01/22/2025 9:08 AM EDT) CRE POC 0.7 0.5 - 1.2 mg/dL [facility] CT & MRI SUITE EGFR POC 101 >59 mL/min/1.7 3m2 [facility] CT & MRI SUITE Comment:Estimated glomerular filtration rate calculated using the CKD-EPI refit equation. 01/22/2025 9:08 AM EDT 01/22/2025 9:10 AM EDT us Isabella Singh MD POINT OF CARE TEST ORDERA BLES Final Result [facility] CT & MRI [address] [place] [address] * Outside Imaging Report Only (01/22/2025) us Scanning Interface Provider IMG XR CHEST Shanika l Result * Outside Imaging Report Only (01/22/2025) us Scanning Interface Provider IMG XR CHEST Shanika l Result * Outside Lab (01/22/2025) us Scanning Interface Provider LAB BLOOD ORDERABLES Final Result * Hepatitis C antibody, qualitative (07/23/2024 11:43 AM EST) Pathologist [facility] HCV Nonreactive Nonreactive [facility] LIC# [id number] Comment:Antibodies to HCV no t detected. Does not exclude the possibility of exposure to HCV. Blood 07/23/2024 11:4 3 AM EST 07/23/2024 12:03 PM EST us Helene August MD, MPH LAB BLOOD ORDERABLES F inal Result [facility] LIC# [id number] [address] [place] [address], [facility] * MRI Breast Outside (No Interpretation) (04/29/2020 12:00 AM EDT) Other Narrative DELANOH - 05/24/2020 10:03 AM EST This study is for PACS storage only and not for interpretation. us Gonzales Collins MD, MS [facility] OUT SIDE IMAGING W/OUT INTERPRETATION Final Result [facility] from Last 3 Months or Most Recently Relevant to Health Maintenance Insurance MEDICARE [facility] MEDIC[facility] MEDICARE A [facility] MEDICARE A [facility] [address] [place] Advance Directives For more information, please contact: [phone] (9AM - 5PM Zoe/[facility], Sunday-Sunday) * Full Code (Latest Code Status on File) Date Activated Date Inactivated Comments 06/16/2020 6:48 AM Question Answer Comments Code Status Confirmed With: Patient * Full Code Date Activated Date Inactivated Comments 06/16/2020 6:48 AM 06/16/2020 6:48 AM Question Answer Comments Code Status Confirmed With: Patient Care Teams Gas Plant Operator Relationship Specialty Start Date End Date Zuleika London NP [address] [place] [address] PCP - General Nurse Practitioner 10/11/23 Isabella Singh MD [address] [place] [id number] [email or web address] 05/26/20 Eve Duffy DNP [address] [place] [address] [address] [facility] [place] [address] [email or web address] Nurse Practitioner Palliative Care 12/13/20 Additional Source Comments The information contained in this document represents components of the legal health record. It is not the complete legal health record.[facility]
--- OUTSIDE RECORDS SUMMARY | 2025-03-06 22:06 | XMS_ITS | Encounter Summary ---
Author Organization [facility] Address [address] [place] [address] 7t [place] [address] Care Team Providers Care Staffing Executive Name Role Phone Vinita Sevilla Primary Care Provider Kat Acosta MD Primary Care Pro vider Zuleika London NP Primary Care Provider [phone] Encounter Details Date Type Department Care Team (Late Contact Info) Description 12/21/2022 Abstract [facility] MEDICINE [address] [place] [address] Vinita Sevilla FNP Social History Tobacco Use [...] suspected to have Coronavirus/COVID-19? No / Unsure 12/06/2022 3:43 PM EDT documented as of this encounter Plan of Treatment Upcoming Encounters Date Type Department Care Team (Late Contact Info) Description 05/12/2025 3:15 PM EST Office Visit [facility] OPTOMETRY [address] [place] [address] Veronicalynnette Fina, OD [address] [place], [place] [phone] documented as of this encounter Visit Diagnoses Not on filedocumented in this encounter Additional Health Concerns Assessment Noted Time PHQ-9 Depression Total Score: 6 06/22/20 22 4:03 PM EST documented as of this encounter Care Teams Staffing Executive Relationship Specialty Start Date End Date Vinita Sevilla FNP PCP - General Family Medicine 02/21/22 01/11/23 Kat Murillo MD [address] [place], [place] [phone] PCP - General Internal Medicine 01/12/23 04/09/23 Zuleika London NP [address] [place] [address] [id number] PCP - General Family Medicine 04/10/23 documented as of this encounter
--- OUTSIDE RECORDS SUMMARY | 2025-03-06 22:07 | XMS_ITS | Encounter Summary ---
Author Organization [facility] Address [employer] [facility] [address] [place] [address] Phone Care Team Providers Care Software Sales Manager Name Role Phone Henna Rodriguez MD Unavailable [phone] Isabella Singh MD Unavailable [phone] Henna Tatum MD Unavailable [phone] Eve Duffy DNP Unavailable [phone] Fina Jang SECOND RIGGER Primary Care Provider Vinita Downey SECOND RIGGER Primary Care Provider UnaZuleika Valenzuela SECOND RIGGER Primary Care Provider + Encounter Details Date Type Department Care Team (Late st Contact Info) Description 06/16/2020 Procedure Pass [facility] Periop [address] [place] [address] Social History Tobacco Use Types Packs/Day Years [...] PM EST documented as of this encounter Functional Status * Calculated C-SSRS Risk Score (Lifetime/Recent) Answer Date of Assessment Author No Risk Indicated 06/16/2020 5:00 PM EST Mark Lin RN * [place] Suicide Severity Rating Scale (Screener/Recent Self-Report) Question Answer Date of Assessment Author 1. Wish to be (Past 1 Month) No 020 5:00 PM EST Carolina Lin RN 2. Non-Specific Active Suici ines Thoughts (Past 1 Month) No 06/16/2020 5:00 PM EST Carolina Lin RN 6. Suicidal Behavior (Lifetime) No 0 5:00 PM EST Carolina Lin RN documented as of this encounter Plan of Treatment Upcoming Encounters Date Type Department Care Team (Late st Contact Info) Description 01/27/2025 Procedure Pass [facility] Imaging Department, [facility] [place] [address] [facility], Floor L1 [place] [address] 01/27/2025 Procedure Pass [facility] Imaging Department, [facility] [place] [address] [facility], Floor L1 [place] [address] 01/27/2025 Procedure Pass [facility] Imaging Department, [facility], MRI [address] [address] 03/17/2025 1:00 PM EDT Office Visit [facility], [facility] 450 [facility], 5th [place] [address] Helene August MD, MPH 450 [place] [address] [email or web address] 08/18/2025 10:50 AM EST Appointment [facility] Imaging Department, [facility] [place] [address] [facility], Floor L1 [place] [address] Isabella Singh MD 450 [place] [address] [email or web address] 08/18/2025 11:40 AM EST Appointment [facility] Imaging [facility], [facility], MRI [address] [address] Isabella Singh MD 450 [place] [address] [email or web address] 08/18/2025 3:30 PM EST Office Visit [facility], [facility] 450 [facility], 6th [place] [address] Isabella Singh MD [address] [place] [address] [email or web address] documented as of this encounter Visit Diagnoses Not on filedocumented in this encounter Care Teams Software Sales Manager Relationship Specialty Start Date End Date Fina Jang NP PCP - General 07/27/21 09/07/22 Vinita Sevilla NP PCP - General Nurse Practitioner 09/08/22 10/10/23 Zuleika London NP [address] [place] [address] PCP - General Nurse Practitioner 10/11/23 Henna Rodriguez MD [address] [place] [address] Referring Physician Medical Oncology 05/17/20 07/26/21 Isabella Singh MD [address] [place] [address] [email or web address] Medical Oncology 05/26/20 Henna Tatum MD [address] [place] [address] General Surgery 10/05/20 07/26/21 Eve Duffy DNP [address] [place] [address] [facility] [place] [address] Nurse Practitioner Palliative Care 12/13/20 documented as of this encounter Additional Source Comments The information contained in this document represents components of the legal health record. It is not the complete legal health record.[facility]
--- OUTSIDE RECORDS SUMMARY | 2025-03-06 22:07 | XMS_ITS | Encounter Summary ---
Author Organization [facility] Address [facility] [employer] [facility] [address] [place] [address] Phone Care Team Providers Care Seasoner Name Role Phone Isabella Singh MD Unavailable [phone] GivenEve DNP Unavailable [phone] Appram, Zuleika Dalton TRANSIT OPERATOR Primary Care Provider + Encounter Details Date Type Department Care Team (Late st Contact Info) Description 06/17/2024 Procedure Pass [facility] CT Imaging, [place] [address] [place] [address] Social History Tobacco Use Types Packs/Day Years [...] st Contact Info) Description 01/27/2025 Procedure Pass [facility] Imaging Department, [facility] [place] [address] [facility], Floor L1 [place] [address] 01/27/2025 Procedure Pass [facility] Imaging Department, [facility] [place] [address] [facility], Floor L1 [place] [address] 01/27/2025 Procedure Pass [facility] Imaging Department, [facility], MRI 450 [facility] 3 [place] [address] 03/17/2025 1:00 PM EDT Office Visit [facility], [address], 5th [place] [address] Helene August MD, MPH 450 [place] [address] [email or web address] 08/18/2025 10:50 AM EST Appointment [facility] Imaging Department, [facility] [place] [address] [facility], Floor L1 [place] [address] Isabella Singh MD [address] [place] [address] [email or web address] 08/18/2025 11:40 AM EST Appointment [facility] Imaging Department, [facility], MRI 450 [facility] 3 [place] [address] Isabella Singh MD [address] [place] [address] [email or web address] 08/18/2025 3:30 PM EST Office Visit [facility], [facility] 450 [facility], 6th [place] [address] Isabella Singh MD [address] [place] [address] [email or web address] documented as of this encounter Visit Diagnoses Not on filedocumented in this encounter Care Teams Seasoner Relationship Specialty Start Date End Date Zuleika London NP [address] [place] [address] PCP - General Nurse Practitioner 10/11/23 Isabella Singh MD [address] [place] [address] [email or web address] Medical Oncology 05/26/20 Eve Duffy DNP [address] [place] [address] 6600 [facility] [address] miguel Nurse Practitioner Palliative Care 12/13/20 documented as of this encounter Additional Source Comments The information contained in this document represents components of the legal health record. It is not the complete legal health record.[facility]
--- OUTSIDE RECORDS SUMMARY | 2025-03-06 22:07 | XMS_ITS | Encounter Summary ---
Author Organization [facility] Address [facility] [employer] [facility] [address] [place] [address] Phone Care Team Providers Care Sales Route Driver Helper Name Role Phone Isabella Singh MD Unavailable [phone] GivenEve DNP Unavailable [phone] Appram, Zuleika Dalton HOUSE CALLS NURSE PRACTITIONER Primary Care Provider + Encounter Details Date Type Department Care Team (Late st Contact Info) Description 06/17/2024 Procedure Pass [facility] CT Imaging, [place] [address] [place] [address] Social History Tobacco Use Types Packs/Day Years [...] Info) Description 01/27/2025 Procedure Pass [facility] Imaging Department, [facility] [place] [address] [facility], Floor L1 [place] [address] 01/27/2025 Procedure Pass [facility] Imaging Department, [facility] [place] [address] [facility], Floor L1 [place] [address] 01/27/2025 Procedure Pass [facility] Imaging Department, [facility], MRI 450 [facility] 3 [place] [address] 03/17/2025 1:00 PM EDT Office Visit [facility], [address], 5th [place] [address] Helene August MD, MPH 450 [place] [address] [email or web address] 08/18/2025 10:50 AM EST Appointment [facility] Imaging Department, [facility] [place] [address] [facility], Floor L1 [place] [address] Isabella Singh MD [address] [place] [address] [email or web address] 08/18/2025 11:40 AM EST Appointment [facility] Imaging Department, [facility], MRI 450 [facility] [place] 3 [place] [address] Isabella Singh MD [address] [place] [address] [email or web address] 08/18/2025 3:30 PM EST Office Visit [facility], [facility] 450 [facility], 6th [place] [address] Isabella Singh MD [address] [place] [address] [email or web address] documented as of this encounter Visit Diagnoses Not on filedocumented in this encounter Care Teams Sales Route Driver Helper Relationship Specialty Start Date End Date Zuleika London NP [address] [place] [address] PCP - General Nurse Practitioner 10/11/23 Isabella Singh MD [address] [place] [address] [email or web address] Medical Oncology 05/26/20 Eve Duffy DNP [address] [place] [address] 6600 [facility] [address] miguel Nurse Practitioner Palliative Care 12/13/20 documented as of this encounter Additional Source Comments The information contained in this document represents components of the legal health record. It is not the complete legal health record.[facility]
--- OUTSIDE RECORDS SUMMARY | 2025-03-06 22:07 | XMS_ITS | Encounter Summary ---
Author Organization [facility] Address [facility] [employer] [facility] [address] [place] [address] Phone Care Team Providers Care Story Editor Name Role Phone Isabella Singh MD Unavailable [phone] GivenEve DNP Unavailable [phone] Appram, Zuleika Dalton CENTRAL LAB TECHNICIAN Primary Care Provider + Encounter Details Date Type Department Care Team (Late st Contact Info) Description 06/17/2024 Procedure Pass [facility] MR Imaging, [place] [address] [place] [address] Social History Tobacco Use Types Packs/Day Years [...] Info) Description 01/27/2025 Procedure Pass [facility] Imaging Department, [facility] [place] [address] [facility], Floor L1 [place] [address] 01/27/2025 Procedure Pass [facility] Imaging Department, [facility] [place] [address] [facility], Floor L1 [place] [address] 01/27/2025 Procedure Pass [facility] Imaging Department, [facility], MRI 450 [facility] 3 [place] [address] 03/17/2025 1:00 PM EDT Office Visit [facility], [address], 5th [place] [address] Helene August MD, MPH 450 [place] [address] [email or web address] 08/18/2025 10:50 AM EST Appointment [facility] Imaging Department, [facility] [place] [address] [facility], Floor L1 [place] [address] Isabella Singh MD [address] [place] [address] [email or web address] 08/18/2025 11:40 AM EST Appointment [facility] Imaging Department, [facility], MRI 450 [facility] [place] 3 [place] [address] Isabella Singh MD [address] [place] [address] [email or web address] 08/18/2025 3:30 PM EST Office Visit [facility], [facility] 450 [facility], 6th [place] [address] Isabella Singh MD [address] [place] [address] [email or web address] documented as of this encounter Visit Diagnoses Not on filedocumented in this encounter Care Teams Story Editor Relationship Specialty Start Date End Date Zuleika London NP [address] [place] [address] PCP - General Nurse Practitioner 10/11/23 Isabella Singh MD [address] [place] [address] [email or web address] Medical Oncology 05/26/20 Eve Duffy DNP [address] [place] [address] 6600 [facility] [place] [address] miguel Nurse Practitioner Palliative Care 12/13/20 documented as of this encounter Additional Source Comments The information contained in this document represents components of the legal health record. It is not the complete legal health record.[facility]
--- OUTSIDE RECORDS SUMMARY | 2025-03-06 22:07 | XMS_ITS | Encounter Summary ---
Author Organization [employer] Address [address] [facility] 7t [place] [address] Care Team Providers Care Part Time Receptionist Name Role Phone Zuleika London NP Primary Care Provider [phone] Reason for Visit * Reason Comments Med Refill Encounter Details Date Type Department Care Team ([facility] st Contact Info) Description 02/02/2025 Refill [facility] 230 [place] [address] Zuleika London NP [address] [place] [address] Current severe 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, unspecified whether recurrent (CMS/HCC) Social History Tobacco Use Types Packs/Day Years [...] 3:15 PM EST Office Visit [facility] OPTOMETRY [address] [place] [address] Veronicalynnette Fina, OD [address] [place] [address] documented as of this encounter Visit Diagnoses Diagnosis Current severe 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, unspecified whether recurrent (CMS/HCC) documented in this encounter Additional Health Concerns Assessment Noted Time PHQ-9 Depression Total Score: 16 025 12:52 PM EDT documented as of this encounter Care Teams Part Time Receptionist Relationship Specialty Start Date End Date Zuleika London NP [address] [place] [address] PCP - General Family Medicine 04/10/23 documented as of this encounter
== END ==
LOC: HO.SL 19:30
PROVIDERS: PCP Nurse Practitioner; Visit Provider Nurse Practitioner
DX: G47.33 Obstructive sleep apnea (adult) (pediatric) (principal)
CPT/HCPCS: 95810

== ENCOUNTER → 2025-03-06 20:30 | Outpatient (BNV) | payer BC, SELFPAY | PROVIDERS: PCP Nurse Practitioner; Visit Provider Internal Medicine | DX: G47.33 Obstructive sleep apnea (adult) (pediatric) (principal); R06.83 Snoring | CPT/HCPCS: 95810 ==

== ENCOUNTER 2025-05-08 15:49 | Outpatient (REF) | payer BC, SELFPAY ==
--- OUTSIDE RECORDS SUMMARY | 2025-05-08 14:30 | XMS_ITS | Encounter Summary ---
Author Organization [employer] Address 75 [facility] 7t [place] [address] Care Team Providers Care Meteorology Teacher Name Role Phone Zuleika London NP Primary Care Provider [phone] Reason for Visit * Reason Comments Follow-up Encounter Details Date Type Department Care Team (Latest Contact Info) Description 05/08/2025 2:30 PM EST Office Visit [facility] 230 [place] [address] Zuleika London NP 230 [place] [address] Acquired hypothyroidism (Primary Dx); Type 2 diabetes mellitus with other specified complication, without long-term current use of insulin (HCC); Mixed hyperlipidemia Social History Tobacco Use Types Packs/Day Years [...] AM EDT documented as of this encounter Last Filed Vital Signs Vital Sign Reading Time Taken Comments Blood Pressure 144/86 05/08/2025 2:50 PM EST Pulse 96 05/08/2025 2:50 PM EST Temperature 36.6 C (97.9 F) 05/08/2025 2:50 PM EST Respiratory Rate 18 05/08/2025 2:50 PM EST Oxygen Saturation - - Inhaled Oxygen Concentration - - Weight 79.7 kg (175 lb 12.8 oz) 05/08/2025 2:50 PM EST Height 152.4 cm (5') 05/08/2025 2:50 PM EST Body Mass Index 34.33 05/08/2025 2:50 PM EST documented in this encounter Miscellaneous Notes * Assessment & Plan Note - Zuleika London NP - 05/08/2025 2:30 PM ESTAssociated Problem(s): Type 2 diabetes mellitus (HCC) Orders: POCT Hgb A1c POCT Glucose Basic Metabolic Panel; Future * Assessment & Plan Note - Zuleika London NP - 05/08/2025 2:30 PM ESTAssociated Problem(s): Hypothyroidism Orders: TSH W/Reflex to FT4; Future documented in this encounter Plan of Treatment Upcoming Encounters Date Type Department Care Team (Late st Contact Info) Description 05/12/2025 10:15 AM EST Clinical Support [facility] [address] [place] [address] 05/12/2025 3:15 PM EST Office Visit [facility] OPTOMETRY 267 [place], [place] [phone] Fina Barros, OD 267 [place] [address] Scheduled Orders Name Type Priority Associated Diagnoses Orde r Schedule TSH W/Reflex to FT4 Lab Routine Acquired hypothyroidism Expected: 05/08/2025 (Approximate), Expires: 05/08/2026 Basic Metabolic Panel Lab Routine Type 2 diabetes mellitus with other specified complication, without long-term current use of insulin (HCC) Expected: 05/08/2025 (Approximate), Expires: 05/08/2026 documented as of this encounter Procedures Procedure Name Priority Date/Time Associated Diagnosis Comments POCT GLYCATED HEMOGLOBIN, TOTAL Routine 05/08/2025 2:55 PM EST Type 2 diabetes mellitus with other specified complication, without long-term current use of insulin (HCC) POCT GLUCOSE Routine 05/08/2025 2:54 PM EST Type 2 diabetes mellitus with other specified complication, without long-term current use of insulin (HCC) documented in this encounter Results * POCT Hgb A1c (05/08/2025 2:55 PM EST) Hemoglobin A1C 5.6 4.0 - 5.7 % QC Media Lot # [id number] Lot# Expiration Date Blood 05/08/2025 2:55 PM EST us Zuleika London OUTSOLE CASER POINT OF CARE TEST ENTER/EDIT O RDERABLES Final Result * POCT Glucose (05/08/2025 2:54 PM EST) Glucose Blood, POC 177 60 - 200 mg/dL QC Media Lot # [id number] Lot# Expiration Date 499,081 Blood Capillary blood specimen / Unknown 05/08/2025 2:54 PM EST us Zuleika London NP POINT OF CARE TEST ENTER/EDIT O RDERABLES Final Result documented in this encounter Visit Diagnoses Diagnosis Acquired hypothyroidism- Primary Unspecified hypothyroidism Type 2 diabetes mellitus with other specified complication, without long-term current use of insulin (HCC) Mixed hyperlipidemia documented in this encounter Additional Health Concerns Assessment Noted Time PHQ-9 Depression Total Score: 16 025 12:52 PM EDT documented as of this encounter Care Teams Meteorology Teacher Relationship Specialty Start Date End Date Zuleika London NP 230 [place] [address] PCP - General Family Medicine 04/10/23 documented as of this encounter
--- OUTSIDE RECORDS SUMMARY | 2025-05-08 16:43 | XMS_ITS | Encounter Summary ---
Author Organization [employer] Address [address] [facility] [address] 7t [place] [address] Care Team Providers Care Nougat Candy Maker Helper Name Role Phone Zuleika London NP Primary Care Provider [phone] Reason for Visit * Reason Comments Med Refill Encounter Details Date Type Department Care Team ([facility] st Contact Info) Description 12/14/2023 Refill [facility] 230 [place] [address] Zuleika London NP 230 [place] [address] Acquired hypothyroidism Social History Tobacco Use Types [...] Dept 10/24/23 Office Visit Zuleika London NP [facility] 09/28/23 Office Visit STANISLAV Silva [facility] 08/03/23 Office Visit Zuleika London NP [facility] 06/01/23 Office Visit Obdulio Pascual MD [facility] 04/27/23 Office Visit Obdulio Pascual MD [facility] 04/13/23 Office Visit Obdulio Pascual MD [facility] 03/19/23 Office Visit Ez Ott MD [facility] 01/11/23 Office Visit STANISLAV Haider [facility] Showing recent visits within past 365 [...] Description 05/12/2025 10:15 AM EST Clinical Support [facility] MEDICINE 230 [place] [address] 05/12/2025 3:15 PM EST Office Visit [facility] OPTOMETRY 267 [place] [address] Fina Barros, OD 267 [place] [address] documented as of this encounter Visit Diagnoses Diagnosis Acquired hypothyroidism Unspecified hypothyroidism documented in this encounter Additional Health Concerns Assessment Noted Time PHQ-9 Depression Total Score: 16 08/03/2 024 4:01 PM EST documented as of this encounter Care Teams Nougat Candy Maker Helper Relationship Specialty Start Date End Date Zuleika London NP [address] [place] [address] PCP - General Family Medicine 04/10/23 documented as of this encounter
--- OUTSIDE RECORDS SUMMARY | 2025-05-08 16:43 | XMS_ITS | Encounter Summary ---
Author Organization [facility] Address [address] [place] [address] [place] [address] Phone Care Team Providers Care Radioisotope Technologist Name Role Phone Isabella Singh MD Unavailable [phone] GivenEve DNP Unavailable [phone] Vinita Sevilla PROCESS AUTOMATION ENGINEER Primary Care Provider Unav ailable AppramZuleika PROCESS AUTOMATION ENGINEER Primary Care Provider + Encounter Details Date Type Department Care Team (Late st Contact Info) Description 09/08/2022 Procedure Pass [facility] Imaging Department, [facility], MRI [address] [address] Social History Tobacco Use Types Packs/Day Years [...] Contact Info) Description 01/27/2025 Procedure Pass [facility] Imaging Department, [facility] [place] 450 [facility], Floor L1 [place] [address] 01/27/2025 Procedure Pass [facility] Imaging Department, [facility] [place] [address] [facility], Floor L1 [place] [address] 01/27/2025 Procedure Pass [facility] Imaging Department, [facility], MRI 450 [facility] 3 [place] [address] 08/18/2025 10:50 AM EST Appointment [facility] Imaging Department, [facility] [place] [address] [facility], Floor L1 [place] [address] Isabella Singh MD [address] [place] [address] [email or web address] 08/18/2025 11:40 AM EST Appointment [facility] Imaging Department, [facility], MRI 450 [facility] 3 [place] [address] Isabella Singh MD [address] [place] [address] [email or web address] 08/18/2025 3:30 PM EST Office Visit [facility], [address], 6th [place] [address] Isabella Singh MD [address] [place] [address] [email or web address] documented as of this encounter Visit Diagnoses Not on filedocumented in this encounter Care Teams Radioisotope Technologist Relationship Specialty Start Date End Date Vinita Sevilla NP PCP - General Nurse Practitioner 09/08/22 10/10/23 Zuleika London NP 230 [place] [address] PCP - General Nurse Practitioner 10/11/23 Isabella Singh MD [address] [place] [address] [email or web address] Medical Oncology 05/26/20 Eve Duffy DNP [address] [place] [address] 6600 [place] [address] miguel Nurse Practitioner Palliative Care 12/13/20 documented as of this encounter Additional Source Comments The information contained in this document represents components of the legal health record. It is not the complete legal health record.[facility]
--- OUTSIDE RECORDS SUMMARY | 2025-05-08 16:43 | XMS_ITS | Encounter Summary ---
Author Organization Located Within [facility] Address [address] [place] [address] [place] [address] Phone Care Team Providers Care Consulting Sales Manager Name Role Phone Isabella Singh MD Unavailable [phone] Eve Duffy DNP Unavailable [phone] Fina Jang SUCTION OPERATOR Primary Care Provider U Vinita Silveira SUCTION OPERATOR Primary Care Provider Zuleika Saldivar SUCTION OPERATOR Primary Care Provider + Encounter Details Date Type Department Care Team (Late st Contact Info) Description 05/23/2022 Procedure Pass [facility] [address] [place] [address] Social History Tobacco Use Types Packs/Day Years [...] st Contact Info) Description 01/27/2025 Procedure Pass [facility] Imaging Department, [facility], [place] 450 [facility], Floor [address]1 [place] [address] 01/27/2025 Procedure Pass [facility] Imaging Department, [facility], [place] 450 [facility], Floor [address]1 [place] [address] 01/27/2025 Procedure Pass [facility] Imaging Department, [facility], MRI 450 [facility] 3 [place] [address] 08/18/2025 10:50 AM EST Appointment [facility] Imaging Department, [facility], [place] 450 [facility], Floor [address] [place] [address] Isabella Singh MD [address] [place] [address] [email or web address] 08/18/2025 11:40 AM EST Appointment [facility] Imaging Department, [facility], MRI 450 [facility] 3 [place] [address] Isabella Singh MD [address] [place] [address] [email or web address] 08/18/2025 3:30 PM EST Office [facility], [address], 6th [place] [address] Isabella Singh MD [address] [place] [address] [email or web address] documented as of this encounter Visit Diagnoses Not on filedocumented in this encounter Care Teams Consulting Sales Manager Relationship Specialty Start Date End Date Fina Jang NP PCP - General 07/27/21 09/07/22 Vinita Sevilla NP PCP - General Nurse Practitioner 09/08/22 10/10/23 Zuleika London NP [address] [place] [address] PCP - General Nurse Practitioner 10/11/23 Isabella Singh MD [address] [place] [address] [email or web address] Medical Oncology 05/26/20 Eve Duffy DNP [address] [place] [address] 6[facility] [place] [address] [email or web address] Nurse Practitioner Palliative Care 12/13/20 documented as of this encounter Additional Source Comments The information contained in this document represents components of the legal health record. It is not the complete legal health record.[facility]
--- OUTSIDE RECORDS SUMMARY | 2025-05-08 16:43 | XMS_ITS | Encounter Summary ---
Author Organization [facility] Address [address] [facility] [address] [place] [address] Phone Care Team Providers Care Chief Medical Director Name Role Phone Henna Rodriguez MD Unavailable [phone] Isabella Singh MD Unavailable [phone] Henna Tatum MD Unavailable [phone] Eve Duffy DNP Unavailable [phone] Fina Jang MANAGER LEADERSHIP DEVELOPMENT Primary Care Provider U Vinita Silveira MANAGER LEADERSHIP DEVELOPMENT Primary Care Provider UnaZuleika Valenzuela MANAGER LEADERSHIP DEVELOPMENT Primary Care Provider + Encounter Details Date Type Department Care Team (Late st Contact Info) Description 10/05/2020 Procedure Pass [facility], [facility] [place] [place] 450 [facility], Floor L1 [place] [address] Social History Tobacco Use Types Packs/Day Years [...] st Contact Info) Description 01/27/2025 Procedure Pass [facility] Imaging Department, [facility], [place] 450 [facility], Floor L1 [place] [address] 01/27/2025 Procedure Pass [facility] Imaging Department, [facility], [place] 450 [facility], Floor [address]1 [place] [address] 01/27/2025 Procedure Pass [facility] Imaging Department, [facility], MRI [address] [address] 08/18/2025 10:50 AM EST Appointment [facility] Imaging Department, [facility], [place] 450 [facility], Floor [address]1 [place] [address] Isabella Singh MD [address] [place] [address] [email or web address] 08/18/2025 11:40 AM EST Appointment [facility] Imaging Department, [facility], MRI [address] [address] Isabella Singh MD [address] [place] [address] [email or web address] 08/18/2025 3:30 PM EST Office Visit [facility], [address], 6th [place] [address] Isabella Singh MD [address] [place] [address] [email or web address] documented as of this encounter Visit Diagnoses Not on filedocumented in this encounter Care Teams Chief Medical Director Relationship Specialty Start Date End Date Fina Jang, ARLEEN PCP - General 07/27/21 09/07/22 Vinita Sevilla, ARLEEN PCP - General Nurse Practitioner 09/08/22 10/10/23 Zuleika London, ARLEEN [address] [place] [address] PCP - General Nurse Practitioner 10/11/23 Henna Rodriguez MD [address] [address] Referring Physician Medical Oncology 05/17/20 07/26/21 Isabella Singh MD [address] [place] [address] [email or web address] Medical Oncology 05/26/20 Henna Tatum MD [address] [place] [address] General Surgery 10/05/20 07/26/21 Eve Duffy DNP [address] [place] [address] 6600 [place] [address] [email or web address] Nurse Practitioner Palliative Care 12/13/20 documented as of this encounter Additional Source Comments The information contained in this document represents components of the legal health record. It is not the complete legal health record.[facility]
--- OUTSIDE RECORDS SUMMARY | 2025-05-08 16:43 | XMS_ITS | Encounter Summary ---
Author Organization [employer] Address [address] [facility] 7t [place] [address] Care Team Providers Care Bunghole Borer Name Role Phone Zuleika London NP Primary Care Provider [phone] Reason for Visit * Reason Onset Date Comments Call Back Request 10/01/2023 Encounter Details Date Type Department Care Team ([facility] st Contact Info) Description 10/01/2023 Telephone [facility] MEDICINE [address] [place] [address] Zuleika London NP [address] [place] [address] Call Back Request Social History Tobacco Use [...] Description 05/12/2025 10:15 AM EST Clinical Support [facility] MEDIC[facility] [address] [place] [address] 05/12/2025 3:15 PM EST Office Visit [facility] OPTOMETRY 267 [place], [place] [phone] Fina Barros, OD [address] [place], [place] [phone] documented as of this encounter Visit Diagnoses Not on filedocumented in this encounter Additional Health Concerns Assessment Noted Time PHQ-9 Depression Total Score: 16 024 4:01 PM EST documented as of this encounter Care Teams Bunghole Borer Relationship Specialty Start Date End Date Zuleika London NP [address] [place] [address] PCP - General Family Medicine 04/10/23 documented as of this encounter
--- OUTSIDE RECORDS SUMMARY | 2025-05-08 16:43 | XMS_ITS | Encounter Summary ---
Author Organization [facility] Address [address] [place] [address] [place] [address] Phone Care Team Providers Care Sound Tester Name Role Phone Isabella Singh MD Unavailable [phone] Eve Duffy DNP Unavailable [phone] Fina Jang WINDSHIELD TECHNICIAN Primary Care Provider Vinita Downey WINDSHIELD TECHNICIAN Primary Care Provider Zuleika Saldivar WINDSHIELD TECHNICIAN Primary Care Provider + Encounter Details Date Type Department Care Team (Late Contact Info) Description 05/24/2022 Procedure Pass [facility] 450 [facility], Floor L1 [place] [address] Social History Tobacco Use Types Packs/Day Years [...] Procedure Pass [facility] Imaging Department, [facility] [place] [address] [facility], Floor L1 [place] [address] 01/27/2025 Procedure Pass [facility] Imaging Department, [facility], [place] [address] [facility], Floor L1 [place] [address] 01/27/2025 Procedure Pass [facility] Imaging Department, [facility], MRI 450 [facility] 3 [place] [address] 08/18/2025 10:50 AM EST Appointment [facility] Imaging Department, [facility], [place] 450 [facility], Floor [address]1 [place] [address] Isabella Singh MD [address] [place] [address] [email or web address] 08/18/2025 11:40 AM EST Appointment [facility] Imaging Department, [facility], MRI [address] [address] Isabella Singh MD [address] [place] [address] [email or web address] 08/18/2025 3:30 PM EST Office Visit [facility], [address], 6th [place] [address] Isabella Singh MD [address] [place] [address] [email or web address] documented as of this encounter Visit Diagnoses Not on filedocumented in this encounter Care Teams Sound Tester Relationship Specialty Start Date End Date Fina Jang NP PCP - General 1/26/22 3/9/23 Vinita Sevilla, ARLEEN PCP - General Nurse Practitioner 09/08/22 10/10/23 Zuleika London, ARLEEN [address] [place] [address] PCP - General Nurse Practitioner 10/11/23 Isabella Singh MD [address] [place] [address] [email or web address] Medical Oncology 05/26/20 Eve Duffy DNP [address] [place] [address] 6[facility] Palliative [place] [address] [email or web address] Nurse Practitioner Palliative Care 12/13/20 documented as of this encounter Additional Source Comments The information contained in this document represents components of the legal health record. It is not the complete legal health record.[facility]
--- OUTSIDE RECORDS SUMMARY | 2025-05-08 16:43 | XMS_ITS | Encounter Summary ---
Author Organization [facility] Address [address] [employer] [facility] [address] [place] [address] Phone Care Team Providers Care Biophysics Teacher Name Role Phone Henna Rodriguez MD Unavailable [phone] Isabella Singh MD Unavailable [phone] Henna Tatum MD Unavailable [phone] Eve Duffy DNP Unavailable [phone] Fina Jang GRAIN DRIER OPERATOR Primary Care Provider U Vinita Silveira GRAIN DRIER OPERATOR Primary Care Provider UnaZuleika Valenzuela GRAIN DRIER OPERATOR Primary Care Provider + Encounter Details Date Type Department Care Team (Late st Contact Info) Description 07/06/2020 Procedure Pass [facility] [place] [place] 450 [facility], Floor L1 [place] [address] Social History Tobacco Use Types Packs/Day Years [...] Contact Info) Description 01/27/2025 Procedure Pass [facility] Imaging Department, [facility], [place] 450 [facility], Floor L1 [place] [address] 01/27/2025 Procedure Pass [facility] Imaging Department, [facility], [place] 450 [facility], Floor L1 [place] [address] 01/27/2025 Procedure Pass [facility] Imaging Department, [facility], MRI [address] [address] 08/18/2025 10:50 AM EST Appointment [facility] Imaging Department, [facility], [place] 450 [facility], Floor [address]1 [place] [address] Isabella Singh MD [address] [place] [address] [email or web address] 08/18/2025 11:40 AM EST Appointment [facility] Imaging Department, [facility], MRI [address] [address] Isabella Singh MD [address] [place] [address] [email or web address] 08/18/2025 3:30 PM EST Office Visit [facility], [address], 6th [place] [address] Isabella Singh MD [address] [place] [address] [email or web address] documented as of this encounter Visit Diagnoses Not on filedocumented in this encounter Care Teams Biophysics Teacher Relationship Specialty Start Date End Date Fina Jang, ARLEEN PCP - General 07/27/21 09/07/22 Vinita Sevilla, ARLEEN PCP - General Nurse Practitioner 09/08/22 10/10/23 Zuleika London, ARLEEN [address] [place] [address] PCP - General Nurse Practitioner 10/11/23 Henna Rodriguez MD [address] [address] Referring Physician Medical Oncology 05/17/20 07/26/21 Isabella Singh MD [address] [place] [address] [email or web address] Medical Oncology 05/26/20 Henna Tatum MD [address] [place] [address] General Surgery 10/05/20 07/26/21 Eve Duffy DNP [address] [place] [address] 6600 Pall[place] [address] [email or web address] Nurse Practitioner Palliative Care 12/13/20 documented as of this encounter Additional Source Comments The information contained in this document represents components of the legal health record. It is not the complete legal health record.[facility]
--- OUTSIDE RECORDS SUMMARY | 2025-05-08 16:43 | XMS_ITS | Encounter Summary ---
Author Organization [facility] Address [address] [employer] [address] [facility] [address] [place] [address] Phone Care Team Providers Care Frothing Machine Operator Name Role Phone Henna Rodriguez MD Unavailable [phone] Isabella Singh MD Unavailable [phone] Henna Tatum MD Unavailable [phone] Eve Duffy DNP Unavailable [phone] Fina Jang LOCK OPERATOR Primary Care Provider U Vinita Silveira LOCK OPERATOR Primary Care Provider UnaZuleika Valenzuela LOCK OPERATOR Primary Care Provider + Encounter Details Date Type Department Care Team (Late st Contact Info) Description 10/05/2020 Procedure Pass [facility] [place] [place] 450 [facility], Floor L1 [place] [address] Social History Tobacco Use Types Packs/Day Years [...] Info) Description 01/27/2025 Procedure Pass [facility] Imaging Department, [facility], [place] 450 [facility], Floor L1 [place] [address] 01/27/2025 Procedure Pass [facility] Imaging Department, [facility], [place] 450 [facility], Floor L1 [place] [address] 01/27/2025 Procedure Pass [facility] Imaging Department, [facility], MRI [address] [address] 08/18/2025 10:50 AM EST Appointment [facility] Imaging Department, [facility], [place] 450 [facility], Floor L1 [place] [address] Isabella Singh MD [address] [place] [address] [email or web address] 08/18/2025 11:40 AM EST Appointment [facility] Imaging Department, [facility], MRI [address] [address] Isabella Singh MD [address] [place] [address] [email or web address] 08/18/2025 3:30 PM EST Office Visit [facility], [address], 6th [place] [address] Isabella Singh MD [address] [place] [address] [email or web address] documented as of this encounter Visit Diagnoses Not on filedocumented in this encounter Care Teams Frothing Machine Operator Relationship Specialty Start Date End Date Fina Jang, ARLEEN PCP - General 07/27/21 09/07/22 Vinita Sevilla, ARLEEN PCP - General Nurse Practitioner 09/08/22 10/10/23 Zuleika London, ARLEEN [address] [place] [address] PCP - General Nurse Practitioner 10/11/23 Henna Rodriguez MD [address] [address] Referring Physician Medical Oncology 05/17/20 07/26/21 Isabella Singh MD [address] [place] [address] [email or web address] Medical Oncology 05/26/20 Henna Tatum MD [address] [place] [address] General Surgery 10/05/20 07/26/21 Eve Duffy DNP [address] [place] [address] 6600 [place] [address] [email or web address] Nurse Practitioner Palliative Care 12/13/20 documented as of this encounter Additional Source Comments The information contained in this document represents components of the legal health record. It is not the complete legal health record.[facility]
--- OUTSIDE RECORDS SUMMARY | 2025-05-08 16:43 | XMS_ITS | Encounter Summary ---
Author Organization [employer] Address [address] [facility] 7t [place] [address] Care Team Providers Care Dipper And Baker Name Role Phone Zuleika London NP Primary Care Provider [phone] Reason for Visit * Reason Onset Date Comments Medication Question 11/06/2023 Referral 11/06/2023 Encounter Details Date Type Department Care Team ([facility] st Contact Info) Description 11/06/2023 Telephone [facility] MEDICINE 230 [place] [address] Zuleika London NP [address] [place] [address] Medication Question; Referral Social History Tobacco Use [...] is also requesting status for referrals of weatherseal technician, sleep abnea test, and physical therapy. Please contact pt at [phone]. documented in this encounter Plan of Treatment Upcoming Encounters Date Type Department Care Team (Late st Contact Info) Description 05/12/2025 10:15 AM EST Clinical Support [facility] [address] [place] [address] 05/12/2025 3:15 PM EST Office Visit [facility] OPTOMETRY [address] [place] [address] Fina Barros, OD 267 [place] [address] documented as of this encounter Visit Diagnoses Not on filedocumented in this encounter Additional Health Concerns Assessment Noted Time PHQ-9 Depression Total Score: 16 08/03/ 024 4:01 PM EST documented as of this encounter Care Teams Dipper And Baker Relationship Specialty Start Date End Date Zuleika London NP [address] [place] [address] PCP - General Family Medicine 04/10/23 documented as of this encounter
--- OUTSIDE RECORDS SUMMARY | 2025-05-08 16:43 | XMS_ITS | Encounter Summary ---
Author Organization [employer] Address [address] [place] [address] 7t [place] [address] Care Team Providers Care Colon And Rectal Surgeon Name Role Phone Zuleika London NP Primary Care Provider [phone] Reason for Visit * Reason Onset Date Comments Prior Authorization 11/06/2023 Encounter Details Date Type Department Care Team (Late st Contact Info) Description 11/06/2023 Telephone [facility] MEDICINE 230 [place] [address] Zuleika London NP 230 [place] [address] Prior Authorization Social History Tobacco Use Types [...] Nivia Davidson - 11/12/2023 10:02 AM EDT Wellness Program Administrator call [place] and confirmed PA required for [...] that she had a sleep study at [facility] 3 years ago and used to have [...] 5 years. * Telephone Encounter - Jonathan Suarez - 11/06/2023 4:26 PM EDT Tc from pt stating she was informed by pharmacy medication needs a PA due to pt seeing new provider. If any questions you can contact pt at [phone]. Tyellenlm . documented in this encounter Plan of Treatment Upcoming Encounters Date Type Department Care Team (Late st Contact Info) Description 05/12/2025 10:15 AM EST Clinical Support [facility] MEDICINE [address] [place] [address] 05/12/2025 3:15 PM EST Office Visit [facility] OPTOMETRY [address] [place] [address] Veronicalynnette Fina, OD [address] [place] [address] documented as of this encounter Visit Diagnoses Not on filedocumented in this encounter Additional Health Concerns Assessment Noted Time PHQ-9 Depression Total Score: 16 08/03/ 024 4:01 PM EST documented as of this encounter Care Teams Colon And Rectal Surgeon Relationship Specialty Start Date End Date Zuleika London NP 230 [place] [address] PCP - General Family Medicine 04/10/23 documented as of this encounter
--- OUTSIDE RECORDS SUMMARY | 2025-05-08 16:43 | XMS_ITS | Encounter Summary ---
Author Organization [facility] Address [address] [place] [address] [place] [address] Phone Care Team Providers Care Cap Parts Cutter Name Role Phone Isabella Singh MD Unavailable [phone] Eve Duffy DNP Unavailable [phone] Fina Jang FOOD PREP WORKER Primary Care Provider Vinita Downey FOOD PREP WORKER Primary Care Provider Zuleika Saldivar FOOD PREP WORKER Primary Care Provider + Encounter Details Date Type Department Care Team (Late Contact Info) Description 01/25/2022 Procedure Pass [facility] [place] 450 [facility], Floor L1 [place] [address] Social History Tobacco Use Types Packs/Day Years [...] st Contact Info) Description 01/27/2025 Procedure Pass [facility], [facility], [place] 450 [facility], Floor L1 [place] [address] 01/27/2025 Procedure Pass [facility] Imaging Department, [facility] [place] 450 [facility], Floor L1 [place] [address] 01/27/2025 Procedure Pass [facility] Imaging Department, [facility], MRI 450 [facility] 3 [place] [address] 08/18/2025 10:50 AM EST Appointment [facility], [facility] [place] 450 [facility], Floor L1 [place] [address] Isabella Singh MD [address] [place] [address] [email or web address] 08/18/2025 11:40 AM EST Appointment [facility] Imaging Department, [facility], MRI [address] [address] Isabella Singh MD [address] [place] [address] [email or web address] 08/18/2025 3:30 PM EST Office [facility], [address], 6th [place] [address] Isabella Singh MD [address] [place] [address] [email or web address] documented as of this encounter Visit Diagnoses Not on filedocumented in this encounter Care Teams Cap Parts Cutter Relationship Specialty Start Date End Date Fina Jang NP PCP - General 1/26/22 3/9/23 Vinita Sevilla, ARLEEN PCP - General Nurse Practitioner 09/08/22 10/10/23 Zuleika London, ARLEEN [address] [place] [address] PCP - General Nurse Practitioner 10/11/23 Isabella Singh MD [address] [place] [address] [email or web address] Medical Oncology 05/26/20 Eve Duffy DNP [address] [place] [address] 6[facility] [place]iative [place] [address] [email or web address] Nurse Practitioner Palliative Care 12/13/20 documented as of this encounter Additional Source Comments The information contained in this document represents components of the legal health record. It is not the complete legal health record.[facility]
--- OUTSIDE RECORDS SUMMARY | 2025-05-08 16:43 | XMS_ITS | Encounter Summary ---
Author Organization [facility] Address [address] [facility] [address] [place] [address] Phone Care Team Providers Care Tow Car Driver Name Role Phone Henna Rodriguez MD Unavailable [phone] Isabella Singh MD Unavailable [phone] Henna Tatum MD Unavailable Eve Duffy DNP Unavailable [phone] iFna Jang SENIOR QUALITY TECHNICIAN Primary Care Provider U Vinita Silveira SENIOR QUALITY TECHNICIAN Primary Care Provider Unav Zuleika Rod SENIOR QUALITY TECHNICIAN Primary Care Provider + Encounter Details Date Type Department Care Team (Late st Contact Info) Description 01/31/2021 Procedure Pass [facility], MRI 300 [facility] 4th [place] [address] Social History Tobacco Use Types [...] Contact Info) Description 01/27/2025 Procedure Pass [facility] Imaging Department, [facility], [place] 450 [facility], Floor L1 [place] [address] 01/27/2025 Procedure Pass [facility] Imaging Department, [facility], [place] 450 [facility], Floor L1 [place] [address] 01/27/2025 Procedure Pass [facility] Imaging Department, [facility], MRI [address] [address] 08/18/2025 10:50 AM EST Appointment [facility] Imaging Department, [facility], [place] 450 [facility], Floor L1 [place] [address] Isabella Singh MD [address] [place] [address] [email or web address] 08/18/2025 11:40 AM EST Appointment [facility] Imaging Department, [facility], MRI [address] [address] Isabella Singh MD [address] [place] [address] [email or web address] 08/18/2025 3:30 PM EST Office Visit [facility], [address], 6th [place] [address] Isabella Singh MD [address] [place] [address] [email or web address] documented as of this encounter Visit Diagnoses Not on filedocumented in this encounter Care Teams Tow Car Driver Relationship Specialty Start Date End Date Fina Jang, SENIOR QUALITY TECHNICIAN PCP - General 07/27/21 09/07/22 Vinita Sevilla, ARLEEN PCP - General Nurse Practitioner 09/08/22 10/10/23 Zuleika London, ARLEEN [address] [place] [address] PCP - General Nurse Practitioner 10/11/23 Henna Rodriguez MD [address] [place] [address] Referring Physician Medical Oncology 05/17/20 07/26/21 Isabella Singh MD [address] [place] [address] [email or web address] Medical Oncology 05/26/20 Henna Tatum MD [address] [place] [address] General Surgery 10/05/20 07/26/21 Eve Duffy DNP [address] [place] [address] [phone] [place] [address] miguel Nurse Practitioner Palliative Care 12/13/20 documented as of this encounter Additional Source Comments The information contained in this document represents components of the legal health record. It is not the complete legal health record.[facility]
--- OUTSIDE RECORDS SUMMARY | 2025-05-08 16:43 | XMS_ITS | Encounter Summary ---
Author Organization [facility] Address [address] [place] [address] [place] [address] Phone Care Team Providers Care Acid Adjuster Name Role Phone Isabella Singh MD Unavailable [phone] Eve Duffy DNP Unavailable [phone] Fina Jang SCADA ENGINEER Primary Care Provider Vinita Downey SCADA ENGINEER Primary Care Provider Zuleika Saldivar SCADA ENGINEER Primary Care Provider + Encounter Details Date Type Department Care Team (Late Contact Info) Description 01/25/2022 Procedure Pass [facility], [facility] [place], [place] 450 [facility], Floor L1 [place] [address] Social History Tobacco Use Types Packs/Day Years [...] Contact Info) Description 01/27/2025 Procedure Pass [facility] Imaging Department, [facility], [place] 450 [facility], Floor L1 [place] [address] 01/27/2025 Procedure Pass [facility] Imaging Department, [facility], [place] 450 [facility], Floor L1 [place] [address] 01/27/2025 Procedure Pass [facility] Imaging Department, [facility], MRI 450 [facility] 3 [place] [address] 08/18/2025 10:50 AM EST Appointment [facility] Imaging Department, [facility], [place] 450 [facility], Floor L1 [place] [address] Isabella Singh MD [address] [place] [address] [email or web address] 08/18/2025 11:40 AM EST Appointment [facility] Imaging Department, [facility], MRI [address] [address] Isabella Singh MD [address] [place] [address] Kaz@[email or web address] 08/18/2025 3:30 PM EST Office Visit [facility], [address], 6th [place] [address] Isabella Singh MD [address] [place] [address] [email or web address] documented as of this encounter Visit Diagnoses Not on filedocumented in this encounter Care Teams Acid Adjuster Relationship Specialty Start Date End Date Fina Jang NP PCP - General 1/26/22 3/9/23 Vinita Sevilla, ARLEEN PCP - General Nurse Practitioner 09/08/22 10/10/23 Zuleika oLndon, ARLEEN [address] [place] [address] PCP - General Nurse Practitioner 10/11/23 Isabella Singh MD [address] [place] [address] [email or web address] Medical Oncology 05/26/20 Eve Duffy DNP [address] [place] [address] 6[facility] [place] [address] miguel [email or web address] Nurse Practitioner Palliative Care 12/13/20 documented as of this encounter Additional Source Comments The information contained in this document represents components of the legal health record. It is not the complete legal health record.[facility]
--- OUTSIDE RECORDS SUMMARY | 2025-05-08 16:43 | XMS_ITS | Encounter Summary ---
Author Organization [employer] Address 75 [facility] 7t [place] [address] Care Team Providers Care Senior Property Manager Name Role Phone Zuleika London NP Primary Care Provider [phone] Encounter Details Date Type Department Care Team ([facility] st Contact Info) Description 07/23/2024 Orders Only [facility] MEDICINE 230 [place] [address] Zuleika London NP 230 [place] [address] Social History Tobacco Use Types Packs/Day Years [...] Description 05/12/2025 10:15 AM EST Clinical Support [facility] MEDICINE 230 [place] [address] 05/12/2025 3:15 PM EST Office Visit [facility] OPTOMETRY 267 [place] [address] VeronicalynnetteFina, OD 267 [place] [address] documented as of this encounter Visit Diagnoses Not on filedocumented in this encounter Additional Health Concerns Assessment Noted Time PHQ-9 Depression Total Score: 13 025 9:16 AM EST documented as of this encounter Care Teams Senior Property Manager Relationship Specialty Start Date End Date Zuleika London NP 230 [place] [address] PCP - General Family Medicine 04/10/23 documented as of this encounter
--- OUTSIDE RECORDS SUMMARY | 2025-05-08 16:43 | XMS_ITS | Encounter Summary ---
Author Organization [facility] Address [address] [place] [address] [place] [address] Phone Care Team Providers Care Drone Software Development Engineer Name Role Phone Henna Rodriguez MD Unavailable [phone] Isabella Singh MD Unavailable [phone] Henna Tatum MD Unavailable Eve Duffy DNP Unavailable [phone] Fina Jang FIRST GRADE TEACHER Primary Care Provider U Vinita Silveira FIRST GRADE TEACHER Primary Care Provider Unav ailZuleika Stevens FIRST GRADE TEACHER Primary Care Provider + Encounter Details Date Type Department Care Team (Late st Contact Info) Description 05/24/2020 Procedure Pass [facility] Imaging, [place] [address] [place] [address] Social History Tobacco Use Types Packs/Day Years [...] Info) Description 01/27/2025 Procedure Pass [facility] Imaging Department, [facility], [place] 450 [facility], Floor L1 [place] [address] 01/27/2025 Procedure Pass [facility] Imaging Department, [facility], [place] 450 [facility], Floor L1 [place] [address] 01/27/2025 Procedure Pass [facility] Imaging Department, [facility], MRI [address] [address] 08/18/2025 10:50 AM EST Appointment [facility] Imaging Department, [facility], [place] 450 [facility], Floor L1 [place] [address] Isabella Singh MD [address] [place] [address] [email or web address] 08/18/2025 11:40 AM EST Appointment [facility] Imaging Department, [facility], MRI [address] [address] Isabella Singh MD [address] [place] [address] [email or web address] 08/18/2025 3:30 PM EST Office Visit [facility], [address], 6th [place] [address] Isabella Singh MD [address] [place] [address] [email or web address] documented as of this encounter Visit Diagnoses Not on filedocumented in this encounter Care Teams Drone Software Development Engineer Relationship Specialty Start Date End Date Fina Jang, ARLEEN PCP - General 07/27/21 09/07/22 Vinita Sevilla, ARLEEN PCP - General Nurse Practitioner 09/08/22 10/10/23 Zuleika London, ARLEEN [address] [place] [address] PCP - General Nurse Practitioner 10/11/23 Henna Rodriguez MD [address] [facility] [address] [address] Referring Physician Medical Oncology 05/17/20 07/26/21 Isabella Singh MD [address] [place] [address] [email or web address] Medical Oncology 05/26/20 Henna Tatum MD [address] [place] [address] General Surgery 10/05/20 07/26/21 Eve Duffy DNP [address] [place] [address] 6[facility] Palliative [place] [address] miguel [email or web address] Nurse Practitioner Palliative Care 12/13/20 documented as of this encounter Additional Source Comments The information contained in this document represents components of the legal health record. It is not the complete legal health record.[facility]
--- OUTSIDE RECORDS SUMMARY | 2025-05-08 16:43 | XMS_ITS | Encounter Summary ---
Author Organization [facility] Address [address] [place] [address] [address] [place] [address] Phone Care Team Providers Care Customer Relations Coordinator Name Role Phone Isabella Singh MD Unavailable [phone] Eve Duffy DNP Unavailable [phone] Fina Jang MAILROOM ASSISTANT Primary Care Provider Vinita Downey MAILROOM ASSISTANT Primary Care Provider Zuleika Saldivar MAILROOM ASSISTANT Primary Care Provider + Encounter Details Date Type Department Care Team (Late st Contact Info) Description 05/22/2022 Transcribe Orders [facility], [facility], Imaging [id number] 450 [facility], Floor L1 [place] [address] Doris Wan MD, PhD 450 [facility] [place] [address] [email or web address] Blood tests prior to treatment or procedure [...] Info) Description 01/27/2025 Procedure Pass [facility] Imaging Department, [facility], [place] 450 [facility], Floor L1 [place] [address] 01/27/2025 Procedure Pass [facility] Imaging Department, [facility], [place] 450 [facility], Floor L1 [place] [address] 01/27/2025 Procedure Pass [facility] Imaging Department, [facility], MRI [address] [address] 08/18/2025 10:50 AM EST Appointment [facility] Imaging Department, [facility], [place] 450 [facility], Floor L1 [place] [address] Isabella Singh MD [address] [place] [address] [email or web address] 08/18/2025 11:40 AM EST Appointment [facility] Imaging Department, [facility], MRI [address] [address] Isabella Singh MD [address] [place] [address] [email or web address] 08/18/2025 3:30 PM EST Office Visit [facility], [address], 6th [place] [address] Isabella Singh MD [address] [place] [address] [email or web address] documented as of this encounter Visit Diagnoses Diagnosis Blood tests prior to treatment or procedure- Primary Pre-procedural laboratory examination documented in this encounter Care Teams Customer Relations Coordinator Relationship Specialty Start Date End Date Fina Jang, ARLEEN PCP - General 07/27/21 09/07/22 Vinita Sevilla, ARLEEN PCP - General Nurse Practitioner 09/08/22 10/10/23 Zuleika London, ARLEEN [address] [place] [address] PCP - General Nurse Practitioner 10/11/23 Isabella Singh MD [address] [place] [address] [email or web address] Medical Oncology 05/26/20 Eve Duffy DNP [address] [place] [address] 6[facility] [place] [address] [email or web address] Nurse Practitioner Palliative Care 12/13/20 documented as of this encounter Additional Source Comments The information contained in this document represents components of the legal health record. It is not the complete legal health record.[facility]
--- OUTSIDE RECORDS SUMMARY | 2025-05-08 16:43 | XMS_ITS | Encounter Summary ---
Author Organization [facility] Address [address] [facility] [address] [place] [address] Phone Care Team Providers Care Dietary Server Name Role Phone Henna Rodriguez MD Unavailable [phone] Isabella Singh MD Unavailable [phone] Henna Tatum MD Unavailable [phone] Eve Duffy DNP Unavailable [phone] Fina Jang DRAFTING INSTRUCTOR Primary Care Provider U Vintia Silveira DRAFTING INSTRUCTOR Primary Care Provider UnaZuleika Valenzuela DRAFTING INSTRUCTOR Primary Care Provider + Encounter Details Date Type Department Care Team (Late st Contact Info) Description 02/02/2021 Procedure Pass [facility] [place] [place] 450 [facility], Floor L1 [place] [address] Social History Tobacco Use Types Packs/Day Years [...] Info) Description 01/27/2025 Procedure Pass [facility] Imaging Department, [facility] [place] 450 [facility], Floor L1 [place] [address] 01/27/2025 Procedure Pass [facility] Imaging Department, [facility], [place] 450 [facility], Floor L1 [place] [address] 01/27/2025 Procedure Pass [facility] Imaging Department, [facility], MRI [address] [address] 08/18/2025 10:50 AM EST Appointment [facility] Imaging Department, [facility], [place] 450 [facility], Floor L1 [place] [address] Isabella Singh MD [address] [place] [address] [email or web address] 08/18/2025 11:40 AM EST Appointment [facility] Imaging Department, [facility], MRI [address] [address] Isabella Singh MD [address] [place] [address] [email or web address] 08/18/2025 3:30 PM EST Office Visit [facility], [address], 6th [place] [address] Isabella Singh MD [address] [place] [address] [email or web address] documented as of this encounter Visit Diagnoses Not on filedocumented in this encounter Care Teams Dietary Server Relationship Specialty Start Date End Date Fina Jang, ARLEEN PCP - General 07/27/21 09/07/22 Vinita Sevilla, ARLEEN PCP - General Nurse Practitioner 09/08/22 10/10/23 Zuleika London, ARLEEN [address] [place] [address] PCP - General Nurse Practitioner 10/11/23 Henna Rodriguez MD [address] [address] Referring Physician Medical Oncology 05/17/20 07/26/21 Isabella Singh MD [address] [place] [address] [email or web address] Medical Oncology 05/26/20 Henna Tatum MD [address] [place] [address] General Surgery 10/05/20 07/26/21 Eve Duffy DNP [address] [place] [address] [facility] [address] [email or web address] Nurse Practitioner Palliative Care 12/13/20 documented as of this encounter Additional Source Comments The information contained in this document represents components of the legal health record. It is not the complete legal health record.[facility]
--- OUTSIDE RECORDS SUMMARY | 2025-05-08 16:43 | XMS_ITS | Encounter Summary ---
Author Organization [employer] Address 75 [facility] 7t [place] [address] Care Team Providers Care Mucker Operator Name Role Phone Zuleika London NP Primary Care Provider [phone] Reason for Visit * Reason Onset Date Comments Results 07/18/2024 Encounter Details Date Type Department Care Team ([facility] st Contact Info) Description 07/18/2024 Telephone [facility] MEDICINE 230 [place] [address] Zuleika London NP 230 [place] [address] Results Social History Tobacco Use Types Packs/Day [...] the past 12 months, has t he [employer] gas, oil or water company threatened to [...] go over recent lab results. Pt contact: [phone] Pt states that it will be difficult to answer calls from 8am until 5pm due to work. documented in this encounter Plan of Treatment Upcoming Encounters Date Type Department Care Team (Late st Contact Info) Description 05/12/2025 10:15 AM EST Clinical Support [facility] 230 [place] [address] 05/12/2025 3:15 PM EST Office Visit [facility] OPTOMETRY [address] [place] [address] Fina Barros, OD [address] [place] [address] documented as of this encounter Visit Diagnoses Not on filedocumented in this encounter Additional Health Concerns Assessment Noted Time PHQ-9 Depression Total Score: 13 025 9:16 AM EST documented as of this encounter Care Teams Mucker Operator Relationship Specialty Start Date End Date Zuleika London NP [address] [place] [address] PCP - General Family Medicine 04/10/23 documented as of this encounter
--- OUTSIDE RECORDS SUMMARY | 2025-05-08 16:43 | XMS_ITS | Encounter Summary ---
Author Organization [employer] Address [address] [facility] [address] 7t [place] [address] Care Team Providers Care Technical Service Engineer Name Role Phone Zuleika London NP Primary Care Provider [phone] Reason for Visit * Reason Comments Med Refill Encounter Details Date Type Department Care Team ([facility] st Contact Info) Description 10/02/[address] [facility] [address] [place] [address] Zuleika London NP 230 [place] [address] Acquired hypothyroidism Social History Tobacco Use Types [...] Description 05/12/2025 10:15 AM EST Clinical [address] [facility]INE [address] [place] [address] 05/12/2025 3:15 PM EST Office Visit [facility] OPTOMETRY [address] [place] [address] TarkaFina, OD [address] [place] [address] documented as of this encounter Visit Diagnoses Diagnosis Acquired hypothyroidism Unspecified hypothyroidism documented in this encounter Additional Health Concerns Assessment Noted Time PHQ-9 Depression Total Score: 16 024 4:01 PM EST documented as of this encounter Care Teams Technical Service Engineer Relationship Specialty Start Date End Date Zuleika London NP [address] [place] [address] PCP - General Family Medicine 04/10/23 documented as of this encounter
--- OUTSIDE RECORDS SUMMARY | 2025-05-08 16:43 | XMS_ITS | Encounter Summary ---
Author Organization [facility] Address [address] [facility] [address] [place] [address] Phone Care Team Providers Care Wood Preparation Supervisor Name Role Phone Henna Rodriguez MD Unavailable [phone] Isabella Singh MD Unavailable [phone] Henna Tatum MD Unavailable [phone] Eve Duffy DNP Unavailable [phone] Fina Jang OPERATIONS MANAGEMENT TRAINEE Primary Care Provider U Vinita Silveira OPERATIONS MANAGEMENT TRAINEE Primary Care Provider UnaZuleika Valenzuela OPERATIONS MANAGEMENT TRAINEE Primary Care Provider + Encounter Details Date Type Department Care Team (Late st Contact Info) Description 07/06/2020 Procedure Pass [facility] [place] [place] [address] [facility], Floor L1 [place] [address] Social History Tobacco Use Types Packs/Day Years [...] Info) Description 01/27/2025 Procedure Pass [facility] Imaging Department, [facility], [place] [address] [facility], Floor L1 [place] [address] 01/27/2025 Procedure Pass [facility] Imaging Department, [facility], [place] [address] [facility], Floor L1 [place] [address] 01/27/2025 Procedure Pass [facility] Imaging Department, [facility], MRI [address] [address] 08/18/2025 10:50 AM EST Appointment [facility] Imaging Department, [facility], [place] 450 [facility], Floor L1 [place] [address] Isabella Singh MD [address] [place] [address] [email or web address] 08/18/2025 11:40 AM EST Appointment [facility] Imaging Department, [facility], MRI [address] [address] Isabella Singh MD [address] [place] [address] [email or web address] 08/18/2025 3:30 PM EST Office [facility], [address], 6th [place] [address] Isabella iSngh MD [address] [place] [address] [email or web address] documented as of this encounter Visit Diagnoses Not on filedocumented in this encounter Care Teams Wood Preparation Supervisor Relationship Specialty Start Date End Date Fina Jang, ARLEEN PCP - General 07/27/21 09/07/22 Vinita Sevilla, ARLEEN PCP - General Nurse Practitioner 09/08/22 10/10/23 Zuleika London, ARLEEN [address] [place] [address] PCP - General Nurse Practitioner 10/11/23 Henna Rodriguez MD [address] [address] Referring Physician Medical Oncology 05/17/20 07/26/21 Isabella Singh MD [address] [place] [address] [email or web address] Medical Oncology 05/26/20 Henna Tatum MD [address] [place] [address] General Surgery 10/05/20 07/26/21 Eve Duffy DNP [address] [place] [address] 6600 [facility] [address] [email or web address] Nurse Practitioner Palliative Care 12/13/20 documented as of this encounter Additional Source Comments The information contained in this document represents components of the legal health record. It is not the complete legal health record.[facility]
--- OUTSIDE RECORDS SUMMARY | 2025-05-08 16:43 | XMS_ITS | Encounter Summary ---
Author Organization [facility] Address [address] [place] [address] [place] [address] Phone Care Team Providers Care Reinforcing Metal Worker Name Role Phone Henna Rodriguez MD Unavailable [phone] Isabella Singh MD Unavailable [phone] Henna Tatum MD Unavailable [phone] Eve Duffy DNP Unavailable [phone] Fina Jang CLUBHOUSE MANAGER Primary Care Provider U Vinita Silveira CLUBHOUSE MANAGER Primary Care Provider Unav ailZuleika Stevens CLUBHOUSE MANAGER Primary Care Provider + Encounter Details Date Type Department Care Team (Late st Contact Info) Description 05/24/2020 Procedure Pass [facility] Imaging, [place] [address] [place] [address] Social History Tobacco Use Types Packs/Day Years [...] Contact Info) Description 01/27/2025 Procedure Pass [facility] Imaging Department, [facility], [place] [address] [facility], Floor L1 [place] [address] 01/27/2025 Procedure Pass [facility] Imaging Department, [facility] [address] [facility], Floor L1 [place] [address] 01/27/2025 Procedure Pass [facility] Imaging Department, [facility], MRI [address] [address] 08/18/2025 10:50 AM EST Appointment [facility] Imaging Department, [facility], [place] [address] [facility], Floor L1 [place] [address] Isabella Singh MD [address] [place] [address] [email or web address] 08/18/2025 11:40 AM EST Appointment [facility] Imaging Department, [facility], MRI [address] [address] Isabella Singh MD [address] [place] [address] [email or web address] 08/18/2025 3:30 PM EST Office Visit [facility], [address], 6th [place] [address] Isabella Singh MD [address] [place] [address] [email or web address] documented as of this encounter Visit Diagnoses Not on filedocumented in this encounter Care Teams Reinforcing Metal Worker Relationship Specialty Start Date End Date Fina Jang, ARLEEN PCP - General 07/27/21 09/07/22 Vinita Sevilla, ARLEEN PCP - General Nurse Practitioner 09/08/22 10/10/23 Zuleika London, ARLEEN [address] [place] [address] PCP - General Nurse Practitioner 10/11/23 Henna Rodriguez MD 100 [facility] [address] [address] Referring Physician Medical Oncology 05/17/20 07/26/21 Isabella Singh MD [address] [place] [address] [email or web address] Medical Oncology 05/26/20 Henna Tatum MD [address] [place] [address] General Surgery 10/05/20 07/26/21 Eve Duffy DNP [address] [place] [address] 6[facility] [place] [address] [email or web address] Nurse Practitioner Palliative Care 12/13/20 documented as of this encounter Additional Source Comments The information contained in this document represents components of the legal health record. It is not the complete legal health record.[facility]
--- OUTSIDE RECORDS SUMMARY | 2025-05-08 16:43 | XMS_ITS | Encounter Summary ---
Author Organization [facility] Address [address] [facility] [address] [place] [address] Phone Care Team Providers Care Hogshead Inspector Name Role Phone Henna Rodriguez MD Unavailable [phone] Isabella Singh MD Unavailable [phone] Henna Tatum MD Unavailable [phone] Eve Duffy DNP Unavailable [phone] Fina Jang PHOTOGRAPHIC RESTORER Primary Care Provider U Vinita Silveira PHOTOGRAPHIC RESTORER Primary Care Provider UnaZuleika Valenzuela PHOTOGRAPHIC RESTORER Primary Care Provider + Encounter Details Date Type Department Care Team (Late st Contact Info) Description 02/02/2021 Procedure Pass [facility], [facility] [place] [place] [address] [facility], Floor L1 [place] [address] Social History Tobacco Use Types Packs/Day Years [...] Contact Info) Description 01/27/2025 Procedure Pass [facility] Imaging Department, [facility], [place] [address] [facility], Floor L1 [place] [address] 01/27/2025 Procedure Pass [facility] Imaging Department, [facility], [place] [address] [facility], Floor L1 [place] [address] 01/27/2025 Procedure Pass [facility] Imaging Department, [facility], MRI [address] [address] 08/18/2025 10:50 AM EST Appointment [facility] Imaging Department, [facility], [place] [address] [facility], Floor L1 [place] [address] Isabella Singh MD [address] [place] [address] [email or web address] 08/18/2025 11:40 AM EST Appointment [facility] Imaging Department, [facility], MRI [address] [address] Isabella Singh MD [address] [place] [address] [email or web address] 08/18/2025 3:30 PM EST Office Visit [facility], [address], 6th [place] [address] Isabella Singh MD [address] [place] [address] [email or web address] documented as of this encounter Visit Diagnoses Not on filedocumented in this encounter Care Teams Hogshead Inspector Relationship Specialty Start Date End Date Fina Jang, ARLEEN PCP - General 07/27/21 09/07/22 Vinita Sevilla, ARLEEN PCP - General Nurse Practitioner 09/08/22 10/10/23 Zuleika London, ARLEEN [address] [place] [address] PCP - General Nurse Practitioner 10/11/23 Henna Rodriguez MD [address] [address] Referring Physician Medical Oncology 05/17/20 07/26/21 Isabella Singh MD [address] [place] [address] [email or web address] Medical Oncology 05/26/20 Henna Tatum MD [address] [place] [address] General Surgery 10/05/20 07/26/21 Eve Duffy DNP [address] [place] [address] 6600 [facility] [address] [email or web address] Nurse Practitioner Palliative Care 12/13/20 documented as of this encounter Additional Source Comments The information contained in this document represents components of the legal health record. It is not the complete legal health record.[facility]
--- OUTSIDE RECORDS SUMMARY | 2025-05-08 16:43 | XMS_ITS | Encounter Summary ---
Author Organization [facility] Address [address] [facility] 7t [place] [address] Care Team Providers Care Building Performance Specialist Name Role Phone Zuleika London NP Primary Care Provider [phone] Reason for Visit * Reason Comments Med Refill Encounter Details Date Type Department Care Team ([facility] st Contact Info) Description 01/18/2024 Refill [facility] MEDICINE 230 [place] [address] Zuleika London NP 230 [place] [address] Acquired hypothyroidism Social History Tobacco Use Types [...] Description 05/12/2025 10:15 AM EST Clinical Support [facility] MEDICINE 230 [place] [address] 05/12/2025 3:15 PM EST Office Visit [facility] OPTOMETRY 267 [place] [address] TarkaFina, OD 267 [place] [address] documented as of this encounter Visit Diagnoses Diagnosis Acquired hypothyroidism Unspecified hypothyroidism documented in this encounter Additional Health Concerns Assessment Noted Time PHQ-9 Depression Total Score: 16 024 4:01 PM EST documented as of this encounter Care Teams Building Performance Specialist Relationship Specialty Start Date End Date Zuleika London NP 230 [place] [address] PCP - General Family Medicine 04/10/23 documented as of this encounter
--- OUTSIDE RECORDS SUMMARY | 2025-05-08 16:43 | XMS_ITS | Encounter Summary ---
Author Organization [facility] Address [address] [place] [address] [place] [address] Phone Care Team Providers Care Cook Cold Meat Name Role Phone Isabella Singh MD Unavailable [phone] Eve Duffy DNP Unavailable [phone] Fina Jang NEGATIVE DEVELOPER Primary Care Provider Vinita Downey NEGATIVE DEVELOPER Primary Care Provider Zuleika Saldivar NEGATIVE DEVELOPER Primary Care Provider + Encounter Details Date Type Department Care Team (Late Contact Info) Description 05/24/2022 Procedure Pass [facility] Imaging [facility], [facility] [place], [place] [address] [facility], Floor L1 [place] [address] Social History Tobacco Use Types Packs/Day Years [...] Description 01/27/2025 Procedure Pass [facility] Imaging Department, [facility], [place] [address] [facility], Floor L1 [place] [address] 01/27/2025 Procedure Pass [facility] Imaging Department, [facility], [place] [address] [facility], Floor L1 [place] [address] 01/27/2025 Procedure Pass [facility] Imaging Department, [facility], [place] 450 [facility] [address] [place] [address] 08/18/2025 10:50 AM EST Appointment [facility] Imaging Department, [facility], [place] [address] [facility], Floor L1 [place] [address] Isabella Singh MD [address] [place] [address] [email or web address] 08/18/2025 11:40 AM EST Appointment [facility] Imaging Department, [facility], MRI [address] [address] Isabella Singh MD [address] [place] [address] [email or web address] 08/18/2025 3:30 PM EST Office Visit [facility], [address], 6th [place] [address] Isabella Singh MD [address] [place] [address] [email or web address] documented as of this encounter Visit Diagnoses Not on filedocumented in this encounter Care Teams Cook Cold Meat Relationship Specialty Start Date End Date Fina Jang NP PCP - General 1/26/22 3/9/23 Vinita Sevilla, ARLEEN PCP - General Nurse Practitioner 09/08/22 10/10/23 Zuleika London, ARLEEN [address] [place] [address] PCP - General Nurse Practitioner 10/11/23 Isabella Singh MD [address] [place] [address] [email or web address] Medical Oncology 05/26/20 Eve Duffy DNP [address] [place] [address] 6[facility] Palliative [place] [address] [email or web address] Nurse Practitioner Palliative Care 12/13/20 documented as of this encounter Additional Source Comments The information contained in this document represents components of the legal health record. It is not the complete legal health record.[facility]
--- OUTSIDE RECORDS SUMMARY | 2025-05-08 16:43 | XMS_ITS | Encounter Summary ---
Author Organization [facility] Address [facility] [address] [place] [address] Phone Care Team Providers Care Overlock Sleeve Setter Name Role Phone Isabella Singh MD Unavailable Eve Duffy DNP Unavailable [phone] Fina Jang EXTERNAL GRINDER TENDER Primary Care Provider U Vinita Silveira EXTERNAL GRINDER TENDER Primary Care Provider Zuleika Saldivar EXTERNAL GRINDER TENDER Primary Care Provider + Encounter Details Date Type Department Care Team (Late st Contact Info) Description 02/21/2022 Procedure Pass [facility] [address] Social History Tobacco Use Types Packs/Day Years [...] 01/27/2025 Procedure Pass [facility], [facility], [place] 450 [facility], Floor L1 [place] [address] 01/27/2025 Procedure Pass [facility] Imaging Department, [facility], [place] [address] [facility], Floor L1 [place] [address] 01/27/2025 Procedure Pass [facility] Imaging Department, [facility], [place] 450 [facility] [place] 3 [place] [address] 08/18/2025 10:50 AM EST Appointment [facility] Imaging Department, [facility], [place] 450 [facility], Floor L1 [place] [address] Isabella Singh MD [address] [place] [address] [email or web address] 08/18/2025 11:40 AM EST Appointment [facility] Imaging Department, [facility], [place] 450 [facility] 3 [place] [address] Isabella Singh MD [address] [place] [address] [email or web address] 08/18/2025 3:30 PM EST Office Visit [facility], [address], 6th [place] [address] Isabella Singh MD [address] [place] [address] [email or web address] documented as of this encounter Visit Diagnoses Not on filedocumented in this encounter Care Teams Overlock Sleeve Setter Relationship Specialty Start Date End Date Fina Jang NP PCP - General 07/27/21 09/07/22 Vinita Sevlila, ARLEEN PCP - General Nurse Practitioner 09/08/22 10/10/23 Zuleika London NP [address] [place] [address] PCP - General Nurse Practitioner 10/11/23 Isabella Singh MD [address] [place] [address] [email or web address] Medical Oncology 05/26/20 Eve Duffy DNP [address] [place] [address] 6[facility] [place] [address] miguel Nurse Practitioner Palliative Care 12/13/20 documented as of this encounter Additional Source Comments The information contained in this document represents components of the legal health record. It is not the complete legal health record.[facility]
--- OUTSIDE RECORDS SUMMARY | 2025-05-08 16:44 | XMS_ITS | Encounter Summary ---
Author Organization [facility] Address [address] [place] [address] [place] [address] Phone Care Team Providers Care Water Taxi Boat Mate Name Role Phone Isabella Singh MD Unavailable [phone] Eve Duffy DNP Unavailable [phone] Fina Jang REFERRAL MANAGEMENT LIAISON Primary Care Provider U Vinita Silveira REFERRAL MANAGEMENT LIAISON Primary Care Provider Zuleika Saldivar REFERRAL MANAGEMENT LIAISON Primary Care Provider + Encounter Details Date Type Department Care Team (Late Contact Info) Description 11/18/2021 Procedure Pass [facility] Imaging Department, [facility] [place], [place] 450 [facility], Floor L1 [place] [address] Social History Tobacco Use Types Packs/Day Years [...] 01/27/2025 Procedure Pass [facility] Imaging Department, [facility], [place] 450 [facility], Floor L1 [place] [address] 01/27/2025 Procedure Pass [facility] Imaging Department, [facility], [place] 450 [facility], Floor L1 [place] [address] 01/27/2025 Procedure Pass [facility] Imaging Department, [facility], MRI 450 [facility] 3 [place] [address] 08/18/2025 10:50 AM EST Appointment [facility] Imaging Department, [facility], [place] 450 [facility], Floor L1 [place] [address] Isabella Singh MD [address] [place] [phone] [email or web address] 08/18/2025 11:40 AM EST Appointment [facility] Imaging Department, [facility], MRI [address] [address] Isabella Singh MD [address] [place] [address] [email or web address] 08/18/2025 3:30 PM EST Office Visit [facility], [address], 6th [place] [address] Isabella Singh MD [address] [place] [address] [email or web address] documented as of this encounter Visit Diagnoses Not on filedocumented in this encounter Care Teams Water Taxi Boat Mate Relationship Specialty Start Date End Date Fina Jang NP PCP - General 1/26/22 3/9/23 Vinita Sevilla, ARLEEN PCP - General Nurse Practitioner 09/08/22 10/10/23 Zuleika London, ARLEEN [address] [place] [address] PCP - General Nurse Practitioner 10/11/23 Isabella Singh MD [address] [place] [address] [email or web address] Medical Oncology 05/26/20 Eve Duffy DNP [address] [place] [address] 6[facility] Palliative [place] [address] [email or web address] Nurse Practitioner Palliative Care 12/13/20 documented as of this encounter Additional Source Comments The information contained in this document represents components of the legal health record. It is not the complete legal health record.[facility]
--- OUTSIDE RECORDS SUMMARY | 2025-05-08 16:44 | XMS_ITS | Encounter Summary ---
Author Organization [facility] Address [address] [place] [address] 7t [place] [address] Care Team Providers Care Glass Silverer Name Role Phone Vinita Sevilla Primary Care Provider Kat Acosta MD Primary Care Pro vider Zuleika London NP Primary Care Provider [phone] Encounter Details Date Type Department Care Team (Late Contact Info) Description 08/16/2022 Telephone [facility] MEDICINE [address] [place] [address] Vinita Sevilla FNP Social History Tobacco Use [...] Care Team (Late Contact Info) Description 05/12/2025 10:15 AM EST Clinical Support [facility] 230 [place] [address] 05/12/2025 3:15 PM EST Office Visit [facility] OPTOMETRY 267 [place], [place] [phone] Fina Barros, OD 267 [place], [place] [phone] documented as of this encounter Visit Diagnoses Not on filedocumented in this encounter Additional Health Concerns Assessment Noted Time PHQ-9 Depression Total Score: 6 06/22/20 22 4:03 PM EST documented as of this encounter Care Teams Glass Silverer Relationship Specialty Start Date End Date Vinita Sevilla FNP PCP - General Family Medicine 02/21/22 01/11/23 Kat Murillo MD [address] [place] [address] PCP - General Internal Medicine 01/12/23 04/09/23 Zuleika London NP [address] [place] [address] PCP - General Family Medicine 04/10/23 documented as of this encounter
--- OUTSIDE RECORDS SUMMARY | 2025-05-08 16:44 | XMS_ITS | Encounter Summary ---
Author Organization [facility] Address [address] [place] [address] [place] [address] Phone Care Team Providers Care Certified Alcohol Counselor Name Role Phone Isabella Singh MD Unavailable [phone] Eve Duffy DNP Unavailable [phone] Fina Jang SMT TECHNICIAN Primary Care Provider Vinita Downey SMT TECHNICIAN Primary Care Provider Zuleika Saldivar SMT TECHNICIAN Primary Care Provider + Encounter Details Date Type Department Care Team (Late st Contact Info) Description 11/18/2021 Procedure Pass [facility] [place] MRI [address] [address] Social History Tobacco Use Types Packs/Day Years [...] st Contact Info) Description 01/27/2025 Procedure Pass [facility] Imaging Department, [facility], [place] 450 [facility], Floor L1 [place] [address] 01/27/[address] [facility] Imaging Department, [facility] [place] 450 [facility], Floor L1 [place] [address] 01/27/2025 Procedure Pass [facility] Imaging Department, [facility], MRI 450 [facility] 3 [place] [address] 08/18/2025 10:50 AM EST Appointment [facility] Imaging Department, [facility], [place] 450 [facility], Floor L1 [place] [address] Isabella Singh MD [address] [place] [address] [email or web address] 08/18/2025 11:40 AM EST Appointment [facility] Imaging Department, [facility], MRI 450 [facility] 3 [place] [address] Isabella Singh MD [address] [place] [address] [email or web address] 08/18/2025 3:30 PM EST Office Visit [facility], [address], 6th [place] [address] Isabella Singh MD [address] [place] [address] [email or web address] documented as of this encounter Visit Diagnoses Not on filedocumented in this encounter Care Teams Certified Alcohol Counselor Relationship Specialty Start Date End Date Fina Jang NP PCP - General 07/27/21 09/07/22 Vinita Sevilla NP PCP - General Nurse Practitioner 09/08/22 10/10/23 Zuleika London NP [address] [place] [address] PCP - General Nurse Practitioner 10/11/23 Isabella Singh MD [address] [place] [phone] [email or web address] Medical Oncology 05/26/20 Eve Duffy DNP [address] [place] [address] 6[facility] [place] [address] [email or web address] Nurse Practitioner Palliative Care 12/13/20 documented as of this encounter Additional Source Comments The information contained in this document represents components of the legal health record. It is not the complete legal health record.[facility]
--- OUTSIDE RECORDS SUMMARY | 2025-05-08 16:45 | XMS_ITS | Encounter Summary ---
Author Organization [facility] Address [address] [facility] [address] [place] [address] Phone Care Team Providers Care Accounts Collector Name Role Phone Isabella Singh MD Unavailable [phone] GivenEve DNP Unavailable [phone] Vinita Sevilla CATALYST CONCENTRATION OPERATOR Primary Care Provider Unav ailable Zuleika London CATALYST CONCENTRATION OPERATOR Primary Care Provider + Encounter Details Date Type Department Care Team (Late st Contact Info) Description 11/28/2022 Procedure Pass [facility] CT Imaging, [place] [address] [place] [address] Social History Tobacco Use Types Packs/Day Years [...] st Contact Info) Description 01/27/2025 Procedure Pass [facility] Imaging Department, [facility], [place] 450 [facility], Floor L1 [place] [address] 01/27/2025 Procedure Pass [facility] Imaging Department, [facility] [place] 450 [facility], Floor L1 [place] [address] 01/27/2025 Procedure Pass [facility] Imaging Department, [facility], MRI [address] [address] 08/18/2025 10:50 AM EST Appointment [facility] Imaging Department, [facility], [place] 450 [facility], Floor L1 [place] [address] Isabella Singh MD [address] [place] [address] [email or web address] 08/18/2025 11:40 AM EST Appointment [facility] Imaging Department, [facility], MRI [address] [address] Isabella Singh MD [address] [place] [phone] [email or web address] 08/18/2025 3:30 PM EST Office Visit [facility], [address], 6th [place] [address] Isabella Singh MD [address] [place] [address] [email or web address] documented as of this encounter Visit Diagnoses Not on filedocumented in this encounter Care Teams Accounts Collector Relationship Specialty Start Date End Date Vinita Sevilla NP PCP - General Nurse Practitioner 09/08/22 10/10/23 Zuleika London NP [address] [place] [address] PCP - General Nurse Practitioner 10/11/23 Isabella Singh MD [address] [place] [address] [email or web address] Medical [email or web address] 05/26/20 Eve Duffy DNP [address] [place] [address] 6[facility] [place] [address] [email or web address] Nurse Practitioner Palliative Care 12/13/20 documented as of this encounter Additional Source Comments The information contained in this document represents components of the legal health record. It is not the complete legal health record.[facility]
--- OUTSIDE RECORDS SUMMARY | 2025-05-08 16:45 | XMS_ITS | Encounter Summary ---
Author Organization [facility] Address [address] [facility] [address] [place] [address] Phone Care Team Providers Care Communications Analyst Name Role Phone Isabella Singh MD Unavailable [phone] GivenEve DNP Unavailable [phone] Vinita Sevilla PROFESSOR OF INDUSTRIAL TECHNOLOGY Primary Care Provider Unav ailable Zuleika London PROFESSOR OF INDUSTRIAL TECHNOLOGY Primary Care Provider + Encounter Details Date Type Department Care Team (Late st Contact Info) Description 10/03/2023 Procedure Pass [facility] MR Imaging, [place] [address] [place] [address] Social History Tobacco Use Types Packs/Day Years [...] st Contact Info) Description 01/27/2025 Procedure Pass [facility] Imaging Department, [facility], [place] 450 [facility], Floor L1 [place] [address] 01/27/2025 Procedure Pass [facility] Imaging Department, [facility], [place] 450 [facility], Floor L1 [place] [address] 01/27/2025 Procedure Pass [facility] Imaging Department, [facility], MRI [address] [address] 08/18/2025 10:50 AM EST Appointment [facility] Imaging Department, [facility], [place] 450 [facility], Floor L1 [place] [address] Isabella Singh MD [address] [place] [address] [email or web address] 08/18/2025 11:40 AM EST Appointment [facility] Imaging Department, [facility], MRI [address] [address] Isabella Singh MD [address] [place] [address] [email or web address] 08/18/2025 3:30 PM EST Office Visit [facility], [address], 6th [place] [address] Isabella Singh MD [address] [place] [address] [email or web address] documented as of this encounter Visit Diagnoses Not on filedocumented in this encounter Care Teams Communications Analyst Relationship Specialty Start Date End Date Vinita Sevilla NP PCP - General Nurse Practitioner 09/08/22 10/10/23 Zuleika London NP [address] [place] [address] PCP - General Nurse Practitioner 10/11/23 Isabella Singh MD [address] [place] [address] [email or web address] Medical Oncology 05/26/20 Eve Duffy DNP [address] [place] [address] 6[facility] [place] [address] [email or web address] Nurse Practitioner Palliative Care 12/13/20 documented as of this encounter Additional Source Comments The information contained in this document represents components of the legal health record. It is not the complete legal health record.[facility]
--- OUTSIDE RECORDS SUMMARY | 2025-05-08 16:45 | XMS_ITS | Encounter Summary ---
Author Organization [facility] Address [address] [facility] [address] [place] [address] Phone Care Team Providers Care Shoe Packer Name Role Phone Isabella Singh MD Unavailable [phone] GivenEve DNP Unavailable [phone] Vinita Sevilla HEAD STOCK TRANSFER CLERK Primary Care Provider Unav ailable Zuleika London HEAD STOCK TRANSFER CLERK Primary Care Provider + Encounter Details Date Type Department Care Team (Late st Contact Info) Description 08/22/2023 Procedure Pass [facility], [facility] [place], [place] 450 [facility], Floor L1 [place] [address] Social History Tobacco Use Types Packs/Day Years [...] 01/27/2025 Procedure Pass [facility] Imaging Department, [facility], [place] 450 [facility], Floor L1 [place] [address] 01/27/2025 Procedure Pass [facility] Imaging Department, [facility], [place] 450 [facility], Floor L1 [place] [address] 01/27/2025 Procedure Pass [facility] Imaging Department, [facility], MRI [address] [address] 08/18/2025 10:50 AM EST Appointment [facility] Imaging Department, [facility], [place] 450 [facility], Floor L1 [place] [address] Isabella Singh MD [address] [place] [phone] [email or web address] 08/18/2025 11:40 AM EST Appointment [facility] Imaging Department, [facility], MRI [address] [address] Isabella Singh MD [address] [place] [address] [email or web address] 08/18/2025 3:30 PM EST Office Visit [facility], [address], 6th [place] [address] Isabella Singh MD [address] [place] [address] [email or web address] documented as of this encounter Visit Diagnoses Not on filedocumented in this encounter Care Teams Shoe Packer Relationship Specialty Start Date End Date Vinita Sevilla NP PCP - General Nurse Practitioner 09/08/22 10/10/23 Zuleika London NP [address] [place] [address] PCP - General Nurse Practitioner 10/11/23 Isabella Singh MD [address] [place] [address] [email or web address] Medical Oncology 05/26/20 Eve Duffy DNP [address] [place] [address] 6600 [facility] [address] [email or web address] Nurse Practitioner Palliative Care 12/13/20 documented as of this encounter Additional Source Comments The information contained in this document represents components of the legal health record. It is not the complete legal health record.[facility]
--- OUTSIDE RECORDS SUMMARY | 2025-05-08 16:45 | XMS_ITS | Encounter Summary ---
Author Organization [employer] Address [address] [facility] [address] [place] [address] Care Team Providers Care Ui Developer Name Role Phone Zuleika London NP Primary Care Provider [phone] Reason for Visit * Reason Comments Med Refill Encounter Details Date Type Department Care Team (Late st Contact Info) Description 03/16/2024 Refill [facility] [place] [address] [place] [address] Helene Mcguire FNP Acquired hypothyroidism Social History [...] Description 05/12/2025 10:15 AM EST Clinical Support [facility] MEDICINE 230 [place] [address] 05/12/2025 3:15 PM EST Office Visit [facility] OPTOMETRY 267 [place] [address] Fina Barros OD 267 [place] [address] documented as of this encounter Visit Diagnoses Diagnosis Acquired hypothyroidism Unspecified hypothyroidism documented in this encounter Additional Health Concerns Assessment Noted Time PHQ-9 Depression Total Score: 16 024 4:01 PM EST documented as of this encounter Care Teams Ui Developer Relationship Specialty Start Date End Date Zuleika London NP 230 [place] [address] PCP - General Family Medicine 04/10/23 documented as of this encounter
--- OUTSIDE RECORDS SUMMARY | 2025-05-08 16:45 | XMS_ITS | Encounter Summary ---
Author Organization [email or web address] Address [address] [facility] 7t [place] [address] Care Team Providers Care Communications Lead Name Role Phone Zuleika London NP Primary Care Provider Reason for Visit * Reason Comments Med Refill Encounter Details Date Type Department Care Team ([facility] st Contact Info) Description 03/18/2024 Refill [facility] MEDICINE 230 [place] [address] Zuleika London NP 230 [place] [address] Acquired hypothyroidism Social History Tobacco Use Types [...] 10:15 AM EST Clinical Support [facility] MEDICINE 230 [place] [address] 05/12/2025 3:15 PM EST Office Visit [facility] OPTOMETRY 267 [place] [address] Fina Barros, OD 267 [place] [address] documented as of this encounter Visit Diagnoses Diagnosis Acquired hypothyroidism Unspecified hypothyroidism documented in this encounter Additional Health Concerns Assessment Noted Time PHQ-9 Depression Total Score: 16 024 4:01 PM EST documented as of this encounter Care Teams Communications Lead Relationship Specialty Start Date End Date Zuleika London NP 230 [place] [address] PCP - General Family Medicine 04/10/23 documented as of this encounter
--- OUTSIDE RECORDS SUMMARY | 2025-05-08 16:45 | XMS_ITS | Encounter Summary ---
Author Organization [facility] Address [address] [facility] [address] [place] [address] Phone Care Team Providers Care Counsel Name Role Phone Isabella Snigh MD Unavailable [phone] GivenEve DNP Unavailable [phone] Vinita Sevilla CONCERT MANAGER Primary Care Provider Unav ailable Zuleika London CONCERT MANAGER Primary Care Provider + Encounter Details Date Type Department Care Team (Late st Contact Info) Description 08/22/2023 Procedure Pass [facility] Imaging Department, [facility] [place], [place] 450 [facility], Floor L1 [place] [address] Social History Tobacco Use Types Packs/Day Years [...] st Contact Info) Description 01/27/2025 Procedure Pass [facility] Imaging Department, [facility], [place] 450 [facility], Floor L1 [place] [address] 01/27/2025 Procedure Pass [facility] Imaging Department, [facility], [place] 450 [facility], Floor L1 [place] [address] 01/27/2025 Procedure Pass [facility] Imaging Department, [facility], MRI [address] [address] 08/18/2025 10:50 AM EST Appointment [facility] Imaging Department, [facility], [place] 450 [facility], Floor L1 [place] [address] Isabella Singh MD [address] [place] [address] [email or web address] 08/18/2025 11:40 AM EST Appointment [facility] Imaging Department, [facility], MRI [address] [address] Isabella Singh MD [address] [place] [address] [email or web address] 08/18/2025 3:30 PM EST Office Visit [facility], [address], 6th [place] [address] Isabella Singh MD [address] [place] [address] [email or web address] documented as of this encounter Visit Diagnoses Not on filedocumented in this encounter Care Teams Counsel Relationship Specialty Start Date End Date Vinita Sevilla NP PCP - General Nurse Practitioner 09/08/22 10/10/23 Zuleika London NP [address] [place] [address] PCP - General Nurse Practitioner 10/11/23 Isabella Singh MD [address] [place] [address] [email or web address] Medical Oncology 05/26/20 Eve Duffy DNP [address] [place] [address] 6600 [place] [address] [email or web address] Nurse Practitioner Palliative Care 12/13/20 documented as of this encounter Additional Source Comments The information contained in this document represents components of the legal health record. It is not the complete legal health record.[facility]
--- OUTSIDE RECORDS SUMMARY | 2025-05-08 16:45 | XMS_ITS | Encounter Summary ---
Author Organization [employer] Address [address] [facility] 7t [place] [address] Care Team Providers Care Rn Delivery Name Role Phone Zuleika London NP Primary Care Provider [phone] Reason for Visit * Reason Onset Date Comments Referral 01/25/2024 Encounter Details Date Type Department Care Team ([facility] st Contact Info) Description 01/25/2024 Telephone [facility] MEDICINE 230 [place] [address] Zuleika London NP 230 [place] [address] Referral Social History Tobacco Use Types Packs/Day [...] the past 12 months, has t he [employer], gas, oil or water company threatened to [...] of Home Sleep Study states had [place] [facility] and was told has not received any fax from our office documented in this encounter Plan of Treatment Upcoming Encounters Date Type Department Care Team (Late st Contact Info) Description 05/12/2025 10:15 AM EST Clinical Support [facility] MEDIC[facility] [address] [place] [address] 05/12/2025 3:15 PM EST Office Visit [facility] OPTOMETRY [address] [place] [address] Fina Barros, OD 267 [place] [address] documented as of this encounter Visit Diagnoses Not on filedocumented in this encounter Additional Health Concerns Assessment Noted Time PHQ-9 Depression Total Score: 16 024 4:01 PM EST documented as of this encounter Care Teams Rn Delivery Relationship Specialty Start Date End Date Zulieka London NP 230 [place] [address] PCP - General Family Medicine 04/10/23 documented as of this encounter
--- OUTSIDE RECORDS SUMMARY | 2025-05-08 16:45 | XMS_ITS | Encounter Summary ---
Author Organization [employer] Address [address] [facility] 7t [place] [address] Care Team Providers Care Clinical Cytogenetics Director Name Role Phone Zuleika London NP Primary Care Provider Reason for Visit * Reason Onset Date Comments Referral 02/27/2024 Encounter Details Date Type Department Care Team ([facility] st Contact Info) Description 02/27/2024 Telephone [facility] MEDICINE 230 [place] [address] Zuleika London NP 230 [place] [address] Referral Social History Tobacco Use Types Packs/Day [...] - 02/27/2024 12:47 PM EDT Tc from [facility] calling in regards to Physical therapy stating they received order for right arm weakness and they're requesting an updated order for pt to have occupational therapy If any questions you can contact [facility] at [phone]. documented in this encounter Plan of Treatment Upcoming Encounters Date Type Department Care Team ([facility] st Contact Info) Description 05/12/2025 10:15 AM EST Clinical Support [facility] MEDICINE 230 [place] [address] 05/12/2025 3:15 PM EST Office Visit [facility] OPTOMETRY 267 [place] [address] Tarka, Fina, OD 267 [facility] [place] [address] documented as of this encounter Visit Diagnoses Not on filedocumented in this encounter Additional Health Concerns Assessment Noted Time PHQ-9 Depression Total Score: 16 024 4:01 PM EST documented as of this encounter Care Teams Clinical Cytogenetics Director Relationship Specialty Start Date End Date Zuleika London NP 230 [place] [address] PCP - General Family Medicine 04/10/23 documented as of this encounter
--- OUTSIDE RECORDS SUMMARY | 2025-05-08 16:45 | XMS_ITS | Encounter Summary ---
Author Organization [employer] Address [address] [place] [address] 7t [place] [address] Care Team Providers Care Netbackup Admin Name Role Phone Vinita Sevilla Primary Care Provider Kat Acosta MD Primary Care Pro vider Zuleika London NP Primary Care Provider [phone] Encounter Details Date Type Department Care Team (Late Contact Info) Description 12/21/2022 Abstract [facility] MEDICINE 230 [place] [address] Vinita Sevilla FNP Social History Tobacco Use [...] Description 05/12/2025 10:15 AM EST Clinical Support [facility] MEDICINE 230 [place] [address] 05/12/2025 3:15 PM EST Office Visit [facility] OPTOMETRY 267 [place], [place] [phone] Fina Barros, OD 267 [place], [place] [address] documented as of this encounter Visit Diagnoses Not on filedocumented in this encounter Additional Health Concerns Assessment Noted Time PHQ-9 Depression Total Score: 6 06/22/20 4:03 PM EST documented as of this encounter Care Teams Netbackup Admin Relationship Specialty Start Date End Date Vinita Sevilla FNP PCP - General Family Medicine 02/21/22 01/11/23 Kat Murillo MD 230 [place] [address] PCP - General Internal Medicine 01/12/23 04/09/23 Zuleika London NP 230 [place] [address] PCP - General Family Medicine 04/10/23 documented as of this encounter
--- OUTSIDE RECORDS SUMMARY | 2025-05-08 16:45 | XMS_ITS | Encounter Summary ---
Author Organization [employer] Address [address] [place] [address] 7t [place] [address] Care Team Providers Care Environmental Emergencies Planner Name Role Phone Zuleika London NP Primary Care Provider Reason for Referral * Consultation (Routine) - Closed Specialty Diagnoses / Procedures Referred By Contlubna t Referred To Contact Physical Therapy Diagnoses Muscle weakness of right arm Zuleika London NP 230 [place] [address] Phone: tel: fax: Physical Therapy, AT [address] [place] [address] Dr Randy [place] Phone: tel: fax: Referral ID Status Reason Start Date Expiration Date V isits Requested Visits Authorized [id number] Closed Specialty Services Required 04/16/2024 04/16/2025 1 1 Encounter Details Date Type Department Care Team (Late st Contact Info) Description 04/16/2024 Orders Only [facility] MEDICINE 230 [place] [address] Zuleika London NP [address] [place] [address] Muscle weakness of right arm (Primary Dx) [...] Description 05/12/2025 10:15 AM EST Clinical Support [facility] MEDICINE 230 [place], [place] [phone] 05/12/2025 3:15 PM EST Office Visit [facility] OPTOMETRY 267 [place] [address] Fina Barros, OD 267 [place], [place] [phone] Scheduled Referrals Name Type Priority Associated Diagnoses [...] documented as of this encounter Care Teams Environmental Emergencies Planner Relationship Specialty Start Date End Date Zuleika London NP 230 [place] [address] PCP - General Family Medicine 04/10/23 documented as of this encounter
--- OUTSIDE RECORDS SUMMARY | 2025-05-08 16:45 | XMS_ITS | Encounter Summary ---
Author Organization [facility] Address [address] [facility] [address] [place] [address] Phone Care Team Providers Care Livestock Nutrition Territory Manager Name Role Phone Isabella Singh MD Unavailable [phone] Eve Duffy DNP Unavailable [phone] Vinita Sevilla MIXING MACHINE TENDER CORK GASKET Primary Care Provider Unav ailable Zuleika London MIXING MACHINE TENDER CORK GASKET Primary Care Provider + Encounter Details Date Type Department Care Team (Late st Contact Info) Description 11/28/2022 Procedure Pass [facility] [address] [place] [address] Social History Tobacco Use Types Packs/Day Years [...] 01/27/2025 Procedure Pass [facility], [place], [place] [address] [facility], Floor [address] [place] [address] 01/27/2025 Procedure Pass [facility], [place] [address] [facility], Floor [address] [place] [address] 01/27/2025 Procedure Pass [facility], [place], [place] [address] [address] 08/18/2025 10:50 AM EST Appointment [facility], [place] [address] [facility], Floor [address] [place] [address] Isabella Singh MD [address] [place] [phone] [email or web address] 08/18/2025 11:40 AM EST Appointment [facility], [place], [place] [address] [address] Isabella Singh MD [address] [place] [phone] [email or web address] 08/18/2025 3:30 PM EST Office Visit [facility], [address], 6th [place] [address] Isabella Singh MD [address] [place] [address] [email or web address] documented as of this encounter Visit Diagnoses Not on filedocumented in this encounter Care Teams Livestock Nutrition Territory Manager Relationship Specialty Start Date End Date Vinita Sevilla NP PCP - General Nurse Practitioner 09/08/22 10/10/23 Zuleika London NP [address] [place] [address] PCP - General Nurse Practitioner 10/11/23 Isabella Singh MD [address] [place] [phone] [email or web address] Medical Oncology 05/26/20 Eve Duffy DNP [address] [place] [address] [phone] [place] [address] [email or web address] Nurse Practitioner Palliative Care 12/13/20 documented as of this encounter Additional Source Comments The information contained in this document represents components of the legal health record. It is not the complete legal health record.[facility]
--- OUTSIDE RECORDS SUMMARY | 2025-05-08 16:45 | XMS_ITS | Encounter Summary ---
Author Organization [facility] Address [address] [facility] [address] [place] [address] Phone Care Team Providers Care Apartment Community Manager Name Role Phone Isabella Singh MD Unavailable [phone] GivenEve DNP Unavailable [phone] Vinita Sevilla POSTAL CLERK Primary Care Provider Unav ailable Zuleika London POSTAL CLERK Primary Care Provider + Encounter Details Date Type Department Care Team (Late st Contact Info) Description 10/03/2023 Procedure Pass [facility] [address] [place] [address] Social History Tobacco Use Types Packs/Day Years [...] Procedure Pass [facility], [facility], [place] [address] [facility], Floor [address]1 [place] [address] 01/27/2025 Procedure Pass [facility], [facility], [place] [address] [facility], Floor [address]1 [place] [address] 01/27/2025 Procedure Pass [facility], [facility], MRI [address] [address] 08/18/2025 10:50 AM EST Appointment [facility], [facility], [place] [address] [facility], Floor [address]1 [place] [address] Isabella Singh MD [address] [place] [phone] [email or web address] 08/18/2025 11:40 AM EST Appointment [facility], [facility], MRI [address] [address] Isabella Singh MD [address] [place] [phone] [email or web address] 08/18/2025 3:30 PM EST Office Visit [facility], [address], 6th [place] [address] Isabella Singh MD [address] [place] [address] [email or web address] documented as of this encounter Visit Diagnoses Not on filedocumented in this encounter Care Teams Apartment Community Manager Relationship Specialty Start Date End Date Vinita Sevilla NP PCP - General Nurse Practitioner 09/08/22 10/10/23 Zuleika London NP [address] [place] [address] PCP - General Nurse Practitioner 10/11/23 Isabella Singh MD [address] [place] [phone] [email or web address] Medical Oncology 05/26/20 Eve Duffy DNP [address] [place] [address] 6[facility] [place] [address] [email or web address] Nurse Practitioner Palliative Care 12/13/20 documented as of this encounter Additional Source Comments The information contained in this document represents components of the legal health record. It is not the complete legal health record.[facility]
--- OUTSIDE RECORDS SUMMARY | 2025-05-08 16:45 | XMS_ITS | Clinical Summary ---
Author Organization [employer] Address [address] [facility] 7t [place] [address] Care Team Providers Care Clinical Lab Scientist Name Role Phone Zuleika London NP Primary Care Provider [phone] Allergies Active Allergy Reactions Criticality Noted Date [...] per month. Avoid face, groin, skin folds. 025 Active traZODone (Desyrel) 50 MG tabletIndications :Current severe 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, unspecified whether recurrent (CMS/HCC) (HCC) Take 1 tablet (50 mg) by mouth at bedtime. May repeat 1 time as needed for insomnia 30 tablet 025 Active lisinopril 10 MG tabletIndications :Type 2 diabetes mellitus with hyperglycemia, without long-term current use of insulin (HCC),Primary hypertension Take 1 tablet (10 mg) by mouth Once per day. 90 tablet 1 Active lamoTRIgine (LaMICtal) 25 MG tabletIndications :Current severe 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, unspecified whether recurrent (CMS/HCC) (HCC) TAKE 1 TABLET(25 MG) BY MOUTH TWICE DAILY 60 tablet 025 Active Farxiga 10 MGIndications:Typ e 2 diabetes mellitus with other specified complication, without long-term current use of insulin (HCC) TAKE 1 TABLET(10 MG) BY MOUTH DAILY 90 tablet Active semaglutide (Ozempic, 1 MG/DOSE,) 4 MG/3ML solution pen-injectorIndic ations:Type 2 Diabetes Mellitus Inject 1 mg under the skin 1 (one) time per week. 3 mL 1 025 2024 Active atorvastatin (Lipitor) 10 MG tabletIndications :Mixed hyperlipidemia Take 1 tablet (10 mg) by mouth Once per day. 90 tablet 1 025 2025 Active dapagliflozin (Farxiga) 10 MGIndications:Typ e 2 diabetes mellitus with other specified complication, without long-term current use of insulin (HCC) Take 1 tablet (10 mg) by mouth Once per day. 90 tablet 025 2024 Discontinued atorvastatin (Lipitor) 10 MG tabletIndications :Mixed hyperlipidemia Take 1 tablet (10 mg) by mouth at bedtime. 90 tablet 025 2024 Discontinued semaglutide (Ozempic, 1 MG/DOSE,) 4 MG/3ML solution pen-injectorIndic ations:Type 2 Diabetes Mellitus Inject 1 mg under the skin 1 (one) time per week. 3 mL 1 025 2024 Discontinued(R eorder (will not trigger notification to Pharmacy)) atorvastatin (Lipitor) 10 MG tabletIndications :Mixed hyperlipidemia TAKE 1 TABLET(10 MG) BY MOUTH AT BEDTIME 90 tablet 025 2024 Discontinued(R eorder (will not trigger notification to Pharmacy)) Active Problems Problem Noted Date Diagnosed Date [...] of symptoms. Currently [facility] and will have first psychiatrist appointment the first week of December per patient's report. Denied SI/HI and identifies her fantasma and sense of spirituality as main strength. Current severe episode of ma raúl depressive disorder without psychotic features (CMS/HCC) 12/29/2024 Assessment & Plan (01/23/2025 9:12 AM [...] of symptoms. Currently seeing a therapist at [facility] and will have first psychiatrist appointment the [...] -sleep study order placed Moderate episode of recurren t major depressive disorder (CMS/HCC) 04/13/2023 Overview (04/13/2023): sepacialist in to speak with patient order for sertraline sent to pharmacy f/u 2 weeks going to [facility] for intake and to be connected with [...] intervention , Patient to reach out to [facility] team as needed, Comply with medication , and Patient to reach out to as needed Assessment & Plan (04/27/2023 4:35 [...] OP individual therapy. Anni will connect with [facility] program for same-day appointment. Provider will discuss starting SSRIs to treat symptoms. Provided psychoeducation around depression, anxiety and grief. At this time Anni Ibarra meets criteria for Visit Diagnoses: Problem List Items Addressed This Visit Other Depression Unresolved grief Anxiety Patient ready to address current needs Yes Strengths include readiness to change. PLAN: 1. Follow up with [facility]: Recommended for follow-up: Scheduled BE in 2 weeks to assess sx. 2. Patient goal is to moving forward despite stressful events. 3. Behavioral Recommendations a. Referral for OP individual therapy b. Discuss SSRI's with Dr Pascual c. Contact [facility] program for same-day appointment d. Incorporate coping mechanisms into daily routine Unresolved grief 04/13/2023 Assessment & Plan (04/17/2023 9:59 AM EDT): Patient with symptoms of anxiety, depression and unresolved grief. No risk for self-harm, SI or HI. Anni has recently lost her nephew leading to an increase of symptoms. Plan is to refer patient for OP individual therapy. Anni will connect with [facility] program for same-day appointment. Provider will discuss starting SSRIs to treat symptoms. Provided psychoeducation around depression, anxiety and grief. At this time Anni Ibarra meets criteria for Visit Diagnoses: Problem List Items Addressed This Visit Other Depression Unresolved grief Anxiety Patient ready to address current needs Yes Strengths include readiness to change. PLAN: 1. Follow up with [facility]: Recommended for follow-up: Scheduled BE in 2 weeks to assess sx. 2. Patient goal is to moving forward despite stressful events. 3. Behavioral Recommendations a. Referral for OP individual therapy b. Discuss SSRI's with Dr Samara hall. Contact [facility] program for same-day appointment d. [...] to change. PLAN: 1. Follow up with [facility]: Recommended for follow-up: Scheduled BE in 2 weeks to assess sx. 2. Patient goal is to moving forward despite stressful events. 3. Behavioral Recommendations a. Referral for OP individual therapy b. Discuss SSRI's with Dr Samara hall. Contact [facility] program for same-day appointment d. [...] 09/08/22 Malignant neoplasm of right female breast (CMS/H CC) 12/22/2022 Overview (07/18/2023): Care managed by [facility] in [place]. Plan visits every 6 months. Mammogram 11/29/22 normal and Left breast US normal 12/25/22. No R breast US needed, Hx of R breast mastectomy. Atypical ductal hyperplasia of breast 12/22/2022 Overview (01/21/2023): Care managed by [facility] in [place]. Plan visits every 6 months. Mammogram 11/29/22 normal and Left breast US normal 12/25/22. No R breast US needed, Hx of R breast mastectomy. 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 Has been fluctuating Poorly controlled Referred Endo 12/26/22 Dose decreased 12/22/22 to 175 mcg from 200 mcg daily Assessment & Plan (05/08/2025 3:29 PM EST): Orders: TSH W/Reflex to FT4; Future Assessment & Plan (01/23/2025 9:07 AM EDT): [...] I was able to reach her via [phone] and inform her to stop taking two [...] a zoom appointment with her oncologist. Encounters Date Type Department Care Team Description 05/08/2025 2:30 PM EST Office [place] [address] Zuleika London NP Acquired hypothyroidism (Primary Dx); Type 2 diabetes mellitus with other specified complication, without long-term current use of insulin (HCC); Mixed hyperlipidemia 05/08/2025 Travel 05/07/2025 Telephone [place] [address] Bennett Rodriguez MA chart prep 04/29/2025 Telephone [facility] [address] [place] [address] Zuleika London NP Letter for School/Work 04/24/2025 Telephone [facility] [place] [address] Zuleika London NP Med Refill 04/24/2025 Refill [place] [address] Zuleika London NP Type 2 diabetes mellitus with other specified complication, without long-term current use of insulin (HCC) 04/23/2025 Refill [place] [address] Zuleika London NP Mixed hyperlipidemia 04/18/2025 Refill [place] [address] Zuleika London NP Type 2 diabetes mellitus with other specified complication, without long-term current use of insulin (HCC) 03/26/2025 Telephone [place] [address] Zuleika London NP scheduled follow up appointmenrt 03/24/2025 Results Follow-Up [place] [address] Zuleika London NP Polysomnography 03/16/2025 Telephone [place] [address] Zuleika London NP Appointment Request 03/16/2025 Orders Only [place] [address] Zuleika London NP Type 2 diabetes mellitus with other specified complication, without long-term current use of insulin (CMS/HCC) (Primary Dx) 2025 Refill [facility] [address] [facility] [place] [address] Zuleika London NP Type 2 diabetes mellitus with other specified complication, without long-term current use of insulin (CMS/HCC) 03/04/2025 Telephone [facility] [address] [facility] [place] [address] Zuleika London NP April recall 02/23/2025 Refill [facility] [address] [facility] [place] [address] Zuleika London NP Current severe 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, unspecified whether recurrent (CMS/[facility]) from Last 3 Months Immunizations Immunization Administration [...] 18 05/08/2025 2:50 PM EST Oxygen Saturation 96% 01/19/2025 10: 20 AM EDT Inhaled Oxygen Concentration - - Weight 79.7 kg (175 lb 12.8 oz) 05/08/2025 2:50 PM EST Height 152.4 cm (5') 05/08/2025 2:50 PM EST Body Mass Index 34.33 05/08/2025 2:50 PM EST Plan of Treatment Upcoming Encounters Date Type Department Care Team (Late st Contact Info) Description 05/12/2025 10:15 AM EST Clinical Support [facility] MEDICINE [address] [place], [place] [id number] 05/12/2025 3:15 PM EST Office Visit [facility] OPTOMETRY [address] [place] [address] Fina Barros, OD [address] [place] [address] Health Maintenance Due Date Last Done Comments [...] Influenza Vaccine (#1) 2025 , 04/26/2016, 04/26/2016 Depression Monitoring 06/30/2025 12/29/2024, 025 Diabetes: Urine Protein Screening 07/18/2025 07/18/2024, 09/26/2023, 08/23/2021 SDOH Screening 07/18/2025 07/18/2024 Diabetes: Hemoglobin A1C 11/05/2025 025, 01/19/2025, 07/18/2024, Additional history exists Disability Screening 12/26/2025 12/26/2024 Tobacco Screening 12/26/2025 12/26/2024 Alcohol/Substance Use Screening 01/19/2026 01/19/2025 Lipid Panel 01/20/2026 01/20/2025, 07/02, 02/10/2022, Additional history exists Mammogram 01/20/2026 01/20/2025, 12/30, 12/25/2022, Additional history exists Cervical Cancer Screening 02/06/2027 HPV/Cotest 02/06/2027 02/06/2022, 0801/2022, 02/06/2022 Pap Smear 02/06/2027 02/06/2022 RSV Patients [...] complication, without long-term current use of insulin ([facility]) POCT GLUCOSE Routine 05/08/2025 2:54 PM EST Type 2 diabetes mellitus with other specified complication, without long-term current use of insulin ([facility]) POLYSOMNOGRAM Routine 03/06/2025 Sleep apnea, unspecified type LIPID PANEL, STANDARD Routine 01/20/2025 2:02 PM EDT Type 2 diabetes mellitus with other specified complication, without long-term current use of insulin ([facility]) BI MAMMOGRAM SCREENING TOMOSYNTHESIS LEFT Routine 01/20/2025 1:20 PM EDT ALBUMIN, RANDOM URINE W/CREATININE Routine 07/18/2024 10:01 AM EST Primary hypertension HM PAP/HPV Routine 02/06/2022 from Last 3 Months or Most Recently Relevant to Health Maintenance Results * POCT Hgb A1c (05/08/2025 2:55 PM EST) Hemoglobin A1C 5.6 4.0 - 5.7 % QC Media Lot # [id number] Lot# Expiration Date Blood 05/08/2025 2:55 PM EST [facility] Dragan SENIOR RESEARCH ANALYST POINT OF CARE TEST ENTER/EDIT O RDERABLES Final Result * POCT Glucose (05/08/2025 2:54 PM EST) Glucose Blood, POC 177 60 - 200 mg/dL QC Media Lot # [id number] Lot# Expiration Date Blood Capillary blood specimen / Unknown 05/08/2025 2:54 PM EST [facility] POINT OF CARE TEST ENTER/EDIT O RDERABLES Final Result * Polysomnography (03/06/2025) [facility] ORDERABLES Final R esult * (ABNORMAL) Lipid Panel, Standard (01/20/2025 2:02 PM EDT) Triglycerides 227(H) <150 mg/dL [facility] Comment:Desirable Triglyceri de: less than 150 mg/dLBorderline High Triglyceride 150-199 mg/dLHigh Triglyceride: 200-499 mg/dLVery High Triglyceride: greater than or equal to 5OO mg/dL Cholesterol 231(H) <200 mg/dL [facility] Comment:Desirable Cholestero l: less than 200 mg/dLBorderline High Cholesterol: 200-239 mg/dLHigh Cholesterol: greater than 239 mg/dL LDL Cholesterol Calculated 144(H) <100 mg/dL [facility] Comment:Desirable LDL: less than 100 mg/dLNear Optimal/Above Optimal LDL: 110- 129 mg/dLBorderline High LDL: 130-159 mg/dLHigh LDL: 160-189 mg/dLVery High LDL: greater than or equal to 190 mg/dL HDL Cholesterol 42 >40 mg/dL [facility] Comment:Desirable HDL: great er than 40 mg/dL Note: This HDL assay may give artificially low results in patients with liver disease. Blood Venous blood specimen / Unknown 01/20/2025 2:02 PM EDT 01/20/2025 4:08 PM EDT Zuleika London SENIOR RESEARCH ANALYST LAB BLOOD ORDERABLES Final Resu lt [facility] [address] [place] [address] [phone] * BI Mammogram Screening Tomosynthesis Left (01/20/2025 1:20 PM EDT) Anatomical Region Laterality Modality Breast Left Mammography 01/20/2025 1:20 PM EDT Narrative 01/27/2025 11:18 AM EDT [facility] [address] [place] [address] Mammography Report Signed Patient: Anni Alexander MR#: [id number] : 1970 Acct:[id number] Age/Sex: 54 / F ADM Date: 01/20/25 Loc: HO.MAMMO Attending Dr: Zuleika London Ordering Physician: Zuleika London Results: 1Negative Date of Service: 01/20/25 Follow Up: 1 Year From Orig inal Mammogram Procedure(s): MM tomosynthesis screening LT Accession Number(s): [id number] cc: Zuleika London EXAMINATION: MM SCREENING DIGITAL [...] 01/27/25 1115 DD/ 1320 TD/TT: 01/20/25 1349 Career Based Intervention Coordinator: Procedure Note Donotuseinterpreter, Image - 01/27/2025 [facility] [address] [place] [address] Mammography Report Signed Patient: Anni AlexanderMR#: [id number] : 1970Acct:[id number] Age/Sex: 54 / FADM Date: 01/20/25 Loc: MAMMO Attending Dr: Zuleika London Ordering Physician: Zuleika LondonResults: 1Negative Date of Service: 01/20/25Follow Up: 1 Year From Orig ina Mammogram Procedure(s): MM tomosynthesis screening LT Accession Number(s): [id number] cc: Zuleika London EXAMINATION: MM SCREENING DIGITAL [...] 01/27/25 1115 DD/ 1320 TD/TT: 01/20/25 1349 Career Based Intervention Coordinator: us Zuleika London NP IMG BI PROCEDURES Final Result * Albumin, Random Urine W/Creatinine (07/18/2024 10:01 AM EST) Creatinine, Urine 57.23 mg/dL [facility] Microalbumin Urine 16.0 mg/L [facility] Microalbum Creatinine Ratio Ur 27.9 <30 ug/mg cr [facility] Comment:Albumin/Creatinine R atio Reference Ranges: Normal: < 30 ug/mg creatinine Microalbuminuria: 30 - 300 ug/mg creatinineClinical Albuminuria: > 300 ug/mg creatinine Urine (Urine, Random) 07/18/2024 10:01 AM EST 07/18/2024 11:24 AM EST us Zuleika London NP LAB URINE ORDERABLES Final Resu lt [facility] [address] [place] [phone] * Hm Pap Smear (02/06/2022) Pap Negative for intraephithelial lesion or malignancy Negative for intraephithelial lesion or malignancy, Other HPV Undetected us Historical Provider HEALTH MAINTENANCE Final Result from Last 3 Months or Most Recently Relevant to Health Maintenance Insurance [facility] H[facility] Care Teams Clinical Lab Scientist Relationship Specialty Start Date End Date Zuleika London NP [address] [place] [address] PCP - General Family Medicine 04/10/23
--- OUTSIDE RECORDS SUMMARY | 2025-05-08 16:45 | XMS_ITS | Encounter Summary ---
Author Organization [employer] Address [address] [facility] [address] [facility] [address] [address] 7t [place] [address] Care Team Providers Care Night Shift Supervisor Name Role Phone Zuleika London NP Primary Care Provider [phone] Reason for Visit * Reason Comments Med Refill Encounter Details Date Type Department Care Team (Late st Contact Info) Description 03/18/2024 Refill [facility] [place] [place] [address] [place] [address] Helene Mcguire FNP Acquired hypothyroidism Social History [...] Description 05/12/2025 10:15 AM EST Clinical Support [facility] [address] [place] [address] 05/12/2025 3:15 PM EST Office Visit [facility] OPTOMETRY [address] [place] [address] Fina Barros OD [address] [place] [address] documented as of this encounter Visit Diagnoses Diagnosis Acquired hypothyroidism Unspecified hypothyroidism documented in this encounter Additional Health Concerns Assessment Noted Time PHQ-9 Depression Total Score: 16 024 4:01 PM EST documented as of this encounter Care Teams Night Shift Supervisor Relationship Specialty Start Date End Date Zuleika London NP [address] [place] [address] PCP - General Family Medicine 04/10/23 documented as of this encounter
--- OUTSIDE RECORDS SUMMARY | 2025-05-08 16:45 | XMS_ITS | Encounter Summary ---
Author Organization [employer] Address [address] [place] [address] 7t [place] [address] Care Team Providers Care Peoplesoft Hrms Developer Name Role Phone Kat Murillo MD Primary Care Pro vider Zuleika London NP Primary Care Provider [phone] Encounter Details Date Type Department Care Team (Late st Contact Info) Description 04/04/2023 Abstract [facility] MEDICINE [address] [place] [address] Yolanda Danielson Social History Tobacco Use Types [...] Description 05/12/2025 10:15 AM EST Clinical Support [facility] MEDICINE [address] [place], [place] [phone] 05/12/2025 3:15 PM EST Office Visit [facility] OPTOMETRY [address] [place], [place] [phone] Fina Barros, OD [address] [place], [place] [phone] documented as of this encounter Procedures Procedure Name Priority Date/Time Associated Diagnosis Comments PAP/HPV Routine 02/06/2022 documented in this encounter [...] documented as of this encounter Care Teams Peoplesoft Hrms Developer Relationship Specialty Start Date End Date Kat Murillo MD [address] [place] [address] PCP - General Internal Medicine 01/12/23 04/09/23 Zuleika London NP 230 [place] [address] PCP - General Family Medicine 04/10/23 documented as of this encounter
--- OUTSIDE RECORDS SUMMARY | 2025-05-08 16:45 | XMS_ITS | Encounter Summary ---
Author Organization [facility] Address [address] [place] [address] [place] [address] Phone Care Team Providers Care Program Trainer Name Role Phone Henna Rodriguez MD Unavailable [phone] Isabella Singh MD Unavailable [phone] Henna Tatum MD Unavailable [phone] Eve Duffy DNP Unavailable [phone] Fina Jang PATENT SEARCHER Primary Care Provider U Vinita Silveira PATENT SEARCHER Primary Care Provider Unav Zuleika Rod PATENT SEARCHER Primary Care Provider + Encounter Details Date Type Department Care Team (Late st Contact Info) Description 06/01/2021 Procedure Pass [facility] CT Imaging, [place] [address] [place] [address] Social History Tobacco Use Types Packs/Day Years [...] st Contact Info) Description 01/27/2025 Procedure Pass [facility] Imaging Department, [facility], [place] [address] [facility], Floor L1 [place] [address] 01/27/2025 Procedure Pass [facility] Imaging Department, [facility], [place] [address] [facility], Floor L1 [place] [address] 01/27/2025 Procedure Pass [facility] Imaging Department, [facility], MRI [address] [address] 08/18/2025 10:50 AM EST Appointment [facility] Imaging Department, [facility], [place] 450 [facility], Floor L1 [place] [address] Isabella Singh MD [address] [place] [address] [email or web address] 08/18/2025 11:40 AM EST Appointment [facility] Imaging Department, [facility], MRI [address] [address] Isabella Singh MD [address] [place] [address] [email or web address] 08/18/2025 3:30 PM EST Office Visit [facility], [address], 6th [place] [address] Isabella Singh MD [address] [place] [address] [email or web address] documented as of this encounter Visit Diagnoses Not on filedocumented in this encounter Care Teams Program Trainer Relationship Specialty Start Date End Date Fina Jang, ARLEEN PCP - General 07/27/21 09/07/22 Vinita Sevilla, ARLEEN PCP - General Nurse Practitioner 09/08/22 10/10/23 Zuleika London, ARLEEN 230 [place] [address] PCP - General Nurse Practitioner 10/11/23 Henna Rodriguez MD [address] [address] Referring Physician Medical Oncology 05/17/20 07/26/21 Isabella Singh MD [address] [place] [address] [email or web address] Medical Oncology 05/26/20 Henna Tatum MD [address] [place] [address] General Surgery 10/05/20 07/26/21 Eve Duffy DNP [address] [place] [address] [phone] [facility] [address] [email or web address] Nurse Practitioner Palliative Care 12/13/20 documented as of this encounter Additional Source Comments The information contained in this document represents components of the legal health record. It is not the complete legal health record.[facility]
--- OUTSIDE RECORDS SUMMARY | 2025-05-08 16:45 | XMS_ITS | Encounter Summary ---
Author Organization [employer] Address [address] [place] [address] 7t [place] [address] Care Team Providers Care Medicinal Plant Picker Name Role Phone Vinita Sevilla CLINICIAN ONCOLOGY Primary Care Provider Kat Acosta MD Primary Care Pro vider Zuleika London NP Primary Care Provider [phone] Encounter Details Date Type Department Care Team ([facility] Contact Info) Description 07/07/2022 Orders Only [facility] MEDICINE 230 [place] [address] Vinita Sevilla FNP Type 2 diabetes mellitus without complication, without long-term current use of insulin ([facility]) (Primary Dx); Acquired hypothyroidism Social History Tobacco [...] Upcoming Encounters Date Type Department Care Team ([facility] st Contact Info) Description 05/12/2025 10:15 AM EST Clinical Support [facility] MEDICINE 230 [place] [address] 05/12/2025 3:15 PM EST Office Visit [facility] OPTOMETRY 267 [place] [address] Fina Barros, OD 267 [place] [address] documented as of this encounter Visit Diagnoses Diagnosis Type 2 diabetes mellitus without complication, without long-term current use of insulin (HCC)- Primary Acquired hypothyroidism Unspecified hypothyroidism documented in this encounter Additional Health Concerns Assessment Noted Time PHQ-9 Depression Total Score: 6 06/22/20 22 4:03 PM EST documented as of this encounter Care Teams Medicinal Plant Picker Relationship Specialty Start Date End Date Vinita Sevilla FNP PCP - General Family Medicine 02/21/22 01/11/23 Kat Murillo MD [address] [place] [address] PCP - General Internal Medicine 01/12/23 04/09/23 Zuleika London NP [address] [place] [address] PCP - General Family Medicine 04/10/23 documented as of this encounter
--- OUTSIDE RECORDS SUMMARY | 2025-05-08 16:45 | XMS_ITS | Encounter Summary ---
Author Organization [facility] Address [address] [place] [address] [place] [address] Phone Care Team Providers Care Warehouse Team Member Name Role Phone Henna Rodriguez MD Unavailable [phone] Isabella Singh MD Unavailable [phone] Henna Tatum MD Unavailable Eve Duffy DNP Unavailable [phone] Fina Jang JACKET PREPARER Primary Care Provider U Vinita Silveira JACKET PREPARER Primary Care Provider Unav Zuleika Rod JACKET PREPARER Primary Care Provider + Encounter Details Date Type Department Care Team (Late st Contact Info) Description 06/01/2021 Procedure Pass [facility] CT Imaging, [place] [address] [place] [address] Social History Tobacco Use Types Packs/Day Years [...] st Contact Info) Description 01/27/2025 Procedure Pass [facility] Imaging Department, [facility], [place] 450 [facility], Floor L1 [place] [address] 01/27/2025 Procedure Pass [facility] Imaging Department, [facility], [place] [address] [facility], Floor L1 [place] [address] 01/27/2025 Procedure Pass [facility] Imaging Department, [facility], MRI [address] [address] 08/18/2025 10:50 AM EST Appointment [facility] Imaging Department, [facility], [place] 450 [facility], Floor [address]1 [place] [address] Isabella Singh MD [address] [place] [phone] [email or web address] 08/18/2025 11:40 AM EST Appointment [facility] Imaging Department, [facility], MRI [address] [address] Isabella Singh MD [address] [place] [address] [email or web address] 08/18/2025 3:30 PM EST Office Visit [facility], [address], 6th [place] [address] Isabella Singh MD [address] [place] [address] [email or web address] documented as of this encounter Visit Diagnoses Not on filedocumented in this encounter Care Teams Warehouse Team Member Relationship Specialty Start Date End Date Fina Jang, ARLEEN PCP - General 07/27/21 09/07/22 Vinita Sevilla, ARLEEN PCP - General Nurse Practitioner 09/08/22 10/10/23 Zuleika London, ARLEEN 230 [place] [address] PCP - General Nurse Practitioner 10/11/23 Henna Rodriguez MD [address] [address] Referring Physician Medical Oncology 05/17/20 07/26/21 Isabella Singh MD [address] [place] [address] [email or web address] Medical Oncology 05/26/20 Henna Tatum MD [address] [place] [address] General Surgery 10/05/20 07/26/21 Eve Duffy DNP [address] [place] [address] [phone] [place] [address] [email or web address] Nurse Practitioner Palliative Care 12/13/20 documented as of this encounter Additional Source Comments The information contained in this document represents components of the legal health record. It is not the complete legal health record.[facility]
--- OUTSIDE RECORDS SUMMARY | 2025-05-08 16:45 | XMS_ITS | Encounter Summary ---
Author Organization [facility] Address [address] [facility] [address] [place] [address] Phone Care Team Providers Care Supervisor Air Conditioning Installer Name Role Phone Isabella Singh MD Unavailable [phone] GivenEve DNP Unavailable [phone] Vinita Sevilla DOCTOR CHIROPRACTIC Primary Care Provider Unav ailable AppramZuleika DOCTOR CHIROPRACTIC Primary Care Provider + Encounter Details Date Type Department Care Team (Late st Contact Info) Description 08/22/2023 Procedure Pass [facility] Imaging Department, [facility] [place], MRI [address] [address] Social History Tobacco Use Types Packs/Day Years [...] Contact Info) Description 01/27/2025 Procedure Pass [facility] Imaging Department, [facility], [place] 450 [facility], Floor L1 [place] [address] 01/27/2025 Procedure Pass [facility] Imaging Department, [facility], [place] 450 [facility], Floor L1 [place] [address] 01/27/2025 Procedure Pass [facility] Imaging Department, [facility], MRI [address] [address] 08/18/2025 10:50 AM EST Appointment [facility] Imaging Department, [facility], [place] 450 [facility], Floor L1 [place] [address] Isabella Singh MD [address] [place] [address] [email or web address] 08/18/2025 11:40 AM EST Appointment [facility] Imaging Department, [facility], MRI [address] [address] Isabella Singh MD [address] [place] [address] [email or web address] 08/18/2025 3:30 PM EST Office Visit [facility], [address], 6th [place] [address] Isabella Singh MD [address] [place] [address] [email or web address] documented as of this encounter Visit Diagnoses Not on filedocumented in this encounter Care Teams Supervisor Air Conditioning Installer Relationship Specialty Start Date End Date Vinita Sevilla NP PCP - General Nurse Practitioner 09/08/22 10/10/23 Zuleika London NP [address] [place] [address] PCP - General Nurse Practitioner 10/11/23 Isabella Singh MD [address] [place] [address] [email or web address] Medical Oncology 05/26/20 Eve Duffy DNP [address] [place] [address] 6[facility] Palliative [place] [address] [email or web address] Nurse Practitioner Palliative Care 12/13/20 documented as of this encounter Additional Source Comments The information contained in this document represents components of the legal health record. It is not the complete legal health record.[facility]
--- OUTSIDE RECORDS SUMMARY | 2025-05-08 16:45 | XMS_ITS | Encounter Summary ---
Author Organization [facility] Address [address] [facility] [address] [place] [address] Phone Care Team Providers Care Pipe Fitter Ammonia Name Role Phone Isabella Singh MD Unavailable [phone] GivenEve DNP Unavailable [phone] Vinita Sevilla CHIEF DIETITIAN Primary Care Provider Unav ailable Zuleika London CHIEF DIETITIAN Primary Care Provider + Encounter Details Date Type Department Care Team (Late st Contact Info) Description 11/28/2022 Procedure Pass [facility] CT Imaging, [place] [address] [place] [address] Social History Tobacco Use Types Packs/Day Years [...] st Contact Info) Description 01/27/2025 Procedure Pass [facility] Imaging Department, [facility], [place] 450 [facility], Floor L1 [place] [address] 01/27/2025 Procedure Pass [facility] Imaging Department, [facility], [place] 450 [facility], Floor L1 [place] [address] 01/27/2025 Procedure Pass [facility] Imaging Department, [facility], MRI [address] [address] 08/18/2025 10:50 AM EST Appointment [facility] Imaging Department, [facility], [place] 450 [facility], Floor L1 [place] [address] Isabella Singh MD [address] [place] [address] [email or web address] 08/18/2025 11:40 AM EST Appointment [facility] Imaging Department, [facility], MRI [address] [address] Isabella Singh MD [address] [place] [phone] [email or web address] 08/18/2025 3:30 PM EST Office Visit [facility], [address], 6th [place] [address] Isabella Singh MD [address] [place] [phone] [email or web address] documented as of this encounter Visit Diagnoses Not on filedocumented in this encounter Care Teams Pipe Fitter Ammonia Relationship Specialty Start Date End Date Vinita Sevilla NP PCP - General Nurse Practitioner 09/08/22 10/10/23 Zuleika Lnodon NP [address] [place] [address] PCP - General Nurse Practitioner 10/11/23 Isabella Singh MD [address] [place] [phone] [email or web address] Medical Oncology 05/26/20 Eve Duffy DNP [address] [place] [address] 6[facility] Palliative [place] [address] [email or web address] Nurse Practitioner Palliative Care 12/13/20 documented as of this encounter Additional Source Comments The information contained in this document represents components of the legal health record. It is not the complete legal health record.[facility]
--- OUTSIDE RECORDS SUMMARY | 2025-05-08 16:45 | XMS_ITS | Clinical Summary ---
Author Organization [facility] Address [address] [place] [address] Phone Care Team Providers Care Solution Specialist Name Role Phone Isabella Singh MD Unavailable [phone] GivenEve DNP Unavailable [phone] Appram, Zuleika Dalton ROUTE RETURNER Primary Care Provider + Allergies Active Allergy [...] Encounters Date Type Department Care Team Description 05/01/2025 Telephone [facility], [facility] [address] [place] [address], 6th Floor [place] [phone] Serena Perez RN from Last 3 Months Immunizations Immunization Administration [...] high school, GED, job training, learning the [place]ian language, technical skills, or developing parenting skills)? [...] Contact Info) Description 01/27/2025 Procedure Pass [facility] Imaging Department, [facility], [place] [address] [facility], Floor L1 [place] [address] 01/27/2025 Procedure Pass [facility] Imaging Department, [facility], [place] [address] [facility], Floor L1 [place] [address] 01/27/2025 Procedure Pass [facility] Imaging Department, [facility], MRI [address] [address] 08/18/2025 10:50 AM EST Appointment [facility] Imaging Department, [facility], [place] [address] [facility], Floor L1 [place] [address] Isabella Singh MD [address] [place] [address] [email or web address] 08/18/2025 11:40 AM EST Appointment [facility] Imaging Department, [facility], MRI [address] [address] Isabella Singh MD [address] [place] [address] [email or web address] 08/18/2025 3:30 PM EST Office Visit [facility], [address], 6th [place] [address] Isabella Singh MD [address] [place] [phone] [email or web address] Health Maintenance Due Date Last Done Comments Adult Td,Tdap Booster 1968 TSH LEVEL 1968 DEPRESSION SCREENING 1980 HIV ONE-TIME SCREENING (18-65 YEARS) 1986 PNEUMOCOCCAL VACCINES (50+ years) (1 of 2 - PCV) 1987 ZOSTER VACCINES (1 of 2) 1987 PAP SMEAR 1989 COLOGUARD 2013 COLONOSCOPY 2013 COLORECTAL CANCER SCREENING 2013 FIT TEST 2013 FOBT 2013 SIGMOIDOSCOPY 2013 VIRTUAL COLONOSCOPY 2013 MAMMOGRAM 04/29/2022 04/29/2020, 12/2019, 12/31/2019, Additional history exists INFLUENZA VACCINE (#1) 2025 04/26/2016 COVID-19 VACCINE (3 - 2024- season) 2025 11/30/2020, 11/03/2020 CREATININE LEVEL 01/22/2026 01/22/2025, , 10/03/2023, Additional history exists SCREENING FOR DIABETES 01/20/2028 01/19/2025, 2022 LIPID PANEL 01/20/2030 01/20/2025, 07/02, 02/10/2022 RSV VACCINE (1 - 1-dose 75+ series) 2043 SMOKING STATUS SCREENING (Once After 26 Yrs) Completed 09/11/2022 HEPATITIS C SCREENING Completed 07/23/2024 HEPATITIS A VACCINES Aged Out No long er eligible based on patient's age to complete this topic HIB VACCINES Aged Out No longer eligi ble based on patient's age to complete this topic IPV VACCINES Aged Out No longer eligi ble based on patient's age to complete this topic MENINGOCOCCAL VACCINES (ACWY) Aged Out No longer eligible based on patient's age to complete this topic MENINGOCOCCAL VACCINES (B) Aged Out N o longer eligible based on patient's age to complete this topic Medical Devices Not on file Procedures Procedure Name Priority Date/Time Associated Diagnosis Comments POCT CREATININE/EGFR Routine 01/22/2025 9:08 AM EDT HEPATITIS C ANTIBODY, QUALITATIVE Routine 07/23/2024 11:43 AM EST Need for hepatitis C screening test BI MRI BREAST OUTSIDE (NO INTERPRETATION) Routine 04/29/2020 12:00 AM EDT from Last 3 Months or Most Recently Relevant to Health Maintenance Results * POCT Creatinine/eGFR (01/22/2025 9:08 AM EDT) CRE POC 0.7 0.5 - 1.2 mg/dL [facility] CT & MRI SUITE EGFR POC 101 >59 mL/min/1.7 3m2 [facility] CT & MRI SUITE Comment:Estimated glomerular filtration rate calculated using the CKD-EPI refit equation. 01/22/2025 9:08 AM EDT 01/22/2025 9:10 AM EDT us Isabella Singh MD POINT OF CARE TEST ORDERA BLES Final Result Performing Organization Address City/[facility]/ZIP Co de Phone Number [facility] CT & MRI [address] [place] [address] * Hepatitis C antibody, qualitative (07/23/2024 11:43 AM EST) Pathologist [facility] HCV Nonreactive Nonreactive [facility] LIC# [id number] Comment:Antibodies to HCV no t detected. Does not exclude the possibility of exposure to HCV. Blood 07/23/2024 11:4 3 AM EST 07/23/2024 12:03 PM EST us Helene August MD, MPH LAB BLOOD BKR ORDERABL ES Final Result Performing Organization Address City/[facility]/ZIP Co de Phone Number [facility] LIC# [id number] [address] [place] [address] * MRI Breast Outside (No Interpretation) (04/29/2020 12:00 AM EDT) Other Narrative [facility] - 05/24/2020 10:03 AM EST This study is for PACS storage only and not for interpretation. us Gonzales Collins MD, MS IMG OUT SIDE IMAGING W/OUT INTERPRETATION Final Result [facility] from Last 3 Months or Most Recently Relevant to Health Maintenance Insurance [facility] MED[facility]ARE [facility] MED[facility]ARE [facility] Advance Directives For more information, please contact: [phone] (9AM - 5PM [facility], Sunday-Sunday) * Full Code (Latest Code Status on File) Date Activated Date Inactivated Comments 06/16/2020 6:48 AM Question Answer Comments Code Status Confirmed With: Patient * Full Code Date Activated Date Inactivated Comments 06/16/2020 6:48 AM 06/16/2020 6:48 AM Question Answer Comments Code Status Confirmed With: Patient Care Teams Solution Specialist Relationship Specialty Start Date End Date Zuleika London NP [address] [place] [address] PCP - General Nurse Practitioner 10/11/23 Isabella Singh MD [address] [place] [address] [email or web address] Medical Oncology 05/26/20 Eve Duffy DNP [address] [place] [address] 6[facility] Palliative [place] [address] [email or web address] Nurse Practitioner Palliative Care 12/13/20 Additional Source Comments The information contained in this document represents components of the legal health record. It is not the complete legal health record.[facility]
--- OUTSIDE RECORDS SUMMARY | 2025-05-08 16:45 | XMS_ITS | Encounter Summary ---
Author Organization [facility] Address [address] [facility] [address] [place] [address] Phone Care Team Providers Care Team Psychologist Name Role Phone Isabella Singh MD Unavailable [phone] GivenEve DNP Unavailable [phone] Vinita Sevilla APPRISE COUNSELOR Primary Care Provider Unav ailable Zuleika London APPRISE COUNSELOR Primary Care Provider + Encounter Details Date Type Department Care Team (Late st Contact Info) Description 10/03/2023 Procedure Pass [facility] [address] [place] [address] Social History Tobacco Use Types Packs/Day Years [...] st Contact Info) Description 01/27/2025 Procedure Pass [facility], [facility], [place] [address] [facility], Floor L1 [place] [address] 01/27/2025 Procedure Pass [facility], [facility] [place] 450 [facility], Floor L1 [place] [address] 01/27/2025 Procedure Pass [facility], [facility], MRI [address] [address] 08/18/2025 10:50 AM EST Appointment [facility], [facility] [place] 450 [facility], Floor L1 [place] [address] Isabella Singh MD [address] [place] [address] [email or web address] 08/18/2025 11:40 AM EST Appointment [facility] Imaging Department, [facility], MRI [address] [address] Isabella Singh MD [address] [place] [address] [email or web address] 08/18/2025 3:30 PM EST Office Visit [facility], [address], 6th [place] [address] Isabella Singh MD [address] [place] [address] [email or web address] documented as of this encounter Visit Diagnoses Not on filedocumented in this encounter Care Teams Team Psychologist Relationship Specialty Start Date End Date Vinita Sevilla NP PCP - General Nurse Practitioner 09/08/22 10/10/23 Zuleika London NP [address] [place] [address] PCP - General Nurse Practitioner 10/11/23 Isabella Singh MD [address] [place] [address] [email or web address] Medical Oncology 05/26/20 Eve Duffy DNP [address] [place] [address] 6[facility] [place] [address] [email or web address] Nurse Practitioner Palliative Care 12/13/20 documented as of this encounter Additional Source Comments The information contained in this document represents components of the legal health record. It is not the complete legal health record.[facility]
--- OUTSIDE RECORDS SUMMARY | 2025-05-08 16:45 | XMS_ITS | Encounter Summary ---
Author Organization [facility] Address [address] [place] [address] [place] [address] Phone Care Team Providers Care Medical Artist Name Role Phone Henna Rodriguez MD Unavailable [phone] Isabella Singh MD Unavailable [phone] Henna Tatum MD Unavailable Eve Duffy DNP Unavailable [phone] Fina Jang LEAD SEWAGE PLANT OPERATOR Primary Care Provider U Vinita Silveira LEAD SEWAGE PLANT OPERATOR Primary Care Provider Unav Zuleika Rod LEAD SEWAGE PLANT OPERATOR Primary Care Provider + Encounter Details Date Type Department Care Team (Late st Contact Info) Description 06/01/2021 Procedure Pass [facility] MR Imaging, [place] [address] [place] [address] Social History Tobacco Use Types Packs/Day Years [...] st Contact Info) Description 01/27/2025 Procedure Pass [facility] Imaging Department, [facility], [place] 450 [facility], Floor L1 [place] [address] 01/27/2025 Procedure Pass [facility] Imaging Department, [facility], [place] 450 [facility], Floor L1 [place] [address] 01/27/2025 Procedure Pass [facility] Imaging Department, [facility], MRI [address] [address] 08/18/2025 10:50 AM EST Appointment [facility] Imaging Department, [facility], [place] 450 [facility], Floor L1 [place] [address] Isabella Singh MD [address] [place] [address] [email or web address] 08/18/2025 11:40 AM EST Appointment [facility] Imaging Department, [facility], MRI [address] [address] Isabella Singh MD [address] [place] [address] [email or web address] 08/18/2025 3:30 PM EST Office Visit [facility], [address], 6th [place] [address] Isabella Singh MD [address] [place] [address] [email or web address] documented as of this encounter Visit Diagnoses Not on filedocumented in this encounter Care Teams Medical Artist Relationship Specialty Start Date End Date Fina Jang, ARLEEN PCP - General 07/27/21 09/07/22 Vinita Sevilla, ARLEEN PCP - General Nurse Practitioner 09/08/22 10/10/23 Zuleika London, ARLEEN [address] [place] [address] PCP - General Nurse Practitioner 10/11/23 Henna Rodriguez MD [address] [address] Referring Physician Medical Oncology 05/17/20 07/26/21 Isabella Singh MD [address] [place] [address] [email or web address] Medical Oncology 05/26/20 Henna Tatum MD [address] [place] [address] General Surgery 10/05/20 07/26/21 Eve Duffy DNP [address] [place] [address] 6-600 [facility] [address] miguel [email or web address] Nurse Practitioner Palliative Care 12/13/20 documented as of this encounter Additional Source Comments The information contained in this document represents components of the legal health record. It is not the complete legal health record.[facility]
--- OUTSIDE RECORDS SUMMARY | 2025-05-08 16:46 | XMS_ITS | Encounter Summary ---
Author Organization [employer] Address [address] [facility] 7t [place] [address] Care Team Providers Care Wastewater Analyst Lab Analyst Name Role Phone Zuleika London NP Primary Care Provider [phone] Reason for Visit * Reason Comments Med Refill Encounter Details Date Type Department Care Team ([facility] st Contact Info) Description 2025 Refill [facility] MEDICINE [address] [place] [address] Zuleika London NP 230 [place] [address] Type 2 diabetes mellitus with other specified complication, without long-term current use of insulin ([facility]) Social History Tobacco Use Types Packs/Day Years [...] Description 05/12/2025 10:15 AM EST Clinical Support [facility] MEDICINE [address] [place] [address] 05/12/2025 3:15 PM EST Office Visit [facility] OPTOMETRY 267 [place] [address] Fina Barros, OD 267 [place] [address] documented as of this encounter Visit Diagnoses Diagnosis Type 2 diabetes mellitus with other specified complication, without long-term current use of insulin (HCC) documented in this encounter Additional Health Concerns Assessment Noted Time PHQ-9 Depression Total Score: 16 025 12:52 PM EDT documented as of this encounter Care Teams Wastewater Analyst Lab Analyst Relationship Specialty Start Date End Date Zuleika London NP 230 [place] [address] PCP - General Family Medicine 04/10/23 documented as of this encounter
--- OUTSIDE RECORDS SUMMARY | 2025-05-08 16:46 | XMS_ITS | Encounter Summary ---
Author Organization [facility] Address [address] [facility] [address] [place] [address] Phone Care Team Providers Care Surplus Property Disposal Agent Name Role Phone Henna Rodriguez MD Unavailable [phone] Isabella Singh MD Unavailable [phone] Henna Tatum MD Unavailable Eve Duffy DNP Unavailable [phone] JUSTICE Primary Care Provider Vinita Downey DISTRICT COURT JUSTICE Primary Care Provider UnaZuleika Valenzuela DISTRICT COURT JUSTICE Primary Care Provider + Encounter Details Date Type Department Care Team (Late st Contact Info) Description 06/16/2020 Procedure Pass [facility] Periop [address] [place] [address] Social History Tobacco Use Types Packs/Day Years [...] 5:00 PM EST Mark Lin RN * George Suicide Severity Rating Scale (Screener/Recent Self-Report) Question [...] Description 01/27/2025 Procedure Pass [facility] Imaging Department, [facility] [place] 450 [facility], Floor L1 [place] [address] 01/27/2025 Procedure Pass [facility] Imaging Department, [facility] [place] [address] [facility], Floor L1 [place] [address] 01/27/2025 Procedure Pass [facility] Imaging Department, [facility], MRI [address] [address] 08/18/2025 10:50 AM EST Appointment [facility] Imaging Department, [facility] [place] [address] [facility], Floor L1 [place] [address] Isabella Singh MD [address] [place] [address] [email or web address] 08/18/2025 11:40 AM EST Appointment [facility] Imaging Department, [facility], MRI [address] [address] Isabella Singh MD [address] [place] [address] [email or web address] 08/18/2025 3:30 PM EST Office Visit [facility], [facility] [address] [place] [address], 6th [place] [address] Isabella Singh MD [address] [place] [address] [email or web address] documented as of this encounter Visit Diagnoses Not on filedocumented in this encounter Care Teams Surplus Property Disposal Agent Relationship Specialty Start Date End Date Fina Jang, ARLEEN PCP - General 07/27/21 09/07/22 Vinita Sevilla NP PCP - General Nurse Practitioner 09/08/22 10/10/23 Zuleika London NP [address] [place] [address] PCP - General Nurse Practitioner 10/11/23 Henna Rodriguez MD [address] [place] [address] Referring Physician Medical Oncology 05/17/20 07/26/21 Isabella Singh MD [address] [place] [address] [email or web address] Medical Oncology 05/26/20 Henna Tatum MD [address] [place] [address] General Surgery 10/05/20 07/26/21 Eve Duffy DNP [address] [place] [address] 6[facility] [place] [address] Nurse Practitioner Palliative Care 12/13/20 documented as of this encounter Additional Source Comments The information contained in this document represents components of the legal health record. It is not the complete legal health record.[facility]
--- OUTSIDE RECORDS SUMMARY | 2025-05-08 16:46 | XMS_ITS | Encounter Summary ---
Author Organization [facility] Address [facility] [employer] [facility] [address] [place] [address] Phone Care Team Providers Care Nail Welter Name Role Phone Isabella Singh MD Unavailable [phone] GivenEve DNP Unavailable [phone] Appram, Zuleika Dalton ASSISTANT HAIRSTYLIST Primary Care Provider + Encounter Details Date Type Department Care Team (Late st Contact Info) Description 06/17/[address] [facility] CT Imaging, [place] [address] [place] [address] Social History Tobacco Use Types Packs/Day Years [...] st Contact Info) Description 01/27/2025 Procedure Pass [facility] Imaging Department, [facility] [place] [facility], Floor L1 [place] [address] 01/27/2025 Procedure Pass [facility] Imaging Department, [facility] [place] [address] [facility], Floor L1 [place] [address] 01/27/2025 Procedure Pass [facility] Imaging Department, [facility], MRI [address] [address] 08/18/2025 10:50 AM EST Appointment [facility] Imaging Department, [facility] [place] [address] [facility], Floor L1 [place] [address] Isabella Singh MD [address] [place] [address] [email or web address] 08/18/2025 11:40 AM EST Appointment [facility] Imaging Department, [facility], MRI [address] [address] Isabella Singh MD [address] [place] [address] [email or web address] 08/18/2025 3:30 PM EST Office Visit [facility], [address], 6th [place] [address] Isabella Singh MD [address] [place] [address] [email or web address] documented as of this encounter Visit Diagnoses Not on filedocumented in this encounter Care Teams Nail Welter Relationship Specialty Start Date End Date Suzi Londoniel ARLEEN Dalton [address] [place] [address] PCP - General Nurse Practitioner 10/11/23 Isabella Singh MD [address] [place] [address] [email or web address] Medical Oncology 05/26/20 Eve Duffy DNP [address] [place] [address] 6[facility] [place] [address] imguel Nurse Practitioner Palliative Care 12/13/20 documented as of this encounter Additional Source Comments The information contained in this document represents components of the legal health record. It is not the complete legal health record.[facility]
--- OUTSIDE RECORDS SUMMARY | 2025-05-08 16:46 | XMS_ITS | Encounter Summary ---
Author Organization [employer] Address [address] [facility] 7t [place] [address] Care Team Providers Care Petroleum Engineer Name Role Phone Zuleika London NP Primary Care Provider [phone] Encounter Details Date Type Department Care Team (Latest Contact Info) Description 05/08/2025 Travel Social History Tobacco Use Types Packs/Day Years [...] 10:15 AM EST Clinical Support [facility] MEDICINE 230 [place] [address] 05/12/2025 3:15 PM EST Office Visit [facility] OPTOMETRY 267 [place] [address] TarFina church, OD 267 [place] [address] documented as of this encounter Visit Diagnoses Not on filedocumented in this encounter Additional Health Concerns Assessment Noted Time PHQ-9 Depression Total Score: 16 025 12:52 PM EDT documented as of this encounter Care Teams Petroleum Engineer Relationship Specialty Start Date End Date Zuleika London NP 230 [place] [address] PCP - General Family Medicine 04/10/23 documented as of this encounter
--- OUTSIDE RECORDS SUMMARY | 2025-05-08 16:46 | XMS_ITS | Encounter Summary ---
Author Organization [facility] Address [facility] [employer] [facility] [address] [place] [address] Phone Care Team Providers Care Condenser Tester Name Role Phone Isabella Singh MD Unavailable [phone] GivenEve DNP Unavailable [phone] Appram, Zuleika Dalton HEADMASTER/MISTRESS Primary Care Provider + Encounter Details Date Type Department Care Team (Late st Contact Info) Description 06/17/2024 Procedure Pass [facility] MR Imaging, [place] [address] [place] [address] Social History Tobacco Use Types Packs/Day Years [...] Pass [facility] Imaging Department, [facility] [place] [address] [facility], Floor L1 [place] [address] 01/27/2025 Procedure Pass [facility] Imaging Department, [facility] [place] 450 [facility], Floor L1 [place] [address] 01/27/2025 Procedure Pass [facility] Imaging Department, [facility], MRI [address] [address] 08/18/2025 10:50 AM EST Appointment [facility] Imaging Department, [facility], [place] [address] [facility], Floor L1 [place] [address] Isabella Singh MD [address] [place] [address] [email or web address] 08/18/2025 11:40 AM EST Appointment [facility] Imaging Department, [facility], MRI [address] [address] Isabella Singh MD [address] [place] [address] [email or web address] 08/18/2025 3:30 PM EST Office Visit [facility], [address], 6th [place] [address] Isabella Singh MD [address] [place] [address] [email or web address] documented as of this encounter Visit Diagnoses Not on filedocumented in this encounter Care Teams Condenser Tester Relationship Specialty Start Date End Date Suzi Londoniel ARLEEN Dalton [address] [place] [address] PCP - General Nurse Practitioner 10/11/23 Isabella Singh MD [address] [place] [address] [email or web address] Medical Oncology 05/26/20 Eve Duffy DNP [address] [place] [address] 6[facility] Palliative [place] [address] miguel Nurse Practitioner Palliative Care 12/13/20 documented as of this encounter Additional Source Comments The information contained in this document represents components of the legal health record. It is not the complete legal health record.[facility]
--- OUTSIDE RECORDS SUMMARY | 2025-05-08 16:46 | XMS_ITS | Encounter Summary ---
Author Organization [employer] Address [address] [facility] [address] 7t [place] [address] Care Team Providers Care Motor Generator Set Operator Name Role Phone Zuleika London NP Primary Care Provider [phone] Reason for Visit * Reason Onset Date Comments chart prep 05/07/2025 Encounter Details Date Type Department Care Team ([facility] st Contact Info) Description 05/07/2025 Telephone [facility] MEDICINE 230 [place] [address] Bennett Rodriguez [place] chart prep Social History Tobacco Use Types Packs/Day Years [...] encounter Miscellaneous Notes * Telephone Encounter - Bennett Rodriguez [place] - 05/07/2025 2:14 PM EST Chart Prep Labs: done Images: done Referrals: complete POLYSOMNOGRAM Sun03/06/25 7:30 PM [facility] Vaccines due: Covid, Flu, PCV20, Tdap, Td, Zoster, and DTAP Screenings: colonoscopy, eye exam, foot exam, and LMP Overdue care gaps: A1c, Glucose, and Tobacco documented in this encounter Plan of Treatment Upcoming Encounters Date Type Department Care Team (Late st Contact Info) Description 05/12/2025 10:15 AM EST Clinical Support [facility] MEDICINE [address] [place] [address] 05/12/2025 3:15 PM EST Office Visit [facility] OPTOMETRY 267 [place] [address] Fina Barros, OD 267 [place] [address] documented as of this encounter Visit Diagnoses Not on filedocumented in this encounter Additional Health Concerns Assessment Noted Time PHQ-9 Depression Total Score: 16 025 12:52 PM EDT documented as of this encounter Care Teams Motor Generator Set Operator Relationship Specialty Start Date End Date Zuleika London NP 230 [place] [address] PCP - General Family Medicine 04/10/23 documented as of this encounter
--- OUTSIDE RECORDS SUMMARY | 2025-05-08 16:46 | XMS_ITS | Encounter Summary ---
Author Organization [facility] Address [facility] [address] [place] [address] Phone Care Team Providers Care Ice Puller Name Role Phone Isabella Singh MD Unavailable [phone] GivenEve DNP Unavailable [phone] Appram, Zuleika Dalton BLOW MOLDER Primary Care Provider + Encounter Details Date Type Department Care Team (Late st Contact Info) Description 06/17/2024 Procedure Pass [facility] CT Imaging, [place] [address] [place] [address] Social History Tobacco Use Types Packs/Day Years [...] [facility] Imaging Department, [facility] [place] 450 [facility], Floor L1 [place] [address] 01/27/2025 Procedure Pass [facility] Imaging Department, [facility] [place] 450 [facility], Floor L1 [place] [address] 01/27/2025 Procedure Pass [facility] Imaging Department, [facility], MRI [address] [address] 08/18/2025 10:50 AM EST Appointment [facility] Imaging Department, [facility] [place] 450 [facility], Floor L1 [place] [address] Isabella Singh MD [address] [place] [address] [email or web address] 08/18/2025 11:40 AM EST Appointment [facility] Imaging Department, [facility], MRI [address] [address] Isabella Singh MD [address] [place] [address] [email or web address] 08/18/2025 3:30 PM EST Office Visit [facility], [address], 6th [place] [address] Isabella Singh MD [address] [place] [address] [email or web address] documented as of this encounter Visit Diagnoses Not on filedocumented in this encounter Care Teams Ice Puller Relationship Specialty Start Date End Date Suzi Londoniel ARLEEN Dalton [address] [place] [address] PCP - General Nurse Practitioner 10/11/23 Isabella Singh MD [address] [place] [address] [email or web address] Medical Oncology 05/26/20 Eve Duffy DNP [address] [place] [address] 6[facility] [place] [place] [address] miguel Nurse Practitioner Palliative Care 12/13/20 documented as of this encounter Additional Source Comments The information contained in this document represents components of the legal health record. It is not the complete legal health record.[facility]
--- OUTSIDE RECORDS SUMMARY | 2025-05-08 16:46 | XMS_ITS | Encounter Summary ---
Author Organization [employer] Address [address] [facility] 7t [place] [address] Care Team Providers Care Paper Coating Supervisor Name Role Phone Zuleika London NP Primary Care Provider [phone] Reason for Visit * Reason Comments Med Refill Encounter Details Date Type Department Care Team ([facility] st Contact Info) Description 02/02/2025 Refill [facility] 230 [place] [address] Zuleika London NP 230 [place] [address] Current severe episode of major depressive disorder [...] Description 05/12/2025 10:15 AM EST Clinical Support [facility] 230 [place] [address] 05/12/2025 3:15 PM EST Office Visit [facility] OPTOMETRY 267 [place] [address] Fina Barros, VINCE 267 [place] [address] documented as of this encounter Visit Diagnoses Diagnosis Current severe 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, unspecified whether recurrent (CMS/HCC) (HCC) documented in this encounter Additional Health Concerns Assessment Noted Time PHQ-9 Depression Total Score: 16 025 12:52 PM EDT documented as of this encounter Care Teams Paper Coating Supervisor Relationship Specialty Start Date End Date Zuleika London NP [address] [place] [address] PCP - General Family Medicine 04/10/23 documented as of this encounter
--- OUTSIDE RECORDS SUMMARY | 2025-05-08 16:46 | XMS_ITS | Encounter Summary ---
Author Organization [employer] Address [address] [place] [address] Care Team Providers Care Switchboard Clerk Name Role Phone Zuleika London NP Primary Care Provider [phone] Encounter Details Date Type Department Care Team ([facility] st Contact Info) Description 03/16/2025 Orders Only [facility] MEDICINE [address] [place] [address] Zuleika London NP [address] [place] [address] Type 2 diabetes mellitus with other specified complication, without long-term current use of insulin ([facility]) (Primary Dx) Social History Tobacco Use Types [...] 10:15 AM EST Clinical Support [facility] MEDICINE [address] [place] [address] 05/12/2025 3:15 PM EST Office Visit [facility] OPTOMETRY [address] [place] [address] Fina Barros OD [address] [place] [address] documented as of this encounter Visit Diagnoses Diagnosis Type 2 diabetes mellitus with other specified complication, without long-term current use of insulin (HCC)- Primary documented in this encounter Additional Health Concerns Assessment Noted Time PHQ-9 Depression Total Score: 16 025 12:52 PM EDT documented as of this encounter Care Teams Switchboard Clerk Relationship Specialty Start Date End Date Zuleika London NP [address] [place] [address] PCP - General Family Medicine 04/10/23 documented as of this encounter
[2025-05-08 18:40] LABS: Anion Gap 11 (12-20); Blood Urea Nitrogen 16 mg/dL (9-16); Calcium 9.7 mg/dL (8.4-10.2); Carbon Dioxide 28 mmol/L (22-29); Chloride 106 mmol/L (96-108); Estimated Glomerular Filt Rate > 60; Potassium 4.0 mmol/L (3.3-5.1); Sodium 141 mmol/L (135-145)
[2025-05-08 19:14] LABS: Free T4 (Free Thyroxine) 1.01 ng/dL (0.71-1.85)
== END 2025-05-08 15:50 | disposition home or self-care (01) ==
LOC: HO.HHCL 15:49
PROVIDERS: PCP Nurse Practitioner; Visit Provider Nurse Practitioner
DX: E11.69 Type 2 diabetes mellitus with other specified complication (principal); E03.9 Hypothyroidism, unspecified
CPT/HCPCS: 36415; 80048; 84439; 84443